=== PATIENT | male | born 1965 | race Hispanic/Latino ===

== ENCOUNTER 2019-10-11 07:01 | Inpatient (IN) | payer BC ==
[2019-10-10 10:33] LABS: BASOPHILS # (AUTO) 0.1 (0.0-0.1); BASOPHILS % 0.9 % (0.0-1.0); EOSINOPHILS # (AUTO) 0.2 (0.0-0.4); EOSINOPHILS % 1.9 % (0.0-6.0); HEMATOCRIT 32.1 % (38.2-49.6); HEMOGLOBIN 9.9 g/dL (14.0-18.0); LYMPHOCYTES # (AUTO) 1.5 (1.0-3.2); LYMPHOCYTES % 16.4 % (18.0-39.1); MEAN CORPUSCULAR HEMOGLOBIN 25.6 pg (28-32); MEAN CORPUSCULAR HGB CONC 30.8 g/dL (31-35); MEAN CORPUSCULAR VOLUME 82.9 fL (81-99); MONOCYTES # (AUTO) 0.9 (0.2-0.8); MONOCYTES % 9.8 % (4.4-11.3); NEUTROPHILS # (AUTO) 6.5 (2.1-6.9); NEUTROPHILS % 70.6 % (38.7-80.0); PLATELET COUNT 278 x10e3/uL (140-360); RED BLOOD COUNT 3.87 x10e6/uL (4.3-5.7); RED CELL DISTRIBUTION WIDTH 18.6 % (11.7-14.4)
[2019-10-10 10:50] LABS: ANION GAP 13.4 mmol/L (8-16); BLOOD UREA NITROGEN 16 mg/dL (7-26); BUN/CREATININE RATIO 19 (6-25); CALCIUM 9.7 mg/dL (8.4-10.2); CARBON DIOXIDE 28 mmol/L (22-29); CHLORIDE 102 mmol/L (98-107); CREATININE, SERUM 0.83 mg/dL (0.72-1.25); EST GLOMERULAR FILTRATION RATE > 60 ML/MIN (60-); GLUCOSE 104 mg/dL (74-118); POTASSIUM 4.4 mmol/L (3.5-5.1); SODIUM 139 mmol/L (136-145)
[~2019-10-11] VITALS: Ht 170.2 cm; Wt 81.2 kg
[~2019-10-11 07:01] MED LIST: AMLODIPINE BESYL5 MG PO; GABAPENTIN600 MG PO; LISINOPRIL HCTZ PO; METFORMIN HCL850 MG PO; ULTRAM 50MG50 MG PO
--- OUTSIDE RECORDS SUMMARY | 2019-10-11 07:07 | XMS REPORT | Summary of Care ---
Author Author [facility] - Health Organization [facility] - Health Address Unknown Phone Unavailable Care Team Providers Care Administrative Assistant Office Manager Name Role Phone Pcp, Patient Does Not Have A PCP Reason for Referral * (EMILIA) Referred By Contact Referred To Contact Status Reason Specialty Diagnoses / Procedures Radha Sloan MD [address] [place] [address] [address] [facility] [address] [facility] [address] [place] [address] Authorized IM-GASTROENTEROL Diagnoses OGY / Diarrhea, Gastroenterology unspecified type P rocedures CONSULT/REFERRAL GASTROENTEROLOGY Reason for Visit * Reason Comments Nausea Abdominal Pain Encounter Details Care Team Description Date Type Department Radha Sloan MD [address] [place] [address] Type 2 diabetes mellitus with diabetic polyneuropathy, without long-term current use of insulin (Primary Dx); Benign hypertension; Hyperlipidemia, unspecified hyperlipidemia type; Diarrhea, unspecified type; Dizziness 02/25/2019 Office Visit [facility] [address] [place] [address] Allergies No Known Allergiesdocumented as of this encounter (statuses as of 02/25/2019) Medications End Date Status Medication Sig Dispensed Refills Start Date Active pravastatin (PRAVACHOL) Take 1 Tab by 30 Tab 11 40 mg tabletIndications: mouth at 1 Diabetes mellitus bedtime. Active amLODIPine (NORVASC) 5 mg Take 1 Tab by 90 Tab 2 tabletIndications: mouth daily. 2 Diabetes mellitus type 2, uncontrolled Active Lancets (UNILET LANCET) 100 Each 2 Misc 2 Active lisinopril TAKE 1 TABLET 30 Tab 0 (PRINIVIL,ZESTRIL) 40 mg BY MOUTH 2 tablet EVERY DAY Active metFORMIN 1,000 mg tablet Take 1,000 mg 0 by mouth 2 (two) times daily with meals. Active gabapentin 400 mg capsule Take 400 mg 0 by mouth 2 (two) times daily. 02/25/2019 Discontinued insulin glargine (LANTUS) inject under 1 Vial 3 100 unit/mL the skin. 1 injectionIndications: Take 30 units Diabetes type 2, nightly uncontrolled 02/25/2019 Discontinued fexofenadine (JULIO) Take 1 Tab by 30 Tab 11 180 mg tablet mouth daily. 1 02/25/2019 Discontinued aspirin (ASPIR-LOW) 81 mg Take 81 mg by 0 EC tablet mouth daily. 02/25/2019 Discontinued insulin glargine (LANTUS) inject under 2 Vial 3 100 unit/mL injection the skin at 2 bedtime. 34 units daily 02/25/2019 Discontinued Insulin Sidney, 100 Each 3 Disposable, (BD INSULIN 2 PEN NEEDLE UF) 31 X 5/16 " Ndle 02/25/2019 Discontinued insulin aspart RAPID Inject 14 1 Vial 3 (NOVOLOG) 100 unit/mL units qac 2 injectionIndications: Diabetes type 2, uncontrolled 02/25/2019 Discontinued gabapentin 100 mg capsule Take 100 mg 0 by mouth 3 (three) times daily. documented as of this encounter (statuses as of 02/25/2019) Active Problems Not on filedocumented as of this encounter (statuses as of 02/25/2019) Immunizations Name Administration Dates Next Due Influenza Virus Vaccine 06/27/2011 documented as of this encounter Social History Date Tobacco Use Types Packs/Day Years Used Former Smoker Smokeless Tobacco: Never Used Drinks/Week oz/Week Comments Alcohol Use beer Not Currently Sex Assigned at Date Recorded Not on file Industry Job Start Date Occupation Not on file Not on file Not on file Travel End Travel History Travel Start No recent travel history available. documented as of this encounter Last Filed Vital Signs Reading Time Taken Comments Vital Sign 106/70 02/25/2019 1:49 PM CDT Blood Pressure 102 02/25/2019 1:55 PM CDT Pulse 36.4 C (97.6 F) 02/25/2019 1:49 PM CDT Temperature 18 02/25/2019 1:49 PM CDT Respiratory Rate - - Oxygen Saturation - - Inhaled Oxygen Concentration 75.7 kg (166 lb 14.4 oz) 02/25/2019 1:49 PM CDT Weight 170.2 cm (5' 7") 02/25/2019 1:49 PM CDT Height 26.14 02/25/2019 1:49 PM CDT Body Mass Index documented in this encounter Patient Instructions * Patient Instructions* Radha Sloan MD - 02/25/2019 2:00 PM CDT If you have not received your lab or test results in one week, please call our o ffice. If you have activated your [employer] account, the results can be released t o you as well. documented in this encounter Progress Notes * Radha Sloan MD - 02/25/2019 2:00 PM CDT chief complaint Lorenzo Nicole Jr. is a 53 year old male here to establish care and has nausea and dizziness. HPI Pt. Has diabetes and hypertension. He has not been feeling well for over a year. The past year, he has had lower ab dominal pain, with diarrhea, sometimes just water, sometimes bile material, some times blood in stool, sometimes solid. It is cramping pain, but constant ache as well. He has lost weight over the year. On 01/19/2019, patient was feeling very dizzy and nauseous. He went to [facility] and he had low blood glucose. Per patient it was in the 30s-no records from the ER at this visit. He was told he w as very anemic. They wanted to admit him but patient left. He still feels dizzy and nauseous with standing and walking. Sometimes nausea so bad, he vomits. He i s checking blood glucose and ranges from 60-130. He has been diabetic for many y ears. He is on metformin 1000 mg bid and another medication, he does not recall and have the list here though. He stopped the second medication after the hypogl ycemia episode. He states that he has been checking blood glucose daily and it i s 60-130. He has not had syncope or seizures. He has diabetic neuropathy for whi ch he is on gabapentin twice a day. He has been behind on yearly eye exams. He has noticed some dyspnea since this d izziness started. He has not been able to eat much with the nausea. Last prostate check:never colonoscopy:never last tetanus:unsure Past Medical History: Diagnosis Date Diabetes mellitus HLD (hyperlipidemia) HTN (hypertension) Current Outpatient Medications Medication Sig gabapentin 400 mg capsule Take 400 mg by mouth 2 (two) times daily. metFORMIN 1,000 mg tablet Take 1,000 mg by mouth 2 (two) times daily with me als. lisinopril (PRINIVIL,ZESTRIL) 40 mg tablet TAKE 1 TABLET BY MOUTH EVERY DAY amLODIPine (NORVASC) 5 mg tablet Take 1 Tab by mouth daily. Lancets (UNILET LANCET) Misc pravastatin (PRAVACHOL) 40 mg tablet Take 1 Tab by mouth at bedtime. one diabetes medication is not on here. History reviewed. No pertinent surgical history. Family History Problem Relation Age of Onset Diabetes Mother Coronary Heart Disease Father Social History Tobacco Use Smoking status: Former Smoker Smokeless tobacco: Never Used Substance Use Topics Alcohol use: Not Currently Comment: beer Drug use: No Review of Systems: General: denies fever, chills, HEENT: denies headache,blurry vision, ear pain, sinus/nasal congestion, sore throat CV: denies chest pain, hx of angina Respiratory:denies cough, hemoptysis, PND, orthopnea GI: denies constipation, melena : denies dysuria, urinary frequency, urinary urgency, Musculoskeletal: denies arthralgias, myalgias, back pain Psych: denies depression, anxiety, suicidial ideation Neuro: denies weakness, dizziness, and seizures Skin: denies rash, hair changes, acne, Pe: BP 106/70 (BP Location: Left arm, Patient Position: Sitting, BP CUFF SIZE: Adult Medium) | Pulse 102 | Temp 36.4 C (97.6 F) (Oral) | Resp 18 | Ht 5' 7" (1.702 m) | Wt 166 lb 14.4 oz (75.7 kg) | BMI 26.14 kg/m General: NAD, A&0 X3 HEENT: PERRLA, EOMI OP: no erythema, no tonsillar exudate, no lesions NECK: no jvd,wilman, bruit CV: RR, s1/s2, w/o m/r/g LUNGS: CTA bilaterally, no wheezes/rales/crackles ABD: soft, NT/ND, +bs in all 4 quadrants, no HSM EXT: no c/c/e Assessment and Plan: Type 2 diabetes mellitus with diabetic polyneuropathy, without long-term current use of insulin (primary encounter diagnosis) Comment: does not appear to be controlled. But had recent hypoglycemia. I need h is complete medication list to determine if he needs to be on the second diabete s medication or not. The hypoglycemia could be causing his symptoms but so could other factors: anemia Plan: COMP. METABOLIC PANEL (14959), GLYCOSYLATED HEMOGLOBIN (A1C), MICROALBUMIN URINE Benign hypertension Comment: controlled Plan: c/w meds Hyperlipidemia, unspecified hyperlipidemia type Comment: not taking pravastatin regularly. Plan: THYROID STIMULATING HORMONE, LIPID PANEL (45573)(TOTAL CHOLESTEROL, TRIGLYCERIDES, HDL) Diarrhea, unspecified type Comment: do not suspect metformin related. I am concerned about the reported ane [place] from the er and they wanted to admit him. I explained if the cbc today shows significant anemia. He needs to go to the er Plan: CONSULT/REFERRAL GASTROENTEROLOGY Dizziness Comment: likely hypoglycemia but more likely newly diagnosed anemia. Plan as abo ve Plan: CBC WITH DIFF, CBC WITH DIFFERENTIAL Plan of care, desired health behaviors, goals and medications discussed with valente taylor and educational resources and self-management tools provided. Patient/famil y/guardian voices understanding. Barriers to care: none Ability to manage care: good 25 of 45 minutes spent with pt. discussing plan of care with pt. and pt. voices understanding of plan of care as above Explained side effects of medicine and to inform if any side effects have occurr ed. Explained to pt. if sx worsen to return to clinic. If warning signs or sx develop, pt. told to go to er. F/u in 3 months or earlier if needed Radha Sloan MD 02/25/2019 4:48 PM documented in this encounter Plan of Treatment Care Team Description Date Type Specialty Kaiser Shirley MD [address] [place] [address]. [place] [phone] 03/03/2019 Office Visit Gastroenterology Gissell Anaya MD [address] [place] [phone] 05/05/2019 Office Visit Internal Medicine Radha Sloan MD [address] [place] [address] 05/27/2019 Office Visit Internal Medicine Date/Time Name Type Priority Associated Diagnoses 02/25/2019 2:45 PM CDT COMP. METABOLIC PANEL LAB Routine Type 2 diabetes mellitus (86826) with diabetic polyneuropathy, without long-term current use of insulin 02/25/2019 2:45 PM CDT CBC WITH DIFF LAB Routine Dizziness 02/25/2019 2:45 PM CDT THYROID STIMULATING LAB Routine Hyperlipidemia, HORMONE unspecified hyperlipidemia type 02/25/2019 2:45 PM CDT LIPID PANEL (66611)(TOTAL LAB Routine Hyperlipidemia, CHOLESTEROL, unspecified TRIGLYCERIDES, HDL) hyperlipidemia type 02/25/2019 2:45 PM CDT GLYCOSYLATED HEMOGLOBIN LAB Routine Type 2 diabetes mellitus (A1C) with diabetic polyneuropathy, without long-term current use of insulin 02/25/2019 2:49 PM CDT MICROALBUMIN URINE LAB Routine Type 2 diabetes mellitus with diabetic polyneuropathy, without long-term current use of insulin 02/25/2019 2:45 PM CDT CBC WITH DIFFERENTIAL LAB Routine Dizziness Health Maintenance Due Date Last Done Comments HEPATITIS C (HCV) SCREEN 1965 DTaP,Tdap,and Td Vaccines 11/06/1982 (1 - Tdap) COLONOSCOPY 11/06/2013 Zoster Recombinant 11/06/2013 Vaccine (SHINGRIX) (1 of 2) LUNG CANCER SCREEN: 11/06/2018 Recommended for age 55-80 with 30 + pack year history INFLUENZA VACCINE 03/20/2019 06/27/2011 PNEUMOCOCCAL 0-64 YEARS Aged Out No longer eligible based COMBINED SERIES on patient's age to complete this topic documented as of this encounter Results Not on filedocumented in this encounter Visit Diagnoses Diagnosis Type 2 diabetes mellitus with diabetic polyneuropathy, without long-term current use of insulin - Primary Benign hypertension Essential hypertension, benign Hyperlipidemia, unspecified hyperlipidemia type Diarrhea, unspecified type Dizziness Dizziness and giddiness documented in this encounter Insurance Type Payer Benefit Subscriber ID Effective Phone Address Plan / Dates Group PPO/POS BCBS OF [facility] BCBS OF [id number] 2019-P EMPLOYEE [facility] [employer] [place] ([place] [address] documented as of this encounter
--- OUTSIDE RECORDS SUMMARY | 2019-10-11 07:07 | XMS REPORT | Summary of Care ---
Author Author [facility] - Health Organization [facility] - Health Address Unknown Phone Unavailable Care Team Providers Care Surgical Assistant Certified Name Role Phone Pcp, Patient Does Not Have A PCP Reason for Visit * Reason Comments Notification Encounter Details Care Team Description Date Type Department Radha Sloan MD [address] [place] [address] Notification 02/25/2019 Telephone [facility] [phone] Allergies No Known Allergiesdocumented as of this encounter (statuses as of 02/28/2019) Medications End Date Status Medication Sig Dispensed [...] 0 by mouth 2 (two) times daily. Active glimepiride 4 mg tablet Take 1 tablet 0 by mouth 9 daily with breakfast. documented as of this encounter (statuses as of 02/28/2019) Active Problems Not on filedocumented as of this encounter (statuses as of 02/28/2019) Immunizations Name Administration Dates Next Due Influenza [...] of this encounter Last Filed Vital Signs Not on filedocumented in this encounter Plan of Treatment Care Team Description Date Type Specialty Kaiser Shirley MD [address] [place] [address]. [place] [address] 03/03/2019 Office Visit Gastroenterology Gissell Anaya MD [address] [place] [phone] 05/05/2019 Office Visit Internal Medicine Radha Sloan MD [address] [place] [address] 05/27/2019 Office Visit Internal Medicine Health Maintenance Due Date Last Done Comments HEPATITIS C (HCV) SCREEN 1965 PNEUMOCOCCAL 0-64 YEARS 11/06/1969 COMBINED SERIES (1 of 1 - PPSV23) EYE EXAM 11/06/1973 FOOT EXAM 11/06/1981 DTaP,Tdap,and Td Vaccines 11/06/1982 (1 - Tdap) COLONOSCOPY 11/06/2013 Zoster Recombinant 11/06/2013 Vaccine (SHINGRIX) (1 of 2) LUNG CANCER SCREEN: 11/06/2018 Recommended for age 55-80 with 30 + pack year history INFLUENZA VACCINE 03/20/2019 06/27/2011 HgA1C 08/28/2019 02/25/2019, 10/15/2011 CREATININE (SERUM) 02/26/2020 02/25/2019, 07/25/2011 LDL-C 02/26/2020 02/25/2019 URINE MICROALBUMIN 02/26/2020 02/25/2019 documented as of this encounter Results Not on filedocumented in this encounter Insurance Type Payer Benefit Subscriber ID Effective Phone Address Plan / Dates Group PPO/POS [facility] BCBS OF [id number] 2019-P EMPLOYEE [facility] [employer] [facility] [employer]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
--- OUTSIDE RECORDS SUMMARY | 2019-10-11 07:07 | XMS REPORT | Summary of Care ---
Author Author [facility] - Health Organization [facility] - Health Address Unknown Phone Unavailable Care Team Providers Care It Operations Manager Name Role Phone Pcp, Patient Does Not Have A PCP Reason for Visit * Reason Comments Notification Encounter Details Care Team Description Date Type Department Radha Sloan MD [address] [place] [address] Notification 02/25/2019 Telephone [facility] [phone] Allergies No Known Allergiesdocumented as [...] Description Date Type Specialty Kaiser Shirley MD [address] [place] [address]. [place] [phone] 03/03/2019 Office Visit Gastroenterology Gissell Anaya MD [address] [place] [phone] 05/05/2019 Office Visit Internal Medicine Radha Sloan MD [address] [place] [address] 05/27/2019 Office Visit Internal Medicine Health Maintenance Due Date Last Done Comments HEPATITIS C (HCV) SCREEN 1965 PNEUMOCOCCAL 0-64 YEARS 11/06/1969 COMBINED SERIES (1 of 1 - PPSV23) EYE EXAM 11/06/1973 LDL-C 11/06/1973 URINE MICROALBUMIN 11/06/1973 FOOT EXAM 11/06/1981 DTaP,Tdap,and Td Vaccines 11/06/1982 (1 - Tdap) HgA1C 04/16/2012 10/15/2011 CREATININE (SERUM) 07/25/2012 07/25/2011 COLONOSCOPY 11/06/2013 Zoster Recombinant 11/06/2013 Vaccine (SHINGRIX) (1 of 2) LUNG CANCER SCREEN: 11/06/2018 Recommended for age 55-80 with 30 + pack year history INFLUENZA VACCINE 03/20/2019 06/27/2011 documented as of this encounter Results Not on filedocumented in this encounter Insurance Type Payer Benefit Subscriber ID Effective Phone Address Plan / Dates Group PPO/POS [facility] OF [id number] 2019-P 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
--- OUTSIDE RECORDS SUMMARY | 2019-10-11 07:07 | XMS REPORT | Summary of Care ---
Author Author [facility] - Health Organization [facility] - Health Address Unknown Phone Unavailable Care Team Providers Care Supervisor Assembly And Packing Name Role Phone Pcp, Patient Does Not Have A PCP Reason for Visit * Reason Comments Notification Encounter Details Care Team Description Date Type Department Radha Sloan MD [address] [place] [address] Notification 02/25/2019 Telephone [facility] Care[address] [phone] Allergies No Known Allergiesdocumented as [...] Description Date Type Specialty Kaiser Shirley MD [address] [place] [address]. [place] [phone] 03/03/2019 Office Visit Gastroenterology Gissell Anaya MD [address] [place] [phone] 05/05/2019 Office Visit Internal Medicine Radha Sloan MD [address] [place] [address] 05/27/2019 Office Visit Internal Medicine Health [...] Phone Address Plan / Dates Group PPO/POS [facility] OF [id number] 2019-P EMPLOY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
--- OUTSIDE RECORDS SUMMARY | 2019-10-11 07:07 | XMS REPORT | Summary of Care ---
Author Author [facility] - Health Organization [facility] - Health Address Unknown Phone Unavailable Care Team Providers Care Telesales Professional Name Role Phone Pcp, Patient Does Not Have A PCP Reason for Referral * (EMILIA) Referred By Contact Referred To Contact Status Reason Specialty Diagnoses / Procedures Radha Sloan MD [address] [place] [address] [facility] [address] [facility] [address] [place] [address] Authorized IM-GASTROENTEROL Diagnoses OGY / Diarrhea, Gastroenterology unspecified type P rocedures CONSULT/REFERRAL GASTROENTEROLOGY Reason for Visit * Reason Comments Nausea Abdominal Pain Encounter Details Care Team Description Date Type Department Radha Sloan MD [address] [place] [address] Type 2 diabetes mellitus with diabetic polyneuropathy, without long-term current use of insulin (Primary Dx); Benign hypertension; Hyperlipidemia, unspecified hyperlipidemia type; Diarrhea, unspecified type; Dizziness 02/25/2019 Office Visit [facility] [address] [place] [address] Allergies No Known Allergiesdocumented as [...] bedtime. 34 units daily 02/25/2019 Discontinued Insulin Buckley, 100 Each 3 Disposable, (BD INSULIN 2 [...] o ffice. If you have activated your [employer] account, the results can be released t [...] very dizzy and nauseous. He went to [facility] and he had low blood glucose. [...] other factors: anemia Plan: COMP. METABOLIC PANEL (74098), GLYCOSYLATED HEMOGLOBIN (A1C), MICROALBUMIN URINE Benign hypertension Comment: controlled Plan: c/w meds Hyperlipidemia, unspecified hyperlipidemia type Comment: not taking pravastatin regularly. Plan: THYROID STIMULATING HORMONE, LIPID PANEL (87817)(TOTAL CHOLESTEROL, TRIGLYCERIDES, HDL) Diarrhea, unspecified type Comment: [...] Description Date Type Specialty Kaiser Shirley MD [address] [place] [address]. [place] [phone] 03/03/2019 Office Visit Gastroenterology Gissell Anaya MD [address] [place] [phone] 05/05/2019 Office Visit Internal Medicine Radha Sloan MD [address] [place] [address] 05/27/2019 Office Visit Internal Medicine Date/Time Name Type Priority Associated Diagnoses 02/25/2019 2:45 PM CDT COMP. METABOLIC PANEL LAB Routine Type 2 diabetes mellitus (00504) with diabetic polyneuropathy, without long-term current use of insulin 02/25/2019 2:45 PM CDT CBC WITH DIFF LAB Routine Dizziness 02/25/2019 2:45 PM CDT THYROID STIMULATING LAB Routine Hyperlipidemia, HORMONE unspecified hyperlipidemia type 02/25/2019 2:45 PM CDT LIPID PANEL (84103)(TOTAL LAB Routine Hyperlipidemia, CHOLESTEROL, unspecified TRIGLYCERIDES, HDL) [...] Plan / Dates Group PPO/POS BCBS OF [facility] BCBS OF [id number] 2019-P EMPLOYEE [facility] EM[place]EE [place] ([place] [address] documented as of this encounter
--- OUTSIDE RECORDS SUMMARY | 2019-10-11 07:07 | XMS REPORT | Summary of Care ---
Author Author [facility] - Health Organization [facility] - Health Address Unknown Phone Unavailable Care Team Providers Care Inventory Specialist Manager Name Role Phone Pcp, Patient Does Not Have A PCP Reason for Visit * Reason Comments Notification Encounter Details Care Team Description Date Type Department Radha Sloan MD [address] [place] [address] Notification 02/25/2019 Telephone [facility] Care[address] [phone] Allergies No Known Allergiesdocumented as [...] Description Date Type Specialty Kaiser Shirley MD [address] [place] [address]. [place] [phone] 03/03/2019 Office Visit Gastroenterology Gissell Anaya MD [address] [place] [phone] 05/05/2019 Office Visit Internal Medicine Radha Sloan MD [address] [place] [address] 05/27/2019 Office Visit Internal Medicine Health [...] Plan / Dates Group PPO/POS BCBS OF [facility] BCBS OF [id number] 2019-P EMPLOYEE [employer]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
--- OUTSIDE RECORDS SUMMARY | 2019-10-11 07:07 | XMS REPORT | Summary of Care ---
Author Author [facility] - Health Organization [facility] - Health Address Unknown Phone Unavailable Care Team Providers Care Machinist Automotive Name Role Phone Pcp, Patient Does Not Have A PCP Reason for Visit * Reason Comments Assessment Encounter Details Care Team Description Date Type Department Radha Sloan MD [address] [place] [address] Assessment 02/25/2019 Telephone [facility] Care[address] [phone] Allergies No Known Allergiesdocumented as [...] Description Date Type Specialty Kaiser Shirley MD [address] [place] [address]. [place] [address] 03/03/2019 Office Visit Gastroenterology Gissell Anaya MD [address] [place] [phone] 05/05/2019 Office Visit Internal Medicine Radha Sloan MD [address] [place] [address] 05/27/2019 Office Visit Internal Medicine Health [...] Plan / Dates Group PPO/POS BCBS OF [facility] BCBS OF [id number] 2019-P EMPLOYEE [employer]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
--- OUTSIDE RECORDS SUMMARY | 2019-10-11 07:08 | XMS REPORT | Summary of Care ---
Author Author [facility] - Health Organization [facility] - Health Address Unknown Phone Unavailable Care Team Providers Care Wrapper Sheeter Name Role Phone Pcp, Patient Does Not Have A PCP Reason for Visit * Reason Comments Diarrhea * (EMILIA) Referred By Contact Referred To Contact Status Reason Specialty Diagnoses / Procedures Radha Sloan MD [address] [place] [address] [facility] Gastroenter [address] [place] [address] Closed IM-GASTROENTEROL Diagnoses OGY / Diarrhea, Gastroenterology unspecified type P rocedures CONSULT/REFERRAL GASTROENTEROLOGY Encounter Details Care Team Description Date Type Department Maverick Lewis DO [address] [place] [address] [id number] [place], [place] [id number] Kaiser Shirley MD [address] [place] [phone] Iron deficiency anemia, unspecified iron deficiency anemia type (Primary Dx) 03/03/2019 Office Visit [facility] HEALTH GASTROENTEROLOGY -[facility] [address] [place] [address] [address] [place] [phone] Allergies No Known Allergiesdocumented as of this encounter (statuses as of 03/03/2019) Medications End Date Status Medication Sig Dispensed Refills Start Date Active amLODIPine (NORVASC) 5 mg Take 1 [...] 2 (two) times daily with meals. Active pravastatin 40 mg Take 1 tablet 90 tablet 1 tabletIndications: by mouth at 9 Diabetes mellitus bedtime. Active gabapentin 400 mg Take 1 60 capsule 3 capsuleIndications: Type capsule by 9 2 diabetes mellitus with mouth 2 (two) diabetic polyneuropathy, times daily. without long-term current use of insulin documented as of this encounter (statuses as of 03/03/2019) Active Problems Not on filedocumented as of this encounter (statuses as of 03/03/2019) Immunizations Name Administration Dates Next Due Influenza [...] Signs Reading Time Taken Comments Vital Sign 120/84 03/03/2019 3:39 PM CDT Blood Pressure 101 03/03/2019 3:39 PM CDT Pulse 36.6 C (97.9 F) 03/03/2019 3:39 PM CDT Temperature 16 03/03/2019 3:39 PM CDT Respiratory Rate 100% 03/03/2019 3:39 PM CDT Oxygen Saturation - - Inhaled Oxygen Concentration 78 kg (172 lb) 03/03/2019 3:39 PM CDT Weight 170.2 cm (5' 7") 03/03/2019 3:39 PM CDT Height 26.94 03/03/2019 3:39 PM CDT Body Mass Index documented in this encounter Progress Notes * Kaiser Shirley MD - 03/03/2019 4:00 PM CDT Department of Gastroenterology & Hepatology Clinic Note Reason for Consultation: Diarrhea CHIEF COMPLAINT: Diarrhea, light-headedness History of Present Illness Lorenzo Nicole Jr. is a 53 year old male with a PMH of HTN, HLD, DM II (A 1c 6.5 in 02/2019) who presents as referral from PCP for diarrhea. Patient c/o di arrhea x1 year, associated with bloody stools, has ~6-8 bowel movements daily, a lternate between large and small volume. 20 lb weight loss over the past 1 year. Also c/o nausea and vomiting, (+) orthostasis, blood pressure falls to 60's sys tolic per patient when going from laying to standing, has not experienced any fa lls; however, had several episodes where he almost fell. CBC last week with WBC of 22. No previous EGD or Colonoscopy. Also c/o LLQ abdominal pain present for t he past several months. PAST MEDICAL HISTORY Past Medical History: Diagnosis Date Diabetes mellitus HLD (hyperlipidemia) HTN (hypertension) PAST SURGICAL HISTORY No previous surgeries FAMILY HISTORY Family History Problem Relation Age of Onset Diabetes Mother Coronary Heart Disease Father ALLERGIES No Known Allergies MEDICATIONS Current Outpatient Medications Medication Sig Dispense Refill gabapentin 400 mg capsule Take 1 capsule by mouth 2 (two) times daily. 60 ca psule 3 pravastatin 40 mg tablet Take 1 tablet by mouth at bedtime. 90 tablet 1 metFORMIN 1,000 mg tablet Take 1,000 mg by mouth 2 (two) times daily with me als. lisinopril (PRINIVIL,ZESTRIL) 40 mg tablet TAKE 1 TABLET BY MOUTH EVERY DAY 30 Tab 0 amLODIPine (NORVASC) 5 mg tablet Take 1 Tab by mouth daily. 90 Tab 2 Lancets (UNILET LANCET) Misc 100 Each 2 No current facility-administered medications for this visit. 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 Social Needs Financial resource strain: Not on file Food insecurity: Worry: Not on file Inability: Not on file Transportation needs: Medical: Not on file Non-medical: Not on file Tobacco Use Smoking status: Former Smoker Smokeless tobacco: Never Used Substance and Sexual Activity Alcohol use: Not Currently Comment: beer Drug use: No Sexual activity: Yes Partners: Female Lifestyle Physical activity: Days per week: Not on file Minutes per session: Not on file Stress: Not on file Relationships Social connections: Talks on phone: Not on file Gets together: Not on file Attends voodoo service: Not on file Active member of club or organization: Not on file Attends meetings of clubs or organizations: Not on file Relationship status: Not on file Intimate partner violence: Fear of current or ex partner: Not on file Emotionally abused: Not on file Physically abused: Not on file Forced sexual activity: Not on file Other Topics Concern Not on file Social History Narrative Not on file ROS: General: (-) fever, (-) chills, (+) weight loss HEENT: (-) headache, (-) nasal discharge, (-) sore throat Heme: (-) bleeding disorder Resp: (-) cough, (-) shortness of breath Cardio: (-) chest pain, (-) palpitations GI: (+) abdominal pain, (-) hematemesis, (-) melena, (-) hematochezia, (+) nause a, (+) vomiting, (+) diarrhea : (-) dysuria, (-) hematuria Endo: (-) polyuria (-) polydipsia Neuro: (-) numbness, (-) tingling SARAH: (-) muscle pain, (-) joint pain PE: BP 120/84 | Pulse 101 | Temp 36.6 C (97.9 F) (Oral) | Resp 16 | Ht 5' 7" (1.702 m) | Wt 172 lb (78 kg) | SpO2 100% | BMI 26.94 kg/m General appearance: No acute distress, conversant Eyes: anicteric sclerae, moist conjunctivae Lungs: CTAB, with normal respiratory effort and no intercostal retractions CV: Tachycardic rate, regular rhythm, no murmurs, rubs, gallops; no edema GI: Soft, non-tender; no masses, non-distended MSK: No clubbing or cyanosis Skin: anicteric, no rashes Psych: Appropriate affect, alert and oriented to person, place and time LABORATORY HGB (g/dL) Date Value 02/25/2019 8.5 (L) PLT (10*3/L) Date Value 02/25/2019 751 (H) Hepatic Function Panel ALBUMIN Date Value 02/25/2019 3.3 g/dL (L) 07/25/2011 4.6 G/DL T PROTEIN Date Value 02/25/2019 6.7 g/dL 07/25/2011 8.9 G/DL (H) TOTAL BILI Date Value 02/25/2019 0.3 mg/dL 07/25/2011 0.9 MG/DL No results found for: BILIUNCON No results found for: BILICONJ ALT(SGPT) (U/L) Date Value 02/25/2019 16 07/25/2011 266 (H) AST(SGOT) (U/L) Date Value 02/25/2019 20 07/25/2011 219 (H) ALK PHOS (U/L) Date Value 02/25/2019 103 07/25/2011 160 (H) BMP NA Date Value 02/25/2019 133 mmol/L (L) 07/25/2011 136 MMOL/L K Date Value 02/25/2019 4.5 mmol/L 07/25/2011 4.4 MMOL/L CALCIUM Date Value 02/25/2019 9.3 mg/dL 07/25/2011 9.8 MG/DL CL Date Value 02/25/2019 99 mmol/L 07/25/2011 98 MMOL/L BUN Date Value 02/25/2019 21 mg/dL 07/25/2011 9 MG/DL CREATININE Date Value 02/25/2019 1.26 mg/dL (H) 07/25/2011 0.57 MG/DL (L) GLUCOSE Date Value 02/25/2019 107 mg/dL 07/25/2011 299 MG/DL (H) CO2 TOTAL Date Value 02/25/2019 20 mmol/L (L) 07/25/2011 24 MMOL/L ASSESSMENT and PLAN 53 year old male with a PMH of HTN, HLD, DM II (A1c 6.5 in 02/2019) who presents as referral from PCP for diarrhea. Found to have a microcytic anemia, o rthostatic symptoms. 1. Microcytic Anemia - Likely due to iron deficiency, concern is for malignancy currently - Given symptoms of orthostasis with systolic blood pressures in the 60's with s tanding at home, will admit patient for IV fluid resuscitation +/- blood transfu yen - Check Iron panel (ferritin, TIBC, iron, transferrin) - Check CBC, transfuse to maintain Hgb > 7 - Administer split dose Golytely bowel prep tonight (2L tonight and 2L tomorrow AM) - EGD and Colonoscopy tomorrow 2. Diarrhea - Need to rule out malignancy as to etiology of change in bowel habits - Please collect stool studies (C. Diff, O&P, culture, WBC) Discussed case with Dr. Jeong, who agreed to accept the patient Kaiser Shirley, PGY-6 Gastroenterology & Hepatology Pager: [phone] documented in this encounter Plan of Treatment Care Team Description Date Type [facility]ty [facility] [address] [place] [phone] 05/27/2019 Office Visit Internal Medicine Health [...] 30 + pack year history INFLUENZA VACCINE (#1) 2019 06/27/2011 HgA1C 08/28/2019 02/25/2019, 10/15/2011 CREATININE (SERUM) 02/26/2020 02/25/2019, 07/25/2011 LDL-C 02/26/2020 02/25/2019 URINE MICROALBUMIN 02/26/2020 02/25/2019 documented as of this encounter Results Not on filedocumented in this encounter Visit Diagnoses Diagnosis Iron deficiency anemia, unspecified iron deficiency anemia type - Primary documented in this encounter Insurance Type Payer Benefit Subscriber ID Effective Phone Address Plan / Dates Group PPO/POS BCBS OF [facility] BCBS OF [id number] 2019-P EMPLOYEE [place] resent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
--- OUTSIDE RECORDS SUMMARY | 2019-10-11 07:08 | XMS REPORT | Summary of Care ---
Author Author [facility] - Health Organization [facility] - Health Address Unknown Phone Unavailable Care Team Providers Care Top Knitter Name Role Phone Pcp, Patient Does Not Have A PCP Reason for Visit * Reason Comments Assessment Encounter Details Care Team Description Date Type Department Radha Sloan MD [address] [place] [address] Assessment 02/25/2019 Telephone [facility] [phone] Allergies No Known Allergiesdocumented as [...] Treatment Care Team Description Date Type Specialty aKiser Shirley MD [address] [place] [address]. [place] [phone] 03/03/2019 Office Visit Gastroenterology Gissell Anaya MD [address] [place] [phone] 05/05/2019 Office Visit Internal Medicine Radha Sloan MD [address] [place] [address] 05/27/2019 Office Visit Internal Medicine Health [...] Plan / Dates Group PPO/POS BCBS OF [facility] BCBS OF [id number] 2019-P EMPLOYEE [facility] [employer]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
--- OUTSIDE RECORDS SUMMARY | 2019-10-11 07:08 | XMS REPORT | Summary of Care ---
Author Author [facility] [[email or web address] - Health Organization [facility] [[email or web address] - Health Address Unknown Phone Unavailable Care Team Providers Care Chemical Instrumentation Officer Name Role Phone Pcp, Patient Does Not Have A PCP Reason for Visit * Reason Comments Diarrhea * (EMILIA) Referred By Contact Referred To Contact Status Reason Specialty Diagnoses / Procedures Radha Sloan MD [address] [place] [address] [facility] Gastroenter [address] [place] [address] Closed IM-GASTROENTEROL Diagnoses OGY / Diarrhea, Gastroenterology unspecified type P rocedures CONSULT/REFERRAL GASTROENTEROLOGY Encounter Details Care Team Description Date Type Department Maverick Lewis DO [address] [place] [address] [id number] [place], [place] [phone] Kaiser Shirley MD [address] [place] [phone] Iron deficiency anemia, unspecified iron deficiency anemia type (Primary Dx) 03/03/2019 Office Visit [facility] [[email or web address]] HEALTH GASTROENTEROLOGY -[facility] [address] [place] [address] [address] [place] [phone] Allergies No Known Allergiesdocumented as of this [...] level: Not on file 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 History 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 Social Needs Financial resource strain: Not on [...] file Gets together: Not on file Attends [employer] service: Not on file Active member of [...] Kaiser Shirley, PGY-6 Gastroenterology & Hepatology Pager: [phone] documented in this encounter Plan of Treatment Care Team Description Date [facility] [address] [place] [phone] 05/27/2019 Office Visit Internal Medicine Health [...] Plan / Dates Group PPO/POS BCBS OF [facility] BCBS OF [id number] 2019-P EMPLOYEE [place] resent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
--- OUTSIDE RECORDS SUMMARY | 2019-10-11 07:08 | XMS REPORT | Summary of Care ---
Author Author [facility] - Health Organization [facility] - Health Address Unknown Phone Unavailable Care Team Providers Care Information Security Systems Instructor Name Role Phone Pcp, Patient Does Not Have A PCP Reason for Referral * (EMILIA) Referred By Contact Referred To Contact Status Reason Specialty Diagnoses / Procedures Radha Sloan MD [address] [place] [address] [facility] [address] [facility] [address] [place] [address] Authorized IM-GASTROENTEROL Diagnoses OGY / Diarrhea, Gastroenterology unspecified type P rocedures CONSULT/REFERRAL GASTROENTEROLOGY Reason for Visit * Reason Comments Nausea Abdominal Pain Encounter Details Care Team Description Date Type Department Radha Sloan MD [address] [place] [phone] Type 2 diabetes mellitus with diabetic polyneuropathy, without long-term current use of insulin (Primary Dx); Benign hypertension; Hyperlipidemia, unspecified hyperlipidemia type; Diarrhea, unspecified type; Dizziness 02/25/2019 Office Visit [facility] [address] [place] [address] Allergies No Known Allergiesdocumented as of this encounter (statuses as of 03/01/2019) Medications End Date Status Medication Sig Dispensed [...] 30 units Diabetes type 2, nightly uncontrolled 03/01/2019 Discontinued pravastatin (PRAVACHOL) Take 1 Tab by 30 Tab 11 40 mg tabletIndications: mouth at 1 Diabetes mellitus bedtime. 02/25/2019 Discontinued fexofenadine (JULIO) Take 1 Tab by 30 Tab 11 180 mg tablet mouth daily. 1 02/25/2019 Discontinued aspirin (ASPIR-LOW) 81 mg Take 81 mg by 0 EC tablet mouth daily. 02/25/2019 Discontinued insulin glargine (LANTUS) inject under 2 Vial 3 100 unit/mL injection the skin at 2 bedtime. 34 units daily 02/25/2019 Discontinued Insulin Bernard, 100 Each 3 Disposable, (BD INSULIN 2 PEN NEEDLE UF) 31 X 5/16 " Ndle 02/25/2019 Discontinued insulin aspart RAPID Inject 14 1 Vial 3 (NOVOLOG) 100 unit/mL units qac 2 injectionIndications: Diabetes type 2, uncontrolled 02/25/2019 Discontinued gabapentin 100 mg capsule Take 100 mg 0 by mouth 3 (three) times daily. documented as of this encounter (statuses as of 03/01/2019) Active Problems Not on filedocumented as of this encounter (statuses as of 03/01/2019) Immunizations Name Administration Dates Next Due Influenza [...] o ffice. If you have activated your [employer] account, the results can be released t [...] very dizzy and nauseous. He went to [place] [facility] and he had low blood glucose. [...] other factors: anemia Plan: COMP. METABOLIC PANEL (36623), GLYCOSYLATED HEMOGLOBIN (A1C), MICROALBUMIN URINE Benign hypertension Comment: controlled Plan: c/w meds Hyperlipidemia, unspecified hyperlipidemia type Comment: not taking pravastatin regularly. Plan: THYROID STIMULATING HORMONE, LIPID PANEL (78650)(TOTAL CHOLESTEROL, TRIGLYCERIDES, HDL) Diarrhea, unspecified type Comment: [...] Treatment Care Team Description Date Type Specialty Radha Sloan MD [address], [place] [address] 03/03/2019 Office Visit Internal Medicine Kaiser Shirley MD [address] [place] [phone] 03/03/2019 Office Visit Gastroenterology Radha Sloan MD [address], [place] [phone] 05/27/2019 Office Visit Internal Medicine Health Maintenance [...] 02/26/2020 02/25/2019 documented as of this encounter Procedures Comments Procedure Name Priority Date/Time Associated Diagnosis MICROALBUMIN URINE Routine 02/25/2019 Type 2 diabetes mellitus 2:49 PM CDT with diabetic polyneuropathy, without long-term current use of insulin CBC WITH DIFFERENTIAL Routine 02/25/2019 Dizziness 2:45 PM CDT GLYCOSYLATED HEMOGLOBIN Routine 02/25/2019 Type 2 diabetes mellitus (A1C) 2:45 PM CDT with diabetic polyneuropathy, without long-term current use of insulin CBC WITH DIFF Routine 02/25/2019 Dizziness 2:45 PM CDT LIPID PANEL (74891)(TOTAL Routine 02/25/2019 Hyperlipidemia, CHOLESTEROL, 2:45 PM CDT unspecified TRIGLYCERIDES, HDL) hyperlipidemia type COMP. METABOLIC PANEL Routine 02/25/2019 Type 2 diabetes mellitus (83019) 2:45 PM CDT with diabetic polyneuropathy, without long-term current use of insulin THYROID STIMULATING Routine 02/25/2019 Hyperlipidemia, HORMONE 2:45 PM CDT unspecified hyperlipidemia type documented in this encounter Results * MICROALBUMIN URINE (02/25/2019 2:49 PM CDT) CREAT U 121.3 mg/dL [facility] MICROALB U 14 0 - 45 ug/mL [facility] MICROAL/CR 1,304 0-3,500 ug/mmol [facility] creatinine SERVICES Specimen Urine - URINE, CLEAN CATCH Performing Organization Address City/State/Zipcode Phone Number [facility] CLIA: [id number], [address] [place] [address] [facility] * CBC WITH DIFFERENTIAL (02/25/2019 2:45 PM CDT) WBC 21.73 (H) 4.20 - 10.70 [facility] 10*3/L SERVICES RBC 4.81 4.26 - 5.52 10*6/L [facility] HGB 8.5 (L) 12.2 - 16.4 g/dL [facility] HCT 32.2 (L) 38.4 - 49.3 % [facility] MCV 66.9 (L) 81.7 - 95.6 fL [facility] MCH 17.7 (L) 26.1 - 32.7 pg [facility] MCHC 26.4 (L) 31.2 - 35.0 g/dL [facility] RDW-SD 47.8 38.5 - 51.6 fL [facility] RDW-CV 20.6 (H) 12.1 - 15.4 % [facility] PLT 751 (H) 150 - 328 10*3/L [facility] MPV 10.0 9.8 - 13.0 fL [facility] NRBC/100 WBC 0.0 0.0 - 10.0 /100 WBCs [facility] NRBC x10^3 <0.01 10*3/L [facility] GRAN MAT (NEUT) 80.7 % [facility] % SERVICES IMM GRAN % 1.10 % [facility] LYMPH % 11.9 % [facility] MONO % 5.8 % [facility] EOS % 0.0 % [facility] BASO % 0.5 % [facility] GRAN MAT 17.53 (H) 1.99 - 6.95 10*3/uL [facility] x10^3(ANC) SERVICES IMM GRAN x10^3 0.24 (H) 0.00 - 0.06 10*3/uL [facility] LYMPH x10^3 2.58 1.09 - 3.23 10*3/uL [facility] MONO x10^3 1.27 (H) 0.36 - 1.02 10*3/uL [facility] EOS x10^3 <0.03 (L) 0.06 - 0.53 10*3/uL [facility] BASO x10^3 0.11 (H) 0.01 - 0.09 10*3/uL [facility] BELTRAN CELLS 2+ (A) (none) [facility] SCHISTOCYTES 1+ (A) [facility] Specimen Blood - ARM, RIGHT Performing Organization Address City/[facility]/Zipcode Phone Number [facility] CLIA: [id number], [address] [place], [place] [address] [facility] * GLYCOSYLATED HEMOGLOBIN (A1C) (02/25/2019 2:45 PM CDT) HGB A1C 6.5 (H) 4.0 - 6.0 % [facility] Specimen Blood - ARM, RIGHT Performing Organization Address City/State/Zipcode Phone Number [facility] CLIA: [id number], [address] [place] [address] [facility] * LIPID PANEL (66306)(TOTAL CHOLESTEROL, TRIGLYCERIDES, HDL) (02/25/2019 2:45 PM CDT) CHOL 212 (H) 120 - 200 mg/dL [facility] HDL 40 (L) >40 mg/dL [facility] HDLC RATIO 5.3 (H) <=5.0 [facility] TRIG 195 (H) 30 - 170 mg/dL [facility] LDL CHOL 133 <=160 mg/dL [facility] VLDL 39 5 - 60 mg/dL [facility] Specimen Blood - ARM, RIGHT Performing Organization Address City/[facility] Phone Number [facility] CLIA: [id number], [address] [place] [address] [facility] * THYROID STIMULATING HORMONE (02/25/2019 2:45 PM CDT) TSH 2.99 0.45 - 4.70 mIU/L [facility] Specimen Blood - ARM, RIGHT Performing Organization Address [facility] Phone Number [facility] CLIA: [id number], [address] [place] [address] [facility] * COMP. METABOLIC PANEL (65108) (02/25/2019 2:45 PM CDT) NA 133 (L) 135 - 145 mmol/L [facility] K 4.5 3.5 - 5.0 mmol/L [facility] CL 99 98 - 108 mmol/L [facility] CO2 TOTAL 20 (L) 23 - 31 mmol/L [facility] AGAP 14 2 - 16 [facility] BUN 21 7 - 23 mg/dL [facility] GLUCOSE 107 70 - 110 mg/dL [facility] CREATININE 1.26 (H) 0.60 - 1.25 mg/dL [facility] TOTAL BILI 0.3 0.1 - 1.1 mg/dL [facility] CALCIUM 9.3 8.6 - 10.6 mg/dL [facility] T PROTEIN 6.7 6.3 - 8.2 g/dL [facility] ALBUMIN 3.3 (L) 3.5 - 5.0 g/dL [facility] ALK PHOS 103 34 - 122 U/L [facility] ALT(SGPT) 16 9 - 51 U/L [facility] AST(SGOT) 20 13 - 40 U/L [facility] eGFR 59.4 mL/min/1.73m2 [facility] Calculation SERVICES (Non-) eGFR 72.0 mL/min/1.73m2 [facility] Calculation SERVICES () Specimen Blood - ARM, RIGHT Narrative Performed At Association of Glomerular Filtration Rate (GFR) and Staging of Kidney Disease* [facility] + + + + SERVICES | GFR (mL/min/1.73 m2)| With Kidney Damage|Without Kidney Damage + + + + |>90|Stage one| Normal + + + + |60-89|Stage two| Decreased GFR + + + + |30-59|Stage three| Stage three + + + + |15-29|Stage four | Stage four + + + + |<15 (or dialysis)|Stage five | Stage five + + + + *Each stage assumes the associated GFR level has been in effect for at least three months.Stages 1 to 5, with or without kidney disease, indicate chronic kidney disease. Notes: Determination of stages one and two (with eGFR >59mL/min/1.73 m2) requires estimation of kidney damage for at least three months as defined by structural or functional abnormalities of the kidney, manifested by either: Pathological abnormalities or Markers of kidney damage (including abnormalities in the composition of the blood or urine or abnormalities in imaging tests). Performing Organization Address City/State/Zipcode Phone Number [facility] CLIA: [id number], [address] [place], [place] [address] [facility] documented in this encounter Visit Diagnoses Diagnosis Type 2 diabetes mellitus with diabetic polyneuropathy, without long-term current use of insulin - Primary Benign hypertension Essential hypertension, benign Hyperlipidemia, unspecified hyperlipidemia type Diarrhea, unspecified type Dizziness Dizziness and giddiness documented in this encounter Insurance Type Payer Benefit Subscriber ID Effective Phone Address Plan / Dates Group PPO/[place] OF [place] [facility] BCBS OF [id number] 2019-P EMPLOYEE [employer]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
--- OUTSIDE RECORDS SUMMARY | 2019-10-11 07:08 | XMS REPORT | Summary of Care ---
Author Author [facility] - Health Organization [facility] - Health Address Unknown Phone Unavailable Care Team Providers Care Electromechanical Engineer Name Role Phone Pcp, Patient Does Not Have A PCP Reason for Visit * Reason Comments Assessment Encounter Details Care Team Description Date Type Department Radha Sloan MD [address] [place] [address] Assessment 02/25/2019 Telephone [facility] Pediatric & Adult Primary Care[address] [phone] Allergies No Known Allergiesdocumented as [...] Description Date Type Specialty Kaiser Shirley MD [address] [place] [address]. [place] [address] 03/03/2019 Office Visit Gastroenterology Gissell Anaya MD [address] [place] [phone] 05/05/2019 Office Visit Internal Medicine Radha Sloan MD [address] [place] [address] 05/27/2019 Office Visit Internal Medicine Health [...] Plan / Dates Group PPO/POS BCBS OF [facility] BCBS OF [id number] 2019-P EMPLOYEE [facility]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
--- OUTSIDE RECORDS SUMMARY | 2019-10-11 07:08 | XMS REPORT | Summary of Care ---
Author Author [facility] - Health Organization [facility] - Health Address Unknown Phone Unavailable Care Team Providers Care Material Checker Name Role Phone Pcp, Patient Does Not Have A PCP Encounter Details Care Team Description Date Type Department Doctor Unassigned, Level [place] [address] [place] [address] 02/19/2019 Orders Only [address] [address] Allergies No Known Allergiesdocumented as of this [...] mg BY MOUTH 2 tablet EVERY DAY documented as of this encounter (statuses as of 03/03/2019) Active Problems Not on filedocumented as of this encounter (statuses as of 03/03/2019) Immunizations Name Administration Dates Next Due Influenza Virus Vaccine 06/27/2011 documented as of this encounter Social History Date Tobacco Use Types Packs/Day Years Used Former Smoker Drinks/Week oz/Week Comments Alcohol Use beer Yes Sex Assigned at Date Recorded Not on file Industry Job Start Date Occupation Not on file Not on file Not on file Travel End Travel History Travel Start No recent travel history available. documented as of this encounter Last Filed Vital Signs Not on filedocumented in this encounter Plan of Treatment Care Team Description Date Type Specialty Kaiser Shirley MD [address] [place] [address]. [place] [address] [phone] 03/03/2019 [facility] [address] [place] [address] [phone] 05/27/2019 Office Visit Internal Medicine Health Maintenance [...] pack year history INFLUENZA VACCINE 03/20/2019 06/27/2011 (Retired version) HgA1C 08/28/2019 02/25/2019, 10/15/2011 CREATININE (SERUM) 02/26/2020 02/25/2019, 07/25/2011 LDL-C 02/26/2020 02/25/2019 URINE MICROALBUMIN 02/26/2020 02/25/2019 documented as of this encounter Procedures Comments Procedure Name Priority Date/Time Associated Diagnosis AUTHORIZATION FOR RELEASE Routine 02/19/2019 OF PHI 12:01 AM CDT documented in this encounter Results Not on filedocumented in this encounter Insurance Type Payer Benefit Subscriber ID Effective Phone Address Plan / Dates Group PPO/POS BCBS OF [facility] BCBS OF [id number] 2019-[place] [employer]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
--- OUTSIDE RECORDS SUMMARY | 2019-10-11 07:08 | XMS REPORT | Summary of Care ---
Author Author [facility] - Health Organization [facility] - Health Address Unknown Phone Unavailable Care Team Providers Care Cap Inspector Name Role Phone Pcp, Patient Does Not Have A PCP Reason for Visit * Reason Comments Results Encounter Details Care Team Description Date Type Department Radha Sloan MD [address] [place] [address] Results 02/28/2019 Telephone [facility] Pediatric & Adult Primary Care[address] [phone] Allergies No Known Allergiesdocumented as [...] by mouth 2 (two) times daily. Active pravastatin 40 mg Take 1 tablet 90 tablet 1 tabletIndications: by mouth at 9 Diabetes mellitus bedtime. 03/01/2019 Discontinued pravastatin (PRAVACHOL) Take 1 Tab by 30 Tab 11 40 mg tabletIndications: mouth at 1 Diabetes mellitus bedtime. documented as of this encounter (statuses as [...] Description Date Type Specialty Radha Sloan MD [address] [place] [phone] 03/03/2019 Office Visit Internal Medicine Kaiser Shirley MD [address] [place] [phone] 03/03/2019 Office Visit Gastroenterology Radha Sloan MD [address] [place] [phone] 05/27/2019 Office Visit Internal Medicine Health Maintenance [...] filedocumented in this encounter Visit Diagnoses Diagnosis Diabetes mellitus Type II or unspecified type diabetes mellitus without mention of complication, not stated as uncontrolled documented in this encounter Insurance Type Payer Benefit Subscriber ID Effective Phone Address Plan / Dates Group PPO/POS BCBS OF [facility] BCBS OF [id number] 2019-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
--- OUTSIDE RECORDS SUMMARY | 2019-10-11 07:08 | XMS REPORT | Summary of Care ---
Author Author [facility] - Health Organization [facility] - Health Address Unknown Phone Unavailable Care Team Providers Care Crab Steamer Name Role Phone Pcp, Patient Does Not Have A PCP Reason for Visit * Reason Comments Assessment lab results/stomach pain Encounter Details Care Team Description Date Type Department Radha Sloan MD [address] [place] [address] Assessment (lab results/stomach pain) 02/25/2019 [facility] [address] [place] [address] Allergies No Known Allergiesdocumented as [...] 0 by mouth 2 (two) times daily. 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
--- OUTSIDE RECORDS SUMMARY | 2019-10-11 07:08 | XMS REPORT | Summary of Care ---
Author Author [facility] - Health Organization [facility] - Health Address Unknown Phone Unavailable Care Team Providers Care Products Mechanical Design Engineer Name Role Phone Pcp, Patient Does Not Have A PCP Reason for Visit * Reason Comments Refill Request Encounter Details Care Team Description Date Type Department Radha Sloan MD [address] [place] [phone] Refill Request 03/01/2019 Refill [facility] Pediatric & Adult Primary Care[address] [phone] Allergies No Known Allergiesdocumented as of this [...] daily. without long-term current use of insulin 03/01/2019 Discontinued gabapentin 400 mg capsule Take 400 mg 0 by mouth 2 (two) times daily. documented as of this encounter [...] Description Date Type Specialty Radha Sloan MD [address] [place] [phone] 03/03/2019 Office Visit Internal Medicine Kaiser Shirley MD [address] [place] [phone] 03/03/2019 Office Visit Gastroenterology Radha Sloan MD [address] [place] [phone] 05/27/2019 Office Visit Internal Medicine Health Maintenance [...] long-term current use of insulin - Primary documented in this encounter Insurance Type Payer Benefit Subscriber ID Effective Phone Address Plan / Dates Group PPO/POS BCBS OF [facility] BCBS OF [id number] 2019-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
--- OUTSIDE RECORDS SUMMARY | 2019-10-11 07:09 | XMS REPORT ---
Author Author [facility] Address Unknown Phone Unavailable Care Team Providers Care Skimmer Name Role Phone Unavailable Unavailable Payers Payer Name Policy Type Policy Number Effective Date Expiration Date Problems This patient has no known problems. Allergies, Adverse Reactions, Alerts Allergy Name Allergy Type Status Severity Reaction(s) Onset Date Inactive Date Treating Clinician Comments No Known Allergies DA Active U 2019-01-19 00:00:00 Medications This patient has no known medications. Results Test Description Test Time Test Comments Text Results Atomic Results Result Comments - XR CHEST 1 V 2019-01-19 23:55:00 FAX: Mike Cee DO [phone] [place]: St: ADM Name: NIALL NOYOLA [facility] : 1965 Age/S: 53/M [address] [place] [address] Blvd Unit #: [id number] Loc: [place] [address] Phys: Mike Javed DO Acct: [id number] Dis Date: Status: ADM IN PHONE #: [phone] Exam Date: 01/19/2019 2346 FAX #: [phone] Reason: stroke EXAMS: CPT CODE: [id number] XR CHEST 1 V 56240 Study: - XR CHEST 1 V 01/19/2019 10:09 PM Patient Name: NIALL NOYOLA MR: [id number] : 1965; Age: 53 years y/o Male Ordering Physic cholo: Mike Javed DO Clinical Indication: stroke Comparison: None FINDINGS LUNGS: The lungs are clear of consolidation, pleural effusion, and pneumothorax. HEART AND MEDIASTINUM: Mildly enlarged heart. LINES: None. OSSEOUS STRUCTURES: No fracture, dislocation, or suspicious focal osseous lesion. OTHER: None. IMPRESSION: No acute abnormality as above discussed. SL: WR3-H at 1915 Reported and signed by: Abelino English M.D. CC: Mike Javed DO Technologist: RT Guero(R) Trnscrd Date/Time/By: 01/19/2019 (1233) : By: [email or web address] Orig Print D/T: S: 01/19/2019 (0173) PAGE 1 Signed Report - CT ANGIO NECK 2019-01-19 23:03:00 Name: NIALL NOYOLA [facility] : 1965 Age/S: 53 / M [address] [place] [address] Blvd Unit #: [id number] Loc: [place] [address] Phys: Mike Javed DO Acct: [id number] Dis Date: Status: REG ER PHONE #: [phone] Exam Date: 01/19/20192227 FAX #: [phone] Reason: RIGHT SIDED WEAKNESS EXAMS: CPT CODE: [id number] CT ANGIO NECK [address] CT BRAIN PERFUSION, CTA HEAD, CTA NECK INDICATION:Right-sided weakness. Code neuro.. TECHNIQUE: 100 mL Isovue-370 Iodinated intravenous contrast was administered. CT angiogram was performed of the head with axial, coronal and sagittal reconstructions. Maximum intensity projections and three-dimensional reconstructions were reviewed. CT angiogram of the neck was performed with axial, coronal and sagittal reconstructions. Maximum intensity projections were reviewed. CT imaging performed at this location utilizes radiation dose optimization technique which includes one or more of the followin) Automated exposure control; 2) Adjustment of the mA and/or kV according to patient's size; 3) Use of iterative reconstruction techniques. DLP (mGy-cm): 3121 COMPARISONS: CT head from the same visit FINDINGS: CT BRAIN PERFUSION: RAPID imaging demonstrates generally elevated bilateral diffuse elevated Tmax over 6 seconds, consistent with artifact. The perfusion maps Tmax, mean transit time, cerebral blood flow and cerebral blood volume maps reveal no distinct area of ischemia. CTA HEAD: The paranasal sinuses are clear as visualized. The mastoid air cells and middle ears appear clear as visualized. There is no acute depressed skull fracture. The dural veins reveal no evidence of thrombosis. The vertebral arteries reveal no aneurysm, dissection or high-grade luminal stenosis. The basilar artery reveals no aneurysm, dissection, high-grade stenosis or occlusion. PAGE 1 Signed Report (CONTINUED) Name: NIALL NOYOLA [facility] [place] : 1965 Age/S: 53 / M [address] [place] [address] Blvd Unit #: [id number] Loc: [place] [address] Phys: Mike Javed DO Acct: [id number] Dis Date: Status: REG ER PHONE #: [phone] Exam Date: 01/19/20192227 FAX #: [phone] Reason: RIGHT SIDED WEAKNESS EXAMS: CPT CODE: [id number] CT ANGIO NECK 28199 <Continued> The posterior cerebral arteries reveal no aneurysm, dissection or high-grade luminal stenosis. The internal carotid arteries reveal no aneurysm, dissection or high-grade luminal stenosis. The middle cerebral arteries reveal no aneurysm, dissection or high-grade luminal stenosis. The anterior cerebral arteries reveal no aneurysm, dissection or high-grade luminal stenosis. The brain reveals no mass effect, midline shift or hydrocephalus. CTA NECK: There is no acute osseous fracture or dislocation. There is mild spinal canal stenosis at C5-C6 due to a disc osteophyte bulge complex. There is multifocal dental disease. There are calcifications of the palatine tonsils consistent with a remote inflammatory process. There is no cervical lymphadenopathy, mass or organized fluid collection. The chica ng apices reveal no acute process. There is minimal nonstenotic atherosclerotic calcification of the thoracic aorta. There is no aortic aneurysm or dissection. There is a typical three-vessel configuration of the great vessel origins from the aortic arch. The brachiocephalic artery is widely patent. There is mild atherosclerotic calcification of the subclavian arteries with less than 25% luminal stenosis. The vertebral arteries reveal no aneurysm, dissection or high-grade luminal stenosis. The right common carotid and internal carotid arteries are widely patent with no dissection or aneurysm. PAGE 2 Signed Report (CONTINUED) Name: NIALL NOYOLA : 1965 Age/S: 53 / M [address] [place] [address] Unit #: [id number] Loc: [place] [address] Phys: Mike Javed DO Acct: [id number] Dis Date: Status: REG ER PHONE #: [phone] Exam Date: 01/19/20192227 FAX #: [phone] Reason: RIGHT SIDED WEAKNESS EXAMS: CPT CODE: [id number] ANGIO NECK 04003 <Continued> The left common carotid artery reveals 25% stenosis in the distal segment. The left internal carotid artery reveals 10% stenosis in the proximal segment due to atherosclerotic plaque. There is no dissection or aneurysm. There is no high-grade stenosis. IMPRESSION: CT BRAIN PERFUSION: 1. No evidence of acute ischemia. The RAPID sequence is limited due to generalized artifact. CTA HEAD: 1. There is no intracranial arterial occlusion, stenosis, dissection, aneurysm or vascular malformation. CTA NECK: 1. There is no cervical arterial occlusion, high-grade stenosis, dissection or aneurysm. 2. There is 10% stenosis of the left internal carotid artery and 25% stenosis of the left common carotid artery. 3. There is mild spinal canal stenosis at C5-C6 due to a disc osteophyte bulge complex. 4. There is multifocal dental disease. This report contains findings that may be critical to patient care. The findings were discussed with Dr. Cha at 01/19/2019 11:02 PM DENTAL AMALGAM PROCESSOR. CAROTID STENOSIS REFERENCE USING NASCET CRITERIA: % ICA stenosis=(1-narrowest ICA diameter/diameter of distal cervical ICA) x 100 -Mild: <50% stenosis -Moderate: 50-69% stenosis - Severe: 70-94% stenosis -Near occlusion: 95-99% stenosis - Occluded: 100% stenosis at 2303 Reported and signed by: Tarun Lomeli D.O. PAGE 3 Signed Report (CONTINUED) Name: NIALL NOYOLA : 1965 Age/S: 53 / M [address] [place] [address] Unit #: [id number] Loc: [place] [address] Phys: Mike Javed DO Acct: [id number] Dis Date: Status: REG ER PHONE #: [phone] Exam Date: 01/19/20192227 FAX #: [phone] Reason: RIGHT SIDED WEAKNESS EXAMS: CPT CODE: [id number] CT ANGIO NECK 26065 <Continued> CC: Mike Javed DO Technologist:Jaqui Ibrahim, RT(R)(CT) CTDI: DLP: Trnscb Date/Time: 01/19/2019 (2302) [email or web address] Orig Print D/T: S: 01/19/2019 (2306) PAGE 4 Signed Report - CT CEREBRAL PERF ANAL 2019-01-19 23:03:00 Name: NIALL ONYOLA [facility] [place] : 1965 Age/S: 53 / M [address] [place] [address] Unit #: [id number] Loc: [place] [address] Phys: Mike Javed DO Acct: [id number] Dis Date: Status: REG ER PHONE #: [phone] Exam Date: 01/19/20192227 FAX #: [phone] Reason: RIGHT SIDED WEAKNESS EXAMS: CPT CODE: [id number] CT CEREBRAL PERF ANAL 29274 CT BRAIN PERFUSION, CTA HEAD, CTA NECK INDICATION:Right-sided weakness. Code neuro.. TECHNIQUE: 100 mL Isovue-370 Iodinated intravenous contrast was administered. CT angiogram was performed of the head with axial, coronal and sagittal reconstructions. Maximum intensity projections and three-dimensional reconstructions were reviewed. CT angiogram of the neck was performed with axial, coronal and sagittal reconstructions. Maximum intensity projections were reviewed. CT imaging performed at this location utilizes radiation dose optimization technique which includes one or more of the followin) Automated exposure control; 2) Adjustment of the mA and/or kV according to patient's size; 3) Use of iterative reconstruction techniques. DLP (mGy-cm): 3121 COMPARISONS: CT head from the same visit FINDINGS: CT BRAIN PERFUSION: RAPID imaging demonstrates generally elevated bilateral diffuse elevated Tmax over 6 seconds, consistent with artifact. The perfusion maps Tmax, mean transit time, cerebral blood flow and cerebral blood volume maps reveal no distinct area of ischemia. CTA HEAD: The paranasal sinuses are clear as visualized. The mastoid air cells and middle ears appear clear as visualized. There is no acute depressed skull fracture. The dural veins reveal no evidence of thrombosis. The vertebral arteries reveal no aneurysm, dissection or high-grade luminal stenosis. The basilar artery reveals no aneurysm, dissection, high-grade stenosis or occlusion. PAGE 1 Signed Report (CONTINUED) Name: NIALL NOYOLA : 1965 Age/S: 53 / M [address] [place], [place] [address]vd Unit #: [id number] Loc: [place] [address] Phys: Mike Javed DO Acct: [id number] Dis Date: Status: REG ER PHONE #: [phone] Exam Date: 01/19/20192227 FAX #: [phone] Reason: RIGHT SIDED WEAKNESS EXAMS: CPT CODE: [id number] CT CEREBRAL PERF ANAL 62710 <Continued> The posterior cerebral arteries reveal no aneurysm, dissection or high-grade luminal stenosis. The internal carotid arteries reveal no aneurysm, dissection or high-grade luminal stenosis. The middle cerebral arteries reveal no aneurysm, dissection or high-grade luminal stenosis. The anterior cerebral arteries reveal no aneurysm, dissection or high-grade luminal stenosis. The brain reveals no mass effect, midline shift or hydrocephalus. CTA NECK: There is no acute osseous fracture or dislocation. There is mild spinal canal stenosis at C5-C6 due to a disc osteophyte bulge complex. There is multifocal dental disease. There are calcifications of the palatine tonsils consistent with a remote inflammatory process. There is no cervical lymphadenopathy, mass or organized fluid collection. The chica ng apices reveal no acute process. There is minimal nonstenotic atherosclerotic calcification of the thoracic aorta. There is no aortic aneurysm or dissection. There is a typical three-vessel configuration of the great vessel origins from the aortic arch. The brachiocephalic artery is widely patent. There is mild atherosclerotic calcification of the subclavian arteries with less than 25% luminal stenosis. The vertebral arteries reveal no aneurysm, dissection or high-grade luminal stenosis. The right common carotid and internal carotid arteries are widely patent with no dissection or aneurysm. PAGE 2 Signed Report (CONTINUED) Name: NIALL NOYOLA : 1965 Age/S: 53 / M [address] [place] [address] Unit #: [id number] Loc: [place] [address] Phys: Miek Javed DO Acct: [id number] Dis Date: Status: REG ER PHONE #: [phone] Exam Date: 01/19/20192227 FAX #: [phone] Reason: RIGHT SIDED WEAKNESS EXAMS: CPT CODE: [id number] CEREBRAL PERF ANAL 65776 <Continued> The left common carotid artery reveals 25% stenosis in the distal segment. The left internal carotid artery reveals 10% stenosis in the proximal segment due to atherosclerotic plaque. There is no dissection or aneurysm. There is no high-grade stenosis. IMPRESSION: CT BRAIN PERFUSION: 1. No evidence of acute ischemia. The RAPID sequence is limited due to generalized artifact. CTA HEAD: 1. There is no intracranial arterial occlusion, stenosis, dissection, aneurysm or vascular malformation. CTA NECK: 1. There is no cervical arterial occlusion, high-grade stenosis, dissection or aneurysm. 2. There is 10% stenosis of the left internal carotid artery and 25% stenosis of the left common carotid artery. 3. There is mild spinal canal stenosis at C5-C6 due to a disc osteophyte bulge complex. 4. There is multifocal dental disease. This report contains findings that may be critical to patient care. The findings were discussed with Dr. Cha at 01/19/2019 11:02 PM DENTAL AMALGAM PROCESSOR. CAROTID STENOSIS REFERENCE USING NASCET CRITERIA: % ICA stenosis=(1-narrowest ICA diameter/diameter of distal cervical ICA) x 100 -Mild: <50% stenosis -Moderate: 50-69% stenosis - Severe: 70-94% stenosis -Near occlusion: 95-99% stenosis - Occluded: 100% stenosis at 2303 Reported and signed by: Tarun Lomeli D.O. PAGE 3 Signed Report (CONTINUED) Name: [facility] 1965 Age/S: 53 / M [address] [place] [address] Unit #: [id number] Loc: [place] [address] Phys: TelloMike Acct: [id number] Dis Date: Status: REG ER PHONE #: [phone] Exam Date: 01/19/20192227 FAX #: [phone] Reason: RIGHT SIDED WEAKNESS EXAMS: CPT CODE: [id number] CT CEREBRAL PERF ANAL 91658 <Continued> CC: Mike Javed DO Technologist:Jaqui Ibrahim, RT(R)(CT) CTDI: DLP: Trnscb Date/Time: 01/19/2019 (2302) [email or web address] Orig Print D/T: S: 01/19/2019 (8388) PAGE 4 Signed Report TROPONIN-I RAPID 2019-01-19 22:54:00 TROPONIN-I RAPID (test code=TROPIRAP) 0.00 ng/mL 0.00-0.08 Performed by certified carpet sewing machine operator at [facility] Negative: <=0.08 Positive: >=0.09An elevated troponin value alone is not sufficient todiagnose a myocardial infarction. Rather, the patient sclinical presentation (history, physical exam) and ECGshould be used in conjunction with troponin in thediagnostic evaluation of suspected myocardial infarction. Aserial sampling protocol is recommended to facilitate the identification of temporal changes in troponin levels characteristic of [place]. CHEMISTRY 8 [id number] 22:48:00* Test Item Value Reference Range Comments ISTAT-SODIUM (test code=NAP) MMOL/L 134-147 ISTAT-POTASSIUM (test code=KP) MMOL/L 3.4-5.0 ISTAT-CHLORIDE (test code=CLP) MMOL/L 100-108 ISTAT CARBON DIOXIDE (test code=ISTAT-CO2) mmol/L 21-33 ISTAT CALCIUM IONIZED (test code=ISTAT-ABDOULAYE) MG/DL 1.12-1.32 ISTAT-GLUCOSE (test code=GLUP) MG/DL 70-110 ISTAT-BUN (test code=BUNP) MG/DL 7-18 BEDSIDE CREATININE (test code=CREATBED) MG/DL 0.6-1.3 GLOMERULAR FILTRATION RATE POC (test code=GFRBED) 93 ML/MIN CHEMISTRY 8 [id number] 22:48:00* Test Item Value Reference Range Comments ISTAT-SODIUM (test code=NAP) 134 MMOL/L 134-147 ISTAT-POTASSIUM (test code=KP) 3.6 MMOL/L 3.4-5.0 ISTAT-CHLORIDE (test code=CLP) 99 MMOL/L 100-108 Performed by certified carpet sewing machine operator at [facility] ISTAT CARBON DIOXIDE (test code=ISTAT-CO2) 22.0 mmol/L 21-33 ISTAT CALCIUM IONIZED (test code=ISTAT-ABDOULAYE) 1.15 MG/DL 1.12-1.32 ISTAT-GLUCOSE (test code=GLUP) 143 MG/DL 70-110 ISTAT-BUN (test code=BUNP) 18 MG/DL 7-18 BEDSIDE CREATININE (test code=CREATBED) 0.9 MG/DL 0.6-1.3 GLOMERULAR FILTRATION RATE POC (test code=GFRBED) 93 ML/MIN - CT HEAD/BRAIN W/O [id number] 22:32:00 Name: NIALL NOYOLA [facility] : 1965 Age/S: 53 / M [address] [place] [address] Unit #: [id number] Loc: [place] [address] Phys: Mike Javed DO Acct: [id number] Dis Date: Status: REG ER PHONE #: [phone] Exam Date: 01/19/20192227 FAX #: [phone] Reason: RIGHT SIDED WEAKNESS EXAMS: CPT CODE: [id number] CT HEAD/BRAIN W/O CONT [address] HEAD INDICATION: RIGHT SIDED WEAKNESS. Code neuro TECHNIQUE: Unenhanced CT was performed from the skull vertex to the foramen magnum with axial, coronal and sagittal reconstructions. CT imaging performed at this location utilizes radiation dose optimization technique which includes one or more of the followin) Automated exposure control; 2) Adjustment of the mA and/or kV according to patient's size; 3) Use of iterative reconstruction techniques. DLP (mGy-cm): 472 COMPARISONS: None. FINDINGS: The paranasal sinuses are clear as visualized. The mastoid air cells and middle ears appear clear as visualized. There is no acute depressed skull fracture. The cerebral ventricles are normal caliber. There is no cerebral mass effect, midline shift, intracranial hemorrhage or acute large vessel territory cerebral cortical edema. IMPRESSION: 1. There is no acute intracranial process. There is no intracranial hemorrhage or cerebral edema. The [place] Stroke Program Early CT Score (ASPECTS) is 10/10. This report contains findings that may be critical to patient care. The findings were discussed with Mike Javed DO at 01/19/2019 10:32 PM DENTAL AMALGAM PROCESSOR. Fabienne ctronically Signed by Marilou Lomeli on 01/20/20 19 at 2232 Reported and signed by: Tarun rich D.O. PAGE 1 Signed Report (CONTINUED) Name: NIALL NOYOLA : 1965 Age/S: 53 / M [address] [place], [place] [address] Unit #: [id number] Loc: [place] [address] Phys : Mike Javed DO Acct: [id number] Dis Date: Status: REG ER PHONE #: [phone] Exam Date: 01/19/20192227 FAX #: [phone] Reason: RIGHT SIDED WEAKNESS EXAMS: CPT CODE: [id number] CT HEAD/BRAIN W/O CONT 37597 <Continued> CC: Mike Javed DO Technologist:RT [place](R)(CT) CTDI: DLP: Trnscb Date/Time: 01/19/2019 (2231) [email or web address] Orig Print D/T: S: 01/19/2019 (2234) PAGE 2 Signed Report PROTHROMBIN [id number] 22:22:00* Test Item Value Reference Range Comments PROTHROMBIN TIME PATIENT (test code=PTP) 12.3 SECONDS 9.3-12.9 INTERNATIONAL NORMAL RATIO (test code=INR) 1.1 0.8-1.2 TARGET INR BY INDICATION Indication INR1. Prophylaxis of venous thrombosis 2.0 - 3.0 (orthopedic surgery), Prophylaxis of venous thrombosis (other than high-risk surgery), Treatment of Deep Vein Thrombosis/Pulmonary Embolism, Prevention of systemic embolism - Tissue heart valves, Acute Myocardial Infarction (to prevent systemic embolism), Valvular heart disease, Atrial Fibrillation, Bileaflet mechanical valve in aortic position.2. Mechanical prosthetic valves (high risk), 2.5 - 3.5 Presence of Lupus Anticoagulant or Antiphospholipid Antibodies, Prevention of systemic embolism - Acute Myocardial Infarction (to prevent recurrent infarct). THROMBOPLASTIN TIME [id number] 22:22:00* Test Item Value Reference Range Comments THROMBOPLASTIN TIME PARTIAL (test code=PTT) 34.2 Seconds 25.0-39.5 Therapeutic Range: 50.4 - 88.3 Seconds Effective 11/02/2018 CBC W/O [id number] 22:14:00* Test Item Value Reference Range Comments WHITE BLOOD CELL (test code=WBC) 15.05 x10 3/uL 4.5-11.0 RED BLOOD CELL (test code=RBC) 3.96 x10 6/uL 4.00-5.60 HEMOGLOBIN (test code=HGB) 7.2 g/dL 12.5-16.9 HEMATOCRIT (test code=HCT) 25.5 % 37.5-50.7 MEAN CELL VOLUME (test code=MCV) 64.4 fL 81.0-99.0 MEAN CELL HGB (test code=MCH) 18.2 pg 27.0-33.0 MEAN CELL HGB CONCETRATION (test code=MCHC) 28.2 g/dL 33.0-37.0 RED CELL DISTRIBUTION WIDTH CV (test code=RDW) 19.8 % 11.5-14.5 RED CELL DISTRIBUTION WIDTH SD (test code=RDW-SD) 45.0 fL 37.0-54.0 PLATELET COUNT (test code=PLT) 618 x10 3/uL 150-400 MEAN PLATELET VOLUME (test code=MPV) 9.5 fL 7.0-9.0
--- OUTSIDE RECORDS SUMMARY | 2019-10-11 07:09 | XMS REPORT | Summary of Care ---
Author Author [facility] - Health Organization [facility] - Health Address Unknown Phone Unavailable Care Team Providers Care Agricultural Agent Name Role Phone Pcp, Patient Does Not Have A PCP Encounter Details Care Team Description Date Type Department Doctor Unassigned, [place] [address] [place] [address] 03/30/[address] [facility] Adult Primary Care-[address] [phone] Allergies No Known Allergiesdocumented as of this encounter (statuses as of 03/30/2019) Medications End Date Status Medication Sig Dispensed [...] at 9 Diabetes mellitus bedtime. Active gabapentin 300 mg capsule Take 1 0 capsule by 9 mouth 2 (two) times daily. 04/05/2019 Active Polyethylene Glycol 3350 Take 1 Packet 30 Packet 0 17 gram by mouth 9 powderIndications: Lower daily for 30 GI bleed days. 04/05/2019 Active sennosides-docusate Take 1 tablet 60 tablet 0 sodium 8.6-50 mg per by mouth 2 9 tabletIndications: Lower (two) times GI bleed daily for 30 days. 04/05/2019 Active ferrous sulfate (IRON) Take 1 30 capsule 0 325 mg (65 mg iron) SR capsule by 9 capsuleIndications: Lower mouth daily GI bleed with breakfast for 30 days. 04/05/2019 Active acetaminophen-codeine Take 1 tablet 30 tablet 0 300-30 mg by mouth 9 tabletIndications: Lower every 4 GI bleed (four) hours as needed for Pain (scale 7-10) for up to 30 days. Active insulin NPH 100 unit/mL Give insulin 1 Vial 0 injectionIndications: 3 x daily 9 Abdominal pain, with meals on unspecified abdominal 03/07/19- 19 If BS > 200 < 300 give 3 units If BS > 300 then give 6 units, recheck Blood sugar in 6 hours and repeat if necessary Active fluconazole 200 mg Take 1 tablet 15 tablet 0 tabletIndications: by mouth 9 Esophageal candidiasis daily. Take 2 tablets once then take one tablet daily for 13 days documented as of this encounter (statuses as of 03/30/2019) Active Problems Problem Noted Date Colonic mass 03/06/2019 Acute blood loss anemia 03/06/2019 Type 2 diabetes mellitus with complication, without long-term current use 03/06/2019 of insulin Secondary hypertension 03/06/2019 GI bleed 03/05/2019 Lower GI bleed 03/03/2019 documented as of this encounter (statuses as of 03/30/2019) Immunizations Name Administration Dates Next Due Influenza Virus Vaccine 06/27/2011 Pneumococcal 03/06/2019 Polysaccharide, PPSV23 (PNEUMOVAX) documented as of this encounter Social History Date Tobacco Use Types Packs/Day Years Used Former Smoker Smokeless Tobacco: Former User Drinks/Week oz/Week Comments Alcohol Use beer Not Currently Education Answer Date Recorded What is the highest level of school you have Associate degree: academic 03/03/2019 completed or the highest degree you have received? program Financial Resource Strain Answer Date Recorded How hard is it for you to pay for the very basics Not very hard 03/03/2019 like food, housing, medical care, and heating? Food Insecurity Answer Date Recorded Within the past 12 months, you worried that your Never true 03/03/2019 food would run out before you got money to buy more. Within the past 12 months, the food you bought Never true 03/03/2019 just didn't last and you didn't have money to get more. Transportation Needs Answer Date Recorded In the past 12 months, has lack of transportation No 03/03/2019 kept you from medical appointments or from getting medications? In the past 12 months, has lack of transportation No 03/03/2019 kept you from meetings, work, or getting things needed for daily living? Sex Assigned at Date Recorded Not on file Industry Job Start Date Occupation Not on file Not on file Not on file Travel End Travel History Travel Start No recent travel history available. documented as of this encounter Last Filed Vital Signs Not on filedocumented in this encounter Plan of Treatment Care Team Description Date Type Specialty Дмитрий Ambriz MD [address] [place] [address] [place] [id number] 03/31/2019 Office Visit Colorectal Surgery Radha Sloan MD [address] [place] [phone] 05/27/2019 Office Visit Internal Medicine Health Maintenance Due Date Last Done Comments HEPATITIS C (HCV) SCREEN 1965 EYE EXAM 11/06/1973 FOOT EXAM 11/06/1981 DTaP,Tdap,and Td Vaccines 11/06/1982 (1 - Tdap) Zoster Recombinant 11/06/2013 Vaccine (SHINGRIX) (1 of 2) INFLUENZA VACCINE (#1) 2019 06/27/2011 HgA1C 08/28/2019 02/25/2019, 10/15/2011 LDL-C 02/26/2020 02/25/2019 URINE MICROALBUMIN 02/26/2020 02/25/2019 LUNG CANCER SCREEN: 03/05/2020 03/05/2019 Recommended for age 55-80 with 30 + pack year history CREATININE (SERUM) 03/07/2020 03/07/2019, 03/06/2019, 03/06/2019, Additional history exists COLONOSCOPY 03/04/2029 03/04/2019 PNEUMOCOCCAL 0-64 YEARS Completed 03/06/2019 COMBINED SERIES documented as of this encounter Results Not on filedocumented in this encounter Insurance Type Payer Benefit Subscriber ID Effective Phone Address Plan / Dates Group PPO/POS [facility] BCBS OF [id number] 2019-P EMPLOYEE [place] [employer]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
--- OUTSIDE RECORDS SUMMARY | 2019-10-11 07:09 | XMS REPORT | Summary of Care ---
Author Author [facility] - Health Organization [facility] - Health Address Unknown Phone Unavailable Care Team Providers Care Ski Lift Mechanic Name Role Phone Pcp, Patient Does Not Have A PCP Reason for Visit * Reason Comments Assessment Encounter Details Care Team Description Date Type Department Radha Sloan MD [address] [place] [address] Assessment 03/30/2019 Telephone [facility] Pediatric & Adult Primary Care-[address] [phone] Allergies No Known Allergiesdocumented as [...] Description Date Type Specialty Дмитрий Ambriz MD [address] [place] [address] [place] [address] [phone] 03/31/2019 [facility] [address] [place] [phone] 05/27/2019 Office Visit Internal Medicine Health Maintenance [...] Dates Group PPO/POS BCBS OF [facility] BCBS OF [id number] 2019-P EMPLOYEE [facility]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
--- OUTSIDE RECORDS SUMMARY | 2019-10-11 07:09 | XMS REPORT | Summary of Care ---
Author Author [facility] - Health Organization [facility] - Health Address Unknown Phone Unavailable Care Team Providers Care Anesthesiologist Assistant Name Role Phone Pcp, Patient Does Not Have A PCP Reason for Visit * Reason Comments Results Encounter Details Care Team Description Date Type Department Daniel Ward MD [address] [place] [phone] Results 03/07/2019 Telephone [facility] and [address] [phone] Allergies No Known Allergiesdocumented as of this encounter (statuses as of 03/07/2019) Medications End Date Status Medication Sig Dispensed [...] by 9 mouth 2 (two) times daily. 03/16/2019 Active magnesium oxide 420 mg Take 400 mg 10 tablet 0 TabIndications: Lower GI by mouth 9 bleed daily for 10 days. 04/05/2019 Active Polyethylene Glycol 3350 Take 1 [...] as of this encounter (statuses as of 03/07/2019) Active Problems Problem Noted Date Colonic mass 03/06/2019 Acute blood loss anemia 03/06/2019 Type 2 diabetes mellitus with complication, without long-term current use 03/06/2019 of insulin Secondary hypertension 03/06/2019 GI bleed 03/05/2019 Lower GI bleed 03/03/2019 documented as of this encounter (statuses as of 03/07/2019) Immunizations Name Administration Dates Next Due Influenza [...] Date Type Specialty Radha Sloan MD [address] [place] [address] [phone] 03/11/2019 Office Visit Internal Medicine DenyHoney angela, [facility] [address] [facility] [address] [place] [address] [phone] 03/29/2019 Office Visit Gastroenterology Radha Sloan MD [address] [place] [address] [phone] 05/27/2019 Office Visit Internal Medicine Health Maintenance [...] 30 + pack year history CREATININE (SERUM) 03/06/2020 03/06/2019, 03/06/2019, 03/05/2019, Additional history exists COLONOSCOPY 03/04/2029 03/04/2019 PNEUMOCOCCAL 0-64 YEARS Completed 03/06/2019 COMBINED SERIES documented as of this encounter Results Not on filedocumented in this encounter Visit Diagnoses Diagnosis Esophageal candidiasis - Primary Candidiasis of the esophagus documented in this encounter Insurance Type Payer Benefit Subscriber ID Effective Phone Address Plan / Dates Group PPO/POS BCBS OF [facility] BCBS OF [id number] 2019-P EMPLOYEE [place] [employer]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
--- OUTSIDE RECORDS SUMMARY | 2019-10-11 07:09 | XMS REPORT | Summary of Care ---
Author Author [facility] - Health Organization [facility] - Health Address Unknown Phone Unavailable Care Team Providers Care Hat Blocker Name Role Phone Pcp, Patient Does Not Have A PCP Reason for Visit * Reason Comments Appointment Encounter Details Care Team Description Date Type Department Ning Gold MD [address] [facility] [address] [place] [address] [phone] Appointment 03/21/2019 Telephone [facility] [address] [facility], [address] [place] [phone] Allergies No Known Allergiesdocumented as of this encounter (statuses as of 03/31/2019) Medications End Date Status Medication Sig Dispensed [...] as of this encounter (statuses as of 03/31/2019) Active Problems Problem Noted Date Colonic mass 03/06/2019 Acute blood loss anemia 03/06/2019 Type 2 diabetes mellitus with complication, without long-term current use 03/06/2019 of insulin Secondary hypertension 03/06/2019 GI bleed 03/05/2019 Lower GI bleed 03/03/2019 documented as of this encounter (statuses as of 03/31/2019) Immunizations Name Administration Dates Next Due Influenza [...] Description Date Type Specialty Дмитрий Ambriz MD [address] [place] [address] [place] [address] [phone] 03/31/2019 Office Visit Colorectal Surgery NathaliaRadha sampson MD [address] [place] [phone] 05/27/2019 Office Visit Internal Medicine Health Maintenance [...] Dates Group PPO/POS BCBS OF [facility] BCBS OF [id number] 2019-P [facility] [place] 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
--- OUTSIDE RECORDS SUMMARY | 2019-10-11 07:09 | XMS REPORT | Summary of Care ---
Author Author [facility] - Health Organization [facility] - Health Address Unknown Phone Unavailable Care Team Providers Care Information Security Analyst Name Role Phone Pcp, Patient Does Not Have A PCP Reason for Visit * Reason Comments Assessment Encounter Details Care Team Description Date Type Department Radha Sloan MD [address] [place] [address] Assessment 03/30/[address] [facility] Pediatric & Adult Primary Care-[address] [phone] Allergies No Known Allergiesdocumented as [...] Description Date Type Specialty Дмитрий Ambriz MD [address] [place] [address] [place] [address] [phone] 03/31/2019 [facility] [address] [place] [address] [phone] 05/27/2019 Office Visit Internal Medicine Health Maintenance [...] Plan / Dates Group PPO/POS BCBS OF [facility] BCBS OF [id number] 2019-P EMPLOYEE [facility] [employer]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
--- OUTSIDE RECORDS SUMMARY | 2019-10-11 07:09 | XMS REPORT | Summary of Care ---
Author Author [facility] - Health Organization [facility] - Health Address Unknown Phone Unavailable Care Team Providers Care Silver Buffer Name Role Phone Pcp, Patient Does Not Have A PCP Reason for Referral * MRI/CAT Scan (STAT) Referred By Contact Referred To Contact Status Reason Specialty Diagnoses / Procedures Laureen Joseph MD [address] [place] [phone] New Request Diagnostic Diagnoses Radiology Flank pain P rocedures CT ABDOMEN PELVIS W WO CONTRAST CT ABDOMEN PELVIS WO CONTRAST * MRI/CAT Scan (STAT) Referred By Contact Referred To Contact Status Reason Specialty Diagnoses / Procedures Laureen Joseph MD [address] [place] [phone] New Request Diagnostic Diagnoses Radiology Acute bilateral low back pain with bilateral sciatica P rocedures CT LUMBAR SPINE WO CONTRAST CT LUMBAR SPINE W WO CONTRAST * Radiology Services (Routine) Referred By Contact Referred To Contact Status Reason Specialty Diagnoses / Procedures Brad Jeong DO [address] [place] [address]. RT [address] [place] [phone] New Request Diagnostic Diagnoses Radiology Lower GI bleed P rocedures XR CHEST 1 VW * Radiology Services (Routine) Referred By Contact Referred To Contact Status Reason Specialty Diagnoses / Procedures Brad Jeong DO [address] [place] [address]. RT [address] [place] [phone] New Request Diagnostic Diagnoses Radiology Lower GI bleed P rocedures XR CHEST 1 VW * Radiology Services (STAT) Referred By Contact Referred To Contact Status Reason Specialty Diagnoses / Procedures Brad Jeong DO [address] [place] [address]. RT [address] [place] [address] New Request Diagnostic Diagnoses Radiology Lower GI bleed P rocedures XR KUB * Radiology Services (STAT) Referred By Contact Referred To Contact Status Reason Specialty Diagnoses / Procedures Brad Jeong DO [address] [place] [address]. [place] [address] [place] [address] New Request Diagnostic Diagnoses Radiology Lower GI bleed P rocedures XR KUB * (Routine) Referred By Contact Referred To Contact Status Reason Specialty Diagnoses / Procedures Brad Jeong DO [address] [place] [address]. [address] [place] [address] Jeanie Bernal MD [address] [place] [phone] New Request Patient Requested IM-MEDICAL Diagnoses Specific Provider ONCOLOGY / Lower GI bleed Oncology P rocedures Discharge Follow-Up: Specialty Service IM-MEDICAL ONCOLOGY; 1 Week * (Routine) Referred By Contact Referred To Contact Status Reason Specialty Diagnoses / Procedures Brad Jeong DO [address] [place] [address]. [address] [place] [address] New Request IM-GASTROENTEROL Diagnoses OGY Lower GI bleed P rocedures Discharge Follow-Up: Specialty Service IM-GASTROENTEROLOG Y; 2 Weeks * (Routine) Referred By Contact Referred To Contact Status Reason Specialty Diagnoses / Procedures Brad Jeong DO [address] [place] [address]. [address] [place] [address] Pcp, Patient Does Not Have A [address] [place] [address] New Request Diagnoses Lower GI bleed P rocedures Discharge Follow-up: PCP PATIENT DOES NOT HAVE A PCP; 1 Week * MRI/CAT Scan (Routine) Referred By Contact Referred To Contact Status Reason Specialty Diagnoses / Procedures Brad Jeong DO [address] [place] [address]. [address] [place] [address] New Request Diagnostic Diagnoses Radiology Lower GI bleed P rocedures CT THORAX W CONTRAST CT THORAX W WO CONTRAST * MRI/CAT Scan (Routine) Referred By Contact Referred To Contact Status Reason Specialty Diagnoses / Procedures Laura Go MD [address] [facility] [id number] [place] [address] New Request Diagnostic Diagnoses Radiology Left lower quadrant pain P rocedures CT ABDOMEN PELVIS W CONTRAST * MRI/CAT Scan (Routine) Referred By Contact Referred To Contact Status Reason Specialty Diagnoses / Procedures Laura Go MD [address] [facility] [id number] [place] [address] New Request Diagnostic Diagnoses Radiology Left lower quadrant pain P rocedures CT ABDOMEN PELVIS W CONTRAST * Radiology Services (Routine) Referred By Contact Referred To Contact Status Reason Specialty Diagnoses / Procedures Brad Jeong DO [address] [place] [address]. RT [address] [place] [address] New Request Diagnostic Diagnoses Radiology Lower GI bleed P rocedures XR KUB * Radiology Services (Routine) Referred By Contact Referred To Contact Status Reason Specialty Diagnoses / Procedures Brad Jeong DO [address] [facility]. RT [address] [place] [address] New Request Diagnostic Diagnoses Radiology Lower GI bleed P rocedures XR KUB * Radiology Services (Routine) Referred By Contact Referred To Contact Status Reason Specialty Diagnoses / Procedures Brad Jeong DO [address] [facility]. RT [address] [place] [address] New Request Diagnostic Diagnoses Radiology Lower GI bleed P rocedures XR CHEST 1 VW * Radiology Services (Routine) Referred By Contact Referred To Contact Status Reason Specialty Diagnoses / Procedures Brad Jeong DO [address] [facility]. RT [address] [place] [address] New Request Diagnostic Diagnoses Radiology Lower GI bleed P rocedures XR CHEST 1 VW Reason for Visit * Auth/Cert Referred By Contact Referred To Contact Status Reason Specialty Diagnoses / Procedures c Icu/Acuity Adpt F2 [address] [place] [phone] Surgery Diagnoses MICROCYTIC ANEMIA HYPOTENSION Encounter Details Care Team Description Date Type Department Brad Jeong DO [address] [place] [address]. RT [address] [place] [address] [phone] Hermes Fox MD [address] [place] [address] [phone] Lower GI bleed 03/03/2019 Hospital [facility] - Encounter [facility] 03/07/2019 [address] [place] [address] Allergies No Known Allergiesdocumented as of this [...] in 6 hours and repeat if necessary 03/03/2019 Discontinued gabapentin 400 mg Take 1 60 capsule [...] Signs Reading Time Taken Comments Vital Sign 117/72 03/07/2019 12:00 PM CDT Blood Pressure 76 03/07/2019 12:00 PM CDT Pulse 36.4 C (97.6 F) 03/07/2019 12:00 PM CDT Temperature 18 03/07/2019 12:00 PM CDT Respiratory Rate 97% 03/07/2019 12:00 PM CDT Oxygen Saturation - - Inhaled Oxygen Concentration 85.5 kg (188 lb 6.4 oz) 03/07/2019 6:00 AM CDT Weight 170.2 cm (5' 7") 03/03/2019 8:52 PM CDT Height 29.51 03/03/2019 8:52 PM CDT Body Mass Index documented in this encounter Discharge Summaries * Brad Jeong DO - 03/06/2019 9:23 AM CDT Medical Discharge Summary Patient Data: Patient Name: Lorenzo Nicole Jr. Age: [age] year old : 1965 Admit date: 03/03/2019 Discharge date: 03/06/19 Discharge Attending Physician: Brad Jeong DO Principal Diagnosis: Lower GI bleed Other Diagnosis: Acute blood loss anemia Colonic mass HTN DM2 Discharged Condition: Good Disposition: Home Hospital Course: Note Electronic dictation used for the following Patient was admitted for lower GI bleed. Noted on workup to have acute blood los s anemia. During his stay he was given iron along with transfusion for multiple units of packed red blood cells. On admission patient was feeling vertigo and co mplaining of orthostatic like symptoms which resolved with blood transfusions. D uring his stay gastric urology was consulted along with oncology. Gastrology rec ommended the patient receive an EGD and colonoscopy. Colonoscopy return most sig nificantly a colonic mass with biopsies taken. During his stay oncology did eval uate patient and recommended follow-up this coming Thursday once biopsy results ar e completed. Further workup included CT scan of the abdomen and pelvis which was most significant for showing a large enhancing tumor in the sigmoid colon sugge sting primary sigmoid adenocarcinoma. He was also has evidence of retroperitonea l para-aortic lymphadenopathy concerning for metastatic disease and tumor extens ion is seen into the surrounding fat with lymphovascular invasion suspected. Dur ing his stay he also received CT scan of the chest showing no definitive event t he dense of intrathoracic metastatic disease he was noted to have right upper an d lower lobe 2-3 mm nodules that were nonspecific. Overall patient improved with blood. He was started on aggressive bowel regime to help prevent constipation. Patient wished to go home. He'll be discharged home with instructions to follow- up with his PCP within a week. We will order set up an appointment with [facility] And leoncio this Thursday and follow-up with Dr. Bernal regarding biopsies taken during h is stay and is most likely adenocarcinoma. She also follow-up GI clinic. Patient is aware and agrees to this plan discharge without further incident. Pertinent lab findings and test results: BMP:BMP NA Date Value 03/06/2019 142 mmol/L 03/05/2019 140 mmol/L 03/04/2019 136 mmol/L 03/03/2019 136 mmol/L 02/25/2019 133 mmol/L (L) 07/25/2011 136 MMOL/L K Date Value 03/06/2019 3.6 mmol/L 03/05/2019 3.6 mmol/L 03/04/2019 4.0 mmol/L 03/03/2019 4.3 mmol/L 02/25/2019 4.5 mmol/L 07/25/2011 4.4 MMOL/L CALCIUM Date Value 03/06/2019 7.7 mg/dL (L) 03/05/2019 8.1 mg/dL (L) 03/04/2019 8.5 mg/dL (L) 03/03/2019 8.4 mg/dL (L) 02/25/2019 9.3 mg/dL 07/25/2011 9.8 MG/DL CL Date Value 03/06/2019 109 mmol/L (H) 03/05/2019 107 mmol/L 03/04/2019 103 mmol/L 03/03/2019 103 mmol/L 02/25/2019 99 mmol/L 07/25/2011 98 MMOL/L BUN Date Value 03/06/2019 8 mg/dL 03/05/2019 8 mg/dL 03/04/2019 11 mg/dL 03/03/2019 14 mg/dL 02/25/2019 21 mg/dL 07/25/2011 9 MG/DL CREATININE Date Value 03/06/2019 0.80 mg/dL 03/05/2019 0.93 mg/dL 03/04/2019 0.81 mg/dL 03/03/2019 0.65 mg/dL 02/25/2019 1.26 mg/dL (H) 07/25/2011 0.57 MG/DL (L) GLUCOSE Date Value 03/06/2019 209 mg/dL (H) 03/05/2019 111 mg/dL (H) 03/04/2019 139 mg/dL (H) 03/03/2019 160 mg/dL (H) 02/25/2019 107 mg/dL 07/25/2011 299 MG/DL (H) CO2 TOTAL Date Value 03/06/2019 27 mmol/L 03/05/2019 26 mmol/L 03/04/2019 24 mmol/L 03/03/2019 25 mmol/L 02/25/2019 20 mmol/L (L) 07/25/2011 24 MMOL/L LFT: Hepatic Function Panel ALBUMIN Date Value 03/03/2019 2.6 g/dL (L) 07/25/2011 4.6 G/DL T PROTEIN Date Value 03/03/2019 5.6 g/dL (L) 07/25/2011 8.9 G/DL (H) TOTAL BILI Date Value 03/03/2019 0.2 mg/dL 07/25/2011 0.9 MG/DL BILI UNCON (mg/dL) Date Value 03/03/2019 0.1 BILI CONJ (mg/dL) Date Value 03/03/2019 0.0 ALT(SGPT) (U/L) Date Value 03/03/2019 17 07/25/2011 266 (H) AST(SGOT) (U/L) Date Value 03/03/2019 18 07/25/2011 219 (H) ALK PHOS (U/L) Date Value 03/03/2019 102 07/25/2011 160 (H) CBC:CBC WBC (10*3/L) Date Value 03/06/2019 14.14 (H) RBC (10*6/L) Date Value 03/06/2019 3.72 (L) PLT (10*3/L) Date Value 03/06/2019 561 (H) HGB (g/dL) Date Value 03/06/2019 7.6 (L) HCT (%) Date Value 03/06/2019 25.2 (L) Troponin: There are no current results on file for these tests and/or test for 1 year. Imaging: Xr Chest 1 Vw Result Date: 03/03/2019 XR CHEST 1 VW HISTORY: SOB Portable COMPARISON: None FINDINGS: The lungs are wel l expanded and clear. The costophrenic angles are clear. The heart is normal in size. No pneumothorax is found. No acute cardiopulmonary process. I, Navin Hdez MD., have reviewed this estelle dy and agree with the above report. Ct Abdomen Pelvis W Contrast Result Date: 03/04/2019 * * * * * * * * ORIGINAL REPORT * * * * * * * * EXAM: CT ABDOMEN AND PELVIS WITH OUT AND WITH CONTRAST HISTORY: Abd pain, diverticulitis suspected COMPARISON: No ne DOSE: 388.23 mGy TECHNIQUE AND FINDINGS: Contiguous axial imaging from the le daysi of the lung bases through the pubic symphysis was performed after the uncomp licated administration of 120 cc of intravenous Omnipaque contrast. Coronal and sagittal reconstructions were obtained. Auto mA and/or iterative reconstruction were used to reduce radiation dose. FINDINGS: LOWER THORAX: The lungs bases are clear. No cardiomegaly. LIVER: No focal hepatic lesions. Normal contour. GALLB LADDER AND BILIARY TREE: No biliary ductal dilation. No gallbladder wall thicke cassandra. SPLEEN: No splenomegaly. PANCREAS: No ductal dilation or masses. ADRENAL G LANDS: No adrenal nodules. KIDNEYS: No hydronephrosis, stones, or masses. PERITO NEUM AND RETROPERITONEUM: No free air or fluid. LYMPH NODES: Multiple retroperit soto and right iliac lymph nodes with the largest measuring 1 cm, likely metast atic. GI TRACT: The sigmoid colon is distended. An endophytic enhancing mass is suspected arising from the right lateral wall and measuring approximately 7.1 x 5.1 cm (3:87). This finding is concerning for a primary adenocarcinoma. There ar e surrounding lymph nodes para-aortic retroperitoneal lymph nodes concerning for metastatic disease. The more distal sigmoid and rectum shows circumferential mu ral thickening likely inflammatory. PELVIS/BLADDER: The urinary bladder is under distended. VESSELS: Scattered atherosclerotic calcifications without evidence of occlusive disease. BONES AND SOFT TISSUES: No suspicious lytic or sclerotic bony lesions. 1. A large enhancing tumor is seen growing into the sigmoid colon. This is abou t 15 cm from the anal verge and measures about 13 cm in length. This finding sug gests a primary sigmoid adenocarcinoma. Colonoscopy and biopsy are recommended. 2. There is evidence of retroperitoneal para-aortic lymphadenopathy concerning for metastatic disease. No evidence of hepatic metastases. 3. Tumor extension i s seen into the surrounding fat (3:78 and 602:56). Lymphovascular invasion is house spected. I, Laila Mendez MD., have reviewed this study and agree with the above report. Ct Thorax W Contrast Result Date: 03/06/2019 PROCEDURE: CT CHEST WITH CONTRAST - CHEST PROTOCOL CLINICAL INDICATION: Neoplasm : colorectal, staging COMPARISON: None. TECHNIQUE: Helical CT was performed o f the chest (lung apices to bases) using 80 mL Omnipaque nonionic intravenous co ntrast, without complication. Images were reconstructed at 1.25 mm slice thickne ss. MIP and coronal & sagittal MPR images were generated and reviewed. (DFOV=40 cm) FINDINGS: Lower neck/thyroid: Unremarkable. Lungs: A right upper lobe 3 mm nodule is present (2:61). A right lower lobe 2 mm nodule is seen (2:200). Central airway: The central airways are patent. Pleura: No pleural effusion, thickening or pneumothorax. Thoracic aorta and great vessels: Normal in diameter. Pulmonary arteries: Unremarkable. Heart and pericardium: Moderate left coronary arterial calcification. Unremarkable cardiac morphology and pericardium. Lymph nodes: No enlarged thoracic lymph nodes. Mediastinum: Unremarkable. Thoracic spine and chest wall: Chronic right eighth through 11th rib fractures are noted. No aggressive osseous lesion is seen. Other Lines/Tubes/Devices/Hardware: None Visualized upper abdomen: Please refer to the report of the concurrent CT abdomen/pelvis performed on the same day for findings in the upper abdomen. 1. No definite evidence of intrathoracic metastatic disease. 2. Right upper an d lower lobe 2 to 3 mm nodules, nonspecific. Attention on follow-up imaging. ___ Xr Kub Result Date: 03/04/2019 * * * * * * * * ORIGINAL REPORT * * * * * * * * EXAM: XR KUB HISTORY: abd tender ness COMPARISON: None. FINDINGS: Slightly dilated and organized small bowel in t he upper abdomen centrally and on the left raise the question of incomplete smal l bowel obstruction since gas is present distally in normal colon. No opaque sto kinjal or masses are found. Discharge Physical Exam: BP 124/71 | Pulse 72 | Temp 36.7 C (98.1 F) (Oral) | Resp 18 | Ht 1.702 m (5' 7") | Wt 82.5 kg (181 lb 12.8 oz) | SpO2 100% | BMI 28.47 kg/m Gen: NAD. Patient resting comfortably in bed HEENT: Head: normocephalic, atraumatic. Eyes: EOMI, PERRL, Nares: patent b/l. Th roat: MMM. No tracheal deviation. CV: RRR. No m/g/r appreciated. No LE edema b/l. Resp: CTA. No wheezes, rales or rhonchi GI: Soft. NT/ND. No guarding or rebound tenderness. MS: No gross abnormalities. Patient moves all four extremities spontaneously Neuro: A&Ox 4. No gross abnormalities noted. Issues to be addressed post discharge: Discharge Medications: Lorenzo Nicole Jr. Home Medication Instructions HIRAM:[id number] Printed on:03/06/19 8969 Medication Information amLODIPine (NORVASC) 5 mg tablet Take 1 Tab by mouth daily. ferrous sulfate (IRON) 325 mg (65 mg iron) SR capsule Take 1 capsule by mouth daily with breakfast for 30 days. gabapentin 300 mg capsule Take 1 capsule by mouth 2 (two) times daily. Lancets (UNILET LANCET) Misc lisinopril (PRINIVIL,ZESTRIL) 40 mg tablet TAKE 1 TABLET BY MOUTH EVERY DAY magnesium oxide 420 mg Tab Take 400 mg by mouth daily for 10 days. metFORMIN 1,000 mg tablet Take 1,000 mg by mouth 2 (two) times daily with meals. Polyethylene Glycol 3350 17 gram powder Take 1 Packet by mouth daily for 30 days. pravastatin 40 mg tablet Take 1 tablet by mouth at bedtime. sennosides-docusate sodium 8.6-50 mg per tablet Take 1 tablet by mouth 2 (two) times daily for 30 days. Follow-up Information: FOLLOW-UP PCP in 1 week FOLLOW-UP Oncology / MD Leroy on 03/11/19 FOLLOW-UP in 2 weeks Electronically Signed: Brad Jeong DO 03/06/2019 Addendum : This DC took > 30 minutes to complete including face-face and arranging care NONE documented in this encounter Discharge Instructions * Instructions* Verna Jovel RN - 03/06/2019 Hematology/Oncology: Follow up in one week with Dr. Eboni Bernal - please call for a n appointment [phone]; [facility] [phone]: Please call for any appointment questions. * Attachments The following attachments cannot be sent through Care Everywhere.* Gastrointestinal (GI) Bleeding, When You Have (Armenian) * Iron tablets, capsules, extended-release tablets (Armenian) * Gabapentin capsules or tablets (Armenian) * Hypomagnesemia, Discharge Instructions (Armenian) * Magnesium Salicylate tablets (Armenian) * Polyethylene Glycol powder (Armenian) * Docusate Sodium; Senna tablets or capsules (Armenian) * Acetaminophen; Codeine tablets (Armenian) * Red Blood Cell Antibody (Armenian) * Blood Transfusion (Adult), When You Need a (Armenian) * Blood and Blood Product Transfusions for Cancer (Armenian) * Isophane Insulin (NPH) injection (Armenian) documented in this encounter Progress Notes * Laureen Joseph MD - 03/06/2019 7:44 PM CDT Overnight event: per patient during 1 unit of prbc started with lower back pain 01/26 was given tyelonol # 3 with some relief, then patient went to use the urina l subsequently during 2nd unit of prbc was more progressive in which he then com pleted, 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 Currently was admitted for gi bleed, noted large colon mass wit h lymphadenopathy. Was seen by GI and oncology. No fever, chills. No chest or re spiratory Symptoms. Vitals stable, b/p stable. No dark urine. No anterior abdom inal pain or dysuria. No chest pain/sob. No lower ext weakness/tingling. No loss of bowel/bladder control. Acute back pain - unclear etiology, given temporal relation will need to r/o blood related react ion. I discussed case with both blood bank Dr. Barillas and hematology/oncology (dr. Bernal). Other ethologies to consider lumbar spine bony mets w/nerve impingment vs herniated disc/nerve impingement vs renal stone vs severe muscle spasm vs con stipation (but is less likely to cause as severe pain) -Per blood bank will to order stat hemolytic work up (cbc, t bili-cog/uncong, martinez pto, ldh, renal function, U/A -bili), and return of blood product back to blood bank for review also epic order placed for " transfusion reaction investigation" . Per blood blank less likely any incompatibility reaction as patient blood type "0" and patient had received "0" blood for major antigens. - pending work up, given Iv dilaudid, decadron x 1 (in light of any nerve imping ement) - Discussion with Dr. Bernal, although reaction is less likely -no fever, u/a miah ar would need to continue to monitor with hemolytic work up (as although blood t ype matched in light of any minor antigen reaction) therefore will also need rep eat full hemolytic work up in AM (orders has been placed) Supportive care with IV fluids, monitor vitals/hemodynamics cxr - neg, KUB noted moderate stool Will get stat CT lumbar spine and Ct abdomen/pelvis to r/o other discussed ethol ogies I have updated the family/sponse on the above and discussed in details and answe red questions, and i have discussed with nursing staff on the current testings. Will transfer patient to IMU for closer monitoring Addendum: CT abdomen/plevis neg for stones, CT lumbar spine neg for metastatic lesion/impigment. F/u cbc stable/hemolytic work (t bili, u/a, ldh) -negative, in cluding blood bank testing for transfusion reaction/hemolysis is also negative. currently Patient pain and improved /resolved. Repeat AM labs pending. 60 mins CC time The above diagnosis and plan was discussed with the patient and spouse and was a greed upon Laureen Joseph M.D. Internal Medicine Employee ID #: [id number] * Brad Jeong DO - 03/06/2019 11:47 AM CDT Billing Query: Acute on Chronic blood loss anemia from Recto Sigmoid fungating mass likely Canc er * Brad Jeong DO - 03/06/2019 7:46 AM CDT Medicine Progress Note Lorenzo Nicole Jr. is a 53 year old male :1965 Adm:03/03/2019 5:25 PM day 2 Allergy:Patient has no known allergies. Subjective: Interim History: Overnight no major events, HGB still trending down slowly, still having some blo od and abd pain with bowel movements. Feels improved since admission, alert wish ing to go home Review of Hx/Meds: PMH: Past Medical History: Diagnosis Date Diabetes mellitus Diabetic neuropathy HLD (hyperlipidemia) HTN (hypertension) PSH: has no past surgical history on file. Current Scheduled Medications Current IV Current Facility-Administered Medications: acetaminophen-codeine (TYLENOL #3) 300-30 mg tablet 1 tablet, 1 tablet, Asafa l, Q4HPRN, Brad Jeong DO, 1 tablet at 03/06/19 1419 HYDROmorphone (DILAUDID) injection 0.5 mg, 0.5 mg, Slow IV Push, ONCE, Brad Huff DO, Stopped at 03/06/19 2100 HYDROmorphone (DILAUDID) injection 1 mg, 1 mg, Slow IV Push, Q4HPRN, Brad Jeong DO, 1 mg at 03/06/191999 NaCl 0.9% (NS) IV infusion 1,000 mL, 1,000 mL, IV Infusion, CONTINUOUS, Laureen Choudhury MD, Last Rate: 100 mL/hr at 03/07/19 0531, 1,000 mL at 03/07/19 053 1 Polyethylene Glycol 3350 (MIRALAX) powder 17 g, 17 g, Oral, DAILY, Brad Jeong DO, 17 g at 03/06/19 1030 sennosides-docusate sodium (SENOKOT S) 8.6-50 mg per tablet 1 tablet, 1 tab let, Oral, BID, Brad Jeong DO, 1 tablet at 03/06/192056 gabapentin (NEURONTIN) capsule 300 mg, 300 mg, Oral, BID, Laureen Joseph M D, 300 mg at 03/06/192057 magnesium oxide (MAG-OX 400) tablet 400 mg, 400 mg, Oral, BID, Nikolai Jeong DO, 400 mg at 03/06/191999 morpHINE injection 2 mg, 2 mg, Slow IV Push, Q4HPRN, Hugo Piedra MD, 2 mg at 03/06/19 191 simethicone (GAS RELIEF) 40 mg/0.6 mL drops, , , PRN, Gou, Hermes Verdin MD , 80 mg at 03/04/19 130 acetaminophen (TYLENOL) tablet 650 mg, 650 mg, Oral, Q6HPRN, Brad Jeong DO dextrose 50 % in water (D50W) injection 25 mL, 25 mL, Slow IV Push, PRN, Mo Brad henderson DO glucagon (GLUCAGEN DIAGNOSTIC KIT) injection 1 mg, 1 mg, Intramuscular, PRN , Brad Jeong DO ondansetron (ZOFRAN (PF)) injection 4 mg, 4 mg, Slow IV Push, Q6HPRN, Brad Paulino DO, 4 mg at 03/04/19 044 pravastatin (PRAVACHOL) tablet 40 mg, 40 mg, Oral, QHS, Brad Jeong DO, 40 mg at 03/06/192056 Sliding Scale Insulin-Regular + Fsbg Testing, , Subcutaneous, Q6H, Jean-Paul, Brad, DO, 9 Units at 03/07/19 0715 Objective: Vitals: Vitals: 03/07/19 0000 03/07/19 0200 03/07/19 0400 03/07/19 0600 BP: 112/72 121/81 BP Location: Patient Position: Pulse: 70 Resp: 14 Temp: 36.8 C (98.3 F) 36.7 C (98 F) TempSrc: Oral Oral SpO2: 94% 93% Weight: 85.5 kg (188 lb 6.4 oz) Height: Physical Exam: General: NAD, Alert, lying in bed comfortable, cogent speech. HEENT: anicteric, oral mucosa dry Neck: supple, no JVD, no bruits. Chest: CTA B/L, no W/R/C. Heart: RRR, S1/S2, no M/G/R Abdominal: BS normoactive, soft, mild LLQ tenderness Skin/Extremities: no rash, no cyanosis, warm and dry, no LE edema. Neurological: CN II-XII grossly intact, no focal deficits. Labs: BMP:BMP NA Date Value 03/07/2019 139 mmol/L 03/06/2019 142 mmol/L 03/06/2019 142 mmol/L 03/05/2019 140 mmol/L 03/04/2019 137 mmol/L 07/25/2011 136 MMOL/L K Date Value 03/07/2019 4.4 mmol/L 03/06/2019 4.1 mmol/L 03/06/2019 3.6 mmol/L 03/05/2019 3.6 mmol/L 03/04/2019 3.6 mmol/L 07/25/2011 4.4 MMOL/L CALCIUM Date Value 03/07/2019 7.8 mg/dL (L) 03/06/2019 8.3 mg/dL (L) 03/06/2019 7.7 mg/dL (L) 03/05/2019 8.1 mg/dL (L) 03/04/2019 7.2 mg/dL (L) 07/25/2011 9.8 MG/DL CL Date Value 03/07/2019 111 mmol/L (H) 03/06/2019 111 mmol/L (H) 03/06/2019 109 mmol/L (H) 03/05/2019 107 mmol/L 03/04/2019 109 mmol/L (H) 07/25/2011 98 MMOL/L BUN Date Value 03/07/2019 11 mg/dL 03/06/2019 9 mg/dL 03/06/2019 8 mg/dL 03/05/2019 8 mg/dL 03/04/2019 9 mg/dL 07/25/2011 9 MG/DL CREATININE Date Value 03/07/2019 0.71 mg/dL 03/06/2019 0.92 mg/dL 03/06/2019 0.80 mg/dL 03/05/2019 0.93 mg/dL 03/04/2019 0.62 mg/dL 07/25/2011 0.57 MG/DL (L) GLUCOSE Date Value 03/07/2019 220 mg/dL (H) 03/06/2019 126 mg/dL (H) 03/06/2019 209 mg/dL (H) 03/05/2019 111 mg/dL (H) 03/04/2019 89 mg/dL 07/25/2011 299 MG/DL (H) CO2 TOTAL Date Value 03/07/2019 23 mmol/L 03/06/2019 25 mmol/L 03/06/2019 27 mmol/L 03/05/2019 26 mmol/L 03/04/2019 23 mmol/L 07/25/2011 24 MMOL/L LFT: Hepatic Function Panel ALBUMIN Date Value 03/07/2019 2.7 g/dL (L) 07/25/2011 4.6 G/DL T PROTEIN Date Value 03/07/2019 5.9 g/dL (L) 07/25/2011 8.9 G/DL (H) TOTAL BILI Date Value 03/07/2019 0.3 mg/dL 07/25/2011 0.9 MG/DL BILI UNCON (mg/dL) Date Value 03/06/2019 0.5 BILI CONJ (mg/dL) Date Value 03/06/2019 0.0 ALT(SGPT) (U/L) Date Value 03/07/2019 23 07/25/2011 266 (H) AST(SGOT) (U/L) Date Value 03/07/2019 16 07/25/2011 219 (H) ALK PHOS (U/L) Date Value 03/07/2019 99 07/25/2011 160 (H) CBC:CBC WBC (10*3/L) Date Value 03/07/2019 17.15 (H) RBC (10*6/L) Date Value 03/07/2019 4.37 PLT (10*3/L) Date Value 03/07/2019 478 (H) HGB (g/dL) Date Value 03/07/2019 9.5 (L) HCT (%) Date Value 03/07/2019 31.0 (L) Troponin: There are no current results on file for these tests and/or test for 1 year. I have reviewed all relevant labs Imaging: Xr Chest 1 Vw Result Date: 03/06/2019 * * * * * * * * ORIGINAL REPORT * * * * * * * * PROCEDURE: CHEST SINGLE VIEW POR TABLE 03/06/2019 at 7:22 PM CLINICAL INDICATION: SOB Portable COMPARISON: 03/03/20 19 1. Normal heart size. 2. Lungs are clear. No pleural effusion, pneumothorax, or pulmonary edema. Xr Chest 1 Vw Result Date: 03/03/2019 XR CHEST 1 VW HISTORY: SOB Portable COMPARISON: None FINDINGS: The lungs are wel l expanded and clear. The costophrenic angles are clear. The heart is normal in size. No pneumothorax is found. No acute cardiopulmonary process. I, Navin Hdez MD., have reviewed this estelle dy and agree with the above report. Ct Abdomen Pelvis W Contrast Result Date: 03/04/2019 * * * * * * * * ORIGINAL REPORT * * * * * * * * EXAM: CT ABDOMEN AND PELVIS WITH OUT AND WITH CONTRAST HISTORY: Abd pain, diverticulitis suspected COMPARISON: No ne DOSE: 388.23 mGy TECHNIQUE AND FINDINGS: Contiguous axial imaging from the le daysi of the lung bases through the pubic symphysis was performed after the uncomp licated administration of 120 cc of intravenous Omnipaque contrast. Coronal and sagittal reconstructions were obtained. Auto mA and/or iterative reconstruction were used to reduce radiation dose. FINDINGS: LOWER THORAX: The lungs bases are clear. No cardiomegaly. LIVER: No focal hepatic lesions. Normal contour. GALLB LADDER AND BILIARY TREE: No biliary ductal dilation. No gallbladder wall thicke cassandra. SPLEEN: No splenomegaly. PANCREAS: No ductal dilation or masses. ADRENAL G LANDS: No adrenal nodules. KIDNEYS: No hydronephrosis, stones, or masses. PERITO NEUM AND RETROPERITONEUM: No free air or fluid. LYMPH NODES: Multiple retroperit soto and right iliac lymph nodes with the largest measuring 1 cm, likely metast atic. GI TRACT: The sigmoid colon is distended. An endophytic enhancing mass is suspected arising from the right lateral wall and measuring approximately 7.1 x 5.1 cm (3:87). This finding is concerning for a primary adenocarcinoma. There ar e surrounding lymph nodes para-aortic retroperitoneal lymph nodes concerning for metastatic disease. The more distal sigmoid and rectum shows circumferential mu ral thickening likely inflammatory. PELVIS/BLADDER: The urinary bladder is under distended. VESSELS: Scattered atherosclerotic calcifications without evidence of occlusive disease. BONES AND SOFT TISSUES: No suspicious lytic or sclerotic bony lesions. 1. A large enhancing tumor is seen growing into the sigmoid colon. This is abou t 15 cm from the anal verge and measures about 13 cm in length. This finding sug gests a primary sigmoid adenocarcinoma. Colonoscopy and biopsy are recommended. 2. There is evidence of retroperitoneal para-aortic lymphadenopathy concerning for metastatic disease. No evidence of hepatic metastases. 3. Tumor extension i s seen into the surrounding fat (3:78 and 602:56). Lymphovascular invasion is house spected. I, Laila Mendez MD., have reviewed this study and agree with the above report. Ct Abdomen Pelvis W Wo Contrast Result Date: 03/06/2019 EXAM: CT ABDOMEN AND PELVIS WITH/WITHOUT CONTRAST HISTORY: Urinary tract stone, known, symptomatic, complications or risk factors eval renal stone COMPARISON: N one. DOSE: 757.67 mGy-cm TECHNIQUE AND FINDINGS: Contiguous axial imaging from t he level of the lung bases through the pubic symphysis was performed after the u ncomplicated administration of 120 cc of intravenous Omnipaque contrast. Coronal and sagittal reconstructions were obtained. Auto mA and/or iterative reconstru ction were used to reduce radiation dose. FINDINGS: LOWER THORAX: The lungs base s are clear. The heart is mildly enlarged. LIVER: No focal hepatic lesions. Nor mal contour. GALLBLADDER AND BILIARY TREE: No biliary ductal dilation. No gallb ladder wall thickening. PANCREAS: No ductal dilation or masses. SPLEEN: No splen omegaly. ADRENAL GLANDS: No adrenal nodules. KIDNEYS: No hydronephrosis, stones, or masses. Bilateral cortical areas of high attenuation are present, right grea ter than left, can be seen in cortical nephrocalcinosis or medullary sponge kidn ey. PERITONEUM AND RETROPERITONEUM: No free air or fluid. LYMPH NODES: Multiple enlarged para-aortic lymph nodes are reidentified, with the largest one measurin g 11 mm in short axis (6:55). VESSELS: Multifocal calcified atherosclerotic dise ase of the abdominal aorta and its branches are noted. GI TRACT: Again noted is a large enhancing mass within the sigmoid colon, appears unchanged. No dilation or wall thickening. PELVIS/BLADDER: Unremarkable. BONES AND SOFT TISSUES: Remote fracture deformity of posterior right 9th-11th ribs noted. A 17 x 8 mm lytic ar ea is noted within the left posterior 8th rib (2:1). Redemonstration of enhancing sigmoid mass measuring 7.1 x 5.1 cm in association with para-aortic lymphadenopathy. Partially visualized left posterior eighth rib osteolytic lesion measuring 17 x 8 mm, concerning osseous involvement. Bilateral cortical areas of high attenuation are present, right greater than left, can be seen in cortical nephrocalcinosis or medullary sponge kidney. IShawna MD., have reviewed this study and agree with the above report. Ct Lumbar Spine Wo Contrast Result Date: 03/06/2019 CT LUMBAR SPINE WO CONTRAST HISTORY: Back pain, rapidly progressive neuro defic it severe back pain with colon mass, eval for any metastatsis/herniated disk or nerve impingment COMPARISON: None TECHNIQUE: CT imaging of the lumbar spine is o btained without IV contrast. Sagittal and coronal reformats are generated and re viewed. The lumbar curvature is normal. The vertebral bodies are normal in heigh t and in normal alignment. No facet fracture or subluxation is present. No signi ficant degenerative changes are noted. The visualized sacrum and pelvic bones ar e unremarkable. The paravertebral soft tissues are unremarkable with no CT evide nce of metastatic disease. Unremarkable CT lumbar spine with no evidence of metastatic disease. Ct Thorax W Contrast Result Date: 03/06/2019 PROCEDURE: CT CHEST WITH CONTRAST - CHEST PROTOCOL CLINICAL INDICATION: Neoplasm : colorectal, staging COMPARISON: None. TECHNIQUE: Helical CT was performed o f the chest (lung apices to bases) using 80 mL Omnipaque nonionic intravenous co ntrast, without complication. Images were reconstructed at 1.25 mm slice thickne ss. MIP and coronal & sagittal MPR images were generated and reviewed. (DFOV=40 cm) FINDINGS: Lower neck/thyroid: Unremarkable. Lungs: A right upper lobe 3 mm nodule is present (2:61). A right lower lobe 2 mm nodule is seen (2:200). Central airway: The central airways are patent. Pleura: No pleural effusion, thickening or pneumothorax. Thoracic aorta and great vessels: Normal in diameter. Pulmonary arteries: Unremarkable. Heart and pericardium: Moderate left coronary arterial calcification. Unremarkable cardiac morphology and pericardium. Lymph nodes: No enlarged thoracic lymph nodes. Mediastinum: Unremarkable. Thoracic spine and chest wall: Chronic right eighth through 11th rib fractures are noted. No aggressive osseous lesion is seen. Other Lines/Tubes/Devices/Hardware: None Visualized upper abdomen: Please refer to the report of the concurrent CT abdomen/pelvis performed on the same day for findings in the upper abdomen. 1. No definite evidence of intrathoracic metastatic disease. 2. Right upper an d lower lobe 2 to 3 mm nodules, nonspecific. Attention on follow-up imaging. ___ Xr Kub Result Date: 03/06/2019 * * * * * * * * ORIGINAL REPORT * * * * * * * * EXAM: XR KUB HISTORY: Severe yessy k pain COMPARISON: 03/03/2019 FINDINGS/IMPRESSION: The bowel gas pattern is unremarkable. Moderate stool burde n is present. No abnormal calcifications or radiopaque stones are identified. No acute bony abnormalities are noted. I, Shawna Pierre MD., have reviewed this estelle dy and agree with the above report. Xr Kub Result Date: 03/04/2019 * * * * * * * * ORIGINAL REPORT * * * * * * * * EXAM: XR KUB HISTORY: abd tender ness COMPARISON: None. FINDINGS: Slightly dilated and organized small bowel in t he upper abdomen centrally and on the left raise the question of incomplete smal l bowel obstruction since gas is present distally in normal colon. No opaque sto kinjal or masses are found. Assessment and plan: Principal Problem: Lower GI bleed Active Problems: GI bleed Colonic mass Acute blood loss anemia Type 2 diabetes mellitus with complication, without long-term current use of i nsulin Secondary hypertension Lower GI Bleed / Colonic mass: Noted retroperitoneal para-aortic lymphadenopathy , S/p EGD and colonoscopy - large colonic mass s/p biopsy -GI / Oncology consult -Continue pain mgmt -continue aggressive bowel regime Suspected Blood loss anemia / IRN def anemia: S/P transfussion -Type and cross -On Venofer -Trend H&H -Due to continuing small blood loss with bowel movements will plan to give 2 uni ts PRBC before DC Vertigo w/ N/V/D: Resolved, suspected secondary to blood loss / hypotension, non symptomatic now -PT eval -continue gentle IV fluids -Nutrition consult -Ensure AC HTN: -Hold HTN agents HLD: -Continue statin DM2: -On ISS Diabetic Neuropathy: -Continue gabapentin Hypomagnesia: -Replete PRN DVT prophylaxis: SCD Disposition: Will transfuse 2 units today with plan to Discharge afterwards, FOL LOW-UP Oncology regarding biopsy outpt Signed: Brad Jeong DO Addendum: Pt developed some back pain after 1st unit or PRBC given Tylenol with improvemen t in pain. Noted no fever, SOB or other signs of reaction to transfusion per sta ff. Given a 2 unit of PRBC when he developed severe back pain shooting into his bilateral thighs. needing morphine and dilaudid for control. Pt was revaluated by both myself and Dr joseph at bedside. Noted HD stable on exam, Lungs CTAB, He art sounds RRR, - M/G/R, Abd diminished BS, NT, ND, Neuro motor grossly intact m oving all 4 extremities w/o deficit and sensation intact with bilateral normal r eflexes. Please see Dr joseph note for details of this event. * Brad Jeong DO - 03/05/2019 11:24 AM CDT Medicine Progress Note Lorenzo Nicole Jr. is a 53 year old male :1965 Adm:03/03/2019 5:25 PM day 0 Allergy:Patient has no known allergies. Subjective: Interim History: Overnight no major events, HGB still trending down slowly, still having some blo od with bowel movements and abd pain with bowel movement. Review of Hx/Meds: PMH: Past Medical History: Diagnosis Date Diabetes mellitus Diabetic neuropathy HLD (hyperlipidemia) HTN (hypertension) PSH: has no past surgical history on file. Current Scheduled Medications Current IV Current Facility-Administered Medications: gabapentin (NEURONTIN) capsule 300 mg, 300 mg, Oral, DAILY, Hugo Piedra MD, 300 mg at 03/05/19 0838 magnesium oxide (MAG-OX 400) tablet 400 mg, 400 mg, Oral, BID, Nikolai Jeong DO morpHINE injection 2 mg, 2 mg, Slow IV Push, Q4HPRN, Hugo Piedra MD, 2 mg at 03/04/19 2142 simethicone (GAS RELIEF) 40 mg/0.6 mL drops, , , PRN, Gou, Hermes Verdin MD , 80 mg at 03/04/19 1308 acetaminophen (TYLENOL) tablet 650 mg, 650 mg, Oral, Q6HPRN, Brad Jeong DO acetaminophen-codeine (TYLENOL #3) 300-30 mg tablet 1 tablet, 1 tablet, Ora l, Q6HPRN, Brad Jeong DO dextrose 50 % in water (D50W) injection 25 mL, 25 mL, Slow IV Push, PRN, Brad Bunch DO glucagon (GLUCAGEN DIAGNOSTIC KIT) injection 1 mg, 1 mg, Intramuscular, PRN , Brad Jeong DO ondansetron (ZOFRAN (PF)) injection 4 mg, 4 mg, Slow IV Push, Q6HPRN, Brad Paulino DO, 4 mg at 03/04/19 0443 pantoprazole (PROTONIX) 40 mg in NaCl 0.9% (NS) 100 mL MINI-BAG, 40 mg, IV Piggyback, Q12H, Brad Jeong DO, 40 mg at 03/05/19 0839 pravastatin (PRAVACHOL) tablet 40 mg, 40 mg, Oral, QHS, Brad Jeong DO, 40 mg at 03/04/192010 Sliding Scale Insulin-Regular + Fsbg Testing, , Subcutaneous, Q6H, Brad Jeong DO, Stopped at 03/05/19 0600 Objective: Vitals: Vitals: 03/05/19 0200 03/05/19 0300 03/05/19 0400 03/05/19 0800 BP: 107/58 107/71 105/71 106/70 BP Location: Right arm Right arm Right arm Pulse: 73 72 70 Resp: 18 18 20 (!) 69 Temp: 37.5 C (99.5 F) 37.1 C (98.8 F) TempSrc: Oral Oral SpO2: 99% 99% 100% 99% Weight: 83.5 kg (184 lb) Height: Physical Exam: General: NAD, Alert, lying in bed comfortable, cogent speech. HEENT: anicteric, oral mucosa dry Neck: supple, no JVD, no bruits. Chest: CTA B/L, no W/R/C. Heart: RRR, S1/S2, no M/G/R Abdominal: BS normoactive, soft, mild LLQ tenderness Skin/Extremities: no rash, no cyanosis, warm and dry, no LE edema. Neurological: CN II-XII grossly intact, no focal deficits. Labs: BMP:BMP NA Date Value 03/05/2019 140 mmol/L 03/04/2019 136 mmol/L 03/03/2019 136 mmol/L 02/25/2019 133 mmol/L (L) 07/25/2011 136 MMOL/L K Date Value 03/05/2019 3.6 mmol/L 03/04/2019 4.0 mmol/L 03/03/2019 4.3 mmol/L 02/25/2019 4.5 mmol/L 07/25/2011 4.4 MMOL/L CALCIUM Date Value 03/05/2019 8.1 mg/dL (L) 03/04/2019 8.5 mg/dL (L) 03/03/2019 8.4 mg/dL (L) 02/25/2019 9.3 mg/dL 07/25/2011 9.8 MG/DL CL Date Value 03/05/2019 107 mmol/L 03/04/2019 103 mmol/L 03/03/2019 103 mmol/L 02/25/2019 99 mmol/L 07/25/2011 98 MMOL/L BUN Date Value 03/05/2019 8 mg/dL 03/04/2019 11 mg/dL 03/03/2019 14 mg/dL 02/25/2019 21 mg/dL 07/25/2011 9 MG/DL CREATININE Date Value 03/05/2019 0.93 mg/dL 03/04/2019 0.81 mg/dL 03/03/2019 0.65 mg/dL 02/25/2019 1.26 mg/dL (H) 07/25/2011 0.57 MG/DL (L) GLUCOSE Date Value 03/05/2019 111 mg/dL (H) 03/04/2019 139 mg/dL (H) 03/03/2019 160 mg/dL (H) 02/25/2019 107 mg/dL 07/25/2011 299 MG/DL (H) CO2 TOTAL Date Value 03/05/2019 26 mmol/L 03/04/2019 24 mmol/L 03/03/2019 25 mmol/L 02/25/2019 20 mmol/L (L) 07/25/2011 24 MMOL/L LFT: Hepatic Function Panel ALBUMIN Date Value 03/03/2019 2.6 g/dL (L) 07/25/2011 4.6 G/DL T PROTEIN Date Value 03/03/2019 5.6 g/dL (L) 07/25/2011 8.9 G/DL (H) TOTAL BILI Date Value 03/03/2019 0.2 mg/dL 07/25/2011 0.9 MG/DL BILI UNCON (mg/dL) Date Value 03/03/2019 0.1 BILI CONJ (mg/dL) Date Value 03/03/2019 0.0 ALT(SGPT) (U/L) Date Value 03/03/2019 17 07/25/2011 266 (H) AST(SGOT) (U/L) Date Value 03/03/2019 18 07/25/2011 219 (H) ALK PHOS (U/L) Date Value 03/03/2019 102 07/25/2011 160 (H) CBC:CBC WBC (10*3/L) Date Value 03/05/2019 13.71 (H) RBC (10*6/L) Date Value 03/05/2019 3.99 (L) PLT (10*3/L) Date Value 03/05/2019 576 (H) HGB (g/dL) Date Value 03/05/2019 7.9 (L) HCT (%) Date Value 03/05/2019 26.5 (L) Troponin: There are no current results on file for these tests and/or test for 1 year. I have reviewed all relevant labs Imaging: Xr Chest 1 Vw Result Date: 03/03/2019 XR CHEST 1 VW HISTORY: SOB Portable COMPARISON: None FINDINGS: The lungs are wel l expanded and clear. The costophrenic angles are clear. The heart is normal in size. No pneumothorax is found. No acute cardiopulmonary process. I, Navin Hdez MD., have reviewed this estelle dy and agree with the above report. Ct Abdomen Pelvis W Contrast Result Date: 03/04/2019 * * * * * * * * ORIGINAL REPORT * * * * * * * * EXAM: CT ABDOMEN AND PELVIS WITH OUT AND WITH CONTRAST HISTORY: Abd pain, diverticulitis suspected COMPARISON: No ne DOSE: 388.23 mGy TECHNIQUE AND FINDINGS: Contiguous axial imaging from the le daysi of the lung bases through the pubic symphysis was performed after the uncomp licated administration of 120 cc of intravenous Omnipaque contrast. Coronal and sagittal reconstructions were obtained. Auto mA and/or iterative reconstruction were used to reduce radiation dose. FINDINGS: LOWER THORAX: The lungs bases are clear. No cardiomegaly. LIVER: No focal hepatic lesions. Normal contour. GALLB LADDER AND BILIARY TREE: No biliary ductal dilation. No gallbladder wall thicke cassandra. SPLEEN: No splenomegaly. PANCREAS: No ductal dilation or masses. ADRENAL G LANDS: No adrenal nodules. KIDNEYS: No hydronephrosis, stones, or masses. PERITO NEUM AND RETROPERITONEUM: No free air or fluid. LYMPH NODES: Multiple retroperit soto and right iliac lymph nodes with the largest measuring 1 cm, likely metast atic. GI TRACT: The sigmoid colon is distended. An endophytic enhancing mass is suspected arising from the right lateral wall and measuring approximately 7.1 x 5.1 cm (3:87). This finding is concerning for a primary adenocarcinoma. There ar e surrounding lymph nodes para-aortic retroperitoneal lymph nodes concerning for metastatic disease. The more distal sigmoid and rectum shows circumferential mu ral thickening likely inflammatory. PELVIS/BLADDER: The urinary bladder is under distended. VESSELS: Scattered atherosclerotic calcifications without evidence of occlusive disease. BONES AND SOFT TISSUES: No suspicious lytic or sclerotic bony lesions. 1. A large enhancing tumor is seen growing into the sigmoid colon. This is abou t 15 cm from the anal verge and measures about 13 cm in length. This finding sug gests a primary sigmoid adenocarcinoma. Colonoscopy and biopsy are recommended. 2. There is evidence of retroperitoneal para-aortic lymphadenopathy concerning for metastatic disease. No evidence of hepatic metastases. 3. Tumor extension i s seen into the surrounding fat (3:78 and 602:56). Lymphovascular invasion is house spected. I, Laila Mendez MD., have reviewed this study and agree with the above report. Xr Kub Result Date: 03/04/2019 * * * * * * * * ORIGINAL REPORT * * * * * * * * EXAM: XR KUB HISTORY: abd tender ness COMPARISON: None. FINDINGS: Slightly dilated and organized small bowel in t he upper abdomen centrally and on the left raise the question of incomplete smal l bowel obstruction since gas is present distally in normal colon. No opaque sto kinjal or masses are found. Assessment and plan: Active Problems: Lower GI bleed Lower GI Bleed / Colonic mass: Noted retroperitoneal para-aortic lymphadenopathy , S/p EGD and colonoscopy - large colonic mass s/p biopsy -GI / Oncology consult -FOLLOW-UP CT chest -FOLLOW-UP Oncology if further biopsies required before DC -Continue pain mgmt Suspected Blood loss anemia / IRN def anemia: S/P transfussion -Type and cross -On Venofer -Trend H&H Vertigo w/ N/V/D: Suspected secondary to blood loss / hypotension, nonsymptomati c now -PT eval -continue gentle IV fluids -Nutrition consult -Ensure AC HTN: -Hold HTN agents HLD: -Continue statin DM2: -Start ISS Diabetic Neuropathy: -Continue gabapentin Hypomagnesia: -Replete PRN DVT prophylaxis: SCD Disposition: Trend HGB, FOLLOW-UP Oncology regarding biopsy Signed: Brad Jeong DO * Laura Go MD - 03/04/2019 6:08 PM CDT Internal Medicine Progress note: 03/04/2019 6:08 PM Lorenzo Nicole . 53 year old male admitted for No chief complaint on file. Subjective: Patient seen and examined at the bed side , alert and oriented x 3 , not in acut e distress , hemodynamically stable. S/p EGD and Colonoscopy 03/04/2019 Objective: Vitals: 03/04/19 0800 03/04/19 1400 03/04/19 1600 03/04/19 1800 BP: 102/59 113/64 107/72 Pulse: 85 81 94 Resp: 16 16 Temp: 36.8 C (98.2 F) 36.4 C (97.5 F) 36.7 C (98.1 F) TempSrc: Oral Oral Oral SpO2: 97% 93% 97% Weight: Height: Physical Exam General: NAD, Alert, lying in bed comfortable, cogent speech. HEENT: anicteric, oral mucosa dry Neck: supple, no JVD, no bruits. Chest: CTA B/L, no W/R/C. Heart: RRR, S1/S2, no M/G/R Abdominal: BS normoactive, soft, mild left and mild right lower quadrant tendern ess without guarding or rigidity Skin/Extremities: no rash, no cyanosis, warm and dry, no LE edema. Neurological: CN II-XII grossly intact, no focal deficits. Current Hospital Meds reviewed Nursing note and vitals reviewed. Tele reviewed Labs reviewed Assessment and Plan: Lower GI bleed secondary to colonic mass ? Suspect malignancy - sigmoid adeno carcinoma Microcytic anemia , iron deficiency anemia - s/p 1 PRBC transfusion 9 Vertigo Type II DM with hyperglycemia Essential HTN HLD CTAP with contrast done - large colonic mass with retroperitoneal para-aortic ly mphadenopathy ? Malignancy S/p EGD and colonoscopy - large colonic mass s/p biopsy - oncology consulted Plan for CT chest with contrast malignancy protocol in AM ( Patient had contrast CT done today ) S/p 1 PRBC transfusion - H/H improved IV Iron - Venofer Oncology consult - informed GI team on board Repeat AM labs Will continue to monitor closely Laura Go MD 03/04/2019 6:08 PM * Mila Trujillo, [facility] [place] - 03/04/2019 9:42 AM CDT Care Management Social Functional Assessment Patient Name: Lorenzo Nicole Jr. Age: [age] year old Sex: male 4P Previous admit date: N/A Current diagnosis and co-morbidities: MICROCYTIC ANEMIA HYPOTENSION Readmission Questions: Was patient discharged from any acute care hospital within the last 30 days: No Social Functional Assessment: Primary language spoken/preferred: Armenian Mental Status: Lethargic/Stuporous (difficult to arouse) Information given by: Spouse Name and phone number of person giving information: KEISHA NICOLE Spouse p. [phone] Patient's support system: Spouse Name and number of support system: KEISHA NICOLE Spouse p. [phone] Primary Internet Merchant: Self MPOA: No Living Arrangement: Other Address of living arrangement : [address] [place], [place] [id number] Persons living in home: Same as support system;Self Barriers to returning home: None Baseline functional status- ambulation: Independent Functional status-baseline personal care: Independent Baseline functional status- driving: Independent Baseline functional status- grocery shopping: Independent Functional status-baseline housekeeping: Independent Functional status-baseline meal prep: Independent Current functional status same as prior: Yes Do you have a PCP?: No Home Health Care Agency: No Provider Services: No DME Company: No Equipment: None Hemodialysis: No Community resources utilized: None Funding Resources: Commercial Prescription coverage plan: [facility] where meds are filled: Other Other pharmacy: [id number] [place], [place] - [address] [facility] 3 Anticipated services prior to disharge: Reassess prior to discharge;Continue Med ical Eval Expected mode of discharge transportation: Family Additional Recommendations for DC: no needs at this time. Additional info required for discharge planning: Pending medical evaluation Recommended discharge plan: Home SFA Complete: Social Functional Assessment complete: Yes Alcohol Use Screening (AUDIT-C) How often do you have a drink containing alcohol?: Never SCORE: 0 Role of Care Management explained. Mila Trujillo LMSW Social Work/Care Management Office.[phone]. Cell. [phone] Email. [email or web address] documented in this encounter Plan of Treatment Care Team Description Date Type Specialty Radha Sloan MD [address] [place] [address] [phone] 03/11/2019 Office Visit Internal Medicine Honey Barclay, [facility] [address] [facility] [address] [place] [address] [phone] 03/29/2019 Office Visit Gastroenterology Radha Sloan MD [address] [place] [address] [phone] 05/27/2019 Office Visit Internal Medicine Date/Time Name Type Priority Associated Diagnoses 03/07/2019 12:29 PM CDT OVA AND PARASITE EXAM LAB Routine FECAL 03/04/2019 1:18 PM CDT CYTO ESOPHAGEAL BRUSHING LAB STAT 03/04/2019 1:09 PM CDT SURGICAL PATHOLOGY EXAM LAB STAT 03/06/2019 7:49 PM CDT URINE CULTURE LAB Routine 03/06/2019 8:45 PM CDT HAPTOGLOBIN, SERUM LAB Routine 03/06/2019 10:26 PM CDT TRXN WORKUP-ABBREVIATED LAB STAT 03/07/2019 4:21 AM CDT HAPTOGLOBIN, SERUM LAB Routine Order Schedule Name Type Priority Associated Diagnoses ONCE for 1 Occurrences starting 03/03/2019 until 03/03/2019 EKG-12 LEAD ROUTINE HEART STATION Routine ONCE for 1 Occurrences starting 03/04/2019 until 03/04/2019 OVA AND PARASITE EXAM LAB Routine FECAL ONCE for 1 Occurrences starting 03/04/2019, 1 completed CYTO ESOPHAGEAL BRUSHING LAB Routine ONCE for 1 Occurrences starting 03/04/2019, 1 completed SURGICAL PATHOLOGY EXAM LAB Routine ONCE for 1 Occurrences starting 03/06/2019 until 03/06/2019 URINE CULTURE LAB Routine ONCE for 1 Occurrences starting 03/06/2019 until 03/06/2019 Transfusion Reaction LAB EMILIA Investigation ONCE for 1 Occurrences starting 03/06/2019 until 03/06/2019 HAPTOGLOBIN, SERUM LAB Routine ONCE for 1 Occurrences starting 03/07/2019 until 03/07/2019 HAPTOGLOBIN, SERUM LAB Routine Health Maintenance Due Date Last Done Comments [...] COMBINED SERIES documented as of this encounter Procedures Comments Procedure Name Priority Date/Time Associated Diagnosis POCT GLUCOSE (AUTOMATED) Routine 03/07/2019 11:51 AM CDT URINALYSIS Routine 03/07/2019 8:37 AM CDT POCT GLUCOSE (AUTOMATED) Routine 03/07/2019 7:04 AM CDT POCT GLUCOSE (AUTOMATED) Routine 03/07/2019 7:02 AM CDT CBC WITH DIFFERENTIAL Routine 03/07/2019 4:21 AM CDT CBC WITH DIFF Routine 03/07/2019 4:21 AM CDT COMP. METABOLIC PANEL Routine 03/07/2019 ([id number]) 4:21 AM CDT MAGNESIUM Routine 03/07/2019 4:21 AM CDT LACTATE DEHYDROGENASE Routine 03/07/2019 4:21 AM CDT PHOSPHORUS Routine 03/07/2019 4:21 AM CDT POCT GLUCOSE (AUTOMATED) Routine 03/07/2019 12:[address] LUMBAR SPINE WO STAT 03/06/2019 Acute bilateral low back CONTRAST 10:09 PM CDT pain with bilateral sciatica CT ABDOMEN PELVIS W WO STAT 03/06/2019 Flank pain CONTRAST 10:09 PM CDT CBC WITH DIFFERENTIAL Routine 03/06/2019 9:13 PM CDT CBC WITH DIFF Routine 03/06/2019 9:13 PM CDT COMP. METABOLIC PANEL Routine 03/06/2019 ([id number]) 8:44 PM CDT BILI UNCONJUGATED/BILI STAT 03/06/2019 CONJUG 8:44 PM CDT MAGNESIUM Routine 03/06/2019 8:44 PM CDT LACTATE DEHYDROGENASE STAT 03/06/2019 8:44 PM CDT URINALYSIS Routine 03/06/2019 7:49 PM CDT XR KUB STAT 03/06/2019 Lower GI bleed 7:43 PM CDT XR CHEST 1 VW Routine 03/06/2019 Lower GI bleed 7:43 PM CDT CBC WITH DIFFERENTIAL STAT 03/06/2019 6:17 PM CDT CBC WITH DIFF STAT 03/06/2019 6:17 PM CDT POCT GLUCOSE (AUTOMATED) Routine 03/06/2019 4:57 PM CDT PREPARE PACKED RBC Routine 03/06/2019 3:37 PM CDT TRANSFUSE PACKED RBC Routine 03/06/2019 2:12 PM CDT POCT GLUCOSE (AUTOMATED) Routine 03/06/2019 1:08 PM CDT PREPARE PACKED RBC Routine 03/06/2019 11:34 AM CDT POCT GLUCOSE (AUTOMATED) Routine 03/06/2019 6:14 AM CDT CBC WITH DIFFERENTIAL Routine 03/06/2019 3:35 AM CDT CBC WITH DIFF Routine 03/06/2019 3:35 AM CDT BASIC METABOLIC PANEL Routine 03/06/2019 (NA, K, CL, CO2, GLUCOSE, 3:35 AM CDT BUN, CREATININE, CA) MAGNESIUM Routine 03/06/2019 3:35 AM CDT PHOSPHORUS Routine 03/06/2019 3:35 AM CDT POCT GLUCOSE (AUTOMATED) Routine 03/06/2019 12:14 AM CDT POCT GLUCOSE (AUTOMATED) Routine 03/05/2019 5:16 PM CDT POCT GLUCOSE (AUTOMATED) Routine 03/05/2019 5:14 PM CDT POCT GLUCOSE (AUTOMATED) Routine 03/05/2019 11:[address] THORAX W CONTRAST Routine 03/05/2019 Lower GI bleed 11:16 AM CDT POCT GLUCOSE (AUTOMATED) Routine 03/05/2019 5:59 AM CDT CBC WITH DIFFERENTIAL Routine 03/05/2019 4:58 AM CDT CBC WITH DIFF Routine 03/05/2019 4:58 AM CDT BASIC METABOLIC PANEL Routine 03/05/2019 (NA, K, CL, CO2, GLUCOSE, 4:58 AM CDT BUN, CREATININE, CA) MAGNESIUM Routine 03/05/2019 4:58 AM CDT PHOSPHORUS Routine 03/05/2019 4:58 AM CDT POCT GLUCOSE (AUTOMATED) Routine 03/04/2019 9:33 PM CDT POCT GLUCOSE (AUTOMATED) Routine 03/04/2019 6:04 PM CDT BASIC METABOLIC PANEL Add-on 03/04/2019 (NA, K, CL, CO2, GLUCOSE, 2:57 PM CDT BUN, CREATININE, CA) C-REACTIVE PROTEIN Routine 03/04/2019 2:57 PM CDT CBC WITH DIFFERENTIAL Routine 03/04/2019 2:56 PM CDT CBC WITH DIFF Routine 03/04/2019 2:56 PM CDT SEDIMENTATION RATE Routine 03/04/2019 2:56 PM CDT COLONOSCOPY (ENDO) Routine 03/04/2019 12:48 PM CDT EGD (ENDO) Routine 03/04/2019 12:45 PM CDT COLONOSCOPY Level 2 03/04/2019 microcytic anemia, (within 6 12:33 PM CDT orthostatic symptoms hours) ESOPHAGOGASTRODUODENOSCOP Level 2 03/04/2019 microcytic anemia, Y (within 6 12:33 PM CDT orthostatic symptoms hours) POCT GLUCOSE (AUTOMATED) Routine 03/04/2019 12:[address] ABDOMEN PELVIS W Routine 03/04/2019 Left lower quadrant pain CONTRAST 10:59 AM CDT CBC WITH DIFFERENTIAL Routine 03/04/2019 5:38 AM CDT CBC WITH DIFF Routine 03/04/2019 5:38 AM CDT BASIC METABOLIC PANEL Routine 03/04/2019 (NA, K, CL, CO2, GLUCOSE, 5:38 AM CDT BUN, CREATININE, CA) MAGNESIUM Routine 03/04/2019 5:38 AM CDT POCT GLUCOSE (AUTOMATED) Routine 03/04/2019 5:37 AM CDT POCT GLUCOSE (AUTOMATED) Routine 03/04/2019 12:12 AM CDT FECAL PATHOGENS BY PCR Routine 03/03/2019 11:41 PM CDT CLOSTRIDIUM DIFFICILE Routine 03/03/2019 TOXIN 11:41 PM CDT URINE CULTURE Routine 03/03/2019 11:41 PM CDT FECAL LEUKOCYTES Routine 03/03/2019 11:41 PM CDT OCCULT (GUAIAC) BLOOD Routine 03/03/2019 11:41 PM CDT URINALYSIS Routine 03/03/2019 11:40 PM CDT PREPARE PACKED RBC Routine 03/03/2019 10:13 PM CDT XR KUB Routine 03/03/2019 Lower GI bleed 9:52 PM CDT ABORH CONFIRMATION Routine 03/03/2019 9:32 PM CDT POCT GLUCOSE (AUTOMATED) Routine 03/03/2019 8:37 PM CDT EKG-12 LEAD Routine 03/03/2019 8:32 PM CDT TYPE AND SCREEN STAT 03/03/2019 7:38 PM CDT CBC WITH DIFFERENTIAL EMILIA 03/03/2019 7:37 PM CDT RETICULOCYTES AUTOMATED Routine 03/03/2019 7:37 PM CDT PROTHROMBIN TIME / INR EMILIA 03/03/2019 7:37 PM CDT CBC WITH DIFF EMILIA 03/03/2019 7:37 PM CDT BASIC METABOLIC PANEL EMILIA 03/03/2019 (NA, K, CL, CO2, GLUCOSE, 7:37 PM CDT BUN, CREATININE, CA) HEPATIC FUNCTION PANEL EMILIA 03/03/2019 ([id number]) (ALB,T.PRO,BILI 7:37 PM CDT T,BU/BC,ALT,AST,ALK PHOS) TOTAL IRON BINDING Routine 03/03/2019 CAPACITY 7:37 PM CDT IRON Routine 03/03/2019 7:37 PM CDT XR CHEST 1 VW Routine 03/03/2019 Lower GI bleed 6:42 PM CDT documented in this encounter Results * POCT GLUCOSE (AUTOMATED) (03/07/2019 11:51 AM CDT) POCT GLU 389 (H) 70 - 110 mg/dL [facility] Specimen Blood Performing Organization Address City/State/Zipcode Phone Number [facility] CLIA: [id number], [address] [place] [id number] [facility] * URINALYSIS (03/07/2019 8:37 AM CDT) APPEARANCE Clear Clear [facility] COLOR Yellow Yellow [facility] PH 6.5 4.8 - 8.0 [facility] SP GRAVITY <1.030 1.003 - 1.030 [facility] GLU U QUAL 100 mg/dL (A) Negative [facility] BLOOD Negative Negative [facility] KETONES Negative Negative [facility] PROTEIN Trace (A) Negative [facility] UROBILIN 0.2 mg/dL 0-1.0 mg/dL [facility] BILIRUBIN Negative Negative [facility] NITRITE Negative Negative [facility] LEUK MATILDE Negative Negative [facility] RBC/HPF 0 0 - 3 HPF [facility] WBC/HPF 0 0 - 5 HPF [facility] BACTERIA Negative Negative [facility] Specimen Urine - URINE, CLEAN CATCH Performing Organization Address City/[facility]/Zipcode Phone Number [facility] CLIA: [id number], [address] [place] [address] [facility] * POCT GLUCOSE (AUTOMATED) (03/07/2019 7:04 AM CDT) POCT GLU 406 (H) 70 - 110 mg/dL [facility] Specimen Blood Performing Organization Address City/[facility] Phone Number [facility] CLIA: [id number], [address] [place] [address] [facility] * POCT GLUCOSE (AUTOMATED) (03/07/2019 7:02 AM CDT) POCT GLU 430 (H) 70 - 110 mg/dL [facility] Specimen Blood Performing Organization Address City/[facility]/Zipcode Phone Number [facility] CLIA: [id number], [address] [place] [address] [facility] * CBC WITH DIFFERENTIAL (03/07/2019 4:21 AM CDT) WBC 17.15 (H) 4.20 - 10.70 [facility] 10*3/L [facility] RBC 4.37 4.26 - 5.52 10*6/L [facility] HGB 9.5 (L) 12.2 - 16.4 g/dL [facility] HCT 31.0 (L) 38.4 - 49.3 % [facility] MCV 70.9 (L) 81.7 - 95.6 fL [facility] MCH 21.7 (L) 26.1 - 32.7 pg [facility] MCHC 30.6 (L) 31.2 - 35.0 g/dL [facility] RDW-SD 58.8 (H) 38.5 - 51.6 fL [facility] RDW-CV 23.8 (H) 12.1 - 15.4 % [facility] PLT 478 (H) 150 - 328 10*3/L [facility] MPV 9.2 (L) 9.8 - 13.0 fL [facility] NRBC/100 WBC 0.0 0.0 - 10.0 /100 WBCs [facility] NRBC x10^3 <0.01 10*3/L [facility] GRAN MAT (NEUT) 90.4 % [facility] % [facility] IMM GRAN % 2.80 % [facility] LYMPH % 4.9 % [facility] MONO % 1.3 % [facility] EOS % 0.0 % [facility] BASO % 0.6 % [facility] GRAN MAT 15.50 (H) 1.99 - 6.95 10*3/uL [facility] x10^3(ANC) [facility] IMM GRAN x10^3 0.48 (H) 0.00 - 0.06 10*3/uL [facility] LYMPH x10^3 0.84 (L) 1.09 - 3.23 10*3/uL [facility] MONO x10^3 0.23 (L) 0.36 - 1.02 10*3/uL [facility] EOS x10^3 <0.03 (L) 0.06 - 0.53 10*3/uL [facility] BASO x10^3 0.10 (H) 0.01 - 0.09 10*3/uL [facility] ELLIPTO/OVAL 2+ (A) (none) [facility] SCHISTOCYTES 1+ (A) [facility] Specimen Blood - ARM, RIGHT Performing Organization Address City/[facility]/Zipcode Phone Number [facility] CLIA: [id number], [address] [place] [address] [facility] * LACTATE DEHYDROGENASE (03/07/2019 4:21 AM CDT) LDH 435 300 - 600 U/L [facility] Specimen Blood - ARM, RIGHT Performing Organization Address City/[facility]/Zipcode Phone Number [facility] CLIA: [id number], [address] [place] [address] [facility] * COMP. METABOLIC PANEL ([id number]) (03/07/2019 4:21 AM CDT) NA 139 135 - 145 mmol/L [facility] K 4.4 3.5 - 5.0 mmol/L [facility] CL 111 (H) 98 - 108 mmol/L [facility] CO2 TOTAL 23 23 - 31 mmol/L [facility] AGAP 5 2 - 16 [facility] BUN 11 7 - 23 mg/dL [facility] GLUCOSE 220 (H) 70 - 110 mg/dL [facility] CREATININE 0.71 0.60 - 1.25 mg/dL [facility] TOTAL BILI 0.3 0.1 - 1.1 mg/dL [facility] CALCIUM 7.8 (L) 8.6 - 10.6 mg/dL [facility] T PROTEIN 5.9 (L) 6.3 - 8.2 g/dL [facility] ALBUMIN 2.7 (L) 3.5 - 5.0 g/dL [facility] ALK PHOS 99 34 - 122 U/L [facility] ALT(SGPT) 23 9 - 51 U/L [facility] AST(SGOT) 16 13 - 40 U/L [facility] eGFR 115.2 mL/min/1.73m2 [facility] eGFR 139.6 mL/min/1.73m2 [facility] Specimen Blood - ARM, RIGHT Narrative Performed At Association of Glomerular Filtration Rate (GFR) and Staging of Kidney Disease* [facility] + + + + [facility] | GFR (mL/min/1.73 m2)| With Kidney Damage|Without Kidney Damage CAMPUS + + + + |>90|Stage one| Normal [...] abnormalities in imaging tests). Performing Organization Address [facility]code Phone Number [facility] CLIA: [id number], [address] [place] [address] [facility] * PHOSPHORUS (03/07/2019 4:21 AM CDT) PHOSPHORUS 3.7 2.5 - 5.0 mg/dL [facility] Specimen Blood - ARM, RIGHT Performing Organization Address [facility] Hospitalcotx Phone Number [facility] CLIA: [id number], [address] [place] [address] [facility] * MAGNESIUM (03/07/2019 4:21 AM CDT) MAGNESIUM 2.0 1.7 - 2.4 mg/dL [facility] Specimen Blood - ARM, RIGHT Performing Organization Address [facility]/Vericalcode Phone Number [facility] CLIA: [id number], [address] [place] [address] [facility] * POCT GLUCOSE (AUTOMATED) (03/07/2019 12:09 AM CDT) POCT GLU 162 (H) 70 - 110 mg/dL [facility] Specimen Blood Performing Organization Address City/State/Zipcode Phone Number [facility] CLIA: [id number], [address] [place] [address] [facility] * CT ABDOMEN PELVIS W WO CONTRAST (03/06/2019 10:09 PM CDT) Specimen Impressions Performed At Redemonstration of enhancing sigmoid mass measuring 7.1 x 5.1 cm in PACS/VR/DOSE association with para-aortic lymphadenopathy. Partially visualized left posterior eighth rib osteolytic lesion measuring 17 x 8 mm, concerning osseous involvement. Bilateral cortical areas of high attenuation are present, right greater than left, can be seen in cortical nephrocalcinosis or medullary sponge kidney. Esthela Turner MD., have reviewed this study and agree with the above report. Narrative Performed At EXAM: CT ABDOMEN AND PELVIS WITH/WITHOUT CONTRAST PACS/VR/DOSE HISTORY: Urinary tract stone, known, symptomatic, complications or risk factors eval renal stone COMPARISON: None. DOSE: 757.67 mGy-cm TECHNIQUE AND FINDINGS: Contiguous axial imaging from the level of the lung bases through the pubic symphysis was performed after the uncomplicated administration of 120 cc of intravenous Omnipaque contrast. Coronal and sagittal reconstructions were obtained.Auto mA and/or iterative reconstruction were used to reduce radiation dose. FINDINGS: LOWER THORAX: The lungs bases are clear. The heart is mildly enlarged. LIVER: No focal hepatic lesions.Normal contour. GALLBLADDER AND BILIARY TREE: No biliary ductal dilation.No gallbladder wall thickening. PANCREAS: No ductal dilation or masses. SPLEEN: No splenomegaly. ADRENAL GLANDS: No adrenal nodules. KIDNEYS: No hydronephrosis, stones, or masses. Bilateral cortical areas of high attenuation are present, right greater than left, can be seen in cortical nephrocalcinosis or medullary sponge kidney. PERITONEUM AND RETROPERITONEUM: No free air or fluid. LYMPH NODES: Multiple enlarged para-aortic lymph nodes are reidentified, with the largest one measuring 11 mm in short axis (6:55). VESSELS: Multifocal calcified atherosclerotic disease of the abdominal aorta and its branches are noted. GI TRACT: Again noted is a large enhancing mass within the sigmoid colon, appears unchanged. No dilation or wall thickening. PELVIS/BLADDER: Unremarkable. BONES AND SOFT TISSUES: Remote fracture deformity of posterior right 9th-11th ribs noted. A 17 x 8 mm lytic area is noted within the left posterior 8th rib (2:1). Procedure Note [facility], Radiant Results Inft User - 03/06/2019 11:21 PM CDT EXAM: CT ABDOMEN AND PELVIS WITH/WITHOUT CONTRAST HISTORY: Urinary tract stone, known, symptomatic, complications or risk factors eval renal stone COMPARISON: None. DOSE: 757.67 mGy-cm TECHNIQUE AND FINDINGS: Contiguous axial imaging from the level of the lung bases through the pubic symphysis was performed after the uncomplicated administration of 120 cc of intravenous Omnipaque contrast. Coronal and sagittal reconstructions were obtained. Auto mA and/or iterative reconstruction were used to reduce radiation dose. FINDINGS: LOWER THORAX: The lungs bases are clear. The heart is mildly enlarged. LIVER: No focal hepatic lesions. Normal contour. GALLBLADDER AND BILIARY TREE: No biliary ductal dilation. No gallbladder wall thickening. PANCREAS: No ductal dilation or masses. SPLEEN: No splenomegaly. ADRENAL GLANDS: No adrenal nodules. KIDNEYS: No hydronephrosis, stones, or masses. Bilateral cortical areas of high attenuation are present, right greater than left, can be seen in cortical nephrocalcinosis or medullary sponge kidney. PERITONEUM AND RETROPERITONEUM: No free air or fluid. LYMPH NODES: Multiple enlarged para-aortic lymph nodes are reidentified, with the largest one measuring 11 mm in short axis (6:55). VESSELS: Multifocal calcified atherosclerotic disease of the abdominal aorta and its branches are noted. GI TRACT: Again noted is a large enhancing mass within the sigmoid colon, appears unchanged. No dilation or wall thickening. PELVIS/BLADDER: Unremarkable. BONES AND SOFT TISSUES: Remote fracture deformity of posterior right 9th-11th ribs noted. A 17 x 8 mm lytic area is noted within the left posterior 8th rib (2:1). IMPRESSION Redemonstration of enhancing sigmoid mass measuring 7.1 x 5.1 cm in association with para-aortic lymphadenopathy. Partially visualized left posterior eighth rib osteolytic lesion measuring 17 x 8 mm, concerning osseous involvement. Bilateral cortical areas of high attenuation are present, right greater than left, can be seen in cortical nephrocalcinosis or medullary sponge kidney. IShawna MD., have reviewed this study and agree with the above report. Performing Organization Address City/State/Zipcode Phone Number PACS/VR/DOSE * CT LUMBAR SPINE WO CONTRAST (03/06/2019 10:09 PM CDT) Specimen Impressions Performed At 1.No acute osseous findings. Obxr-nk-qskhvgil degenerative changes, most PACS/VR/DOSE conspicuous at L4-L5, as discussed above. 2.Mild cortical nephrocalcinosis bilaterally. Correlation with underlying risk factors is recommended. No hydronephrosis or renal calculi are identified in the rjsbt-rj-ximo. IJanet MD., have reviewed this study and agree with the above report. Narrative Performed At CT LUMBAR SPINE WO CONTRAST PACS/VR/DOSE HISTORY:Back pain, rapidly progressive neuro deficit severe back pain with colon mass, eval for any metas tats is/herniated disk or nerve impingement COMPARISON: None TECHNIQUE: CT imaging of the lumbar spine is obtained without IV contrast. Sagittal and coronal reformats are generated and reviewed. FINDINGS: There are 5 lumbar type vertebra. There is minimal retrolisthesis of L4 on L5. The vertebral body heights are preserved and no acute fractures are seen. Multilevel degenerative changes are noted in the form of marginal osteophytes, disc space narrowing and facet arthropathy. These findings are most conspicuous at L4-L5 where there is kycm-qq-kktjufbk spinal canal stenosis with moderate left and mild right neural foraminal narrowing. Subtle cortical calcinosis is identified in the kidneys bilaterally (301:56). There is no ureteric calculi or hydronephrosis seen. Mild atherosclerotic calcifications are seen within the abdominal aorta. Procedure Note [facility], Radiant Results Inft User - 03/07/2019 9:[address] LUMBAR SPINE WO CONTRAST HISTORY: Back pain, rapidly progressive neuro deficit severe back pain with colon mass, eval for any metas tats is/herniated disk or nerve impingement COMPARISON: None TECHNIQUE: CT imaging of the lumbar spine is obtained without IV contrast. Sagittal and coronal reformats are generated and reviewed. FINDINGS: There are 5 lumbar type vertebra. There is minimal retrolisthesis of L4 on L5. The vertebral body heights are preserved and no acute fractures are seen. Multilevel degenerative changes are noted in the form of marginal osteophytes, disc space narrowing and facet arthropathy. These findings are most conspicuous at L4-L5 where there is uusv-yk-qzjjdewu spinal canal stenosis with moderate left and mild right neural foraminal narrowing. Subtle cortical calcinosis is identified in the kidneys bilaterally (301:56). There is no ureteric calculi or hydronephrosis seen. Mild atherosclerotic calcifications are seen within the abdominal aorta. IMPRESSION 1. No acute osseous findings. Yyxg-iu-canfovuj degenerative changes, most conspicuous at L4-L5, as discussed above. 2. Mild cortical nephrocalcinosis bilaterally. Correlation with underlying risk factors is recommended. No hydronephrosis or renal calculi are identified in the acmwc-un-rvah. IJanet MD., have reviewed this study and agree with the above report. Performing Organization Address City/State/Zipcode Phone Number PACS/VR/DOSE * CBC WITH DIFFERENTIAL (03/06/2019 9:13 PM CDT) WBC 15.43 (H) 4.20 - 10.70 [facility] 10*3/L [facility] RBC 4.37 4.26 - 5.52 10*6/L [facility] HGB 9.4 (L) 12.2 - 16.4 g/dL [facility] HCT 31.7 (L) 38.4 - 49.3 % [facility] MCV 72.5 (L) 81.7 - 95.6 fL [facility] MCH 21.5 (L) 26.1 - 32.7 pg [facility] MCHC 29.7 (L) 31.2 - 35.0 g/dL [facility] RDW-SD 60.3 (H) 38.5 - 51.6 fL [facility] RDW-CV 24.1 (H) 12.1 - 15.4 % [facility] PLT 516 (H) 150 - 328 10*3/L [facility] MPV 10.1 9.8 - 13.0 fL [facility] NRBC/100 WBC 0.0 0.0 - 10.0 /100 WBCs [facility] NRBC x10^3 <0.01 10*3/L [facility] GRAN MAT (NEUT) 74.9 % [facility] % [facility] IMM GRAN % 3.80 % [facility] LYMPH % 13.1 % [facility] MONO % 7.6 % [facility] EOS % 0.0 % [facility] BASO % 0.6 % [facility] GRAN MAT 11.55 (H) 1.99 - 6.95 10*3/uL [facility] x10^3(ANC) [facility] IMM GRAN x10^3 0.58 (H) 0.00 - 0.06 10*3/uL [facility] LYMPH x10^3 2.02 1.09 - 3.23 10*3/uL [facility] MONO x10^3 1.18 (H) 0.36 - 1.02 10*3/uL [facility] EOS x10^3 <0.03 (L) 0.06 - 0.53 10*3/uL [facility] BASO x10^3 0.10 (H) 0.01 - 0.09 10*3/uL [facility] ELLIPTO/OVAL 3+ (A) (none) [facility] SCHISTOCYTES 2+ (A) [facility] GIANT PLATELETS Present (A) (none) [facility] Specimen Blood - LINE, VENOUS Performing Organization Address City/State/Zipcode Phone Number [facility] CLIA: [id number], [address] [place] [address] [facility] * LACTATE DEHYDROGENASE (03/06/2019 8:44 PM CDT) LDH 511 300 - 600 U/L [facility] Specimen Blood - LINE, VENOUS Performing Organization Address City/State/Zipcode Phone Number [facility] CLIA: [id number], [address] [place] [address] [facility] * COMP. METABOLIC PANEL ([id number]) (03/06/2019 8:44 PM CDT) NA 142 135 - 145 mmol/L [facility] K 4.1 3.5 - 5.0 mmol/L [facility] CL 111 (H) 98 - 108 mmol/L [facility] CO2 TOTAL 25 23 - 31 mmol/L [facility] AGAP 6 2 - 16 [facility] BUN 9 7 - 23 mg/dL [facility] GLUCOSE 126 (H) 70 - 110 mg/dL [facility] CREATININE 0.92 0.60 - 1.25 mg/dL [facility] TOTAL BILI 0.6 0.1 - 1.1 mg/dL [facility] CALCIUM 8.3 (L) 8.6 - 10.6 mg/dL [facility] T PROTEIN 6.0 (L) 6.3 - 8.2 g/dL [facility] ALBUMIN 2.8 (L) 3.5 - 5.0 g/dL [facility] ALK PHOS 112 34 - 122 U/L [facility] ALT(SGPT) 21 9 - 51 U/L [facility] AST(SGOT) 18 13 - 40 U/L [facility] eGFR 85.4 mL/min/1.73m2 [facility] Calculation [facility] (Non-[facility] [place]) eGFR 103.5 mL/min/1.73m2 [facility] Calculation [facility] ( [facility] [place]) Specimen Blood - LINE, VENOUS Narrative Performed At Association of Glomerular Filtration Rate (GFR) and Staging of Kidney Disease* [facility] + + + + [facility] | GFR (mL/min/1.73 m2)| With Kidney Damage|Without Kidney Damage CAMPUS + + + + |>90|Stage one| Normal [...] abnormalities in imaging tests). Performing Organization Address [facility] Phone Number [facility] CLIA: [id number], [address] [place] [address] [facility] * BILI UNCONJUGATED/BILI CONJUG (03/06/2019 8:44 PM CDT) BILI CONJ 0.0 0.0 - 0.3 mg/dL [facility] BILI UNCON 0.5 0.1 - 1.1 mg/dL [facility] Specimen Blood - LINE, VENOUS Performing Organization Address [facility] Phone Number [facility] CLIA: [id number], [address] [place] [address] [facility] * MAGNESIUM (03/06/2019 8:44 PM CDT) MAGNESIUM 2.2 1.7 - 2.4 mg/dL [facility] Specimen Blood - LINE, VENOUS Performing Organization Address [facility] Phone Number [facility] CLIA: [id number], [address] [place] [address] [facility] * URINALYSIS (03/06/2019 7:49 PM CDT) APPEARANCE Hazy (A) Clear [facility] COLOR Yellow Yellow [facility] PH 6.0 4.8 - 8.0 [facility] SP GRAVITY 1.024 1.003 - 1.030 [facility] GLU U QUAL Normal Normal [facility] BLOOD Negative Negative [facility] KETONES Negative [facility] PROTEIN Negative Negative [facility] UROBILIN Normal Normal [facility] BILIRUBIN Negative Negative [facility] NITRITE Negative Negative [facility] LEUK MATILDE Negative Negative [facility] RBC/HPF 4 (H) 0 - 3 HPF [facility] WBC/HPF 1 0 - 5 HPF [facility] BACTERIA Negative Negative [facility] MUCOUS Slight (A) Negative LPF [facility] SQ EPITH <1 <=2 HPF [facility] Specimen Urine - URINE, CLEAN CATCH Performing Organization Address City/State/Zipcode Phone Number [facility] CLIA: [id number], [address] [place] [address] [facility] * XR CHEST 1 VW (03/06/2019 7:43 PM CDT) Specimen Impressions Performed At 1. Normal heart size. PACS/VR/DOSE 2. Lungs are clear. No pleural effusion, pneumothorax, or pulmonary edema. Narrative Performed At * * * * * * * * ORIGINAL REPORT * * * * * * * * PACS/VR/DOSE PROCEDURE: CHEST SINGLE VIEW PORTABLE 03/06/2019 at 7:22 PM CLINICAL INDICATION: SOB Portable COMPARISON: 03/03/2019 Procedure Note [facility], Radiant Results Inft User - 03/06/2019 7:59 PM CDT * * * * * * * * ORIGINAL REPORT * * * * * * * * PROCEDURE: CHEST SINGLE VIEW PORTABLE 03/06/2019 at 7:22 PM CLINICAL INDICATION: SOB Portable COMPARISON: 03/03/2019 IMPRESSION 1. Normal heart size. 2. Lungs are clear. No pleural effusion, pneumothorax, or pulmonary edema. Performing Organization Address [facility]/Zipcode Phone Number PACS/VR/DOSE * XR KUB (03/06/2019 7:43 PM CDT) Specimen Impressions Performed At FINDINGS/IMPRESSION: PACS/VR/DOSE The bowel gas pattern is unremarkable. Moderate stool burden is present. No abnormal calcifications or radiopaque stones are identified. No acute bony abnormalities are noted. Esthela Turner MD., have reviewed this study and agree with the above report. Narrative Performed At * * * * * * * * ORIGINAL REPORT * * * * * * * * PACS/VR/DOSE EXAM: XR KUB HISTORY: Severe back pain COMPARISON: 03/03/2019 Procedure Note [facility], Radiant Results Inft User - 03/06/2019 8:22 PM CDT * * * * * * * * ORIGINAL REPORT * * * * * * * * EXAM: XR KUB HISTORY: Severe back pain COMPARISON: 03/03/2019 IMPRESSION FINDINGS/IMPRESSION: The bowel gas pattern is unremarkable. Moderate stool burden is present. No abnormal calcifications or radiopaque stones are identified. No acute bony abnormalities are noted. Shawna Turner MD., have reviewed this study and agree with the above report. Performing Organization Address [facility] Phone Number PACS/VR/DOSE * CBC WITH DIFFERENTIAL (03/06/2019 6:17 PM CDT) WBC 16.84 (H) 4.20 - 10.70 [facility] 10*3/L [facility] RBC 4.45 4.26 - 5.52 10*6/L [facility] HGB 9.7 (L) 12.2 - 16.4 g/dL [facility] HCT 32.0 (L) 38.4 - 49.3 % [facility] MCV 71.9 (L) 81.7 - 95.6 fL [facility] MCH 21.8 (L) 26.1 - 32.7 pg [facility] MCHC 30.3 (L) 31.2 - 35.0 g/dL [facility] RDW-SD 61.1 (H) 38.5 - 51.6 fL [facility] RDW-CV 24.6 (H) 12.1 - 15.4 % [facility] PLT 523 (H) 150 - 328 10*3/L [facility] MPV 9.5 (L) 9.8 - 13.0 fL [facility] NRBC/100 WBC 0.0 0.0 - 10.0 /100 WBCs [facility] NRBC x10^3 <0.01 10*3/L [facility] GRAN MAT (NEUT) 75.7 % [facility] % [facility] IMM GRAN % 2.90 % [facility] LYMPH % 13.0 % [facility] MONO % 7.7 % [facility] EOS % 0.0 % [facility] BASO % 0.7 % [facility] GRAN MAT 12.75 (H) 1.99 - 6.95 10*3/uL [facility] x10^3(ANC) [facility] IMM GRAN x10^3 0.48 (H) 0.00 - 0.06 10*3/uL [facility] LYMPH x10^3 2.19 1.09 - 3.23 10*3/uL [facility] MONO x10^3 1.30 (H) 0.36 - 1.02 10*3/uL [facility] EOS x10^3 <0.03 (L) 0.06 - 0.53 10*3/uL [facility] BASO x10^3 0.12 (H) 0.01 - 0.09 10*3/uL [facility] ELLIPTO/OVAL 2+ (A) (none) [facility] SCHISTOCYTES 2+ (A) [facility] GIANT PLATELETS Present (A) (none) [facility] Specimen Blood - VENOUS Performing Organization Address City/[facility]/Zipcode Phone Number [facility] CLIA: [id number], [address] [place] [address] [facility] POCT GLUCOSE (AUTOMATED) (03/06/2019 4:57 PM CDT) Pathologist [facility] POCT GLU 271 (H) 70 - 110 mg/dL [facility] Specimen Blood Performing Organization Address City/[facility]/Zipcode Phone Number [facility] CLIA: [id number], [address] [place] [address] [facility] * Prepare Packed RBC (in units), 1 Units (03/06/2019 3:37 PM CDT) Pathologist [facility] Cross Match Compatible LAB Result ISBT Blood Type 5100 LAB Code Unit Blood Type O Pos LAB Unit Number [id number] LAB Blood [id number] LAB Expiration Date & Time Status Issued LAB Information Product Red Blood Cells LAB Identification Product Code [id number] LAB Comment: Performed at [facility] Laboratory Services - [facility] Blood Bank [address] [place] [address] Toll Free: [phone] CLIA No. [id number] Specimen Performing Organization Address City/[facility]/Zipcode Phone Number [facility] * POCT GLUCOSE (AUTOMATED) (03/06/2019 1:08 PM CDT) Pathologist [facility] POCT GLU 166 (H) 70 - 110 mg/dL [facility] Specimen Blood Performing Organization Address City/[facility]/Zipcode Phone Number [facility] CLIA: [id number], [address] [place], [place] [address] [facility] * Prepare Packed RBC (in units), 1 Units (03/06/2019 11:34 AM CDT) Pathologist [facility] Cross Match Compatible LAB Result ISBT Blood Type 5100 LAB Code Unit Blood Type O Pos LAB Unit Number [id number] LAB Blood [id number] LAB Expiration Date & Time Status Issued LAB Information Product Red Blood Cells LAB Identification Product Code [id number] LAB Comment: Performed at [facility] Laboratory Services - [facility] Blood Bank [address] [place], [place] [address] Toll Free: [phone] CLIA No. [id number] Specimen Performing Organization Address City/State/Zipcode Phone Number [facility] * POCT GLUCOSE (AUTOMATED) (03/06/2019 6:14 AM CDT) POCT GLU 262 (H) 70 - 110 mg/dL [facility] Specimen Blood Performing Organization Address City/State/Zipcode Phone Number [facility] CLIA: [id number], [address] [place] [address] [facility] * CBC WITH DIFFERENTIAL (03/06/2019 3:35 AM CDT) WBC 14.14 (H) 4.20 - 10.70 [facility] 10*3/L [facility] RBC 3.72 (L) 4.26 - 5.52 10*6/L [facility] HGB 7.6 (L) 12.2 - 16.4 g/dL [facility] HCT 25.2 (L) 38.4 - 49.3 % [facility] MCV 67.7 (L) 81.7 - 95.6 fL [facility] MCH 20.4 (L) 26.1 - 32.7 pg [facility] MCHC 30.2 (L) 31.2 - 35.0 g/dL [facility] RDW-SD 55.5 (H) 38.5 - 51.6 fL [facility] RDW-CV 23.5 (H) 12.1 - 15.4 % [facility] PLT 561 (H) 150 - 328 10*3/L [facility] MPV 9.5 (L) 9.8 - 13.0 fL [facility] NRBC/100 WBC 0.0 0.0 - 10.0 /100 WBCs [facility] NRBC x10^3 <0.01 10*3/L [facility] GRAN MAT (NEUT) 74.9 % [facility] % [facility] IMM GRAN % 1.30 % [facility] LYMPH % 15.6 % [facility] MONO % 7.6 % [facility] EOS % 0.0 % [facility] BASO % 0.6 % [facility] GRAN MAT 10.61 (H) 1.99 - 6.95 10*3/uL [facility] x10^3(ANC) [facility] IMM GRAN x10^3 0.18 (H) 0.00 - 0.06 10*3/uL [facility] LYMPH x10^3 2.20 1.09 - 3.23 10*3/uL [facility] MONO x10^3 1.07 (H) 0.36 - 1.02 10*3/uL [facility] EOS x10^3 <0.03 (L) 0.06 - 0.53 10*3/uL [facility] BASO x10^3 0.08 0.01 - 0.09 10*3/uL [facility] Specimen Blood - VENOUS Performing Organization Address City/State/Zipcode Phone Number [facility] CLIA: [id number], [address] [place] [address] [facility] * PHOSPHORUS (03/06/2019 3:35 AM CDT) PHOSPHORUS 3.3 2.5 - 5.0 mg/dL [facility] Specimen Blood - VENOUS Performing Organization Address City/State/Zipcode Phone Number [facility] CLIA: [id number], [address] [place] [address] [facility] * MAGNESIUM (03/06/2019 3:35 AM CDT) MAGNESIUM 1.5 (L) 1.7 - 2.4 mg/dL [facility] Specimen Blood - VENOUS Performing Organization Address City/State/Zipcode Phone Number [facility] CLIA: [id number], [address] [place] [address] [facility] * BASIC METABOLIC PANEL (NA, K, CL, CO2, GLUCOSE, BUN, CREATININE, CA) (03/06/2019 3:35 AM CDT) NA 142 135 - 145 mmol/L [facility] K 3.6 3.5 - 5.0 mmol/L [facility] CL 109 (H) 98 - 108 mmol/L [facility] CO2 TOTAL 27 23 - 31 mmol/L [facility] AGAP 6 2 - 16 [facility] BUN 8 7 - 23 mg/dL [facility] GLUCOSE 209 (H) 70 - 110 mg/dL [facility] CREATININE 0.80 0.60 - 1.25 mg/dL [facility] CALCIUM 7.7 (L) 8.6 - 10.6 mg/dL [facility] eGFR 100.4 mL/min/1.73m2 [facility] Calculation [facility] (Non-[facility] [place]) eGFR 121.6 mL/min/1.73m2 [facility] Calculation [facility] ( [facility] [place]) Specimen Blood - VENOUS Narrative Performed At Association of Glomerular Filtration Rate (GFR) and Staging of Kidney Disease* [facility] + + + + [facility] | GFR (mL/min/1.73 m2)| With Kidney Damage|Without Kidney Damage CAMPUS + + + + |>90|Stage one| Normal [...] tests). Performing Organization Address City/State/Zipcode Phone Number [facility] CLIA: [id number], [address] [place] [address] [facility] * POCT GLUCOSE (AUTOMATED) (03/06/2019 12:14 AM CDT) POCT GLU 215 (H) 70 - 110 mg/dL [facility] Specimen Blood Performing Organization Address [facility] Phone Number [facility] CLIA: [id number], [address] [place] [id number] [facility] * POCT GLUCOSE (AUTOMATED) (03/05/2019 5:16 PM CDT) POCT GLU 155 (H) 70 - 110 mg/dL [facility] Specimen Blood Performing Organization Address [facility] Phone Number [facility] CLIA: [id number], [address] [place] [phone] [facility] * POCT GLUCOSE (AUTOMATED) (03/05/2019 5:14 PM CDT) POCT GLU 395 (H) 70 - 110 mg/dL [facility] Specimen Blood Performing Organization Address [facility] Phone Number [facility] CLIA: [id number], [address] [place] [phone] [facility] * POCT GLUCOSE (AUTOMATED) (03/05/2019 11:54 AM CDT) POCT GLU 276 (H) 70 - 110 mg/dL [facility] Specimen Blood Performing Organization Address [facility] Phone Number [facility] CLIA: [id number], [address] [place] [phone] [facility] * CT THORAX W CONTRAST (03/05/2019 11:16 AM CDT) Specimen Impressions Performed At 1.No definite evidence of intrathoracic metastatic disease. PACS/VR/DOSE 2.Right upper and lower lobe 2 to 3 mm nodules, nonspecific. Attention on follow-up imaging. Narrative Performed At PROCEDURE: CT CHEST WITH CONTRAST - CHEST PROTOCOL PACS/VR/DOSE CLINICAL INDICATION: Neoplasm: colorectal, staging COMPARISON:None. TECHNIQUE:Helical CT was performed of the chest (lung apices to bases) using 80 mL Omnipaque nonionic intravenous contrast, without complication. Images were reconstructed at 1.25 mm slice thickness. MIP and coronal & sagittal MPR images were generated and reviewed. (DFOV=40 cm) FINDINGS: Lower neck/thyroid: Unremarkable. Lungs: A right upper lobe 3 mm nodule is present (2:61). A right lower lobe 2 mm nodule is seen (2:200). Central airway: The central airways are patent. Pleura: No pleural effusion, thickening or pneumothorax. Thoracic aorta and great vessels:Normal in diameter. Pulmonary arteries: Unremarkable. Heart and pericardium: Moderate left coronary arterial calcification. Unremarkable cardiac morphology and pericardium. Lymph nodes: No enlarged thoracic lymph nodes. Mediastinum: Unremarkable. Thoracic spine and chest wall: Chronic right eighth through 11th rib fractures are noted. No aggressive osseous lesion is seen. Other Lines/Tubes/Devices/Hardware: None Visualized upper abdomen: Please refer to the report of the concurrent CT abdomen/pelvis performed on the same day for findings in the upper abdomen. Procedure Note [facility], Radiant Results Inft User - 03/06/2019 12:46 PM CDT PROCEDURE: CT CHEST WITH CONTRAST - CHEST PROTOCOL CLINICAL INDICATION: Neoplasm: colorectal, staging COMPARISON: None. TECHNIQUE: Helical CT was performed of the chest (lung apices to bases) using 80 mL Omnipaque nonionic intravenous contrast, without complication. Images were reconstructed at 1.25 mm slice thickness. MIP and coronal & sagittal MPR images were generated and reviewed. (DFOV=40 cm) FINDINGS: Lower neck/thyroid: Unremarkable. Lungs: A right upper lobe 3 mm nodule is present (2:61). A right lower lobe 2 mm nodule is seen (2:200). Central airway: The central airways are patent. Pleura: No pleural effusion, thickening or pneumothorax. Thoracic aorta and great vessels: Normal in diameter. Pulmonary arteries: Unremarkable. Heart and pericardium: Moderate left coronary arterial calcification. Unremarkable cardiac morphology and pericardium. Lymph nodes: No enlarged thoracic lymph nodes. Mediastinum: Unremarkable. Thoracic spine and chest wall: Chronic right eighth through 11th rib fractures are noted. No aggressive osseous lesion is seen. Other Lines/Tubes/Devices/Hardware: None Visualized upper abdomen: Please refer to the report of the concurrent CT abdomen/pelvis performed on the same day for findings in the upper abdomen. IMPRESSION 1. No definite evidence of intrathoracic metastatic disease. 2. Right upper and lower lobe 2 to 3 mm nodules, nonspecific. Attention on follow-up imaging. Performing Organization Address City/State/Zipcode Phone Number PACS/VR/DOSE * POCT GLUCOSE (AUTOMATED) (03/05/2019 5:59 AM CDT) POCT GLU 113 (H) 70 - 110 mg/dL [facility] Specimen Blood Performing Organization Address City/[facility]/Zipcode Phone Number [facility] CLIA: [id number], [address] [place] [address] [phone] [facility] * CBC WITH DIFFERENTIAL (03/05/2019 4:58 AM CDT) WBC 13.71 (H) 4.20 - 10.70 [facility] 10*3/L [facility] RBC 3.99 (L) 4.26 - 5.52 10*6/L [facility] HGB 7.9 (L) 12.2 - 16.4 g/dL [facility] HCT 26.5 (L) 38.4 - 49.3 % [facility] MCV 66.4 (L) 81.7 - 95.6 fL [facility] MCH 19.8 (L) 26.1 - 32.7 pg [facility] MCHC 29.8 (L) 31.2 - 35.0 g/dL [facility] RDW-SD 54.4 (H) 38.5 - 51.6 fL [facility] RDW-CV 23.4 (H) 12.1 - 15.4 % [facility] PLT 576 (H) 150 - 328 10*3/L [facility] MPV 9.2 (L) 9.8 - 13.0 fL [facility] NRBC/100 WBC 0.0 0.0 - 10.0 /100 WBCs [facility] NRBC x10^3 <0.01 10*3/L [facility] GRAN MAT (NEUT) 84.3 % [facility] IMM GRAN % 0.70 % [facility] LYMPH % 9.3 % [facility] MONO % 5.3 % [facility] EOS % 0.0 % [facility] BASO % 0.4 % [facility] GRAN MAT 11.56 (H) 1.99 - 6.95 10*3/uL [facility] x10^3(ANC) [facility] IMM GRAN x10^3 0.10 (H) 0.00 - 0.06 10*3/uL [facility] LYMPH x10^3 1.27 1.09 - 3.23 10*3/uL [facility] SERVICES-[facility] MONO x10^3 0.72 0.36 - 1.02 10*3/uL [facility] EOS x10^3 <0.03 (L) 0.06 - 0.53 10*3/uL [facility] BASO x10^3 0.06 0.01 - 0.09 10*3/uL [facility] Specimen Blood - VENOUS Performing Organization Address City/State/Zipcode Phone Number [facility] CLIA: [id number], [address] [place] [address] [facility] * PHOSPHORUS (03/05/2019 4:58 AM CDT) PHOSPHORUS 4.5 2.5 - 5.0 mg/dL [facility] Specimen Blood - VENOUS Performing Organization Address City/State/Zipcode Phone Number [facility] CLIA: [id number], [address] [place] [address] [facility] * MAGNESIUM (03/05/2019 4:58 AM CDT) MAGNESIUM 1.6 (L) 1.7 - 2.4 mg/dL [facility] Specimen Blood - VENOUS Performing Organization Address City/[facility]/Zipcode Phone Number [facility] CLIA: [id number], [address] [place] [address] [facility] * BASIC METABOLIC PANEL (NA, K, CL, CO2, GLUCOSE, BUN, CREATININE, CA) (03/05/2019 4:58 AM CDT) NA 140 135 - 145 mmol/L [facility] K 3.6 3.5 - 5.0 mmol/L [facility] CL 107 98 - 108 mmol/L [facility] CO2 TOTAL 26 23 - 31 mmol/L [facility] AGAP 7 2 - 16 [facility] BUN 8 7 - 23 mg/dL [facility] GLUCOSE 111 (H) 70 - 110 mg/dL [facility] CREATININE 0.93 0.60 - 1.25 mg/dL [facility] CALCIUM 8.1 (L) 8.6 - 10.6 mg/dL [facility] eGFR 84.4 mL/min/1.73m2 [facility] Calculation [facility] ([facility] eGFR 102.2 mL/min/1.73m2 [facility] Calculation [facility] ([facility]) Specimen Blood - VENOUS Narrative Performed At [facility] [place] of Glomerular Filtration Rate (GFR) and Staging of Kidney Disease* [facility] + + + + [facility] | GFR (mL/min/1.73 m2)| With Kidney Damage|Without Kidney Damage CAMPUS + + + + |>90|Stage one| Normal [...] abnormalities in imaging tests). Performing Organization Address City/[facility]/Zipcode Phone Number [facility] CLIA: [id number], [address] [place] [phone] [facility] * POCT GLUCOSE (AUTOMATED) (03/04/2019 9:33 PM CDT) POCT GLU 200 (H) 70 - 110 mg/dL [facility] Specimen Blood Performing Organization Address City/[facility]/Zipcode Phone Number [facility] CLIA: [id number], [address] [place] [phone] [facility] * POCT GLUCOSE (AUTOMATED) (03/04/2019 6:04 PM CDT) POCT GLU 189 (H) 70 - 110 mg/dL [facility] Specimen Blood Performing Organization Address City/[facility]/Zipcode Phone Number [facility] CLIA: [id number], [address] [place] [address] [facility] * BASIC METABOLIC PANEL (NA, K, CL, CO2, GLUCOSE, BUN, CREATININE, CA) (03/04/2019 2:57 PM CDT) NA 137 135 - 145 mmol/L [facility] SERVICES K 3.6 3.5 - 5.0 mmol/L [facility] SERVICES CL 109 (H) 98 - 108 mmol/L [facility] SERVICES CO2 TOTAL 23 23 - 31 mmol/L [facility] SERVICES AGAP 5 2 - 16 [facility] SERVICES BUN 9 7 - 23 mg/dL [facility] SERVICES GLUCOSE 89 70 - 110 mg/dL [facility] SERVICES CREATININE 0.62 0.60 - 1.25 mg/dL [facility] SERVICES CALCIUM 7.2 (L) 8.6 - 10.6 mg/dL [facility] SERVICES eGFR 134.7 mL/min/1.73m2 [facility] Calculation SERVICES (Non-) eGFR 163.2 mL/min/1.73m2 [facility] Calculation SERVICES () Specimen Blood - VENOUS Narrative Performed At Association of Glomerular Filtration Rate (GFR) and Staging of Kidney Disease* [facility] + + + + SERVICES | [...] tests). Performing Organization Address City/State/Zipcode Phone Number [facility] SERVICES CLIA: [id number], [address] [place], [place] [phone] [facility] * C-REACTIVE PROTEIN (03/04/2019 2:57 PM CDT) CRP 2.9 (H) <0.8 mg/dL [facility] SERVICES Specimen Blood - VENOUS Performing Organization Address City/State/Zipcode Phone Number [facility] SERVICES CLIA: [id number], [address] [place] [address] [facility] * SEDIMENTATION RATE (03/04/2019 2:56 PM CDT) ESR 54 (H) 0 - 10 mm/HR [facility] Specimen Blood - VENOUS Performing Organization Address City/State/Zipcode Phone Number [facility] CLIA: [id number], [address] [place] [address] [facility] * CBC WITH DIFFERENTIAL (03/04/2019 2:56 PM CDT) WBC 13.82 (H) 4.20 - 10.70 [facility] 10*3/L [facility] RBC 3.97 (L) 4.26 - 5.52 10*6/L [facility] HGB 8.1 (L) 12.2 - 16.4 g/dL [facility] HCT 26.6 (L) 38.4 - 49.3 % [facility] MCV 67.0 (L) 81.7 - 95.6 fL [facility] MCH 20.4 (L) 26.1 - 32.7 pg [facility] MCHC 30.5 (L) 31.2 - 35.0 g/dL [facility] RDW-SD 54.1 (H) 38.5 - 51.6 fL [facility] RDW-CV 23.3 (H) 12.1 - 15.4 % [facility] PLT 556 (H) 150 - 328 10*3/L [facility] MPV 9.7 (L) 9.8 - 13.0 fL [facility] NRBC/100 WBC 0.0 0.0 - 10.0 /100 WBCs [facility] NRBC x10^3 <0.01 10*3/L [facility] GRAN MAT (NEUT) 81.0 % [facility] % [facility] % 1.10 % [facility] LYMPH % 11.9 % [facility] MONO % 5.4 % [facility] EOS % 0.0 % [facility] BASO % 0.6 % [facility] GRAN MAT 11.19 (H) 1.99 - 6.95 10*3/uL [facility] x10^3(ANC) [facility] IMM GRAN x10^3 0.15 (H) 0.00 - 0.06 10*3/uL [facility] LYMPH x10^3 1.65 1.09 - 3.23 10*3/uL [facility] MONO x10^3 0.75 0.36 - 1.02 10*3/uL [facility] EOS x10^3 <0.03 (L) 0.06 - 0.53 10*3/uL [facility] BASO x10^3 0.08 0.01 - 0.09 10*3/uL [facility] ELLIPTO/OVAL 2+ (A) (none) [facility] SCHISTOCYTES 1+ (A) [facility] TOXIC CHANGES Present (A) [facility] Specimen Blood - VENOUS Performing Organization Address City/State/Zipcode Phone Number [facility] CLIA: [id number], [address] [place], [place] [phone] [facility] * POCT GLUCOSE (AUTOMATED) (03/04/2019 12:31 PM CDT) POCT GLU 112 (H) 70 - 110 mg/dL [facility] Specimen Blood Performing Organization Address City/State/Zipcode Phone Number [facility] CLIA: [id number], [address] [place] [address] [facility] * CT ABDOMEN PELVIS W CONTRAST (03/04/2019 10:59 AM CDT) Specimen Impressions Performed At 1.A large enhancing tumor is seen growing into the sigmoid colon. This is PACS/VR/DOSE about 15 cm from the anal verge and measures about 13 cm in length. This finding suggests a primary sigmoid adenocarcinoma. Colonoscopy and biopsy are recommended. 2.There is evidence of retroperitoneal para-aortic lymphadenopathy concerning for metastatic disease. No evidence of hepatic metastases. 3.Tumor extension is seen into the surrounding fat (3:78 and 602:56). Lymphovascular invasion is suspected. IJoaquín MD., have reviewed this study and agree with the above report. Narrative Performed At * * * * * * * * ORIGINAL REPORT * * * * * * * * PACS/VR/DOSE EXAM: CT ABDOMEN AND PELVIS WITHOUT AND WITH CONTRAST HISTORY: Abd pain, diverticulitis suspected COMPARISON: None DOSE: 388.23 mGy TECHNIQUE AND FINDINGS: Contiguous axial imaging from the level of the lung bases through the pubic symphysis was performed after the uncomplicated administration of 120 cc of intravenous Omnipaque contrast. Coronal and sagittal reconstructions were obtained.Auto mA and/or iterative reconstruction were used to reduce radiation dose. FINDINGS: LOWER THORAX: The lungs bases are clear. No cardiomegaly. LIVER: No focal hepatic lesions.Normal contour. GALLBLADDER AND BILIARY TREE: No biliary ductal dilation.No gallbladder wall thickening. SPLEEN: No splenomegaly. PANCREAS: No ductal dilation or masses. ADRENAL GLANDS: No adrenal nodules. KIDNEYS: No hydronephrosis, stones, or masses. PERITONEUM AND RETROPERITONEUM: No free air or fluid. LYMPH NODES: Multiple retroperitoneal and right iliac lymph nodes with the largest measuring 1 cm, likely metastatic. GI TRACT: The sigmoid colon is distended. An endophytic enhancing mass is suspected arising from the right lateral wall and measuring approximately 7.1 x 5.1 cm (3:87). This finding is concerning for a primary adenocarcinoma. There are surrounding lymph nodes para-aortic retroperitoneal lymph nodes concerning for metastatic disease. The more distal sigmoid and rectum shows circumferential mural thickening likely inflammatory. PELVIS/BLADDER: The urinary bladder is underdistended. VESSELS: Scattered atherosclerotic calcifications without evidence of occlusive disease. BONES AND SOFT TISSUES: No suspicious lytic or sclerotic bony lesions. Procedure Note [facility], Radiant Results Inft User - 03/04/2019 1:38 PM CDT * * * * * * * * ORIGINAL REPORT * * * * * * * * EXAM: CT ABDOMEN AND PELVIS WITHOUT AND WITH CONTRAST HISTORY: Abd pain, diverticulitis suspected COMPARISON: None DOSE: 388.23 mGy TECHNIQUE AND FINDINGS: Contiguous axial imaging from the level of the lung bases through the pubic symphysis was performed after the uncomplicated administration of 120 cc of intravenous Omnipaque contrast. Coronal and sagittal reconstructions were obtained. Auto mA and/or iterative reconstruction were used to reduce radiation dose. FINDINGS: LOWER THORAX: The lungs bases are clear. No cardiomegaly. LIVER: No focal hepatic lesions. Normal contour. GALLBLADDER AND BILIARY TREE: No biliary ductal dilation. No gallbladder wall thickening. SPLEEN: No splenomegaly. PANCREAS: No ductal dilation or masses. ADRENAL GLANDS: No adrenal nodules. KIDNEYS: No hydronephrosis, stones, or masses. PERITONEUM AND RETROPERITONEUM: No free air or fluid. LYMPH NODES: Multiple retroperitoneal and right iliac lymph nodes with the largest measuring 1 cm, likely metastatic. GI TRACT: The sigmoid colon is distended. An endophytic enhancing mass is suspected arising from the right lateral wall and measuring approximately 7.1 x 5.1 cm (3:87). This finding is concerning for a primary adenocarcinoma. There are surrounding lymph nodes para-aortic retroperitoneal lymph nodes concerning for metastatic disease. The more distal sigmoid and rectum shows circumferential mural thickening likely inflammatory. PELVIS/BLADDER: The urinary bladder is underdistended. VESSELS: Scattered atherosclerotic calcifications without evidence of occlusive disease. BONES AND SOFT TISSUES: No suspicious lytic or sclerotic bony lesions. IMPRESSION 1. A large enhancing tumor is seen growing into the sigmoid colon. This is about 15 cm from the anal verge and measures about 13 cm in length. This finding suggests a primary sigmoid adenocarcinoma. Colonoscopy and biopsy are recommended. 2. There is evidence of retroperitoneal para-aortic lymphadenopathy concerning for metastatic disease. No evidence of hepatic metastases. 3. Tumor extension is seen into the surrounding fat (3:78 and 602:56). Lymphovascular invasion is suspected. ILaila MD., have reviewed this study and agree with the above report. Performing Organization Address City/State/Zipcode Phone Number PACS/VR/DOSE * CBC WITH DIFFERENTIAL (03/04/2019 5:38 AM CDT) WBC 18.80 (H) 4.20 - 10.70 [facility] 10*3/L [facility] RBC 4.47 4.26 - 5.52 10*6/L [facility] HGB 9.1 (L) 12.2 - 16.4 g/dL [facility] HCT 30.0 (L) 38.4 - 49.3 % [facility] MCV 67.1 (L) 81.7 - 95.6 fL [facility] MCH 20.4 (L) 26.1 - 32.7 pg [facility] MCHC 30.3 (L) 31.2 - 35.0 g/dL [facility] RDW-SD 55.4 (H) 38.5 - 51.6 fL [facility] RDW-CV 24.0 (H) 12.1 - 15.4 % [facility] PLT 668 (H) 150 - 328 10*3/L [facility] MPV 10.0 9.8 - 13.0 fL [facility] NRBC/100 WBC 0.0 0.0 - 10.0 /100 WBCs [facility] NRBC x10^3 <0.01 10*3/L [facility] GRAN MAT (NEUT) 81.0 % [facility] % [facility] IMM GRAN % 1.30 % [facility] LYMPH % 10.5 % [facility] MONO % 6.5 % [facility] EOS % 0.1 % [facility] BASO % 0.6 % [facility] GRAN MAT 15.23 (H) 1.99 - 6.95 10*3/uL [facility] x10^3(ANC) [facility] IMM GRAN x10^3 0.24 (H) 0.00 - 0.06 10*3/uL [facility] LYMPH x10^3 1.98 1.09 - 3.23 10*3/uL [facility] MONO x10^3 1.23 (H) 0.36 - 1.02 10*3/uL [facility] EOS x10^3 <0.03 (L) 0.06 - 0.53 10*3/uL [facility] BASO x10^3 0.11 (H) 0.01 - 0.09 10*3/uL [facility] BELTRAN CELLS 2+ (A) (none) [facility] ELLIPTO/OVAL 2+ (A) (none) [facility] SCHISTOCYTES 1+ (A) [facility] Specimen Blood - ARM, RIGHT Performing Organization Address [facility] Hospitalcode Phone Number [facility] CLIA: [id number], [address] [place] [address] [facility] * Magnesium Serum (03/04/2019 5:38 AM CDT) MAGNESIUM 1.2 (L) 1.7 - 2.4 mg/dL [facility] Specimen Blood - ARM, RIGHT Performing Organization Address [facility] Hospitalcode Phone Number [facility] CLIA: [id number], [address] [place] [address] [facility] * Basic Metabolic Panel (NA, K, CL, CO2, GLUCOSE, BUN, CREATININE, CA) (03/04/2019 5:38 AM CDT) NA 136 135 - 145 mmol/L [facility] K 4.0 3.5 - 5.0 mmol/L [facility] CL 103 98 - 108 mmol/L [facility] CO2 TOTAL 24 23 - 31 mmol/L [facility] AGAP 9 2 - 16 [facility] BUN 11 7 - 23 mg/dL [facility] GLUCOSE 139 (H) 70 - 110 mg/dL [facility] CREATININE 0.81 0.60 - 1.25 mg/dL [facility] CALCIUM 8.5 (L) 8.6 - 10.6 mg/dL [facility] eGFR 98.9 mL/min/1.73m2 [facility] Calculation [facility] (Non-[facility] [place]) eGFR 119.9 mL/min/1.73m2 [facility] Calculation [facility] ([facility] [place]) Specimen Blood - ARM, RIGHT Narrative Performed At Association of Glomerular Filtration Rate (GFR) and Staging of Kidney Disease* [facility] + + + + [facility] | GFR (mL/min/1.73 m2)| With Kidney Damage|Without Kidney Damage CAMPUS + + + + |>90|Stage one| Normal [...] abnormalities in imaging tests). Performing Organization Address City/[facility]/Zipcode Phone Number [facility] CLIA: [id number], [address] [place] [address] [facility] * POCT GLUCOSE (AUTOMATED) (03/04/2019 5:37 AM CDT) [facility] Signature POCT GLU 141 (H) 70 - 110 mg/dL [facility] Specimen Blood Performing Organization Address City/[facility]/Zipcode Phone Number [facility] CLIA: [id number], [facility] [place], [place] [address] [facility] * POCT GLUCOSE (AUTOMATED) (03/04/2019 12:12 AM CDT) POCT GLU 113 (H) 70 - 110 mg/dL [facility] Specimen Blood Performing Organization Address City/State/Zipcode Phone Number [facility] CLIA: [id number], [address] [place] [address] [facility] * CLOSTRIDIUM DIFFICILE TOXIN (03/03/2019 11:41 PM CDT) Toxigenic Negative Negative [facility] Clostridium SERVICES difficile Specimen Stool - ANAL Performing Organization Address City/State/Zipcode Phone Number [facility] SERVICES CLIA: [id number], [address] [place] [address] [facility] * FECAL PATHOGENS BY PCR (03/03/2019 11:41 PM CDT) Campylobacter Negative Negative, [facility] (jejuni, coli Indeterminate, See SERVICES and comment upsaliensis) Plesiomonas Negative Negative, [facility] shigelloides Indeterminate, See SERVICES comment Salmonella Negative Negative, [facility] Indeterminate, See SERVICES comment Yersinia Negative Negative, [facility] enterocolitica Indeterminate, See SERVICES comment Vibrio Negative Negative, [facility] Indeterminate, See SERVICES comment Vibrio cholerae Negative Negative, [facility] Indeterminate, See SERVICES comment Enteroaggregati Negative Negative, [facility] ve E. coli Indeterminate, See SERVICES (EAEC) comment Enteropathogeni Negative Negative, N/A, [facility] c E. coli Indeterminate, See SERVICES (EPEC) comment Enterotoxigenic Negative Negative, [facility] E. coli (ETEC) Indeterminate, See SERVICES comment Shiga Negative Negative, [facility] toxin-Producing Indeterminate, See SERVICES E. coli (STEC) comment Shigella/Entero Negative Negative, [facility] invasive E. Indeterminate, See SERVICES coli (EIEC) comment Cryptosporidium Negative Negative, [facility] Indeterminate, See SERVICES comment Cyclospora Negative Negative, [facility] cayetanensis Indeterminate, See SERVICES comment Entamoeba Negative Negative, [facility] histolytica Indeterminate, See SERVICES comment Giardia lamblia Negative Negative, [facility] Indeterminate, See SERVICES comment Adenovirus F Negative Negative, [facility] 40/41 Indeterminate, See SERVICES comment Astrovirus Negative Negative, [facility] Indeterminate, See SERVICES comment Norovirus Negative Negative, [facility] GI/GII Indeterminate, See SERVICES comment Rotavirus A Negative Negative, [facility] Indeterminate, See SERVICES comment Sapovirus Negative Negative, [facility] Indeterminate, See SERVICES comment Specimen Stool - ANAL Narrative Performed At Negative: [facility] A negative result does not rule-out infection.This assay does not test for SERVICES all potential infectious agents of diarrheal disease. Positive: A positive test result does not necessarily indicate the presence of viable organism. Performing Organization Address [facility] Hospitalcotx Phone Number [facility] SERVICES CLIA: [id number], [address] [place] [address] [facility] * FECAL LEUKOCYTES (03/03/2019 11:41 PM CDT) Pathologist [facility] Fecal Positive (A) Negative [facility] Leukocytes SERVICES Specimen Stool - ANAL Performing Organization Address [facility] [place] Phone Number [facility] CLIA: [id number], [address] [place] [address] [facility] * OCCULT (GUAIAC) BLOOD (03/03/2019 11:41 PM CDT) Pathologist [facility] Occult (guaiac) Positive (A) Negative [facility] Blood SERVICES Specimen Stool - ANAL Performing Organization Address [facility] [place] Phone Number [facility] SERVICES CLIA: [id number], [address] [place] [address] [facility] * URINE CULTURE (03/03/2019 11:41 PM CDT) Pathologist [facility] URINE CULTURE No aerobic growth (< 1000 [facility] CFU/mL) SERVICES Specimen Urine - URINE, CLEAN CATCH Performing Organization Address [facility] [place] Phone Number [facility] CLIA: [id number], [address] [place] [address] [facility] * URINALYSIS (03/03/2019 11:40 PM CDT) Pathologist [facility] APPEARANCE Clear Clear [facility] COLOR Colorless (A) Yellow [facility] PH 5.0 4.8 - 8.0 [facility] SP GRAVITY 1.004 1.003 - 1.030 [facility] GLU U QUAL Normal Normal [facility] BLOOD Negative Negative [facility] KETONES Negative Negative [facility] PROTEIN Negative Negative [facility] UROBILIN Normal Normal [facility] BILIRUBIN Negative [facility] NITRITE Negative Negative [facility] LEUK MATILDE Negative Negative [facility] RBC/HPF 1 0 - 3 HPF [facility] WBC/HPF 0 0 - 5 HPF [facility] SERVICES-[facility] BACTERIA Negative Negative [facility] [facility] Specimen Urine - URINE, CLEAN CATCH Performing Organization Address [facility] Phone Number [facility] CLIA: [id number], [address] [place] [address] SERVICES-[facility] * Prepare Packed RBC (in units), 1 Units (03/03/2019 10:13 PM CDT) [facility] Cross Match Compatible LAB Result ISBT Blood Type 5100 LAB Code Unit Blood Type O Pos LAB Unit Number [id number] LAB Blood [id number] LAB Expiration Date & Time Status Issued LAB Information Product Red Blood Cells LAB Identification Product Code [id number] LAB Comment: Performed at [facility] Laboratory Services - [facility] Blood Bank [address] [place] [address] Toll Free: [phone] CLIA No. [id number] Specimen Performing Organization Address City/[facility] Phone Number BLD LAB * XR KUB (03/03/2019 9:52 PM CDT) Specimen Narrative Performed At * * * * * * * * ORIGINAL REPORT * * * * * * * * PACS/VR/DOSE EXAM: XR KUB HISTORY: abd tenderness COMPARISON: None. FINDINGS: Slightly dilated and organized small bowel in the upper abdomen centrally and on the left raise the question of incomplete small bowel obstruction since gas is present distally in normal colon. No opaque stones or masses are found. Procedure Note [facility], Radiant Results Inft User - 03/04/2019 8:14 AM CDT * * * * * * * * ORIGINAL REPORT * * * * * * * * EXAM: XR KUB HISTORY: abd tenderness COMPARISON: None. FINDINGS: Slightly dilated and organized small bowel in the upper abdomen centrally and on the left raise the question of incomplete small bowel obstruction since gas is present distally in normal colon. No opaque stones or masses are found. Performing Organization Address City/State/Zipcode Phone Number PACS/VR/DOSE * ABORH CONFIRMATION (03/03/2019 9:32 PM CDT) Pathologist [facility] ABO & RH O Positive LAB Comment: Performed at [facility] Laboratory Services - [facility] Blood Bank [address] [place] [address] Toll Free: [phone] CLIA No. [id number] Specimen Performing Organization Address [facility] Phone Number BLD LAB * POCT GLUCOSE (AUTOMATED) (03/03/2019 8:37 PM CDT) [facility] POCT GLU 149 (H) 70 - 110 mg/dL [facility] Specimen Blood Performing Organization Address City/[facility] Phone Number [facility] CLIA: [id number], [address] [place] [address] [facility] * Type and Screen - ONCE STAT (03/03/2019 7:38 PM CDT) [facility] ABO & RH O Positive LAB Comment: Performed at [facility] Laboratory Services - [facility] Blood Bank [address] [place] [address] Toll Free: [phone] CLIA No. [id number] IAT Negative LAB Comment: Performed at [facility] Laboratory Services - [facility] Blood Bank [address] [place] [address] Toll Free: [phone] CLIA No. [id number] Specimen VENOUS Performing Organization Address City/[facility] Phone Number BLD LAB * Prothrombin Time / INR (03/03/2019 7:37 PM CDT) Pathologist [facility] PROTIME PATIENT 13.2 12.0 - 14.7 Seconds [facility] SERVICES-[facility] INR 1.0Comment: Normal INR <1.1; [facility] Warfarin Therapeutic range 2.0 [facility] to 3.0 or 2.5 to 3.5, [facility] depending upon the indications. Specimen Blood - ARM, LEFT Performing Organization Address City/State/Zipcode Phone Number [facility] CLIA: [id number], [address] [place] [address] [facility] * CBC WITH DIFFERENTIAL (03/03/2019 7:37 PM CDT) WBC 17.83 (H) 4.20 - 10.70 [facility] 10*3/L [facility] RBC 3.56 (L) 4.26 - 5.52 10*6/L [facility] HGB 6.7 (L) 12.2 - 16.4 g/dL [facility] HCT 23.0 (L) 38.4 - 49.3 % [facility] MCV 64.6 (L) 81.7 - 95.6 fL [facility] MCH 18.8 (L) 26.1 - 32.7 pg [facility] MCHC 29.1 (L) 31.2 - 35.0 g/dL [facility] RDW-SD 47.1 38.5 - 51.6 fL [facility] RDW-CV 21.1 (H) 12.1 - 15.4 % [facility] PLT 637 (H) 150 - 328 10*3/L [facility] MPV 9.4 (L) 9.8 - 13.0 fL [facility] NRBC/100 WBC 0.0 0.0 - 10.0 /100 WBCs [facility] NRBC x10^3 <0.01 10*3/L [facility] GRAN MAT (NEUT) 81.8 % [facility] % [facility] IMM GRAN % 1.00 % [facility] LYMPH % 11.5 % [facility] MONO % 5.3 % [facility] EOS % 0.0 % [facility] BASO % 0.4 % [facility] GRAN MAT 14.58 (H) 1.99 - 6.95 10*3/uL [facility] x10^3(ANC) [facility] IMM GRAN x10^3 0.18 (H) 0.00 - 0.06 10*3/uL [facility] LYMPH x10^3 2.05 1.09 - 3.23 10*3/uL [facility] MONO x10^3 0.94 0.36 - 1.02 10*3/uL [facility] EOS x10^3 <0.03 (L) 0.06 - 0.53 10*3/uL [facility] BASO x10^3 0.08 0.01 - 0.09 10*3/uL [facility] ELLIPTO/OVAL 2+ (A) (none) [facility] SCHISTOCYTES 1+ (A) [facility] PLT ESTIMATE Increased (A) Normal [facility] Specimen Blood - ARM, LEFT Performing Organization Address City/[facility]/Zipcode Phone Number [facility] CLIA: [id number], [address] [place] [phone] [facility] * TOTAL IRON BINDING CAPACITY (03/03/2019 7:37 PM CDT) TIBC 253 250 - 410 ug/dL [facility] Specimen Blood - ARM, LEFT Performing Organization Address City/State/Zipcode Phone Number [facility] CLIA: [id number], [address] [place] [phone] [facility] * RETICULOCYTES AUTOMATED (03/03/2019 7:37 PM CDT) RETIC Count 0.63 0.59 - 2.24 % [facility] Automated [facility] RETIC Absolute 0.0224 (L) 0.0260 - 0.1170 [facility] Count 10*6/L [facility] IRF % 22.00 (H) 2.00 - 19.10 % [facility] RETIC-HE 23.5 (L) 27.3 - 36.4 pg [facility] Specimen Blood - ARM, LEFT Performing Organization Address City/[facility] Phone Number [facility] CLIA: [id number], [address] [place] [phone] [facility] * IRON (03/03/2019 7:37 PM CDT) IRON <10 (L) 50 - 160 ug/dL [facility] Specimen Blood - ARM, LEFT Performing Organization Address [facility] Phone Number [facility] CLIA: [id number], [address] [place] [address] [phone] [facility] * HEPATIC FUNCTION PANEL (74217) (ALB,T.PRO,BILI T,BU/BC,ALT,AST,ALK PHOS) (03/03/2019 7:37 PM CDT) TOTAL BILI 0.2 0.1 - 1.1 mg/dL [facility] BILI UNCON 0.1 0.1 - 1.1 mg/dL [facility] BILI CONJ 0.0 0.0 - 0.3 mg/dL [facility] T PROTEIN 5.6 (L) 6.3 - 8.2 g/dL [facility] ALBUMIN 2.6 (L) 3.5 - 5.0 g/dL [facility] ALK PHOS 102 34 - 122 U/L [facility] ALT(SGPT) 17 9 - 51 U/L [facility] AST(SGOT) 18 13 - 40 U/L [facility] Specimen Blood - ARM, LEFT Performing Organization Address City/[facility] Phone Number [facility] CLIA: [id number], [address] [place] [address] [facility] * BASIC METABOLIC PANEL (NA, K, CL, CO2, GLUCOSE, BUN, CREATININE, CA) (03/03/2019 7:37 PM CDT) NA 136 135 - 145 mmol/L [facility] K 4.3 3.5 - 5.0 mmol/L [facility] CL 103 98 - 108 mmol/L [facility] CO2 TOTAL 25 23 - 31 mmol/L [facility] AGAP 8 2 - 16 [facility] BUN 14 7 - 23 mg/dL [facility] GLUCOSE 160 (H) 70 - 110 mg/dL [facility] CREATININE 0.65 0.60 - 1.25 mg/dL [facility] CALCIUM 8.4 (L) 8.6 - 10.6 mg/dL [facility] eGFR 127.5 mL/min/1.73m2 [facility] Calculation [facility] (Non-[facility] [place]) eGFR 154.6 mL/min/1.73m2 [facility] Calculation [facility] ([facility] [place]) Specimen Blood - ARM, LEFT Narrative Performed At Association of Glomerular Filtration Rate (GFR) and Staging of Kidney Disease* [facility] + + + + [facility] | GFR (mL/min/1.73 m2)| With Kidney Damage|Without Kidney Damage CAMPUS + + + + |>90|Stage one| Normal [...] tests). Performing Organization Address City/State/Zipcode Phone Number [facility] CLIA: [id number], [address] [place] [address] [facility] * XR CHEST 1 VW (03/03/2019 6:42 PM CDT) Specimen Impressions Performed At No acute cardiopulmonary process. PACS/VR/DOSE Alphonse Turner MD., have reviewed this study and agree with the above report. Narrative Performed At XR CHEST 1 VW PACS/VR/DOSE HISTORY: SOB Portable COMPARISON: None FINDINGS: The lungs are well expanded and clear. The costophrenic angles are clear. The heart is normal in size. No pneumothorax is found. Procedure Note [facility], Radiant Results Inft User - 03/03/2019 11:17 PM CDT XR CHEST 1 VW HISTORY: SOB Portable COMPARISON: None FINDINGS: The lungs are well expanded and clear. The costophrenic angles are clear. The heart is normal in size. No pneumothorax is found. IMPRESSION No acute cardiopulmonary process. Navin Turner MD., have reviewed this study and agree with the above report. Performing Organization Address City/State/Zipcode Phone Number PACS/VR/DOSE documented in this encounter Visit Diagnoses Diagnosis Lower GI bleed - Primary Hemorrhage of gastrointestinal tract, unspecified Left lower quadrant pain Abdominal pain, left lower quadrant Acute bilateral low back pain with bilateral sciatica Abdominal pain, unspecified abdominal location Flank pain Abdominal pain, unspecified site GI bleed Hemorrhage of gastrointestinal tract, unspecified Colonic mass Other specified disorder of intestines Acute blood loss anemia Acute posthemorrhagic anemia Type 2 diabetes mellitus with complication, without long-term current use of insulin Secondary hypertension Other secondary hypertension, unspecified documented in this encounter Administered Medications Action Date Dose Rate Site Medication Order MAR Action acetaminophen (TYLENOL) tablet 650 mg 650 mg, Oral, Q6HPRN, Starting [facility] 03/03/19 at 1728, Until Discontinued, Routine, Pain (scale 1-3) 03/06/2019 2:19 PM CDT 1 tablet acetaminophen-codeine (TYLENOL #3) Given 300-30 mg tablet 1 tablet 1 tablet, Oral, Q4HPRN, Starting 03/06/19 at 1109, Until Discontinued, Routine, Pain (scale 7-10) dextrose 50 % in water (D50W) injection 25 mL 25 mL, Slow IV Push, PRN, Starting [facility] 03/03/19 at 1933, Until Discontinued, EMILIA, Blood Glucose < or=70 mg/dL and patient is unable to swallow or has mental status changes. 03/07/2019 8:32 AM CDT 300 mg gabapentin (NEURONTIN) capsule 300 mg Given 300 mg, Oral, BID, First dose on 03/05/19 at 2145, Until Discontinued, Routine 300 mg Given 03/06/2019 8:58 PM CDT 300 mg Given 03/06/2019 7:36 AM CDT glucagon (GLUCAGEN DIAGNOSTIC KIT) injection 1 mg 1 mg, Intramuscular, PRN, Starting [facility] 03/03/19 at 1933, Until Discontinued, EMILIA, Blood Glucose < or=70 mg/dL and patient is unable to swallow or has mental changes. 03/06/2019 8:00 PM CDT 1 mg HYDROmorphone (DILAUDID) injection 1 mg Given 1 mg, Slow IV Push, Q4HPRN, Starting 03/06/19 at 1909, Until Thu03/08/19 at 1908, Routine, Breakthrough Pain (scale 4-10), Use approved by (Faculty): C PROVIDER 1 mg Given 03/06/2019 7:30 PM CDT 03/07/2019 8:32 AM CDT 400 mg magnesium oxide (MAG-OX 400) tablet 400 Given mg 400 mg, Oral, BID, 6 doses, First dose on Thu03/05/19 at 0900, Last dose on Thu03/07/19 at 2000, Routine 400 mg Given 03/06/2019 8:00 PM CDT 400 mg Given 03/06/2019 7:36 AM CDT 03/06/2019 7:19 PM CDT 2 mg morpHINE injection 2 mg Given 2 mg, Slow IV Push, Q4HPRN, Starting Thu03/04/19 at 0604, Until Discontinued, Routine, Pain (scale 7-10) 2 mg Given 03/06/2019 7:18 PM CDT 2 mg Given 03/05/2019 11:38 PM CDT 03/07/2019 5:31 AM CDT 1,000 mL 100 mL/hr NaCl 0.9% (NS) IV infusion 1,000 mL New Bag at 100 mL/hr, IV Infusion, CONTINUOUS, Starting Thu03/06/19 at 2130, Until Discontinued, Routine 1,000 mL 100 mL/hr New Bag 03/06/2019 8:43 PM CDT 03/04/2019 4:43 AM CDT 4 mg ondansetron (ZOFRAN (PF)) injection 4 mg Given 4 mg, Slow IV Push, Q6HPRN, Starting Thu03/03/19 at 1732, Until Discontinued, Routine, Nausea and Vomiting (N/V) 03/07/2019 8:32 AM CDT 17 g Polyethylene Glycol 3350 (MIRALAX) Given powder 17 g 17 g, Oral, DAILY, First dose on Thu03/06/19 at 0915, Until Discontinued, Routine 17 g Given 03/06/2019 10:30 AM CDT 03/06/2019 8:57 PM CDT 40 mg pravastatin (PRAVACHOL) tablet 40 mg Given 40 mg, Oral, QHS, First dose on Thu03/03/19 at 2100, Until Discontinued, Routine 40 mg Given 03/05/2019 9:31 PM CDT 40 mg Given 03/04/2019 8:11 PM CDT 03/07/2019 8:32 AM CDT 1 tablet sennosides-docusate sodium (SENOKOT S) Given 8.6-50 mg per tablet 1 tablet 1 tablet, Oral, BID, First dose on Thu03/06/19 at 2000, Until Discontinued, Routine 1 tablet Given 03/06/2019 8:57 PM CDT 03/04/2019 1:08 PM CDT 80 mg simethicone (GAS RELIEF) 40 mg/0.6 mL Given drops PRN, Starting Thu03/04/19 at 1308, Until Discontinued, Routine, Intra-op 03/07/2019 12:27 PM CDT 9 Units Abdomen-SC Sliding Scale Insulin-Regular + Fsbg Given Testing Subcutaneous, Q6H, First dose on Thu03/03/19 at 1945, Until Discontinued, Routine 9 Units Right Arm Given 03/07/2019 7:15 AM CDT 2 Units Right Arm Given 03/07/2019 1:19 AM CDT Action Date Dose Rate Site Medication Order MAR Action 03/03/2019 10:49 PM CDT 10 mg bisacodyl (DULCOLAX) tablet 10 mg Given 10 mg, Oral, PRE-PROCEDURE ONCE, 1 dose, Starting [facility] 03/03/19 at 1732, Until [facility] 03/03/19 at 2249, Routine, Bowel Prep, Colonoscopy 03/03/2019 7:52 PM CDT 10 mg bisacodyl (DULCOLAX) tablet 10 mg Given 10 mg, Oral, PRE-PROCEDURE ONCE, 1 dose, Starting [facility] 03/03/19 at 1732, Until [facility] 03/03/19 at 1952, Routine, Bowel Prep, Colonoscopy 03/06/2019 10:25 PM CDT 10 mg dexamethasone (DECADRON) 10 mg in NaCl New Bag 0.9% (NS) piggyback 10 mg, IV Piggyback, ONCE, 1 dose, [facility] 03/06/19 at 2000, 50 mL 03/05/2019 8:38 AM CDT 300 mg gabapentin (NEURONTIN) capsule 300 mg Given 300 mg, Oral, DAILY, First dose on [facility] 03/05/19 at 0130, Until Discontinued, Routine 300 mg Given 03/05/2019 1:40 AM CDT 03/04/2019 11:00 AM CDT 100 mL Left Arm iohexol (OMNIPAQUE 350 BULK-100 mL) Given injection 100 mL 100 mL, Intravenous, ONCE, 1 dose, Thu03/04/19 at 1100, Routine 03/06/2019 10:04 PM CDT 100 mL iohexol (OMNIPAQUE 350 BULK-100 mL) Given injection 100 mL 100 mL, Intravenous, ONCE, 1 dose, [facility] 03/06/19 at 2215, Routine 03/05/2019 11:16 AM CDT 80 mL iohexol (OMNIPAQUE 350 BULK-150 mL) Given injection 80 mL 80 mL, Intravenous, ONCE, 1 dose, [facility] 03/05/19 at 0915, Routine 03/04/2019 8:12 PM CDT 300 mg 75 mL/hr Right Arm iron sucrose (VENOFER) 300 mg in NaCl New Bag 0.9% (NS) 250 mL infusion 300 mg, IV Infusion, DAILY, First dose on Thu03/04/19 at 1830, For 2 doses 300 mg Right Arm New Bag 03/04/2019 8:10 PM CDT 03/06/2019 8:58 PM CDT 30 mg ketorolac (TORADOL) injection 30 mg Given 30 mg, Slow IV Push, ONCE, 1 dose, [facility] 03/06/19 at 2015, EMILIA, environmental studies faculty member approving Restricted medication: LAUREEN JOSEPH 03/06/2019 6:42 AM CDT 2 g magnesium sulfate in water 2 gram/50 mL New Bag (4 %) infusion 2 g 2 g, IV Piggyback, ONCE, 1 dose, [facility] 03/06/19 at 0630, Routine 03/06/2019 10:30 AM CDT 2 g magnesium sulfate in water 2 gram/50 mL New Bag (4 %) infusion 2 g 2 g, IV Piggyback, ONCE, 1 dose, [facility] 03/06/19 at 1015, Routine 03/06/2019 8:30 PM CDT 2 mg morpHINE injection 2 mg Given 2 mg, Slow IV Push, ONCE, 1 dose, [facility] 03/06/19 at 2030, Routine 03/06/2019 7:51 PM CDT 250 mL 999 mL/hr NaCl 0.9% (NS) bolus infusion 250 mL New Bag at 999 mL/hr, 250 mL, IV Infusion, ONCE, 1 dose, [facility] 03/06/19 at 2000, STAT 03/06/2019 7:36 AM CDT 40 mg pantoprazole (PROTONIX) 40 mg in NaCl Given 0.9% (NS) 100 mL MINI-BAG 40 mg, IV Piggyback, Q12H, First dose on [facility] 03/03/19 at 2000, Until Discontinued, 100 mL 40 mg Given 03/05/2019 9:33 PM CDT 40 mg Given 03/05/2019 8:39 AM CDT 03/03/2019 8:32 PM CDT 2,000 mL peg-electrolyte soln (GOLYTELY) Given 236-22.74-6.74 -5.86 gram solution 2,000 mL 2,000 mL, Oral, PRE-PROCEDURE ONCE, 1 dose, Starting [facility] 03/03/19 at 1732, Until [facility] 03/03/19 at 2032, Routine, Bowel Prep, Colonoscopy 03/04/2019 3:42 AM CDT 2,000 mL peg-electrolyte soln (GOLYTELY) Given 236-22.74-6.74 -5.86 gram solution 2,000 mL 2,000 mL, Oral, PRE-PROCEDURE ONCE, 1 dose, Starting Thu03/04/19 at 0400, Until Thu03/04/19 at 0342, Routine, Bowel Prep, Bowel Prep for Colonoscopy 03/04/2019 9:48 AM CDT 4,000 mL peg-electrolyte soln (GOLYTELY) Given 236-22.74-6.74 -5.86 gram solution 4,000 mL 4,000 mL, Oral, ONCE, 1 dose, 03/04/19 at 0930, Routine 03/06/2019 6:10 PM CDT 0.5 mL Right Deltoid-IM pneumococcal vac polyvalent Given (PNEUMOVAX-23) injection 0.5 mL 0.5 mL, Intramuscular, ONCE, 1 dose, [facility] 03/06/19 at 1145, Routine documented in this encounter Insurance Type Payer Benefit Subscriber ID Effective Phone Address Plan / Dates Group PPO/POS BCBS OF [facility] BCBS OF [id number] 2019-P EMPLOYEE [employer] [facility] EMPLOYEE PLAN ([place]) [place] [address] documented as of this encounter
--- OUTSIDE RECORDS SUMMARY | 2019-10-11 07:09 | XMS REPORT | Summary of Care ---
Author Author [facility] - Health Organization [facility] - Health Address Unknown Phone Unavailable Care Team Providers Care Vice President Sales And Marketing Name Role Phone Pcp, Patient Does Not Have A PCP Reason for Visit * Reason Comments Assessment Encounter Details Care Team Description Date Type Department Kaiser Shirley MD [address] [place] [phone] Assessment 03/08/2019 Telephone [facility] GASTROENTEROLOGY [facility] [address] [place] [phone] Allergies No Known Allergiesdocumented as of this encounter (statuses as of 03/08/2019) Medications End Date Status Medication Sig Dispensed [...] take one tablet daily for 13 days 03/08/2019 Discontinued fluconazole 200 mg Take 1 tablet 15 tablet 0 tabletIndications: by mouth 9 Esophageal candidiasis daily. Take 2 tablets once then take one tablet daily for 13 days documented as of this encounter (statuses as of 03/08/2019) Active Problems Problem Noted Date Colonic mass 03/06/2019 Acute blood loss anemia 03/06/2019 Type 2 diabetes mellitus with complication, without long-term current use 03/06/2019 of insulin Secondary hypertension 03/06/2019 GI bleed 03/05/2019 Lower GI bleed 03/03/2019 documented as of this encounter (statuses as of 03/08/2019) Immunizations Name Administration Dates Next Due Influenza [...] Date Type Specialty Radha Sloan MD [address], [place] [address] 03/11/2019 Office Visit Internal Medicine Honey Barclay, [facility] [address] [place] [address] [phone] 03/29/2019 Office Visit Gastroenterology Radha Sloan MD [address] [place] [address] [phone] 05/27/2019 Office Visit Internal Medicine Health Maintenance [...] this encounter Visit Diagnoses Diagnosis Esophageal candidiasis Candidiasis of the esophagus documented in this encounter Insurance Type Payer Benefit Subscriber ID Effective Phone Address Plan / Dates Group PPO/POS BCBS OF [facility] BCBS OF [id number] 2019-P EMPLOYEE [employer] [facility]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
--- OUTSIDE RECORDS SUMMARY | 2019-10-11 07:09 | XMS REPORT | Summary of Care ---
Author Author [facility] - Health Organization [facility] - [facility] Address Unknown Phone Unavailable Care Team Providers Care Associate Sales Representative Name Role Phone Pcp, Patient Does Not Have A PCP Reason for Referral * Radiology Services (Routine) Referred By Contact Referred To Contact Status Reason Specialty Diagnoses / Procedures Дмитрий Ambriz MD [address] [place] [phone] New Request Diagnostic Diagnoses Radiology Malignant neoplasm of colon, unspecified part of colon P rocedures IR VENOUS ACCESS * (Routine) Referred By Contact Referred To Contact Status Reason Specialty Diagnoses / Procedures Дмитрий Ambriz MD [address] [place] [address] [address] New Request Diagnostic Diagnoses Radiology Malignant neoplasm of colon, unspecified part of colon P rocedures CLINIC VISIT INTERVENTIONAL RADIOLOGY * (Routine) Referred By Contact Referred To Contact Status Reason Specialty Diagnoses / Procedures Дмитрий Ambriz MD [address] [place] [phone] New Request Oncology Diagnoses Malignant neoplasm of colon, unspecified part of colon P rocedures CONSULT/REFERRAL MEDICAL ONCOLOGY * (Routine) Referred By Contact Referred To Contact Status Reason Specialty Diagnoses / Procedures Дмитрий Ambriz MD [address] [place] [address] [place] [address] New Request Radiation Diagnoses Therapy Malignant neoplasm of colon, unspecified part of colon P rocedures CONSULT RADIATION ONCOLOGY Reason for Visit * Reason Comments Referral/consult Mass in Colon Encounter Details Care Team Description Date Type Department Дмитрий Ambriz MD [address] [place] [address] [place] [address] Malignant neoplasm of colon, unspecified part of colon (Primary Dx) 04/07/2019 Office Visit [facility] [address] [facility], [address] [place] [phone] Allergies No Known Allergiesdocumented as of this encounter (statuses as of 04/07/2019) Medications End Date Status Medication Sig Dispensed [...] by 9 mouth 2 (two) times daily. Active insulin NPH 100 unit/mL Give insulin [...] as of this encounter (statuses as of 04/07/2019) Active Problems Problem Noted Date Colonic mass 03/06/2019 Acute blood loss anemia 03/06/2019 Type 2 diabetes mellitus with complication, without long-term current use 03/06/2019 of insulin Secondary hypertension 03/06/2019 GI bleed 03/05/2019 Lower GI bleed 03/03/2019 documented as of this encounter (statuses as of 04/07/2019) Immunizations Name Administration Dates Next Due Influenza [...] Signs Reading Time Taken Comments Vital Sign 113/72 04/07/2019 1:05 PM CDT Blood Pressure 95 04/07/2019 1:05 PM CDT Pulse 36.5 C (97.7 F) 04/07/2019 1:05 PM CDT Temperature - - Respiratory Rate 100% 04/07/2019 1:05 PM CDT Oxygen Saturation - - Inhaled Oxygen Concentration 72.4 kg (159 lb 11.2 oz) 04/07/2019 1:05 PM CDT Weight 170.2 cm (5' 7") 04/07/2019 1:05 PM CDT Height 25.01 04/07/2019 1:05 PM CDT Body Mass Index documented in this encounter Progress Notes * Efrain West MBBS - 04/07/2019 1:30 PM CDT Surgery Clinic / History & Physical Note 04/07/2019 Reason for visit / Chief complaint: Rectosigmoid mass History of presenting illness: Lorenzo Nicole Jr. is a 53 year old male with PMHx as below who presents for evaluation of a rectosigmoid mass. Patient was recentl y seen in the ED for lower GI bleed which he reports for few weeks. Also reports some fatigue and 10-15 ib weight loss. In the ED, he had a CT scan which showed a 7 cm sigmoid mass, suspicious L 8th posterior rib lesion and para aortic lymph nodes. He had a colonoscopy which showed almost 22 polyps all over the colon and a 15 cm rectosigmoid mass 15-30 cm from the anal verge. The mass was biopsied and showed tubular adenoma with high grade dysplasia. He was discharged home and followed up with a colorectal surgeon, Electrical Experimental Mechanic and oncologist at [facility]. He had colonoscopy again and 24 polyps were removed and the mass was biopsied. Path report is attached. He has already seen a surgeon and oncologist at [facility] who recommend MRI, PET scan, neoadjuvant chemotherapy and total colectomy. Patient is here for 2nd opinion. Past medical history: Past Medical History: Diagnosis Date Diabetes mellitus Diabetic neuropathy HLD (hyperlipidemia) HTN (hypertension) Past surgical history: Past Surgical History: Procedure Laterality Date COLONOSCOPY N/A 03/04/2019 Surgeon: Hermes Fox MD; Location: [place] [facility] ESOPHAGOGASTRODUODENOSCOPY N/A 03/04/2019 Surgeon: Hermes Fox MD; Location: [place] [facility] Family history: Family History Problem Relation Age of Onset Diabetes Mother Coronary Heart Disease Father Non-contributory to this encounter of Social history: Social History Socioeconomic History Marital status: Spouse name: Honey Number of children: 4 Years of education: 14 Highest education level: Associate degree: academic program 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 History 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 Social Needs Financial resource strain: Not very hard Food insecurity: Worry: Never true Inability: Never true Transportation needs: Medical: No Non-medical: No Tobacco Use Smoking status: Former Smoker Smokeless tobacco: Former User Substance and Sexual Activity Alcohol use: Not Currently Comment: beer Drug use: No Sexual activity: Yes Partners: Female Lifestyle Physical activity: Days per week: Not on file Minutes per session: Not on file Stress: Not on file Relationships Social connections: Talks on phone: Not on file Gets together: Not on file Attends congregation service: Not on file Active member of [...] Concern Not on file Social History Narrative Live at home with , 2 story home with bedroom upstairs Allergies: No Known Allergies Medications: Current Outpatient Medications Medication Sig Dispense Refill gabapentin 300 mg capsule Take 1 capsule by mouth 2 (two) times daily. fluconazole 200 mg tablet Take 1 tablet by mouth daily. Take 2 tablets once then take one tablet daily for 13 days 15 tablet 0 insulin NPH 100 unit/mL injection Give insulin 3 x daily with meals on -03/08/19 If BS > 200 < 300 give 3 units If BS > 300 then give 6 units, recheck Blood sugar in 6 hours and repeat if necessary 1 Vial 0 pravastatin 40 mg tablet Take 1 tablet [...] No current facility-administered medications for this visit. Review of Systems: (BOLD if +ve) General / Constitutional: None Skin / Breast: Rash, itching, pigmented lesions; no breast lumps, tenderness, sw elling, nipple discharge HEENT: Headaches, changes in vision or hearing, nose bleeding or drainage, neck stiffness or swelling, dysphagia, neck pain, sore throat CV: Chest pain, palpitations, syncope, claudication Respiratory: Cough, wheezing, shortness of breath GI: Changes in appetite, abdominal pain, distention, nausea, vomiting, diarrhea, constipation, hematemesis, hematochezia, melena, jaundice, indigestion/reflux, rectal bleeding, weight loss, rectal pain : Urinary urgency, frequency, dysuria, pneumaturia, hematuria Musculoskeletal: Muscle pain, swelling, weakness, limitation of motion Neurologic: Weakness, sensory changes, syncope, seizures, headache, numbness, ti ngling Hematologic: Bleeding tendency, easy bruising, history of blood clots Endocrine: Polyuria, polydipsia, heat or cold intolerance, DM, HTN Physical Exam: BP 113/72 (BP Location: Left arm, Patient Position: Sitting, BP CUFF SIZE: Adult Medium) | Pulse 95 | Temp 36.5 C (97.7 F) (Oral) | Ht 5' 7" (1.702 m) | Wt 159 lb 11.2 oz (72.4 kg) | SpO2 100% | BMI 25.01 kg/m Constitutional: Lying in bed, no acute distress Eyes: Symmetric, no gross deformities, extraocular movements grossly intact Cardiovascular: Normal S1/S2, no additional sounds Respiratory: Breath sounds equal bilaterally, no wheezing, rales, or rhonchi GI: Non-distended, non-tender, normoactive bowel sounds Skin: No jaundice, rashes, lesions Musculoskeletal: No deformities, lesions Vascular: Radial and dorsalis pedis pulses palpable bilaterally Neurologic: Grossly intact Psychiatric: Appropriate mood and affect, no obvious deficits of insight or judg ment Hematologic/lymphatic: No axillary, inguinal, or cervical lymphadenopathy Labs: CBC WBC (10*3/L) Date Value 03/07/2019 17.15 (H) RBC (10*6/L) Date Value 03/07/2019 4.37 PLT (10*3/L) Date Value 03/07/2019 478 (H) HGB (g/dL) Date Value 03/07/2019 9.5 (L) HCT (%) Date Value 03/07/2019 31.0 (L) BMP NA Date Value 03/07/2019 139 mmol/L 07/25/2011 136 MMOL/L K Date Value 03/07/2019 4.4 mmol/L 07/25/2011 4.4 MMOL/L CALCIUM Date Value 03/07/2019 7.8 mg/dL (L) 07/25/2011 9.8 MG/DL CL Date Value 03/07/2019 111 mmol/L (H) 07/25/2011 98 MMOL/L BUN Date Value 03/07/2019 11 mg/dL 07/25/2011 9 MG/DL CREATININE Date Value 03/07/2019 0.71 mg/dL 07/25/2011 0.57 MG/DL (L) GLUCOSE Date Value 03/07/2019 220 mg/dL (H) 07/25/2011 299 MG/DL (H) CO2 TOTAL Date Value 03/07/2019 23 mmol/L 07/25/2011 24 MMOL/L COAGULATION PROTIME PATIENT (Seconds) Date Value 03/03/2019 13.2 INR (no units) Date Value 03/03/2019 1.0 Hepatic Function Panel ALBUMIN Date Value 03/07/2019 [...] Date Value 03/07/2019 99 07/25/2011 160 (H) No results found for: ACPH, ACPCO2, ACPO2, ACO2HB, ACNA, ACK, ACCAIONZ @IOBRIEF@ No results found for: ACPH, ACPCO2, ACPO2, ACO2HB, ACNA, ACK, ACCAIONZ Microbiology: None There are no current results on file for these tests and/or test for 1 year.KATIE TATIVE CULTURE There are no current results on file for these tests and/or test for 1 year.woun d culture Pathology: Radiology: IMPRESSION Redemonstration of enhancing sigmoid mass measuring 7.1 x 5.1 cm in association with para-aortic lymphadenopathy. Partially visualized left posterior eighth rib osteolytic lesion measuring 17 x 8 mm, concerning osseous involvement. Bilateral cortical areas of high attenuation are present, right greater than left, can be seen in cortical nephrocalcinosis or medullary sponge kidney. Patient Active Problem List Diagnosis Lower GI bleed GI bleed Colonic mass Acute blood loss anemia Type 2 diabetes mellitus with complication, without long-term current use of insulin Secondary hypertension Assessment and Plan: Lorenzo Corey Carrasco. is a 53 year old male with PMHx as below w ho presents for evaluation of a rectosigmoid mass. Patient was recently seen in the ED for lower GI bleed which he reports for few weeks. Also reports some fati latoya and 10-15 ib weight loss. In the ED, he had a CT scan which showed a 7 cm si gmoid mass, suspicious L 8th posterior rib lesion and para aortic lymph nodes. H e had a colonoscopy which showed almost 22 polyps all over the colon and a 15 cm rectosigmoid mass 15-30 cm from the anal verge. The mass was biopsied and showed tubular adenoma with high grade dysplasia. He was discharged home and followed up with a colorectal surgeon, Electrical Experimental Mechanic and oncologist at [facility]. He had colonoscopy again and 24 polyps were removed and the mass was biopsied. Path report shows tubular adenomas with high grade dysplasia in most polyps, mod erately differentiated adenoCA in transverse colon polyps, descending colon and proximal rectum. He has already seen a surgeon and oncologist at [facility] who recommend MRI, PET scan, neoadjuvant chemotherapy and total colectomy. Patient is here for 2nd opinion. Discussed the need for neoadjuvant chemo rad, possibility of subtotal colectomy with primary anastomosis, possible ileostomy. Consult radiation and medical oncology Consult IR for port placement for chemotherapy Patient was discussed with faculty, Dr Ambriz on 04/07/2019 Efrain West PGY 3 General Surgery documented in this encounter Plan of Treatment Care Team Description Date Type Specialty Radha Sloan MD [address] [place] [address] [phone] 05/27/2019 Office Visit Internal Medicine Order Schedule Name Type Priority Associated Diagnoses Expected: 04/14/2019, Expires: 05/07/2019 IR VENOUS ACCESS IMAGING Routine Malignant neoplasm of colon, unspecified part of colon Health Maintenance Due Date Last Done Comments [...] filedocumented in this encounter Visit Diagnoses Diagnosis Malignant neoplasm of colon, unspecified part of colon - Primary documented in this encounter Insurance Type Payer Benefit Subscriber ID Effective Phone Address Plan / Dates Group PPO/POS [facility] BCBS OF [id number] 2019-P EMPLOYEE [facility] [employer] [facility] [employer] [facility]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
--- OUTSIDE RECORDS SUMMARY | 2019-10-11 07:10 | XMS REPORT | Summary of Care ---
Author Author [facility] - [facility] Organization [facility] Address Unknown Phone Unavailable Care Team Providers Care Deputy Manager Name Role Phone Radha Sloan MD PCP Reason for Visit * Reason Comments BLURRED VISION Diabetic Eye Exam * (Routine) Referred By Contact Referred To Contact Status Reason Specialty Diagnoses / Procedures Radha Sloan MD [address] [place] [phone] Nick Cisse MD [address] [place] [phone] Closed OPH-OPHTHALMOLOG Diagnoses Y / Type 2 diabetes Ophthalmology mellitus with complication, without long-term current use of insulin P rocedures CONSULT/REFERRAL OPHTHALMOLOGY Preferred location: [place] Encounter Details Care Team Description Date Type Department Nick Cisse MD [address] [place] [phone] Type 2 diabetes mellitus with both eyes affected by moderate nonproliferative retinopathy without macular edema, with long-term current use of insulin (Primary Dx); Combined forms of age-related cataract of both eyes; Refractive error 09/01/2019 Office Visit [facility] [address] [place] [address] Allergies No Known Allergiesdocumented as of this encounter (statuses as of 09/01/2019) Medications End Date Status Medication Sig Dispensed Refills Start Date Active Lancets (UNILET LANCET) 100 Each 2 Misc 2 Active ondansetron 4 mg Take 1 tablet 45 tablet 0 10/02/201 disintegrating by mouth 9 tabletIndications: every 8 Adenocarcinoma of rectum (eight) hours as needed for Nausea and Vomiting (N/V). Active ondansetron 8 mg tablet 0 9 Active proCHLORperazine 10 mg 0 tablet 9 Active bisacodyl 5 mg EC tablet Take 5 mg by 0 mouth. Active traMADol 50 mg tablet Take 50 mg by 0 mouth. 9 Active insulin NPH 100 unit/mL Give insulin 0 injection 3 x daily 9 with meals on 03/07/19- If BS > 200 < 300 give 3 units If BS > 300 then give 6 units, recheck Blood sugar in 6 hours and repeat if necessary Active lisinopril 40 mg tablet TAKE 1 TABLET 0 BY MOUTH 2 EVERY DAY- hold Active metFORMIN 1,000 mg Take 1 tablet 180 tablet 1 tabletIndications: Type 2 by mouth 2 9 diabetes mellitus with (two) times complication, without daily with long-term current use of meals. insulin Active GABAPENTIN 400 mg TAKE 1 60 capsule 3 capsuleIndications: Type CAPSULE BY 0 2 diabetes mellitus with MOUTH TWICE A diabetic polyneuropathy, DAY without long-term current use of insulin documented as of this encounter (statuses as of 09/01/2019) Active Problems Problem Noted Date Diabetic peripheral neuropathy associated with type 2 diabetes mellitus 05/03/2019 Hyperglycemia due to type 2 diabetes mellitus 05/03/2019 Intermittent claudication of both lower extremities due to atherosclerosis 05/03/2019 Mixed hyperlipidemia 05/03/2019 Adenocarcinoma of sigmoid colon 03/10/2019 Cancer Staging: Clinical stage from 04/04/2019: cT3, cN2, cM1 - Signed by Stalin Shields MD on 04/19/2019 Mass of colon 03/06/2019 Acute posthemorrhagic anemia 03/06/2019 Type 2 diabetes mellitus without complication 03/06/2019 Essential hypertension 03/06/2019 Lower GI bleed 03/03/2019 Lower gastrointestinal hemorrhage 03/03/2019 Vertigo 01/20/2019 Anemia 01/19/2019 GI problem 01/01/2018 documented as of this encounter (statuses as of 09/01/2019) Immunizations Name Administration Dates Next Due Influenza High Dose 06/09/2018 Influenza Virus Vaccine 04/21/2019, 06/27/2011 Influenza Virus Vaccine 06/09/2018 (3+ yrs) Influenza Virus Vaccine 04/21/2019 Quad IM Multi-dose 6+ MO Pneumococcal 03/06/2019 Polysaccharide, PPSV23 (PNEUMOVAX) documented as [...] Signs Reading Time Taken Comments Vital Sign - - Blood Pressure - - Pulse - - Temperature - - Respiratory Rate - - Oxygen Saturation - - Inhaled Oxygen Concentration 70.3 kg (155 lb) 09/01/2019 2:[address] MAINTENANCE SUPERVISOR Weight - - Height 24.28 07/18/2019 1:[address] MAINTENANCE SUPERVISOR Body Mass Index documented in this encounter Progress Notes * Nick Cisse MD - 09/01/2019 2:[address] MAINTENANCE SUPERVISOR Cc: BLURRED VISION and Diabetic Eye Exam HPI Lorenzo Nicole Jr. is a 53 year old male sent by Dr Sloan for consultation. Mason wilson has diabetes. This is chronic. He reports chronic, moderate blurred vision at distance. The blurred vision improves with glasses. Patient denies any eye pain, new flashes, or floaters. Past Medical History: Diagnosis Date Adenocarcinoma colon-stage iv Diabetes mellitus Diabetic neuropathy HLD (hyperlipidemia) HTN (hypertension) Review of Systems Reviewed ROS done by the ag equipment field service technician during this encounter and there are addition s noted above. Review of Systems General: denies fever; chills Skin: denies rash HEENT: denies headache, ear pain Neck: denies swelling, neck pain Resp: denies shortness of breath, cough Cardio: denies chest pain, palpitations GI: denies abdominal pain, diarrhea, vomiting : denies dysuria, hematuria Heme: denies bleeding Endo: denies weight changes Neuro: denies paresthesia, weakness Back: denies back pain MSK: denies diffuse joint pain Psych: denies confusion Family History Problem Relation Age of Onset Diabetes Mother Coronary Heart Disease Father Glaucoma Maternal Grandmother Social History Socioeconomic History Marital status: Spouse name: Honey Number of children: 4 Years of education: 14 Highest education level: Associate degree: academic program 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 Type 2 diabetes mellitus with both eyes affected by moderate nonproliferative retinopathy without macular edema, with long-term current use of insulin E11.33 93 250.50 Z79.4 362.05 V58.67 2. Combined forms of age-related cataract of both eyes H25.813 366.19 3. Refractive error H52.7 367.9 Eliu Ventura was seen today for blurred vision and diabetic eye exam. Diagnoses and all orders for this visit: Type 2 diabetes mellitus with both eyes affected by moderate nonproliferative re tinopathy without macular edema, with long-term current use of insulin HGB A1C (%) Date Value 07/18/2019 6.9 (H) There are no current results on file for these tests and/or test for 1 year. - Moderate retinopathy - No CSME - Recommend tight glycemic, BP, and cholesterol control - HgbAIC goal <7.0 g/dl Combined forms of age-related cataract of both eyes - Not visually significant - Monitor - UV protection Refractive error - New MRx given - Wear glasses F/u 6 months DFE, OCT macula T OF WAY MAINTENANCE SUPERVISOR documented in this encounter Plan of Treatment Care Team Description Date [facility] [address] [place] [address] 01/16/2020 Office Visit Internal Medicine Nick Cisse MD [address] [place] [address] 03/01/2020 Office Visit Ophthalmology Health Maintenance Due Date Last Done Comments EYE EXAM 11/06/1973 DTaP,Tdap,and Td Vaccines 11/06/1974 (1 - Tdap) HgA1C 01/17/2020 07/18/2019, 02/25/2019, 10/15/2011 URINE MICROALBUMIN 02/26/2020 02/25/2019 LUNG CANCER SCREEN: 03/05/2020 03/05/2019 Recommended for age 55-80 with 30 + pack year history PNEUMOCOCCAL 0-64 YEARS 03/06/2020 03/06/2019 COMBINED SERIES (2 of 3 - PCV13) CREATININE (SERUM) 03/07/2020 03/07/2019, 03/06/2019, 03/06/2019, Additional history exists FOOT EXAM 07/18/2020 07/18/2019, 07/18/2019 LDL-C 07/18/2020 07/18/2019, 02/25/2019 Zoster Recombinant 07/18/2020 Postponed from 11/06/2013 Vaccine (SHINGRIX) (1 of (Insurance / Financial) 2) COLONOSCOPY 03/04/2029 03/04/2019 INFLUENZA VACCINE Completed 04/21/2019, 04/21/2019, 06/09/2018, Additional history exists HEPATITIS C (HCV) SCREEN Completed 07/18/2019 documented as of this encounter Implants Device Identifier Shelf Expiration Date Model / Serial / Lot Implanted Type Area Manufactur er 06/08/2023 [id number] / [id number] / [id number] Port-A-Cath Implanted By Right: Chest ARROW Tomasa INTERNATIO Implanted: Qty: 1 on 04/20/2019 by Kalyan Rodriguez MD at [facility] documented as of this encounter Results Not on filedocumented in this encounter Visit Diagnoses Diagnosis Type 2 diabetes mellitus with both eyes affected by moderate nonproliferative retinopathy without macular edema, with long-term current use of insulin - Primary Combined forms of age-related cataract of both eyes Other and combined forms of senile cataract Refractive error Unspecified disorder of refraction and accommodation documented in this encounter Insurance Type Payer Benefit Subscriber ID Effective Phone Address Plan / Dates Group PPO/POS BCBS OF [facility] BCBS OF [id number] 2019-P [facility] ([place]) [place] [address] documented as of this encounter
--- OUTSIDE RECORDS SUMMARY | 2019-10-11 07:10 | XMS REPORT | Summary of Care ---
Author Author [facility] - Health Organization [facility] - Health Address Unknown Phone Unavailable Care Team Providers Care Crayon Painter Name Role Phone Pcp, Patient Does Not Have A PCP Reason for Referral * Radiology Services (Routine) Referred By Contact Referred To Contact Status Reason Specialty Diagnoses / Procedures Дмитрий Ambriz MD [address] [place] [address] New Request Diagnostic Diagnoses Radiology Malignant neoplasm of colon, unspecified part of colon P rocedures IR VENOUS ACCESS * (Routine) Referred By Contact Referred To Contact Status Reason Specialty Diagnoses / Procedures Дмитрий Ambriz MD [address] [place] [address] [address] New Request Diagnostic Diagnoses Radiology Malignant neoplasm of colon, unspecified part of colon P rocedures CLINIC VISIT INTERVENTIONAL RADIOLOGY * (Routine) Referred By Contact Referred To Contact Status Reason Specialty Diagnoses / Procedures Дмитрий Ambriz MD [address] [place] [address] New Request Oncology Diagnoses Malignant neoplasm of colon, unspecified part of colon P rocedures CONSULT/REFERRAL MEDICAL ONCOLOGY * (Routine) Referred By Contact Referred To Contact Status Reason Specialty Diagnoses / Procedures Дмитрий Ambriz MD [address] [place] [address] [place] [address] New Request Radiation Diagnoses Therapy Malignant neoplasm of colon, unspecified part of colon P rocedures CONSULT RADIATION ONCOLOGY Reason for Visit * Reason Comments Referral/consult Mass in Colon Encounter Details Care Team Description Date Type Department Дмитрий Ambriz MD [address] [place] [address] [place] [address] Malignant neoplasm of colon, unspecified part of colon (Primary Dx) 04/07/2019 Office Visit [facility] [address], [address] [place] [phone] Allergies No Known Allergiesdocumented as of this [...] and followed up with a colorectal surgeon, Associate Editor and oncologist at [facility]. He had colonoscopy again and 24 polyps were removed and the mass was biopsied. Path report is attached. He has already seen a surgeon and oncologist at [facility] who recommend MRI, PET scan, neoadjuvant chemotherapy and total colectomy. Patient is here for 2nd opinion. Past medical history: Past Medical History: Diagnosis Date Diabetes mellitus Diabetic neuropathy HLD (hyperlipidemia) HTN (hypertension) Past surgical history: Past Surgical History: Procedure Laterality Date COLONOSCOPY N/A 03/04/2019 Surgeon: Hermes Fox MD; Location: [place] [facility] ESOPHAGOGASTRODUODENOSCOPY N/A 03/04/2019 Surgeon: Hermes Fox MD; Location: [place] [facility] Family history: Family History Problem Relation Age of Onset Diabetes Mother Coronary Heart Disease Father Non-contributory to this encounter of Social history: Social History Socioeconomic History Marital status: Spouse name: Honey Number of children: 4 Years of education: 14 Highest education level: Associate degree: academic program 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 History 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 He had colonoscopy again and 24 polyps were removed and the mass was biopsied. Path report shows tubular adenomas with high grade dysplasia in most polyps, mod erately differentiated adenoCA in transverse colon polyps, descending colon and proximal rectum. He has already seen a surgeon and oncologist at [facility] who recommend MRI, PET scan, neoadjuvant [...] Description Date Type Specialty Radha Sloan MD [address] [place] [address] 05/27/2019 Office Visit Internal Medicine Order Schedule [...] Plan / Dates Group PPO/POS BCBS OF [facility] BCBS OF [id number] 2019-P EMPLOYEE [facility]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
--- OUTSIDE RECORDS SUMMARY | 2019-10-11 07:10 | XMS REPORT | Summary of Care ---
Author Author [facility] - Health Organization [facility] - Health Address Unknown Phone Unavailable Care Team Providers Care Corporate Counselor Name Role Phone Radha Sloan MD PCP Reason for Visit * Reason Comments Rx Concern/Question Encounter Details Care Team Description Date Type Department Radha Sloan MD [address] [place] [address] Rx Concern/Question 09/12/2019 Telephone [facility] [phone] Allergies No Known Allergiesdocumented as of this encounter (statuses as of 09/19/2019) Medications End Date Status Medication Sig Dispensed Refills Start Date Active Lancets (UNILET LANCET) 100 Each 2 Misc 2 Active ondansetron 4 mg Take 1 tablet 45 tablet 0 disintegrating by mouth 9 tabletIndications: every 8 [...] 40 mg tablet TAKE 1 TABLET 0 06/04/201 BY MOUTH 2 EVERY DAY- hold Active [...] as of this encounter (statuses as of 09/19/2019) Active Problems Problem Noted Date Diabetic peripheral [...] as of this encounter (statuses as of 09/19/2019) Immunizations Name Administration Dates Next Due Influenza [...] Description Date Type Specialty Radha Sloan MD [address] [place] [address] 01/16/2020 Office Visit Internal Medicine Nick Cisse MD [address] [place] [address] 03/01/2020 Office Visit Ophthalmology Health Maintenance Due Date Last Done Comments DTaP,Tdap,and Td Vaccines 11/06/1974 (1 - Tdap) [...] (SHINGRIX) (1 of (Insurance / Financial) 2) EYE EXAM 09/01/2020 09/01/2019 COLONOSCOPY 03/04/2029 03/04/2019 INFLUENZA VACCINE Completed 04/21/2019, 04/21/2019, 06/09/2018, Additional history exists HEPATITIS C (HCV) SCREEN Completed 07/18/2019 documented as of this encounter Implants Device Identifier Shelf Expiration Date Model / Serial / Lot Implanted Type Area Manufactur er 06/08/2023 [id number] / [id number] / [id number] Port-A-Cath Implanted By Right: Chest ARROW Tomasa INTERNATIO Implanted: Qty: 1 on 04/20/2019 by SHILA Randolph, Kalyan Dickey MD at [facility] documented as of this encounter Results Not on filedocumented in this encounter Insurance Type Payer Benefit Subscriber ID Effective Phone Address Plan / Dates Group PPO/POS BCBS OF [facility] BCBS OF [id number] 2019-P EMPLOYEE [place] resent EMPLOYEE PLAN Vision SUPERIOR [facility] SUPERIOR [id number] 2019-P [address] resent [address] [place] [address] documented as of this encounter
--- OUTSIDE RECORDS SUMMARY | 2019-10-11 07:10 | XMS REPORT | Summary of Care ---
Author Author [facility] - Health Organization [facility] - Health Address Unknown Phone Unavailable Care Team Providers Care Bundle Breaker Name Role Phone Radha Sloan MD PCP Reason for Visit * Reason Comments Rx Concern/Question Encounter Details Care Team Description Date Type Department Radha Sloan MD [address] [place] [address] Rx Concern/Question 09/12/2019 Telephone [facility] Care[address] [phone] Allergies No Known Allergiesdocumented as [...] cT3, cN2, cM1 - Signed by Stalin hSields MD on 04/19/2019 Mass of colon 03/06/2019 [...] Description Date Type Specialty Radha Sloan MD [address] [place] [address] 01/16/2020 Office Visit Internal Medicine Nick Cisse MD [address] [place] [address] 03/01/2020 Office Visit Ophthalmology Health Maintenance [...] Type Area Manufactur er 06/08/2023 [id number] / [id number] / [id number] Port-A-Cath Implanted By Right: Chest ARROW Tomasa INTERNATIO Implanted: Qty: 1 on 04/20/2019 by SHILA Randolph, Kalyan Dickey MD at [facility] documented as of this encounter Results Not on filedocumented in this encounter Insurance Type Payer Benefit Subscriber ID Effective Phone Address Plan / Dates Group PPO/POS BCBS OF [facility] BCBS OF [id number] 2019-P [place]PLOYEE [place] resent EMPLOYEE PLAN Vision SUPERIOR [facility] SUPERIOR [id number] 2019-P [address] resent [address] [place] [address] documented as of this encounter
--- OUTSIDE RECORDS SUMMARY | 2019-10-11 07:10 | XMS REPORT | Summary of Care ---
Author Author [facility] - Health Organization [facility] - Health Address Unknown Phone Unavailable Care Team Providers Care Snake Charmer Name Role Phone Radha Sloan MD PCP Reason for Visit * Reason Comments Refill Request Encounter Details Care Team Description Date Type Department Radha Sloan MD [address] [place], [place] [phone] Refill Request 08/17/2019 Refill [facility] [address] [place] [phone] Allergies No Known Allergiesdocumented as of this encounter (statuses as of 08/18/2019) Medications End Date Status Medication Sig Dispensed [...] as of this encounter (statuses as of 08/18/2019) Active Problems Problem Noted Date Diabetic peripheral [...] as of this encounter (statuses as of 08/18/2019) Immunizations Name Administration Dates Next Due Influenza [...] Treatment Care Team Description Date Type Specialty Nick Cisse MD [address] [place] [address] 09/01/2019 Office Visit Ophthalmology Radha Sloan MD [address] [place] [address] 01/16/2020 Office Visit Internal Medicine Health Maintenance Due [...] Type Area Manufactur er 06/08/2023 [id number] / [id number] / [id number] Port-A-Cath Implanted By Right: Chest ARROW Tomasa INTERNATIO Implanted: Qty: 1 on 04/20/2019 by SHILA Randolph, Kalyan Dickey MD at [facility] documented as of this encounter Results Not on filedocumented in this encounter Visit Diagnoses Diagnosis Type 2 diabetes mellitus with diabetic polyneuropathy, without long-term current use of insulin documented in this encounter Insurance Type Payer Benefit Subscriber ID Effective Phone Address Plan / Dates Group PPO/POS BCBS OF [facility] BCBS OF [id number] 2019-P EMPLOYEE [place] resent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
--- OUTSIDE RECORDS SUMMARY | 2019-10-11 07:10 | XMS REPORT | Summary of Care ---
Author Author [facility] - Health Organization [facility] - Health Address Unknown Phone Unavailable Care Team Providers Care Exhibit Artist Name Role Phone Radha Sloan MD PCP Reason for Visit * Reason Comments Refill Request Encounter Details Care Team Description Date Type Department Radha Sloan MD [address] [place], [place] [phone] Refill Request 07/30/2019 Refill [facility] [address] [place] [phone] Allergies No Known Allergiesdocumented as of this encounter (statuses as of 08/02/2019) Medications End Date Status Medication Sig Dispensed [...] DAY without long-term current use of insulin 08/02/2019 Discontinued gabapentin 400 mg capsule TAKE 1 0 CAPSULE BY 9 MOUTH TWICE A DAY documented as of this encounter (statuses as of 08/02/2019) Active Problems Problem Noted Date Diabetic peripheral [...] as of this encounter (statuses as of 08/02/2019) Immunizations Name Administration Dates Next Due Influenza [...] Description Date Type Specialty Nick Cisse MD [address] [place] [address] 09/01/2019 Office Visit Ophthalmology Radha Sloan MD [address] [place] [address] 01/16/2020 Office Visit Internal Medicine Health [...] Type Area Manufactur er 06/08/2023 [id number] / [id number] / [id number] Port-A-Cath Implanted By Right: Chest ARROW Tomasa INTERNATIO Implanted: Qty: 1 on 04/20/2019 by SHILA Randolph, Kalyan Dickey MD at [facility] documented as of this encounter Results Not on filedocumented in this encounter Visit Diagnoses Diagnosis Type 2 diabetes mellitus with diabetic polyneuropathy, without long-term current use of insulin - Primary documented in this encounter Insurance Type Payer Benefit Subscriber ID Effective Phone Address Plan / Dates Group PPO/POS BCBS OF [facility] BCBS OF [id number] 2019-P EMPLOYEE [employer]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
--- OUTSIDE RECORDS SUMMARY | 2019-10-11 07:10 | XMS REPORT | Summary of Care ---
Author Author [facility] - Health Organization [facility] - Health Address Unknown Phone Unavailable Care Team Providers Care Mint Wafer Depositor Name Role Phone Radha Sloan MD PCP Reason for Visit * Reason Comments BLURRED VISION Diabetic Eye Exam * (Routine) Referred By Contact Referred To Contact Status Reason Specialty Diagnoses / Procedures Radha Sloan MD [address] [place] [address] Nick Cisse MD [address] [place] [address] Closed OPH-OPHTHALMOLOG Diagnoses Y / Type 2 diabetes Ophthalmology mellitus with complication, without long-term current use of insulin P rocedures CONSULT/REFERRAL OPHTHALMOLOGY Preferred location: [place] Encounter Details Care Team Description Date Type Department Nick Cisse MD [address] [place] [address] [phone] Type 2 diabetes mellitus with both eyes affected by moderate nonproliferative retinopathy without macular edema, with long-term current use of insulin (Primary Dx); Combined forms of age-related cataract of both eyes; Refractive error 09/01/2019 Office Visit [facility] [address] [place] [address] Allergies No Known Allergiesdocumented as [...] 70.3 kg (155 lb) 09/01/2019 2:47 PM HEALTH AND SAFETY DIRECTOR Weight - - Height 24.28 07/18/2019 1:44 PM HEALTH AND SAFETY DIRECTOR Body Mass Index documented in this encounter Progress Notes * Nick Cisse MD - 09/01/2019 2:15 PM HEALTH AND SAFETY DIRECTOR Cc: BLURRED VISION and Diabetic Eye Exam [...] of Systems Reviewed ROS done by the glass installer technician during this encounter and there are [...] Associate degree: academic program 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 Social Needs Financial resource strain: Not very [...] file Gets together: Not on file Attends lutheran service: Not on file Active member of [...] glasses F/u 6 months DFE, OCT macula TH AND SAFETY DIRECTOR documented in this encounter Plan of Treatment Care Team Description Date [facility] [address] [place] [address] 01/16/2020 Office Visit Internal Medicine Nick Cisse MD [address] [place] [address] 03/01/2020 Office Visit Ophthalmology Health Maintenance [...] Type Area Manufactur er 06/08/2023 [id number] / [id number] / [id number] Port-A-Cath Implanted By Right: Chest ARROW Tomasa INTERNATIO Implanted: Qty: 1 on 04/20/2019 by Kalyan Rodriguez MD at [facility] documented as of this encounter [...] Plan / Dates Group PPO/POS BCBS OF [facility] BCBS OF [id number] 2019-P EM[place] [facility]AN ([place]) [place] [address] documented as of this encounter
--- OUTSIDE RECORDS SUMMARY | 2019-10-11 07:10 | XMS REPORT | Summary of Care ---
Author Author [facility] - Health Organization [facility] - Health Address Unknown Phone Unavailable Care Team Providers Care Product Technician Name Role Phone Radha Sloan MD PCP Reason for Visit * Reason Comments Rx Concern/Question Encounter Details Care Team Description Date Type Department Radha Sloan MD [address] [place] [address] Rx Concern/Question 09/12/2019 Telephone [facility] Care[address] [phone] Allergies No Known Allergiesdocumented as [...] Description Date Type Specialty Radha Sloan MD [address] [place] [address] 01/16/2020 Office Visit Internal Medicine Nick Cisse MD [address] [place] [address] 03/01/2020 Office Visit Ophthalmology Health Maintenance [...] Type Area Manufactur er 06/08/2023 [id number] / [id number] / [id number] Port-A-Cath Implanted By Right: Chest ARROW Tomasa INTERNATIO Implanted: Qty: 1 on 04/20/2019 by SHILA Randolph, Kalyan Dickey MD at [facility] documented as of this encounter Results Not on filedocumented in this encounter Insurance Type Payer Benefit Subscriber ID Effective Phone Address Plan / Dates Group PPO/POS BCBS OF [facility] BCBS OF [id number] 2019-P EMPLOYEE [place] resent EMPLOYEE PLAN Vision SUPERIOR [facility] SUPERIOR [id number] 2019-P [address] resent [address] [place] [address] documented as of this encounter
--- OUTSIDE RECORDS SUMMARY | 2019-10-11 07:10 | XMS REPORT | Summary of Care ---
Author Author [facility] - Health Organization [facility] - Health Address Unknown Phone Unavailable Care Team Providers Care Oil Burner Technician Name Role Phone Radha Sloan MD PCP Reason for Visit * Reason Comments Rx Concern/Question Encounter Details Care Team Description Date Type Department Radha Sloan MD [address] [place] [address] Rx Concern/Question 09/12/2019 Telephone [facility] Pediatric [facility] Adult Primary Care[address] [phone] Allergies No Known Allergiesdocumented as [...] DAY without long-term current use of insulin Active LISINOPRIL-HYDROCHLOROTHI Take 1 tablet 90 tablet 1 AZIDE 20-25 mg per tablet by mouth 0 daily. Active blood sugar diagnostic Check blood 1 Box 1 (ASCENSIA MICROFILL) sugar daily. 0 strip DX E11.8 documented as of this encounter (statuses as [...] Treatment Care Team Description Date [facility] [address] [place] [address] 01/16/2020 Office Visit Internal Medicine Nick Cisse MD [address] [place] [address] 03/01/2020 Office Visit Ophthalmology Health Maintenance [...] Type Area Manufactur er 06/08/2023 [id number] / [id number] / [id number] Port-A-Cath Implanted By Right: Chest ARROW Tomasa INTERNATIO Implanted: Qty: 1 on 04/20/2019 by SHILA Randolph, Kalyan Dickey MD at [facility] documented as of this encounter Results Not on filedocumented in this encounter Insurance Type Payer Benefit Subscriber ID Effective Phone Address Plan / Dates Group PPO/POS BCBS OF [facility] BCBS OF [id number] 2019-P EMPLOYEE [place] resent EMPLOYEE PLAN Vision SUPERIOR VISION [facility] SUPERIOR [id number] 2019-P [address] VISION resent [address] [place] [address] documented as of this encounter
[2019-10-11] MEDS ORDERED: CEFOXITIN 1GM/ D5W 50ML 100 ML IV ONE (07:43)
[2019-10-11] MEDS ORDERED: BUPIVACAINE HCL 0.5% INJ 30 ML VIAL INJ ONE (09:44)
[2019-10-11] MEDS ORDERED: KETOROLAC TROMETHAMINE 30 MG/ML VIAL IV PRN (13:30)
[2019-10-11] MEDS ORDERED: DIPHENHYDRAMINE HCL INJ 50 MG/ML VIAL IM PRN (13:30)
[2019-10-11] MEDS ORDERED: DEXTROSE 50% SYRINGE 50 ML IV PRN (13:30)
[2019-10-11] MEDS ORDERED: NALOXONE HCL INJ 0.4 MG/ML AMP IV PRN (13:30)
[2019-10-11 14:26] LABS: HEMOGLOBIN 9.1 g/dL (14.0-18.0)
[2019-10-11] MEDS ORDERED: EPHEDRINE SULFATE INJ 50 MG/ML VIAL ONE (14:32)
[2019-10-11] MEDS ORDERED: NEOSTIGMINE 1 MG/ML 10ML VIAL ONE (14:32)
[2019-10-11] MEDS ORDERED: VASOPRESSIN INJ 20 UNIT/ML VIAL ONE (14:32)
[2019-10-11] MEDS ORDERED: ONDANSETRON HCL INJ 2MG/ML 2ML 2 MG/ML VIAL ONE (14:32)
[2019-10-11] MEDS ORDERED: GLYCOPYRROLATE INJ 0.2 MG/ML VIAL ONE (14:32)
[2019-10-11] MEDS ORDERED: DEXAMETHASONE SOD PHOS INJ 4 MG/ML VIAL ONE (14:32)
[2019-10-11] MEDS ORDERED: ROCURONIUM BROMIDE 10 MG/ML 5ML VIAL IV ONE (14:32)
[2019-10-11] MEDS ORDERED: PROPOFOL IV EMULSION 10 MG/ML 20 ML VIAL ONE (14:32)
[2019-10-11] MEDS ORDERED: LIDOCAINE HCL 2% LOCAL INJ 5 ML SDV VIAL INJ ONE (14:32)
[2019-10-11] MEDS ORDERED: MIDAZOLAM HCL 2 MG/2 ML VIAL ONE (14:59)
[2019-10-11] MEDS ORDERED: KETAMINE HCL INJ 50 MG/ML 10 ML VIAL ONE (14:59)
[2019-10-11] MEDS ORDERED: FENTANYL CITRATE/PF 100MCG/2 ML INJ ONE (14:59)
--- NOTE | 2019-10-11 15:05 | Operative Report ---
DATE OF PROCEDURE: 10/11/2019 SURGEON: Brad Packer MD PREOPERATIVE DIAGNOSES: Carcinoma of the sigmoid colon, carcinoma of the rectum. POSTOPERATIVE DIAGNOSES: Carcinoma of the sigmoid colon, carcinoma of the rectum PROCEDURES: Laparoscopic-assisted low anterior resection of rectosigmoid colon with coloproctostomy. CREDIT CLERK: None. ANESTHESIA: General endotracheal. INDICATIONS AND FINDINGS: The patient is a 53-year-old male, who had a carcinoma of the colon also with a 2nd primary in the upper rectum. At Surgery, there was a mass in the mid sigmoid colon, which was removed with the specimen with margin of about 10 cm proximally. There was an ulcerated mass in the upper rectum, which after removal had about 2.5 cm distal margin. There was no enlarged lymph nodes. No mass in the liver. No free fluid. TECHNIQUE: After adequate general endotracheal anesthesia, the patient in supine position and legs in the low stirrups. The abdomen was prepped and draped in a sterile fashion with ChloraPrep solution. Perineum was prepped and draped in a sterile fashion with Betadine solution. Skin in the umbilicus was infiltrated with 0.5% Marcaine. Incision was made in the umbilicus. Abdominal wall was elevated and Veress needle was introduced. Pneumoperitoneum was then created. A 10 mm trocar and cannula were then passed through this wound. Laparoscopic camera was introduced. Initial laparoscopy revealed no free fluid, there was no mass seen, there was no mass in the liver. 5 mm trocar and cannula were placed in epigastrium and a 5 mm trocar and cannula were placed in lower midline. The left colon was mobilized by dividing peritoneal attachments. Mobilization was carried from the splenic flexure distally until the sigmoid colon was mobilized. Left ureter was identified and preserved. The colon was mobilized all the way down to the peritoneal reflection, after his mobilization was completed, surgeries converted to open surgery. A lower midline incision was made. Peritoneal cavity was entered. The left ureter once again was identified and preserved. The colon was mobilized further down to the peritoneal reflection and posterior to the rectum. A new tumor was palpable in the mid sigmoid colon. The tumor in the rectum was not identified initially. The colon was mobilized, attachments to the upper rectum were divided with LigaSure device. The colon proximal to the tumor was divided with a HIRAL stapler, mesentery divided with LigaSure device. The dissection was carried distally, freeing the rectum completely to the area of the previous markers identified, this was the tattoo was in the mid rectum. Tumor was not palpable. Using a LigaSure device and electrocautery, the colon was completely mobilized down to the mid rectum below the area of the tattoo. The stay sutures of 2-0 silk were then placed in the colon. The colon was divided and the specimen was removed. The ulcerated area in the upper rectum was identified with a margin of about 2.5 cm distally or 3 cm distally. The proximal margin was about 10 cm from the tumor in the sigmoid colon. The rectum was then closed with interrupted sutures of 2-0 silk. Using the EEA stapler anastomosis was made between the end of the proximal colon and the rectum. Once this was done, both tissue donuts were noted to be intact. The pelvis was filled with saline. Air was insufflated transanally and there was no evidence of any leak. The peritoneal cavity was irrigated with saline. All fluid was aspirated and inspected for hemostasis, which was seen to be adequate. The midline fascia was closed with running suture of #1 PDS. Subcutaneous tissue was irrigated with saline. Skin was closed with adolfo at each wound. The patient tolerated the procedure well. Estimated blood loss was 200 mL. There were no complications. All counts were correct. The patient was taken to the recovery room in satisfactory condition. MD SRINIVASAN George/MODL /[id number]
[2019-10-11] MEDS: INSULIN LISPRO 100 UNIT/1 ML 3ML VIAL SQ SCH ×2 (16:30→20:37)
[2019-10-11] MEDS: METFORMIN HCL 500 MG TAB PO SCH (17:00)
[2019-10-11] MEDS ORDERED: METFORMIN HCL 850 MG TAB PO SCH (17:00)
[2019-10-11 17:05] VITALS: BP 104/70
[2019-10-11 17:22] VITALS: BP 104/70
[2019-10-11] MEDS ORDERED: ACETAMINOPHEN 1000 MG/100 ML IV PRN (18:00)
[2019-10-11] MEDS ORDERED: CEFOXITIN 2GM/ D5W 50ML 50 ML IV SCH (18:00)
[2019-10-11] MEDS: CEFOXITIN SODIUM 2 G in SODIUM CHLORIDE 0.9% 50ML 50 ML IV SCH ×2 (18:40→23:29)
[2019-10-11] MEDS: DEXTROSE 5%/LACTATED RINGERS 1,000 ML IV SCH ×2 (18:40→21:25)
--- NOTE | 2019-10-11 19:10 | NUR ---
WALKING ROUNDS PERFORMED, RECEIVED PT LAYING SEMI FOWLERS IN BED, AAOX3, RR EVEN AND NON-LABORED, ON ROOM AIR. NO S/SX OF DISTRESS NOTED. PT HAS ADHESIVE BONDING MACHINE OPERATOR PUMP FOR PAIN MANAGEMENT. ADHESIVE BONDING MACHINE OPERATOR BUTTON WITHIN REACH. ANDERSEN TO BEDSIDE BAG. DRESSING TO ANTERIOR ABD NOTED TO BE CDI. LEFT PT LAYING SEMI FOWLERS IN BED, BED IN LOW LOCKED POSITION, SIDE RAILS UPX2, CALL LIGHT AND PHONE WITHIN REACH.
[2019-10-11 20:00] VITALS: BP 130/84
[2019-10-11] MEDS: HYDROMORPHONE 0.2MG/ML-SOD CHL 30ML PCA SYRINGE IV PRN (20:31)
[2019-10-11 21:19] VITALS: BP 130/84
[2019-10-12] VITALS (9 sets, daily range): BP systolic 89–139; BP diastolic 64–87
[2019-10-12] MEDS: DEXTROSE 5%/LACTATED RINGERS 1,000 ML IV SCH (03:26)
[2019-10-12] MEDS: CEFOXITIN SODIUM 2 G in SODIUM CHLORIDE 0.9% 50ML 50 ML IV SCH (05:12)
[2019-10-12 05:47] LABS: BASOPHILS % 0.1 % (0.0-1.0); HEMOGLOBIN 8.2 g/dL (14.0-18.0); LYMPHOCYTES # (AUTO) 1.1 (1.0-3.2); LYMPHOCYTES % 6.4 % (18.0-39.1); MEAN CORPUSCULAR HEMOGLOBIN 25.9 pg (28-32); MEAN CORPUSCULAR HGB CONC 31.5 g/dL (31-35); MONOCYTES # (AUTO) 1.6 (0.2-0.8); MONOCYTES % 9.4 % (4.4-11.3); NEUTROPHILS # (AUTO) 13.9 (2.1-6.9); NEUTROPHILS % 83.4 % (38.7-80.0); PLATELET COUNT 221 x10e3/uL (140-360); RED BLOOD COUNT 3.17 x10e6/uL (4.3-5.7); RED CELL DISTRIBUTION WIDTH 18.6 % (11.7-14.4)
[2019-10-12 06:12] LABS: BLOOD UREA NITROGEN 14 mg/dL (7-26); BUN/CREATININE RATIO 15 (6-25); CALCIUM 8.6 mg/dL (8.4-10.2); CARBON DIOXIDE 26 mmol/L (22-29); CHLORIDE 103 mmol/L (98-107); CREATININE, SERUM 0.93 mg/dL (0.72-1.25); EST GLOMERULAR FILTRATION RATE > 60 ML/MIN (60-); GLUCOSE 191 mg/dL (74-118); SODIUM 136 mmol/L (136-145)
[2019-10-12] MEDS: HYDROMORPHONE 0.2MG/ML-SOD CHL 30ML PCA SYRINGE IV PRN ×3 (06:56→23:30)
[2019-10-12] MEDS: INSULIN LISPRO 100 UNIT/1 ML 3ML VIAL SQ SCH ×3 (07:30→16:33)
[2019-10-12] MEDS: METFORMIN HCL 500 MG TAB PO SCH (08:00)
[2019-10-12] MEDS ORDERED: DIPHENHYDRAMINE HCL INJ 50 MG/ML VIAL IV PRN (09:00)
[2019-10-12] MEDS ORDERED: DEXTROSE 50% SYRINGE 50 ML IV PRN (09:00)
[2019-10-12] MEDS ORDERED: ACETAMINOPHEN 1000 MG/100 ML IV PRN (09:00)
[2019-10-12] MEDS ORDERED: NON-FORMULARY MEDICATION (Gabapentin 400 MG) PO SCH (09:00)
[2019-10-12] MEDS ORDERED: GABAPENTIN 400 MG CAP PO SCH (09:00)
[2019-10-12] MEDS ORDERED: AMLODIPINE BESYLATE 5 MG TAB PO SCH (09:00)
[2019-10-12] MEDS ORDERED: ENALAPRILAT DIHYDRATE 1.25 MG/ML 2ML VIAL IV PRN (09:00)
--- NOTE | 2019-10-12 09:24 | Consultation ---
DATE OF CONSULTATION: The patient is status post laparoscopic-assisted low anterior resection of rectosigmoid colon. HISTORY OF PRESENT ILLNESS: The patient is a 53-year-old male with known cancer of the sigmoid colon and 2nd lesion in the proximal rectal. This is finished with his chemotherapy. The patient had a followup colonoscopy done. Review multiple right colon and transverse colon polypectomy site with healed tumor in the rectal, tumor in the sigmoid colon and rectal area much smaller. The tattooed distal to the tumor in the rectal area is noticed. The patient is stable. He is now status post surgical intervention. The patient is comfortable at this time. PAST MEDICAL HISTORY: 1. Colorectal cancer. 2. Diabetes type 2. 3. Chemotherapy. SOCIAL HISTORY: The patient is a social drinker. No tobacco smoking. FAMILY HISTORY: Significant for peripheral vascular disease, hypertension, diabetes, and dyslipidemia. ALLERGIES: NO KNOWN ALLERGIES. HOME MEDICATIONS: Norvasc, gabapentin, metformin, tramadol, HCTZ and lisinopril. REVIEW OF SYSTEMS: As mentioned above. Itching. Postoperative pain. PHYSICAL EXAMINATION: VITAL SIGNS: Temperature is 98, blood pressure 93/64, pulse rate is 91, respirations 18. GENERAL: The patient is no acute distress. He is awake. HEENT: Normocephalic and atraumatic. Anicteric. NECK: Supple grossly. PULMONARY: Diminished breath sounds without any wheezing or rales. CARDIOVASCULAR: Regular rhythm. ABDOMEN: Status post surgery. Non distention. Vernon catheter in place. NEUROLOGIC: No focal deficit. LABORATORY DATA: Sodium 136, potassium 4, chloride 103, bicarb 26, BUN 14, creatinine 0.9, glucose 191. WBC 16.6, hemoglobin 8.2, hematocrit 26, platelets is 221. IMPRESSION: 1. Status post laparoscopic-assisted low anterior resection of the rectosigmoid colon. 2. Baseline diabetes, hypertension, dyslipidemia. 3. Complaint of itching. 4. Postoperative anemia. 5. Leukocytosis, reactive most likely. 6. Hyperglycemia. PLAN: Insulin sliding scale coverage. Antibiotics postop. Repeat lab work. Hypertensive medication if needed. Normal saline for now. The patient is n.p.o. until cleared by his surgeon, Dr. Brad Packer. Thank you, Dr. aPcker. We will continue to monitor the patient and follow up with the patient and change his treatment as appropriate. MD CALEB Hudson/VANCE /[id number]
[2019-10-12] MEDS: SODIUM CHLORIDE 0.9% 1000ML 1,000 ML IV SCH ×2 (10:06→21:19)
[2019-10-12] MEDS: PANTOPRAZOLE 40 MG 10ML VIAL IV SCH (10:06)
[2019-10-12] MEDS: PIPER-TAZ 3.375 GM 50 ML IV SCH ×3 (10:06→21:19)
--- NOTE | 2019-10-12 12:10 | NUR ---
ASSESSMENT: Spiritual concern Pt hopeful for full recover after surgery. Intervention: Provided hospitality and empathic listening. Provided information on how to reach security shift manager, if needed. Outcome: No need to follow at this time. AMELIE HUMPHREY Diazo Technician Spiritual Care Department O: [phone]
[2019-10-12] MEDS: KETOROLAC TROMETHAMINE 30 MG/ML VIAL IM SCH (17:12)
--- NOTE | 2019-10-12 19:15 | NUR ---
Patient visited in room during nursing rounds. Patient alert and oriented x3. No distress noted. S/P Laparoscopic Rectosigmoid Colon Resection on 10/11/19 with surgical incision midline covered with bordered gauze and band-aid. 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 Vernon in place post OP. Call bonilla within reach. Will monitor closely.
[2019-10-13] VITALS (8 sets, daily range): BP systolic 107–135; BP diastolic 62–79
[2019-10-13] MEDS: KETOROLAC TROMETHAMINE 30 MG/ML VIAL IM SCH ×2 (00:11→06:20)
[2019-10-13] MEDS: PIPER-TAZ 3.375 GM 50 ML IV SCH ×4 (03:57→21:20)
[2019-10-13 05:28] LABS: BASOPHILS # (AUTO) 0.1 (0.0-0.1); BASOPHILS % 0.6 % (0.0-1.0); EOSINOPHILS # (AUTO) 0.1 (0.0-0.4); EOSINOPHILS % 0.9 % (0.0-6.0); HEMATOCRIT 25.6 % (38.2-49.6); HEMOGLOBIN 7.8 g/dL (14.0-18.0); LYMPHOCYTES # (AUTO) 1.3 (1.0-3.2); LYMPHOCYTES % 10.2 % (18.0-39.1); MEAN CORPUSCULAR HEMOGLOBIN 25.7 pg (28-32); MEAN CORPUSCULAR HGB CONC 30.5 g/dL (31-35); MEAN CORPUSCULAR VOLUME 84.5 fL (81-99); MONOCYTES # (AUTO) 1.2 (0.2-0.8); MONOCYTES % 9.7 % (4.4-11.3); NEUTROPHILS # (AUTO) 9.7 (2.1-6.9); NEUTROPHILS % 78.3 % (38.7-80.0); PLATELET COUNT 196 x10e3/uL (140-360); RED BLOOD COUNT 3.03 x10e6/uL (4.3-5.7); RED CELL DISTRIBUTION WIDTH 18.7 % (11.7-14.4)
[2019-10-13 05:42] LABS: ANION GAP 10.1 mmol/L (8-16); BLOOD UREA NITROGEN 12 mg/dL (7-26); BUN/CREATININE RATIO 14 (6-25); CALCIUM 8.3 mg/dL (8.4-10.2); CARBON DIOXIDE 26 mmol/L (22-29); CHLORIDE 106 mmol/L (98-107); CREATININE, SERUM 0.87 mg/dL (0.72-1.25); EST GLOMERULAR FILTRATION RATE > 60 ML/MIN (60-); GLUCOSE 85 mg/dL (74-118); POTASSIUM 4.1 mmol/L (3.5-5.1); SODIUM 138 mmol/L (136-145)
[2019-10-13] MEDS: INSULIN LISPRO 100 UNIT/1 ML 3ML VIAL SQ SCH ×5 (06:00→21:20)
[2019-10-13] MEDS: SODIUM CHLORIDE 0.9% 1000ML 1,000 ML IV SCH ×2 (06:20→15:15)
--- NOTE | 2019-10-13 07:24 | NUR ---
Rcvd patient in report this am. Patient is asleep in bed at this time. No s/s of distress noted
[2019-10-13] MEDS: PANTOPRAZOLE 40 MG 10ML VIAL IV SCH (08:27)
[2019-10-13] MEDS: HYDROMORPHONE 0.2MG/ML-SOD CHL 30ML PCA SYRINGE IV PRN (08:28)
[2019-10-13] MEDS: HYDROCODONE/APAP 10MG-325MG TAB PO PRN ×3 (11:36→21:24)
--- NOTE | 2019-10-13 12:30 | NUR ---
Patient has not voided at this time. Informed patient that we would have to scan bladder soon. Patient ambulating in hallway. Will continue to monitor.
--- NOTE | 2019-10-13 14:30 | NUR ---
Patient c/o severe pain in abdomen/bladder. Call placed to MD and new order for straight cath.
--- NOTE | 2019-10-13 14:58 | NUR ---
Patient straight cath at this time. Removed 300ml at this time. Will continue to monitor
[2019-10-13] MEDS ORDERED: ACETAMINOPHEN 1000 MG/100 ML IV SCH (16:40)
[2019-10-13] MEDS: CELECOXIB 100 MG CAP PO SCH (16:42)
[2019-10-13] MEDS: SENNOSIDES 8.6 MG TAB PO SCH (16:42)
--- NOTE | 2019-10-13 18:07 | NUR ---
Removed right forearm IV d/t leaking. Patient requesting that his port get accessed vs restarting a peripheral. Call placed to
--- NOTE | 2019-10-13 18:17 | NUR ---
Patient voided on his own at this time. No s/s of distress noted
--- NOTE | 2019-10-13 19:15 | NUR ---
Patient visited in room during nursing rounds. Patient alert and oriented x3. No distress noted. S/P Laparoscopic Rectosigmoid Colon Resection on 10/11/19 with surgical incision midline covered with bordered gauze and band-aid. Pt on IVF (NS at 100ml/hr). Call bonilla within reach. Will monitor closely.
[2019-10-14 00:36] VITALS: BP 134/75
[2019-10-14] MEDS: HYDROCODONE/APAP 10MG-325MG TAB PO PRN (01:15)
[2019-10-14] MEDS: SODIUM CHLORIDE 0.9% 1000ML 1,000 ML IV SCH ×3 (04:40→19:41)
[2019-10-14] MEDS: PIPER-TAZ 3.375 GM 50 ML IV SCH ×4 (04:40→22:15)
[2019-10-14 04:41] VITALS: BP 121/66
[2019-10-14 06:42] LABS: BASOPHILS # (AUTO) 0.1 (0.0-0.1); HEMATOCRIT 24.6 % (38.2-49.6); HEMOGLOBIN 7.7 g/dL (14.0-18.0); LYMPHOCYTES # (AUTO) 0.9 (1.0-3.2); MEAN CORPUSCULAR HEMOGLOBIN 26.1 pg (28-32); MEAN CORPUSCULAR HGB CONC 31.3 g/dL (31-35); MEAN CORPUSCULAR VOLUME 83.4 fL (81-99); MONOCYTES # (AUTO) 1.1 (0.2-0.8); PLATELET COUNT 234 x10e3/uL (140-360); RED BLOOD COUNT 2.95 x10e6/uL (4.3-5.7); RED CELL DISTRIBUTION WIDTH 18.3 % (11.7-14.4)
[2019-10-14 06:58] LABS: BLOOD UREA NITROGEN 7 mg/dL (7-26); BUN/CREATININE RATIO 9 (6-25); CALCIUM 8.4 mg/dL (8.4-10.2); CARBON DIOXIDE 24 mmol/L (22-29); CHLORIDE 107 mmol/L (98-107); CREATININE, SERUM 0.76 mg/dL (0.72-1.25); EST GLOMERULAR FILTRATION RATE > 60 ML/MIN (60-); GLUCOSE 96 mg/dL (74-118); SODIUM 138 mmol/L (136-145)
[2019-10-14] MEDS: INSULIN LISPRO 100 UNIT/1 ML 3ML VIAL SQ SCH ×4 (07:30→21:00)
[2019-10-14 08:15] VITALS: BP 131/97
[2019-10-14] MEDS ORDERED: ACETAMINOPHEN 1000 MG/100 ML IV PRN (09:15)
[2019-10-14 09:27] LABS: LYMPHOCYTES % (MANUAL) 2 % (19-48); MONOCYTES % (MANUAL) 3 % (3.4-9.0); NEUTROPHILS % (MANUAL) 95 % (40-74)
[2019-10-14 09:28] LABS: ANISOCYTOSIS SLIGHT; OVALOCYTES FEW; PLATELET ESTIMATE ADEQUATE; PLATELET MORPHOLOGY COMMENT NORMAL; RBC MORPHOLOGY COMMENT NORMAL
[2019-10-14] MEDS ORDERED: SODIUM CHLORIDE 0.9% 50ML 50 ML ONE (09:38)
[2019-10-14] MEDS ORDERED: IOPAMIDOL 370 MG/ML 200 ML INFUS..BTL INJ ONE (09:38)
[2019-10-14] MEDS ORDERED: DIATRIZOATE MEGL/DIATRIZOA SOD 30 ML BTL PO ONE (09:49)
[2019-10-14] MEDS: CELECOXIB 100 MG CAP PO SCH ×2 (09:50→16:27)
[2019-10-14] MEDS: PANTOPRAZOLE 40 MG 10ML VIAL IV SCH (09:50)
[2019-10-14] MEDS: SENNOSIDES 8.6 MG TAB PO SCH ×2 (09:50→16:27)
[2019-10-14] MEDS: HYDROMORPHONE 1MG/1ML INJ IV PRN ×4 (10:00→22:45)
--- NOTE | 2019-10-14 11:03 | NUR ---
PATIENT CURRENTLY GETTING TRANSFERRED VIA WHEELCHAIR TO RADIOLOGY UNIT FOR ORDERED CT OF ABDOMEN/PELVIS
--- NOTE | 2019-10-14 11:28 | NUR ---
PT RESTING IN BED POST CT OF ABDOMEN AND PELVIS. NO DISTRESS NOTED. CALL LIGHT IN REACH. SIDERAILS UP X2.
--- NOTE | 2019-10-14 11:42 | Diagnostic Imaging Report ---
EXAM: CT Abdomen and Pelvis WITH intravenous contrast INDICATION: Fever, abdominal pain, colorectal cancer COMPARISON: None. TECHNIQUE: Abdomen and pelvis were scanned utilizing a multidetector helical scanner from the lung base to the pubic symphysis after administration of IV contrast. Coronal and sagittal reformations were obtained. Routine protocol was performed. Scan was performed during portal venous phase. IV CONTRAST: 100mL of Isovue 370 ORAL CONTRAST: Gastrografin RADIATION DOSE: Total DLP: 390 mGy*cm Dose modulation, iterative reconstruction, and/or weight based adjustment of the mA/kV was utilized to reduce the radiation dose to as low as reasonably achievable. FINDINGS: LOWER THORAX: Normal. HEPATOBILIARY: No focal liver lesion. No biliary ductal dilation. Unremarkable gallbladder. SPLEEN: Mild splenomegaly to 14 cm. PANCREAS: No focal masses or ductal dilatation. ADRENALS: Mild left adrenal thickening. No focal adrenal nodules. KIDNEYS/URETERS: No hydronephrosis, stones, or solid mass lesions. PELVIC ORGANS/BLADDER: Prominently distended bladder. Anti-dependent air in the bladder. PERITONEUM / RETROPERITONEUM: Free peritoneal air in the upper abdomen. Foci of retroperitoneal free air adjacent to the surgical anastomosis with a 5.3 cm air-fluid collection posterior to the anastomosis. LYMPH NODES: No lymphadenopathy. VESSELS: Scattered atherosclerotic calcifications of the nonaneurysmal abdominal aorta and major branches. GI TRACT: Status post distal colon resection and bowel anastomosis. No abnormal bowel thickening. No bowel obstruction. Mildly prominent air-containing appendix measuring up to 8 mm without wall thickening. BONES AND SOFT TISSUES: Small foci of air in the anterior abdominal subcutaneous soft tissues. No focal soft tissue fluid collection. Surgical skin adolfo in place. IMPRESSION: Status post distal colon resection and bowel anastomosis. 5 cm air-fluid collection posterior to the anastomosis could be postoperative fluid however in the setting of fever and increasing pain, postoperative abscess remains a consideration. Free postoperative retroperitoneal and intraperitoneal air. Very distended bladder with antidependent air within the bladder. If the patient has symptoms that could be attributable to bladder outlet obstruction, catheterization is recommended. Signed by: Patricia Luna MD on 10/14/2019 11:38 AM
[2019-10-14] MEDS: VANCOMYCIN 1GM/NS 250 ML 250 ML IV SCH ×2 (11:52→23:00)
[2019-10-14 12:00] VITALS: BP 154/80
--- NOTE | 2019-10-14 12:52 | NUR ---
16F URINARY ANDERSEN CATHETER INSERTED DUE TO URINE RETENTION PER DR. MASCORRO'S ORDER. BRIGHT YELLOW URINE NOTED TO TUBING. PATIENT TOLERATED PRODEDURE WELL AND REPORTS SOME RELIEF AFTER INSERTION OF CATHETER.
--- NOTE | 2019-10-14 14:21 | NUR ---
NOTIFIED DR. MASCORRO OF PATIENT'S BODY TEMPERATURE, 100.6. ORDER TYLENOL 650 PO Q4H PRN ELEVATED TEMPERATURE
[2019-10-14 16:00] VITALS: BP 124/66
--- NOTE | 2019-10-14 18:02 | NUR ---
DR. MASCORRO CALLED AND WAS INFORMED OF PATIENT'S TEMPERATURE OF 102.5, BP OF 124/66 HR 100. NO NEW ORDERS AT THIS TIME.
--- NOTE | 2019-10-14 19:22 | NUR ---
BSSR RECEIVED FROM LANG NDIAYE, PATIENT AWAKE ALERT, INFORMED PATIENT FEBRILE EARILER IN SHIFT, PRN ANTIPYRETIC GIVEN PATIENT AFEBRILE CURRENTLY, S/P ANDERSEN INSERTION FOR RETENTION, PATENT DRAINING YELLOW URINE, NO SEDIMENTATION NOTED, PATIENT DENIES PAIN OR DISCOMFORT AT THIS TIME, INCENTIVE SPIROMETER AT BEDSIDE; PATIENT ABLE TO DEMONSTRATE PROPER TECHNIQUE FOR EFFECTIVE THERAPY, CALL LIGHT WITHIN REACH
[2019-10-14 20:00] VITALS: BP 114/66
[2019-10-14] MEDS: ONDANSETRON HCL INJ 2MG/ML 2ML 2 MG/ML VIAL IV PRN (22:50)
[2019-10-15] VITALS (8 sets, daily range): BP systolic 108–152; BP diastolic 66–84
--- NOTE | 2019-10-15 00:15 | NUR ---
ct pelvis/abdomen results; Status post distal colon resection and bowel anastomosis. 5 cm air-fluid collection posterior to the anastomosis could be postoperative fluid however in the setting of fever and increasing pain, postoperative abscess remains a consideration. Free postoperative retroperitoneal and intraperitoneal air. Very distended bladder with antidependent air within the bladder. If the patient has symptoms that could be attributable to bladder outlet obstruction, catheterization is recommended
[2019-10-15] MEDS: PIPER-TAZ 3.375 GM 50 ML IV SCH ×4 (03:54→21:40)
[2019-10-15] MEDS: HYDROMORPHONE 1MG/1ML INJ IV PRN ×4 (04:45→21:48)
--- NOTE | 2019-10-15 04:55 | NUR ---
patient seen grunting loudly, prn pain medication given, no relief obtain, patient continues to moan states "I got tangled up in the leg pumps, when I moved my leg thats when the pain started and it wont stop", patient abdomen assess, adolfo intact midline below ambilicus area, no bleeding noted, no redness noted, patient yells in pain when attempting to palpate abdomen, states "It hurts all over", MD MASCORRO PAGED FOR ORDERS
[2019-10-15] MEDS ORDERED: HYDROMORPHONE 1MG/1ML INJ IV STA (05:04)
--- NOTE | 2019-10-15 05:07 | NUR ---
ALEX MASCORRO, MD MAS COVERING FOR HIM RETURN PAGED, INFORMED OF PATIENT SEVERE PAIN LEVEL 10 GIVEN PATIENT CURRENT VITALS, ORDERED TO GIVE HYDROMORPHONE 1MG IV STAT, AND HE WILL SEE PATIENT LATER, ORDER CARRIED OUT
[2019-10-15] MEDS: SODIUM CHLORIDE 0.9% 1000ML 1,000 ML IV SCH ×3 (05:37→21:40)
[2019-10-15 05:40] LABS: BASOPHILS % 0.2 % (0.0-1.0); EOSINOPHILS # (AUTO) 0.1 (0.0-0.4); EOSINOPHILS % 0.3 % (0.0-6.0); HEMATOCRIT 28.5 % (38.2-49.6); LYMPHOCYTES # (AUTO) 1.2 (1.0-3.2); LYMPHOCYTES % 6.4 % (18.0-39.1); MEAN CORPUSCULAR HEMOGLOBIN 26.2 pg (28-32); MEAN CORPUSCULAR HGB CONC 31.6 g/dL (31-35); MEAN CORPUSCULAR VOLUME 83.1 fL (81-99); MONOCYTES # (AUTO) 1.2 (0.2-0.8); MONOCYTES % 6.2 % (4.4-11.3); NEUTROPHILS # (AUTO) 15.9 (2.1-6.9); NEUTROPHILS % 86.2 % (38.7-80.0); PLATELET COUNT 305 x10e3/uL (140-360); RED BLOOD COUNT 3.43 x10e6/uL (4.3-5.7); RED CELL DISTRIBUTION WIDTH 18.7 % (11.7-14.4)
[2019-10-15 06:33] LABS: ANION GAP 12.8 mmol/L (8-16); BLOOD UREA NITROGEN 8 mg/dL (7-26); BUN/CREATININE RATIO 11 (6-25); CALCIUM 8.6 mg/dL (8.4-10.2); CARBON DIOXIDE 21 mmol/L (22-29); CHLORIDE 108 mmol/L (98-107); CREATININE, SERUM 0.75 mg/dL (0.72-1.25); EST GLOMERULAR FILTRATION RATE > 60 ML/MIN (60-); GLUCOSE 96 mg/dL (74-118); POTASSIUM 3.8 mmol/L (3.5-5.1); SODIUM 138 mmol/L (136-145)
[2019-10-15] MEDS: INSULIN LISPRO 100 UNIT/1 ML 3ML VIAL SQ SCH ×4 (07:30→20:48)
--- NOTE | 2019-10-15 07:55 | NUR ---
BSSR GIVEN TO ZELDA SHAH, PATIENT SEEN SLEEPING, RESTING COMFORTABLY AT SHIFT CHANGE, UPDATE WITH PLAN OF CARE, INFORMED THAT SURGEON MD MASCORRO UPDATE WITH "HOW PATIENT DID OVERNIGHT", INFORMED md MASCORRO THAT PATIENT REMAINED AFEBRILE OVERNIGHT, BUT C/O SEVERE ABDOMINAL PAIN & WAS GIVEN ONE TIME DOSE OF DILAUDID 1MG IV ORDERED BY MD MAS, ZELDA SAHH WILL RESUME CARE OF PATIENT ADVISED THAT PATIENT IS Status post distal colon resection, ADBOMEN INCISION CLEAN DRY INTACT, CURRY INTACT
[2019-10-15] MEDS: CELECOXIB 100 MG CAP PO SCH ×2 (08:00→18:21)
[2019-10-15] MEDS: SENNOSIDES 8.6 MG TAB PO SCH ×2 (09:00→17:00)
[2019-10-15] MEDS: PANTOPRAZOLE 40 MG 10ML VIAL IV SCH (09:06)
[2019-10-15 09:16] LABS: INR 1.26; PROTHROMBIN TIME 16.6 seconds (11.9-14.5)
[2019-10-15] MEDS: VANCOMYCIN 1GM/NS 250 ML 250 ML IV SCH ×3 (13:03→22:30)
--- NOTE | 2019-10-15 13:03 | NUR ---
pt being transported by Radiology for procedure; pt awake, alert, left in stable condition.
[2019-10-15] MEDS ORDERED: MIDAZOLAM HCL 2 MG/2 ML VIAL ONE ×2 (13:10→14:02)
[2019-10-15] MEDS ORDERED: FENTANYL CITRATE/PF 100MCG/2 ML INJ ONE ×2 (13:11→14:02)
--- NOTE | 2019-10-15 15:27 | NUR ---
RECEIVED REPORT FROM RADIOLOGY. PT HAD A TOTAL OF 150 FENTANYL AND 1.5 MG VERSED. A 10 SAUDI ARABIAN PIGTAIL DRAIN WAS PLACED, BEDSIDE DRAINAGE PRESENT WITH REDDISH-BROWN DISCHARGE. DR. BEAR SPOKE WITH LUDWIN CONCERNING DRAINAGE, SAMPLE WAS SENT FOR LAB TESTING. 4X4 AND TEGADERM APPLIED TO SITE. HR 78, O2 99% ON RA, RR 16, 112/64 BLOOD PRESSURE. DRAIN HAS 3-WAY; INSTRUCTIONS GIVEN FOR RN TO INSERT 10 CC NS TO PATIENT, THEN DO 10 CC NS TO THE BAG EVERY 8 HOURS.
--- NOTE | 2019-10-15 15:40 | NUR ---
PT ARRIVED BACK TO ROOM 106, IN STABLE CONDITION.
[2019-10-15 16:40] LABS: BODY FLUID APPEARANCE TURBID
[2019-10-15 16:42] LABS: RBC,BODY FLUID 2351 cells/uL; WBC,BODY FLUID 22993 cells/uL
--- NOTE | 2019-10-15 17:53 | Consultation ---
DATE OF CONSULTATION: 10/15/2019 CHIEF COMPLAINT: Intraabdominal abscess. 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 Packer. The patient started to have fever and chills. I was asked to see him. The patient has history of colorectal cancer, diabetes mellitus, on chemotherapy. PAST MEDICAL HISTORY: As above. PAST SURGICAL HISTORY: As above. SOCIAL HISTORY: There is no smoking, drug abuse, or alcohol abuse. FAMILY HISTORY: Hypertension. REVIEW OF SYSTEMS: Fever, chills and abdominal pain. Otherwise, unremarkable. The patient was here since then. LABORATORY DATA: He had a white count today of 18.4 with a hemoglobin 9.0. Sodium of 138, potassium 3.8 with creatinine 0.75. The patient is currently on vancomycin and Zosyn, and CT scan showed intraabdominal abscess. PHYSICAL EXAMINATION: GENERAL: He is currently alert, oriented, does not seem to be in acute distress. VITAL SIGNS: Stable, afebrile, temperature 97.7. HEENT: Not icteric. NECK: Supple. CHEST: Clear. COR: S1 and S2. No S3, S4, or murmur. ABDOMEN: Soft. IMPRESSION: Intraabdominal abscess, status post surgery. Agree with current choice of antibiotic. Agree with CT-guided aspiration, sent for culture and sensitivity. Follow up vancomycin level. We will follow. MD ULISES Epstein/[facility]ANCE /[id number]
--- NOTE | 2019-10-15 19:40 | NUR ---
Received bedside report from day nurse. Patient awake and resting in place, no s/s of distress at this time. Bed locked and in low position, call light placed within reach. All safety measures in place. Will continue to monitor.
--- NOTE | 2019-10-15 21:40 | NUR ---
T-tube flushed and irrigated with 20 ml normal saline as ordered.
[2019-10-15] MEDS: ONDANSETRON HCL INJ 2MG/ML 2ML 2 MG/ML VIAL IV PRN (21:48)
[2019-10-16] VITALS (8 sets, daily range): BP systolic 113–133; BP diastolic 66–76
[2019-10-16] MEDS: ONDANSETRON HCL INJ 2MG/ML 2ML 2 MG/ML VIAL IV PRN ×3 (01:49→21:05)
[2019-10-16] MEDS: HYDROMORPHONE 1MG/1ML INJ IV PRN ×6 (01:49→21:05)
--- NOTE | 2019-10-16 01:49 | NUR ---
T-tube flushed and irrigated with 20 ml NS as ordered.
[2019-10-16] MEDS: ACETAMINOPHEN 325 MG TAB PO PRN (01:58)
[2019-10-16] MEDS: PIPER-TAZ 3.375 GM 50 ML IV SCH ×4 (03:57→21:05)
[2019-10-16 06:06] LABS: BASOPHILS # (AUTO) 0.1 (0.0-0.1); BASOPHILS % 0.2 % (0.0-1.0); EOSINOPHILS % 0.1 % (0.0-6.0); HEMATOCRIT 22.8 % (38.2-49.6); HEMOGLOBIN 7.3 g/dL (14.0-18.0); LYMPHOCYTES # (AUTO) 0.6 (1.0-3.2); LYMPHOCYTES % 2.3 % (18.0-39.1); MEAN CORPUSCULAR HEMOGLOBIN 26.3 pg (28-32); MONOCYTES # (AUTO) 1.7 (0.2-0.8); MONOCYTES % 6.7 % (4.4-11.3); NEUTROPHILS # (AUTO) 22.5 (2.1-6.9); NEUTROPHILS % 89.6 % (38.7-80.0); PLATELET COUNT 308 x10e3/uL (140-360); RED BLOOD COUNT 2.78 x10e6/uL (4.3-5.7); RED CELL DISTRIBUTION WIDTH 18.8 % (11.7-14.4)
[2019-10-16 06:28] LABS: ANION GAP 12.5 mmol/L (8-16); BLOOD UREA NITROGEN 14 mg/dL (7-26); BUN/CREATININE RATIO 18 (6-25); CALCIUM 8.1 mg/dL (8.4-10.2); CARBON DIOXIDE 19 mmol/L (22-29); CHLORIDE 108 mmol/L (98-107); CREATININE, SERUM 0.79 mg/dL (0.72-1.25); EST GLOMERULAR FILTRATION RATE > 60 ML/MIN (60-); GLUCOSE 99 mg/dL (74-118); POTASSIUM 3.5 mmol/L (3.5-5.1); SODIUM 136 mmol/L (136-145)
--- NOTE | 2019-10-16 06:28 | NUR ---
T-tube flushed and irrigated with 20 ml NS as ordered.
--- NOTE | 2019-10-16 07:06 | NUR ---
bedside shift report received from PM nurse. pt in stable condition. will continue to monitor.
--- NOTE | 2019-10-16 07:06 | NUR ---
Bedside report given to day nurse. Patient awake and resting in bed, no s/s of distress at this time. Bed locked and in low position, call light placed within reach. All safety measures in place.
[2019-10-16] MEDS: INSULIN LISPRO 100 UNIT/1 ML 3ML VIAL SQ SCH ×4 (07:30→21:05)
[2019-10-16] MEDS: SENNOSIDES 8.6 MG TAB PO SCH ×2 (09:00→16:10)
[2019-10-16] MEDS: PANTOPRAZOLE 40 MG 10ML VIAL IV SCH (09:50)
[2019-10-16] MEDS: CELECOXIB 100 MG CAP PO SCH ×2 (09:55→16:48)
[2019-10-16] MEDS: SODIUM CHLORIDE 0.9% 1000ML 1,000 ML IV SCH (10:02)
[2019-10-16 10:25] LABS: LYMPHOCYTES % (MANUAL) 2 % (19-48); MONOCYTES % (MANUAL) 7 % (3.4-9.0); NEUTROPHILS % (MANUAL) 91 % (40-74)
[2019-10-16] MEDS: VANCOMYCIN 1GM/NS 250 ML 250 ML IV SCH ×2 (11:56→22:31)
--- NOTE | 2019-10-16 19:28 | NUR ---
pt c/o abdominal distention; bedside bladder scan showed only 37 cc urine. Pt advised on importance of ambulation s/p IR procedure. pt voiced understanding.
--- NOTE | 2019-10-16 19:32 | NUR ---
Received bedside report from day nurse. Patient awake and resting in bed, no s/s of distress at this time. Bed locked and in low position, call light placed within reach. All safety measures in place. Will continue to monitor.
--- NOTE | 2019-10-16 21:05 | NUR ---
T-tube flushed and irrigated with 20 ml NS as ordered.
[2019-10-17] VITALS (10 sets, daily range): BP systolic 128–142; BP diastolic 67–78
[2019-10-17] MEDS: HYDROMORPHONE 1MG/1ML INJ IV PRN ×6 (00:28→20:36)
[2019-10-17] MEDS: ONDANSETRON HCL INJ 2MG/ML 2ML 2 MG/ML VIAL IV PRN ×2 (00:28→03:45)
--- NOTE | 2019-10-17 00:28 | NUR ---
T-tube flushed and irrigated with 20 ml NS as ordered.
[2019-10-17] MEDS: SODIUM CHLORIDE 0.9% 1000ML 1,000 ML IV SCH ×3 (00:32→19:00)
[2019-10-17] MEDS: PIPER-TAZ 3.375 GM 50 ML IV SCH ×3 (03:42→20:35)
--- NOTE | 2019-10-17 03:45 | NUR ---
T-tube flushed and irrigated with 20 ml NS as ordered.
[2019-10-17 05:56] LABS: BASOPHILS # (AUTO) 0.1 (0.0-0.1); BASOPHILS % 0.2 % (0.0-1.0); EOSINOPHILS % 0.2 % (0.0-6.0); HEMATOCRIT 23.7 % (38.2-49.6); HEMOGLOBIN 7.4 g/dL (14.0-18.0); LYMPHOCYTES # (AUTO) 0.6 (1.0-3.2); LYMPHOCYTES % 2.2 % (18.0-39.1); MEAN CORPUSCULAR HEMOGLOBIN 26.1 pg (28-32); MEAN CORPUSCULAR HGB CONC 31.2 g/dL (31-35); MEAN CORPUSCULAR VOLUME 83.5 fL (81-99); MONOCYTES # (AUTO) 1.4 (0.2-0.8); MONOCYTES % 5.3 % (4.4-11.3); NEUTROPHILS # (AUTO) 23.4 (2.1-6.9); NEUTROPHILS % 90.6 % (38.7-80.0); PLATELET COUNT 324 x10e3/uL (140-360); RED BLOOD COUNT 2.84 x10e6/uL (4.3-5.7); RED CELL DISTRIBUTION WIDTH 18.9 % (11.7-14.4)
[2019-10-17 06:15] LABS: ANION GAP 11.6 mmol/L (8-16); BLOOD UREA NITROGEN 14 mg/dL (7-26); BUN/CREATININE RATIO 19 (6-25); CALCIUM 8.5 mg/dL (8.4-10.2); CARBON DIOXIDE 20 mmol/L (22-29); CHLORIDE 108 mmol/L (98-107); CREATININE, SERUM 0.75 mg/dL (0.72-1.25); EST GLOMERULAR FILTRATION RATE > 60 ML/MIN (60-); GLUCOSE 83 mg/dL (74-118); POTASSIUM 3.6 mmol/L (3.5-5.1); SODIUM 136 mmol/L (136-145)
--- NOTE | 2019-10-17 07:18 | NUR ---
Bedside report given to day nurses. Patient awake and resting in bed, no s/s of distress at this time. PRN pain medication administered. Bed locked and in low position, call light placed within reach. All safety measures in place.
[2019-10-17] MEDS: INSULIN LISPRO 100 UNIT/1 ML 3ML VIAL SQ SCH ×4 (07:30→20:38)
[2019-10-17] MEDS: SENNOSIDES 8.6 MG TAB PO SCH ×2 (08:34→16:04)
[2019-10-17] MEDS: CELECOXIB 100 MG CAP PO SCH ×2 (08:34→16:04)
[2019-10-17] MEDS: PANTOPRAZOLE 40 MG 10ML VIAL IV SCH (08:38)
--- NOTE | 2019-10-17 08:48 | NUR ---
Nutrition Intervention Note RD Recommendation(s) for Physician: -ADAT to GI soft, low fat per MD. -Consider alternate source of nutrition within the next 24 hours if pts diet does not advance. Plan of Care: RD following, monitoring for tolerance and adequacy. Ensure Clear BID. Nutrition reason for involvement: (LOS, clear liquid/NPO -6 days) RD Assessment 10/16: 53 YOM admitted for carcinoma recto sigmoid colon with PMH listed below. Pt was seen resting in bed. He reported that his appetite was stable prior to admission as well as his weight, per pt he is usually 150-160 lbs suggesting no weight loss recently. Pt underwent laparoscopic-assisted anterior resection of the rectosigmoid colon on October 10. Per EMR pt has been NPO/clear liquids since 10/10. Pt is on clears currently, recommend Ensure clear to ensure the pt is meeting calorie and protein needs. Pt reports he is tolerating the liquids, but is just expericeing pain which is causing him to have a poor appetite. Pt reported some N/V, and has not had BM yet/ Pt denied chewing or swallowing issues as well as any food allergies. Will continue to monitor. Principal Problems/Diagnoses: carcinoma recto sigmoid colon PMH: colorectal cancer, diabetes mellitus, on chemotherapy. GI: LBM: 10/14, Abd: soft, tender, t tube (50 ml drainage) Skin: no pressure ulcer recorded Labs: 10/16: Cl 108, CO2 20 Meds: zofran, abx, protonix, insulin ,senokot IVF: NS at 100 ml/hr Ht: 67 in Wt: 180 lbs BMI: 28.2 kg/m^2 IBW:148 lbs Malnutrition Evaluation (date of eval) The patient does not meet criteria for a specified degree of malnutrition at this time. Will re-evaluate at follow-up as appropriate. Energy intake: <50% of estimated energy requirements for >5 days Weight loss: None Fat loss: none Muscle loss: none Nutrition Prescription (Diet Order): clear liquids Estimated Nutritional Needs: Calories: 1476-1804kcal/day (18-22 kcal/kg/day) Weight used : Protein : 82-123protein/day (1-1.5 gram/kg/day ) Weight used: Diet Adequacy: Not meeting calorie needs, Not meeting protein needs Diet Education Needs Assessment: Diet education not indicated, patient on temporary/transition diet. Nutrition Care Level: high-possible TPN Nutrition Diagnosis: Inadequate energy intake related to medical condition as evidenced by the pt being NPO/ clear liquids for 6 days. Goal: Patient will meet 75-100% of estimated needs by follow up Progress: N/A Interventions: -fiber modified diet, Commercial beverage, Commercial, IVF, Prescription medications, Collaboration with other providers, Monitoring/Evaluation: -Total energy intake, Total protein intake, IVF, Prescription medication, Modified diet, Liquid supplement, Weight change Signed: Honey Vincent RD, LD
[2019-10-17] MEDS: ACETAMINOPHEN 325 MG TAB PO PRN (08:55)
[2019-10-17 09:23] LABS: LYMPHOCYTES % (MANUAL) 1 % (19-48); MONOCYTES % (MANUAL) 7 % (3.4-9.0); NEUTROPHILS % (MANUAL) 92 % (40-74)
[2019-10-17 09:24] LABS: ANISOCYTOSIS SLIGHT; PLATELET ESTIMATE ADEQUATE; PLATELET MORPHOLOGY COMMENT NORMAL; RBC MORPHOLOGY COMMENT NORMAL
[2019-10-17] MEDS: FLUCONAZOLE 400MG/200ML BAG 200 ML IV SCH (11:07)
[2019-10-17] MEDS ORDERED: IRON SUCROSE 100 MG in SODIUM CHLORIDE 0.9% 100 ML 100 ML IV SCH (12:00)
--- NOTE | 2019-10-17 12:24 | NUR ---
[id number] late entery 10/16/2019
[2019-10-17] MEDS: IRON SUCROSE 100 MG in SODIUM CHLORIDE 0.9% 100 ML 100 ML IV SCH (13:40)
[2019-10-17] MEDS: VANCOMYCIN 1GM/NS 250 ML 250 ML IV SCH (15:30)
--- NOTE | 2019-10-17 19:06 | Progress Note ---
DATE: 10/17/2019 SUBJECTIVE: Ms. Nicole is feeling better. There is no new complaint, underwent aspiration. PHYSICAL EXAMINATION: GENERAL: He is currently alert, comfortable. VITAL SIGNS: Stable. Afebrile. HEENT: Not icteric. NECK: Supple. CHEST: Clear. HEART: S1 and S2. ABDOMEN: Soft. LABORATORY DATA: His white count went up to 25. IMPRESSION: Intra-abdominal abscess, status post aspiration. He is currently on vancomycin and Zosyn. We are still waiting on culture sensitivity. Clinically, he is better. We will modify after the availability of culture and sensitivity. Recheck CBC. Recheck Chem panel. Continue supportive care. We will follow vancomycin trough. Further recommendations to follow. MD ULISES Epstein/VANCE /[id number]
--- NOTE | 2019-10-17 19:10 | NUR ---
Received patient awake, not in distress, call light within easy reach, advised to call for assistance anytime when needed. Will continue to monitor
--- NOTE | 2019-10-17 20:36 | NUR ---
flushed T-tube drain per MD ordered
[2019-10-18] VITALS (13 sets, daily range): BP systolic 131–145; BP diastolic 75–83
[2019-10-18] MEDS: HYDROMORPHONE 1MG/1ML INJ IV PRN ×6 (00:48→21:15)
--- NOTE | 2019-10-18 00:48 | NUR ---
flushed T-tube drain per MD ordered
[2019-10-18] MEDS: PIPER-TAZ 3.375 GM 50 ML IV SCH ×2 (02:52→08:34)
[2019-10-18] MEDS: SODIUM CHLORIDE 0.9% 1000ML 1,000 ML IV SCH (03:30)
[2019-10-18] MEDS: VANCOMYCIN 1GM/NS 250 ML 250 ML IV SCH (03:30)
--- NOTE | 2019-10-18 04:26 | NUR ---
flushed T-tube drain per MD ordered
[2019-10-18 05:23] LABS: BASOPHILS # (AUTO) 0.1 (0.0-0.1); EOSINOPHILS # (AUTO) 0.2 (0.0-0.4); LYMPHOCYTES # (AUTO) 0.5 (1.0-3.2); MEAN CORPUSCULAR HGB CONC 31.8 g/dL (31-35); MEAN CORPUSCULAR VOLUME 81.8 fL (81-99); MONOCYTES # (AUTO) 1.6 (0.2-0.8); NEUTROPHILS # (AUTO) 17.2 (2.1-6.9); PLATELET COUNT 364 x10e3/uL (140-360); RED BLOOD COUNT 2.69 x10e6/uL (4.3-5.7)
[2019-10-18 05:37] LABS: ANION GAP 12.4 mmol/L (8-16); BLOOD UREA NITROGEN 13 mg/dL (7-26); BUN/CREATININE RATIO 21 (6-25); CALCIUM 8.1 mg/dL (8.4-10.2); CARBON DIOXIDE 18 mmol/L (22-29); CHLORIDE 109 mmol/L (98-107); CREATININE, SERUM 0.63 mg/dL (0.72-1.25); EST GLOMERULAR FILTRATION RATE > 60 ML/MIN (60-); GLUCOSE 87 mg/dL (74-118); POTASSIUM 3.4 mmol/L (3.5-5.1); SODIUM 136 mmol/L (136-145)
--- NOTE | 2019-10-18 07:11 | NUR ---
bedside rounding done with dayshift RN, call light within easy reach
[2019-10-18] MEDS: INSULIN LISPRO 100 UNIT/1 ML 3ML VIAL SQ SCH ×4 (07:30→19:57)
[2019-10-18] MEDS: CELECOXIB 100 MG CAP PO SCH ×2 (08:34→17:40)
[2019-10-18] MEDS: SENNOSIDES 8.6 MG TAB PO SCH ×2 (08:34→17:40)
[2019-10-18] MEDS: PANTOPRAZOLE 40 MG 10ML VIAL IV SCH (08:34)
[2019-10-18 08:49] LABS: ANISOCYTOSIS SLIGHT; BAND NEUTROPHILS % (MANUAL) 1 %; ELLIPTOCYTE, RBC SLIGHT; EOSINOPHILS % (MANUAL) 2 % (0-7); LYMPHOCYTES % (MANUAL) 2 % (19-48); MONOCYTES % (MANUAL) 7 % (3.4-9.0); NEUTROPHILS % (MANUAL) 88 % (40-74); OVALOCYTES FEW; PLATELET ESTIMATE SLIGHTLY INCREASED; PLATELET MORPHOLOGY COMMENT NORMAL
[2019-10-18 08:50] LABS: RBC MORPHOLOGY COMMENT NORMAL
--- NOTE | 2019-10-18 09:48 | Diagnostic Imaging Report ---
PROCEDURE: CT guided transgluteal drainage of perirectal fluid collection Procedural Personnel Attending physician: Diann Payne MD Pre-procedure diagnosis: Perirectal collection, suspected leak Post-procedure diagnosis: Rectal anastomotic leak, perirectal collection Indication: Perirectal collection. Additional clinical history: Status post distal colon resection and bowel anastomosis with perirectal collection. Complications: No immediate complications. IMPRESSION: CT guided percutaneous drainage of perirectal collection via right transgluteal approach, 10 Fr catheter placed, 60 cc feculent fluid drained. Plan: Inject 10 cc of normal saline to patient and 10 cc to the bag q 8 hours. Monitor I/O. Further plan per surgical team. PROCEDURE SUMMARY: - CT guided aspiration and drainage of perirectal collection via right transgluteal approach. PROCEDURE DETAILS: Pre-procedure Consent: Informed consent for the procedure including risks, benefits and alternatives was obtained and time-out was performed prior to the procedure. Preparation: The right buttock was prepared and draped using maximal sterile barrier technique including cutaneous antisepsis. Anesthesia/sedation Level of anesthesia/sedation: Moderate sedation (conscious sedation); 150 mg of IV Fentanyl, 3 mg of IV Versed Anesthesia/sedation administered by: IR nurse under attending supervision with continuous monitoring of the patient?s level of consciousness and physiologic status Total intra-service sedation time (minutes): 70 minutes Fluid collection drainage/aspiration The patient was positioned prone. Initial CT performed demonstrating perirectal extraluminal oral contrast (from prior CT scan), consistent with leak. Interval enlargement of fluid and air containing perirectal collection. Local anesthesia was administered. The fluid collection was accessed using an 18 gauge access needle followed by Amplatz wire insertion, serial dilatation, and 10 Fr pigtail drainage catheter placement with CT guidance. Position within the fluid collection was confirmed, and fluid aspiration was performed, with 60 cc of feculent fluid removed. Post procedural CT demonstrates satisfactory position and decompression of collection. All instruments were then removed. Contrast Contrast agent: None Contrast volume (mL): [address] dose length product (mGy-cm): 1458.7 Additional Details Specimens removed: Total of 20 cc of feculent fluid sent for microbiology and cell count. Estimated blood loss (mL): Less than 10 Standardized report: [id number] Attestation Signer name: Dr. Diann Payne MD I attest that I was present for the entire procedure. I reviewed the stored images and agree with the report as written. Signed by: Dr. Diann Payne MD on 10/18/2019 9:45 AM
[2019-10-18] MEDS: FLUCONAZOLE 400MG/200ML BAG 200 ML IV SCH (10:11)
[2019-10-18] MEDS: KCL 20MEQ/.9 SOD CHL 1,000 ML IV SCH ×2 (10:27→19:15)
[2019-10-18] MEDS: CEFEPIME 1GM/NS 0.9% 50 ML 50 ML IV SCH ×2 (12:46→17:41)
[2019-10-18] MEDS ORDERED: CEFEPIME HCL 1 GM VIAL IV SCH (14:00)
[2019-10-18] MEDS: IRON SUCROSE 100 MG in SODIUM CHLORIDE 0.9% 100 ML 100 ML IV SCH (14:24)
[2019-10-18] MEDS: METRONIDAZOLE 500 MG TAB PO SCH ×2 (14:45→22:27)
[2019-10-19] VITALS (8 sets, daily range): BP systolic 122–135; BP diastolic 62–78
[2019-10-19] MEDS: HYDROMORPHONE 1MG/1ML INJ IV PRN ×6 (02:10→21:40)
[2019-10-19] MEDS: CEFEPIME 1GM/NS 0.9% 50 ML 50 ML IV SCH ×3 (02:10→17:03)
[2019-10-19 05:35] LABS: BASOPHILS # (AUTO) 0.1 (0.0-0.1); BASOPHILS % 0.3 % (0.0-1.0); EOSINOPHILS # (AUTO) 0.4 (0.0-0.4); EOSINOPHILS % 2.3 % (0.0-6.0); LYMPHOCYTES # (AUTO) 0.7 (1.0-3.2); LYMPHOCYTES % 3.8 % (18.0-39.1); MEAN CORPUSCULAR HEMOGLOBIN 26.1 pg (28-32); MEAN CORPUSCULAR HGB CONC 31.6 g/dL (31-35); MEAN CORPUSCULAR VOLUME 82.4 fL (81-99); MONOCYTES # (AUTO) 1.6 (0.2-0.8); MONOCYTES % 8.4 % (4.4-11.3); NEUTROPHILS % 80.8 % (38.7-80.0); PLATELET COUNT 326 x10e3/uL (140-360); RED BLOOD COUNT 2.38 x10e6/uL (4.3-5.7); RED CELL DISTRIBUTION WIDTH 19.2 % (11.7-14.4)
[2019-10-19] MEDS: METRONIDAZOLE 500 MG TAB PO SCH ×3 (05:42→21:52)
[2019-10-19 05:56] LABS: HEMATOCRIT 19.6 % (38.2-49.6); HEMOGLOBIN 6.2 g/dL (14.0-18.0)
[2019-10-19 06:06] LABS: ANION GAP 9.8 mmol/L (8-16); BLOOD UREA NITROGEN 8 mg/dL (7-26); BUN/CREATININE RATIO 14 (6-25); CALCIUM 7.4 mg/dL (8.4-10.2); CARBON DIOXIDE 19 mmol/L (22-29); CHLORIDE 114 mmol/L (98-107); CREATININE, SERUM 0.59 mg/dL (0.72-1.25); EST GLOMERULAR FILTRATION RATE > 60 ML/MIN (60-); GLUCOSE 101 mg/dL (74-118); POTASSIUM 4.8 mmol/L (3.5-5.1); SODIUM 138 mmol/L (136-145)
[2019-10-19 06:21] LABS: MAGNESIUM 1.5 MG/DL (1.3-2.1); PHOSPHORUS 1.7 MG/DL (2.3-4.7)
--- NOTE | 2019-10-19 06:38 | NUR ---
Dr. Packer made aware of H&H result. Made new ordered to recheck labs this am.
--- NOTE | 2019-10-19 06:53 | NUR ---
landfill gas technician made aware.
--- NOTE | 2019-10-19 07:00 | NUR ---
bedside shift report received pt in stable condition, denies pain at this time, updated on poc vocied understanding, roe to bsd with yellow urine noted, t-tube to posterior flank with green drainage noted, 12 adolfo to abdomen noted, no other co vocied call light in reach will continue to monitor
[2019-10-19 07:13] LABS: HEMATOCRIT 22.9 % (38.2-49.6); HEMOGLOBIN 7.2 g/dL (14.0-18.0)
[2019-10-19] MEDS: INSULIN LISPRO 100 UNIT/1 ML 3ML VIAL SQ SCH ×4 (07:30→21:20)
[2019-10-19] MEDS: CELECOXIB 100 MG CAP PO SCH ×2 (09:24→17:00)
[2019-10-19] MEDS: PANTOPRAZOLE 40 MG 10ML VIAL IV SCH (09:24)
[2019-10-19] MEDS: SENNOSIDES 8.6 MG TAB PO SCH ×2 (09:24→17:00)
--- NOTE | 2019-10-19 09:35 | NUR ---
t-tube flushed as per ordered
[2019-10-19] MEDS: KCL 20MEQ/.9 SOD CHL 1,000 ML IV SCH ×3 (09:57→23:42)
[2019-10-19] MEDS: FLUCONAZOLE 400MG/200ML BAG 200 ML IV SCH (09:58)
[2019-10-19] MEDS: IRON SUCROSE 100 MG in SODIUM CHLORIDE 0.9% 100 ML 100 ML IV SCH (12:14)
--- NOTE | 2019-10-19 19:05 | NUR ---
RECEIVED THE PATIENT IN REPORT.AAOX3.LYEING IN THE BED.STABLE CONDITION.IV FLUID RUNNING.
[2019-10-19] MEDS: ONDANSETRON HCL INJ 2MG/ML 2ML 2 MG/ML VIAL IV PRN (21:35)
[2019-10-20] VITALS (8 sets, daily range): BP systolic 128–144; BP diastolic 75–81
[2019-10-20] MEDS: HYDROMORPHONE 1MG/1ML INJ IV PRN ×7 (01:00→22:29)
--- NOTE | 2019-10-20 02:02 | NUR ---
HAD BOWEL MOVEMENT.GREEN COLORED LIQUID STOOL.PAIN MEDICATION GIVEN.BED LOCKED AND IN LOWEST POSITION.PHONE AND CALL LIGHT WITHIN REACH.INSTRUCTED TO CALL FOR ASSISTANCE NEEDED.
[2019-10-20] MEDS: CEFEPIME 1GM/NS 0.9% 50 ML 50 ML IV SCH ×3 (02:07→18:34)
[2019-10-20] MEDS: ONDANSETRON HCL INJ 2MG/ML 2ML 2 MG/ML VIAL IV PRN (03:55)
[2019-10-20] MEDS: METRONIDAZOLE 500 MG TAB PO SCH ×3 (05:32→21:38)
[2019-10-20 05:39] LABS: BASOPHILS # (AUTO) 0.1 (0.0-0.1); EOSINOPHILS # (AUTO) 0.9 (0.0-0.4); HEMATOCRIT 22.4 % (38.2-49.6); HEMOGLOBIN 7.2 g/dL (14.0-18.0); LYMPHOCYTES # (AUTO) 0.9 (1.0-3.2); MEAN CORPUSCULAR HEMOGLOBIN 25.9 pg (28-32); MEAN CORPUSCULAR HGB CONC 32.1 g/dL (31-35); MEAN CORPUSCULAR VOLUME 80.6 fL (81-99); MONOCYTES # (AUTO) 2.1 (0.2-0.8); NEUTROPHILS # (AUTO) 20.8 (2.1-6.9); PLATELET COUNT 469 x10e3/uL (140-360); RED BLOOD COUNT 2.78 x10e6/uL (4.3-5.7); RED CELL DISTRIBUTION WIDTH 19.3 % (11.7-14.4)
[2019-10-20 06:03] LABS: ANION GAP 13.3 mmol/L (8-16); CARBON DIOXIDE 18 mmol/L (22-29); CHLORIDE 110 mmol/L (98-107); GLUCOSE 124 mg/dL (74-118); POTASSIUM 3.3 mmol/L (3.5-5.1); SODIUM 138 mmol/L (136-145)
[2019-10-20 06:16] LABS: BLOOD UREA NITROGEN 7 mg/dL (7-26); BUN/CREATININE RATIO 12 (6-25); CREATININE, SERUM 0.57 mg/dL (0.72-1.25); EST GLOMERULAR FILTRATION RATE > 60 ML/MIN (60-)
--- NOTE | 2019-10-20 07:00 | NUR ---
Bed side shift report given to oncoming Rn.stable condition.has c/o swelling and redness to scortum.
--- NOTE | 2019-10-20 07:05 | NUR ---
RECEIVED BEDSIDE SHIFT REPORT, PATIENT RESTING IN BED AT THIS TIME. CALL LIGHT WITHIN REACH.
[2019-10-20 08:18] LABS: BAND NEUTROPHILS % (MANUAL) 1 %; EOSINOPHILS % (MANUAL) 1 % (0-7); LYMPHOCYTES % (MANUAL) 3 % (19-48); METAMYELOCYTES % (MANUAL) 1 % (0-0); MONOCYTES % (MANUAL) 4 % (3.4-9.0); MYELOCYTES % (MANUAL) 2 % (0-0); NEUTROPHILS % (MANUAL) 88 % (40-74); OVALOCYTES FEW
[2019-10-20 08:19] LABS: ANISOCYTOSIS SLIGHT; PLATELET ESTIMATE SLIGHTLY INCREASED; PLATELET MORPHOLOGY COMMENT NORMAL; POLYCHROMASIA FEW; RBC MORPHOLOGY COMMENT NORMAL
[2019-10-20] MEDS ORDERED: POTASSIUM CHLORIDE 20 MEQ TAB CR PO SCH (08:40)
--- NOTE | 2019-10-20 09:00 | NUR ---
DARK GREEN SOFT/LIQUID MEDIUM SIZED STOOL X1, NO FLATULENCE Addendum: 10/20/19 at 0900 by CHANELLE GAINES RN Amended: Links added.
[2019-10-20] MEDS: SENNOSIDES 8.6 MG TAB PO SCH ×2 (09:06→17:00)
[2019-10-20] MEDS: PANTOPRAZOLE 40 MG 10ML VIAL IV SCH (09:06)
[2019-10-20] MEDS: CELECOXIB 100 MG CAP PO SCH ×2 (09:06→18:34)
[2019-10-20] MEDS: INSULIN LISPRO 100 UNIT/1 ML 3ML VIAL SQ SCH ×4 (09:15→21:00)
[2019-10-20] MEDS: FLUCONAZOLE 400MG/200ML BAG 200 ML IV SCH (10:56)
[2019-10-20] MEDS: KCL 20MEQ/.9 SOD CHL 1,000 ML IV SCH ×2 (10:57→22:29)
[2019-10-20] MEDS: HYDROCODONE/APAP 7.5MG-325MG 1 EA TAB PO PRN ×2 (11:59→20:42)
--- NOTE | 2019-10-20 12:00 | NUR ---
Flushed T Tube with 10ml of saline per MD order
[2019-10-20] MEDS: IRON SUCROSE 100 MG in SODIUM CHLORIDE 0.9% 100 ML 100 ML IV SCH (14:22)
[2019-10-20] MEDS ORDERED: SODIUM CHLORIDE 0.9% 100 ML ONE (14:26)
--- NOTE | 2019-10-20 16:13 | NUR ---
Nutrition Intervention Note RD Recommendation(s) for Physician: -Advance to GI soft diet when medically appropriate -Ensure pudding daily and Ensure Enlive BID Plan of Care: RD following, monitoring for tolerance and adequacy. Nutrition reason for involvement: follow up RD Assessment 10/19: Follow up. Pt is now on a full liquid diet and mentioned he is consuming about 50% of his meals. Pt continues to experience pain. Pt was interested in trying Ensure pudding and Ensure Enlive for added nutrition. Pt had a BM today. Pt did not have any questions at time of visit. Will continue to monitor. 10/16: 53 YOM admitted for carcinoma recto sigmoid colon with PMH listed below. Pt was seen resting in bed. He reported that his appetite was stable prior to admission as well as his weight, per pt he is usually 150-160 lbs suggesting no weight loss recently. Pt underwent laparoscopic-assisted anterior resection of the rectosigmoid colon on October 10. Per EMR pt has been NPO/clear liquids since 10/10. Pt is on clears currently, recommend Ensure clear to ensure the pt is meeting calorie and protein needs. Pt reports he is tolerating the liquids, but is just experiencing pain which is causing him to have a poor appetite. Pt reported some N/V, and has not had BM yet/ Pt denied chewing or swallowing issues as well as any food allergies. Will continue to monitor. Principal Problems/Diagnoses: carcinoma recto sigmoid colon PMH: colorectal cancer, diabetes mellitus, on chemotherapy. GI: last recorded BM 10/19 Skin: no pressure ulcer recorded Labs: 10/19: K 3.3 Creat 0.57, Glu 124, Ca 8.0 10/16: Cl 108, CO2 20 Meds: flagyl, insulin, senokot, protonix, zofran Ht: 67 in Wt: 179 lbs (10/17) 180 lbs (10/16) BMI: 28.0 kg/m^2 IBW: 148 lbs Malnutrition Evaluation (10/16) The patient does not meet criteria for a specified degree of malnutrition at this time. Will re-evaluate at follow-up as appropriate. Energy intake: <50% of estimated energy requirements for >5 days Weight loss: None Fat loss: none Muscle loss: none Nutrition Prescription (Diet Order): full liquids Estimated Nutritional Needs: Calories: 7292-6252 kcal/day (18-22 kcal/kg/day) Weight used : 180 lbs (82 kg) Protein : 82-123 protein/day (1-1.5 gram/kg/day ) Weight used: 180 lbs (82 kg) Diet Adequacy: Not meeting calorie needs, Not meeting protein needs Diet Education Needs Assessment: Diet education not indicated, patient on temporary/transition diet. Nutrition Care Level: moderate Nutrition Diagnosis: Inadequate energy intake related to medical condition as evidenced by the pt being NPO/ clear liquids for 6 days. Goal: Patient will meet 75-100% of estimated needs by follow up Progress: progressing Interventions: -fiber modified diet, Commercial beverage, Commercial food Monitoring/Evaluation: -Total energy intake, Total protein intake, Modified diet, Liquid supplement, Weight change Signed: Loreto Shepard RD, LD
--- NOTE | 2019-10-20 18:15 | NUR ---
Flushed T tube with 10ml saline flush per MD order.
--- NOTE | 2019-10-20 19:05 | NUR ---
BEDSIDE SHIFT REPORT GIVEN TO ONCOMING NURSE. PATIENT SITTING UP IN BED, CALL LIGHT WITHIN REACH.
--- NOTE | 2019-10-20 21:45 | NUR ---
Assessment done.no resp.distress .ambulates .had a small amount of bowel movement.irrigated pelvic drain with 10 cc ns.roe care given. scortum supported with towel.bed locked and in lowest position.phone and call light within reach.instructed to call for assistance as needed.
[2019-10-21] MEDS: CEFEPIME 1GM/NS 0.9% 50 ML 50 ML IV SCH ×2 (01:46→08:55)
[2019-10-21] MEDS: ONDANSETRON HCL INJ 2MG/ML 2ML 2 MG/ML VIAL IV PRN ×3 (01:47→22:22)
[2019-10-21] MEDS: ACETAMINOPHEN 325 MG TAB PO PRN (01:47)
[2019-10-21] MEDS: HYDROMORPHONE 1MG/1ML INJ IV PRN ×5 (01:47→21:30)
[2019-10-21 04:00] VITALS: BP 141/87
[2019-10-21] MEDS: HYDROCODONE/APAP 7.5MG-325MG 1 EA TAB PO PRN ×2 (05:09→14:39)
[2019-10-21 05:39] LABS: BASOPHILS # (AUTO) 0.2 (0.0-0.1); EOSINOPHILS # (AUTO) 0.2 (0.0-0.4); HEMATOCRIT 23.5 % (38.2-49.6); HEMOGLOBIN 7.3 g/dL (14.0-18.0); LYMPHOCYTES # (AUTO) 1.4 (1.0-3.2); MEAN CORPUSCULAR HEMOGLOBIN 25.6 pg (28-32); MEAN CORPUSCULAR HGB CONC 31.1 g/dL (31-35); MEAN CORPUSCULAR VOLUME 82.5 fL (81-99); MONOCYTES # (AUTO) 2.2 (0.2-0.8); NEUTROPHILS # (AUTO) 21.1 (2.1-6.9); PLATELET COUNT 542 x10e3/uL (140-360); RED BLOOD COUNT 2.85 x10e6/uL (4.3-5.7); RED CELL DISTRIBUTION WIDTH 19.9 % (11.7-14.4)
[2019-10-21 05:44] LABS: ANION GAP 11.8 mmol/L (8-16); BLOOD UREA NITROGEN 5 mg/dL (7-26); BUN/CREATININE RATIO 8 (6-25); CALCIUM 8.1 mg/dL (8.4-10.2); CARBON DIOXIDE 20 mmol/L (22-29); CHLORIDE 111 mmol/L (98-107); CREATININE, SERUM 0.59 mg/dL (0.72-1.25); EST GLOMERULAR FILTRATION RATE > 60 ML/MIN (60-); GLUCOSE 109 mg/dL (74-118); POTASSIUM 3.8 mmol/L (3.5-5.1); SODIUM 139 mmol/L (136-145)
[2019-10-21] MEDS: METRONIDAZOLE 500 MG TAB PO SCH (05:52)
[2019-10-21 06:36] LABS: ANISOCYTOSIS SLIGHT; BAND NEUTROPHILS % (MANUAL) 1 %; EOSINOPHILS % (MANUAL) 1 % (0-7); LYMPHOCYTES % (MANUAL) 3 % (19-48); METAMYELOCYTES % (MANUAL) 3 % (0-0); MONOCYTES % (MANUAL) 4 % (3.4-9.0); MYELOCYTES % (MANUAL) 1 % (0-0); NEUTROPHILS % (MANUAL) 87 % (40-74); PLATELET ESTIMATE MODERATELY INCREASED
[2019-10-21 06:37] LABS: ELLIPTOCYTE, RBC SLIGHT; OVALOCYTES FEW; POLYCHROMASIA FEW; RBC MORPHOLOGY COMMENT NORMAL
--- NOTE | 2019-10-21 06:44 | NUR ---
PATIENT WENT FOR ABD.XRAY IN A WHEEL CHAIR IN A STABLE CONDITION.
--- NOTE | 2019-10-21 07:00 | NUR ---
PATIENT CAME BACK TO THE UNIT AFTER X RAY.BED SIDE SHIFT REPORT GIVEN TO ONCOMING RN.STABLE CONDITION.
--- NOTE | 2019-10-21 07:09 | Diagnostic Imaging Report ---
Two view abdomen series. INDICATION: Abdominal distention; history of distal colon resection and bowel anastomosis. Recent rectal anastomotic leak with percutaneous drainage. ^Abdominal distention ^[id number] ^[id number] COMPARISON: CT abdomen/pelvis 10/14/2019. FINDINGS: Medical Devices: Hemostatic clips in the stomach are stable. Pigtail catheter within the pelvis. There are multiple chain sutures in the pelvis. Abdominal wall adolfo in the lower midabdomen and the left upper quadrant. Bowel: Dilated loops of small bowel in the upper abdomen measure up to 8 cm with air-fluid levels. There is little air in the mid and distal small bowel. There is an air-fluid level in the stomach as well as air-fluid levels in the transverse colon. The colon is not dilated, however. Free air: Present from recent surgery Abdominal calcifications: None over the renal shadows or along the expected course of the ureters. Organomegaly: None Lung bases: Bibasilar atelectasis. Bones: Healed fracture deformities of several right ribs. Mild degenerative changes of the lower lumbar spine. IMPRESSION: 1. Significantly dilated small bowel loop in the upper mid abdomen suggestive of postoperative ileus. Tube decompression should be considered. 2. Postoperative pneumoperitoneum. 3. Medical devices as described above. Signed by: Dr. Gen Fernandez MD on 10/21/2019 7:05 AM
[2019-10-21 08:00] VITALS: BP 132/77
[2019-10-21] MEDS: SENNOSIDES 8.6 MG TAB PO SCH ×2 (08:55→16:43)
[2019-10-21] MEDS: CELECOXIB 100 MG CAP PO SCH (08:55)
[2019-10-21] MEDS: PANTOPRAZOLE 40 MG 10ML VIAL IV SCH (08:55)
[2019-10-21 08:58] VITALS: BP 132/77
--- NOTE | 2019-10-21 09:44 | NUR ---
Patient was ordered an x-ray per Dr. Packer. X-ray results showed significantly dilated small bowel loop in the upper abdomen suggestive of postoperative ileus Tube Decompression should be considered per the radiologist. Also showed postoperative pneumoperitoneum. Dr. Packer was called and he said he did not want to write any new orders. This was read back and verified. Will continue to monitor patient closely.
[2019-10-21] MEDS: FLUCONAZOLE 400MG/200ML BAG 200 ML IV SCH (10:38)
[2019-10-21] MEDS: INSULIN LISPRO 100 UNIT/1 ML 3ML VIAL SQ SCH ×4 (10:38→19:48)
[2019-10-21 12:00] VITALS: BP 133/72
[2019-10-21] MEDS ORDERED: MEROPENEM 1GRAM 1 GM in SODIUM CHLORIDE 0.9% 100 ML 100 ML IV SCH (12:45)
[2019-10-21] MEDS ORDERED: SODIUM CHLORIDE 0.9% 250ML 250 ML IV ONE (12:45)
[2019-10-21] MEDS ORDERED: FUROSEMIDE INJ 10 MG/ML 2 ML VIAL IV SCH (12:45)
[2019-10-21] MEDS ORDERED: DIPHENHYDRAMINE HCL INJ 50 MG/ML VIAL IV ONE (12:45)
[2019-10-21] MEDS: MEROPENEM 1GM 100 ML IV SCH ×2 (14:24→22:25)
[2019-10-21] MEDS ORDERED: SODIUM CHLORIDE 0.9% 50ML 50 ML ONE (15:52)
[2019-10-21] MEDS ORDERED: IOPAMIDOL 370 MG/ML 200 ML INFUS..BTL INJ ONE (15:52)
[2019-10-21] MEDS: FAMOTIDINE 20 MG TAB PO SCH (16:43)
[2019-10-21 17:15] VITALS: BP 138/83
--- NOTE | 2019-10-21 17:47 | Diagnostic Imaging Report ---
EXAM: CT Abdomen and Pelvis WITH intravenous contrast INDICATION: Persistent fever COMPARISON: CT abdomen and pelvis 10/14/2019 TECHNIQUE: Abdomen and pelvis were scanned utilizing a multidetector helical scanner from the lung base to the pubic symphysis after administration of IV contrast. Coronal and sagittal reformations were obtained. Routine protocol was performed. Scan was performed during portal venous phase. IV CONTRAST: 100mL of Isovue 370 ORAL CONTRAST: Gastrografin RADIATION DOSE: Total DLP: 640.9 mGy*cm Dose modulation, iterative reconstruction, and/or weight based adjustment of the mA/kV was utilized to reduce the radiation dose to as low as reasonably achievable. FINDINGS: LOWER THORAX: There are new bilateral small pleural effusions with associated atelectasis greater on the left. HEPATOBILIARY: No focal liver lesion. No biliary ductal dilation. Unremarkable gallbladder. SPLEEN: Mild splenomegaly to 14 cm. PANCREAS: No focal masses or ductal dilatation. ADRENALS: Mild left adrenal thickening. No focal adrenal nodules. KIDNEYS/URETERS: No hydronephrosis, stones, or solid mass lesions. GI TRACT: Status post distal colon resection and bowel anastomosis. There is new small bowel wall dilatation which could be due to ileus. Mildly prominent air-containing appendix measuring up to 8 mm without wall thickening. PERITONEUM / RETROPERITONEUM: Decreased free peritoneal air in the upper abdomen. Status post placement of drainage catheter adjacent to the fluid collection next to the rectal anastomosis (series 3, image 82) with slightly increased in extent of U shape collection containing air. Free fluid has increased in the abdomen and pelvis and is again seen surrounding the pigtail catheter. PELVIC ORGANS/BLADDER: A Vernon catheter is in place. Foci of air are seen in the bladder increased from prior exam.. LYMPH NODES: No lymphadenopathy. VESSELS: Scattered atherosclerotic calcifications of the nonaneurysmal abdominal aorta and major branches. BONES: Degenerative changes are seen in the spine. BONES AND SOFT TISSUES: Small foci of air in the anterior abdominal subcutaneous soft tissues. No focal soft tissue fluid collection. Surgical skin adolfo in place. IMPRESSION: 1. Status post placement of drainage catheter adjacent to the fluid collection next to the rectal anastomosis with slightly increased in extent of U shape collection containing air. Recommend consultation with interventional radiology. 2. New bilateral small pleural effusions with associated atelectasis greater on the left. 3. Interval increase in free fluid in the abdomen and pelvis. 4. New small bowel wall dilatation which could be due to ileus. 5. Decreased retroperitoneal and intraperitoneal postoperative air. Signed by: Binh Finnegan MD on 10/21/2019 5:44 PM
--- NOTE | 2019-10-21 19:40 | NUR ---
SPOKE TO THE PATHOLOGIST DR. DA SILVA. PATHOLOGIST SAID OK TO TRANSFUSE BLOOD. MD CALLED AND LEFT A MESSAGE TO DR. TANISHA ISAACS.
--- NOTE | 2019-10-21 20:42 | NUR ---
SPOKE TO DR. TANISHA ISAACS REGARDING BLOOD TRANSFUSION. VERIFIED THAT HE RECEIVED THE MESSAGE FROM PATHOLOGIST. SAID OK TO GIVE BLOOD, TO PREMEDICATE PATIENT WITH IV TYLENOL 1GM AND BENADRYL, CHECK HH AFTER 1ST UNIT AND HOLD 2ND UNIT IF HGB IS >9
[2019-10-21] MEDS ORDERED: ACETAMINOPHEN 1000 MG/100 ML IV ONE (21:00)
[2019-10-21 22:08] VITALS: BP 124/84
[2019-10-22] VITALS (7 sets, daily range): BP systolic 134–147; BP diastolic 71–84
[2019-10-22] MEDS ORDERED: SODIUM CHLORIDE 0.9% 250ML 250 ML ONE
--- NOTE | 2019-10-22 03:15 | NUR ---
T-TUBE FLUSHED WITH 10ML OF SALINE PER MD ORDER.
[2019-10-22] MEDS: HYDROMORPHONE 1MG/1ML INJ IV PRN ×5 (04:26→21:25)
[2019-10-22 06:45] LABS: BASOPHILS # (AUTO) 0.2 (0.0-0.1); BASOPHILS % 0.6 % (0.0-1.0); EOSINOPHILS # (AUTO) 0.2 (0.0-0.4); EOSINOPHILS % 0.6 % (0.0-6.0); HEMATOCRIT 26.7 % (38.2-49.6); HEMOGLOBIN 8.5 g/dL (14.0-18.0); LYMPHOCYTES # (AUTO) 1.2 (1.0-3.2); LYMPHOCYTES % 4.8 % (18.0-39.1); MEAN CORPUSCULAR HEMOGLOBIN 26.6 pg (28-32); MEAN CORPUSCULAR HGB CONC 31.8 g/dL (31-35); MEAN CORPUSCULAR VOLUME 83.7 fL (81-99); MONOCYTES # (AUTO) 1.7 (0.2-0.8); MONOCYTES % 6.7 % (4.4-11.3); NEUTROPHILS # (AUTO) 19.5 (2.1-6.9); NEUTROPHILS % 78.5 % (38.7-80.0); PLATELET COUNT 527 x10e3/uL (140-360); RED BLOOD COUNT 3.19 x10e6/uL (4.3-5.7); RED CELL DISTRIBUTION WIDTH 19.9 % (11.7-14.4)
[2019-10-22 07:06] LABS: ALANINE AMINOTRANSFERASE 7 IU/L (0-55); ALBUMIN 1.7 g/dL (3.5-5.0); ALBUMIN/GLOBULIN RATIO 0.4 (0.8-2.0); ALKALINE PHOSPHATASE 140 IU/L (40-150); ANION GAP 13.4 mmol/L (8-16); BLOOD UREA NITROGEN < 5 mg/dL (7-26); CARBON DIOXIDE 20 mmol/L (22-29); CHLORIDE 109 mmol/L (98-107); EST GLOMERULAR FILTRATION RATE > 60 ML/MIN (60-); GLUCOSE 80 mg/dL (74-118); MAGNESIUM 1.5 MG/DL (1.3-2.1); PHOSPHORUS 2.8 MG/DL (2.3-4.7); POTASSIUM 3.4 mmol/L (3.5-5.1); SODIUM 139 mmol/L (136-145)
[2019-10-22 07:08] LABS: BUN/CREATININE RATIO 8 (6-25)
[2019-10-22] MEDS: INSULIN LISPRO 100 UNIT/1 ML 3ML VIAL SQ SCH ×3 (07:30→16:30)
[2019-10-22 07:36] LABS: FERRITIN 701.02 ng/mL (21.81-274.66)
[2019-10-22 07:43] LABS: BAND NEUTROPHILS % (MANUAL) 1 %; LYMPHOCYTES % (MANUAL) 4 % (19-48); METAMYELOCYTES % (MANUAL) 1 % (0-0); MONOCYTES % (MANUAL) 3 % (3.4-9.0); NEUTROPHILS % (MANUAL) 89 % (40-74); NUCLEATED RED BLOOD CELLS 1; PLATELET ESTIMATE ADEQUATE; PLATELET MORPHOLOGY COMMENT NORMAL; RBC MORPHOLOGY COMMENT NORMAL
[2019-10-22] MEDS ORDERED: ACETAMINOPHEN 325 MG TAB PO STA (07:52)
[2019-10-22] MEDS ORDERED: DIPHENHYDRAMINE HCL INJ 50 MG/ML VIAL IV ONE (08:00)
[2019-10-22] MEDS ORDERED: SODIUM CHLORIDE 0.9% 250ML 250 ML IV ONE (08:00)
[2019-10-22] MEDS ORDERED: FUROSEMIDE INJ 10 MG/ML 2 ML VIAL IV PRN (08:00)
--- NOTE | 2019-10-22 08:00 | NUR ---
Patient had PRBC finish at 0400 and blood draw at 0630. Patient's HBG was 8.5. Surgery was called to inform them of the Hgb and Dr. Aguirre's order to given another unit of blood. The anesthesiologist requested that Dr. Aguirre be called to get another 2 units on standby for surgery. Dr. Aguirre ordered 2 more units to be put on hold if needed during surgery. Lab called and confirmed orders and said they would be sending the blood to the lab company to get an exact match. 1 more unit of blood will be given once patient returns from surgery if not given in surgery. Will continue to monitor.
[2019-10-22] MEDS: MEROPENEM 1GM 100 ML IV SCH ×2 (08:19→18:39)
[2019-10-22] MEDS: FAMOTIDINE 20 MG TAB PO SCH (08:19)
[2019-10-22] MEDS ORDERED: SODIUM CHLORIDE 0.9% 50ML 50 ML ONE (08:19)
[2019-10-22] MEDS: SENNOSIDES 8.6 MG TAB PO SCH ×2 (08:19→16:49)
[2019-10-22] MEDS ORDERED: FENTANYL CITRATE/PF 100MCG/2 ML INJ ONE ×3 (08:27→11:18)
[2019-10-22] MEDS ORDERED: POTASSIUM PHOSPHATE 20 MM in SODIUM CHLORIDE 0.9% 250ML 250 ML IV STA (08:27)
[2019-10-22] MEDS ORDERED: MIDAZOLAM HCL 2 MG/2 ML VIAL ONE (08:28)
[2019-10-22] MEDS ORDERED: MAGNESIUM SULFATE 2GM/50ML IV NR (08:30)
[2019-10-22] MEDS: FAMOTIDINE 20 MG/2 ML VIAL IV SCH ×3 (09:00→16:49)
--- NOTE | 2019-10-22 09:00 | NUR ---
Patient left with surgery nurses at 0855. Patient was AOx3 and had abdominal pain. Patient's was at bedside. Surgery was informed of diluadid given at 0830 and the Merrem going in IV. Surgery was informed of the 3 units of PRBC that are on standby. Patient had no other issues or complaints at this time.
[2019-10-22] MEDS ORDERED: SUGAMMADEX SODIUM 200 MG/2 ML VIAL IV ONE (09:48)
[2019-10-22] MEDS ORDERED: HYDROMORPHONE 1MG/1ML INJ ONE (10:59)
[2019-10-22 11:13] LABS: BASOPHILS # (AUTO) 0.2 (0.0-0.1); BASOPHILS % 0.7 % (0.0-1.0); HEMATOCRIT 30.1 % (38.2-49.6); HEMOGLOBIN 9.6 g/dL (14.0-18.0); LYMPHOCYTES # (AUTO) 1.8 (1.0-3.2); LYMPHOCYTES % 5.1 % (18.0-39.1); MEAN CORPUSCULAR HEMOGLOBIN 26.5 pg (28-32); MEAN CORPUSCULAR HGB CONC 31.9 g/dL (31-35); MEAN CORPUSCULAR VOLUME 83.1 fL (81-99); MONOCYTES # (AUTO) 1.6 (0.2-0.8); MONOCYTES % 4.6 % (4.4-11.3); NEUTROPHILS # (AUTO) 27.6 (2.1-6.9); NEUTROPHILS % 79.9 % (38.7-80.0); PLATELET COUNT 672 x10e3/uL (140-360); RED BLOOD COUNT 3.62 x10e6/uL (4.3-5.7); RED CELL DISTRIBUTION WIDTH 19.9 % (11.7-14.4)
--- NOTE | 2019-10-22 12:15 | Operative Report ---
DATE OF PROCEDURE: 10/22/2019 SURGEON: Brad Packer MD PREOPERATIVE DIAGNOSIS: Small bowel obstruction, pelvic abscess, colorectal fistula. 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 PROCEDURES: Exploratory laparotomy, lysis of adhesions with release of small bowel obstruction, drainage of pelvic abscess, creation of transverse colostomy. TRANSPORTATION MAINTENANCE WORKER: None. ANESTHESIA: General endotracheal. INDICATIONS AND FINDINGS: The patient is a 53-year-old male underwent surgery about 10 days ago for carcinoma of the rectum. He developed a pelvic collection, which was drained percutaneously, but then subsequent developed abdominal distention, large amount of fluid in the abdomen with not passing flatus. Finding workup suggested a small bowel obstruction as well as persistent pelvic abscess. At surgery, there was a small bowel obstruction with very dilated proximal bowel collapsed distal bowel caused by adhesions. Adhesion was on the left side of the abdomen. There was about a L of clear ascitic fluid within the peritoneal cavity. There was abscess in the pelvis to the right of the colorectal anastomosis, which contained approximately 30 mL of bilious fluid, which was drained. The area of the source of the fistula could not be identified, but omentum was placed into this space to hopefully seal off the fistula with a new larger drain placed. The bowel all appeared viable and there was no other abnormalities noted. TECHNIQUE: After adequate general endotracheal anesthesia, the patient in supine position, the abdomen was prepped and draped in a sterile fashion with ChloraPrep solution. The previous midline wound was opened and peritoneal cavity entered. There was a large amount of clear ascitic fluid, which was drained, about a L of fluid was drained. The small bowel all appeared viable. _There were adhesions involving the omentum, these were freed up, freeing the omentum completely. The incision was extended superiorly to provide adequate exposure. There was noted to be very dilated bowel proximally and this was dissected free. There was a point of transition in the distal jejunum. There were adhesions tethering the small bowel . These adhesions were lysed, freeing the bowel and relieving the obstruction. After this was done, the pelvis was examined. There were some fibrinous adhesions in this area with adherent small bowel also and omentum. This was freed up also was freed up from the adhesions and pelvic abscess entered, about 30 mL of bilious fluid was drained and the drain was noted in this area. All fluid was drained out. There was considerable edema in the area, the fistula could not be easily identified. Palpation did not reveal a defect. The anastomosis seemed to be intact. This area was irrigated with saline. A flap of omentum was then developed from the transverse colon such that it would easily reach the pelvis. It was brought down the right side of the abdomen and this omental flap placed into the abscess cavity in the pelvis. Held in place with sutures of 2-0 Vicryl. After this was placed, a 19-Urdu Erik drain was placed through a separate stab incision, also into the cavity in the pelvis. The peritoneal cavity irrigated with saline, inspected for hemostasis which was seen to be adequate. The right transverse colon was then mobilized so easily reached the abdominal wall. A native of skin was removed from the right upper quadrant and then carried down through subcutaneous tissue to the fascia was seen. The fascia was opened in cruciate fashion, muscle fiber split and posterior fascia opened down to the peritoneal cavity. Colon was delivered up into the wound easily came up into the side of the colostomy without any tension. Opening was made in the mesocolon and TL60 stapler was placed across the colon distal to the area where the colostomy was to be. The peritoneal cavity was inspected for hemostasis, which was seen to be adequate. It was irrigated with saline, all fluid aspirated. The midline fascia was closed with running suture of #1 PDS. Subcutaneous tissue was irrigated with saline. Skin was closed with adolfo. The colon was then _ matured. Sutures taken from the skin to the colon with interrupted sutures of 3-0 Vicryl and a colostomyappliance applied. Sterile dressing applied to the midline wound. The patient tolerated the procedure well. Estimated blood loss was 50 mL. There were no complications. All counts were correct. The patient was taken to the recovery room in satisfactory condition. MD SRINIVASAN George/VANCE /[id number] ADDIS
--- NOTE | 2019-10-22 12:34 | NUR ---
Patient returned from PACU at 1151. Patient has an NG tube on continuous low suction in his left nasal cavity, a midline incision, a colostomy, and a continuous IV going. Patient is AOx3. Patient denies any pain at this time. Patient was assessed with PACU nurse and this check writer at the bedside. Patient's Hbg levels were drawn after surgery at it was 9.3, Dr. Aguirre was called and this check writer left a message that no PRBC would be administered since the Hgb was above 9. Patient was started on STAT potassium. Will continue to monitor.
[2019-10-22 13:00] LABS: ANISOCYTOSIS SLIGHT; BAND NEUTROPHILS % (MANUAL) 3 %; ELLIPTOCYTE, RBC SLIGHT; EOSINOPHILS % (MANUAL) 2 % (0-7); LYMPHOCYTES % (MANUAL) 2 % (19-48); METAMYELOCYTES % (MANUAL) 7 % (0-0); MONOCYTES % (MANUAL) 3 % (3.4-9.0); NEUTROPHILS % (MANUAL) 83 % (40-74)
[2019-10-22 13:01] LABS: OVALOCYTES FEW; PLATELET ESTIMATE MODERATELY INCREASED; PLATELET MORPHOLOGY COMMENT NORMAL; RBC MORPHOLOGY COMMENT ABNORMAL; TOXIC GRANULATION SLIGHT
[2019-10-22] MEDS ORDERED: SEVOFLURANE INHAL SOLN 250 ML PEN BTL ONE (13:58)
[2019-10-22] MEDS ORDERED: DEXAMETHASONE SOD PHOS INJ 4 MG/ML VIAL ONE (13:58)
[2019-10-22] MEDS ORDERED: LIDOCAINE HCL 2% LOCAL INJ 5 ML SDV VIAL INJ ONE (13:58)
[2019-10-22] MEDS ORDERED: PROPOFOL IV EMULSION 10 MG/ML 20 ML VIAL ONE (13:58)
[2019-10-22] MEDS ORDERED: ACETAMINOPHEN 1000 MG/100 ML IV ONE (13:58)
[2019-10-22] MEDS ORDERED: ROCURONIUM BROMIDE 10 MG/ML 5ML VIAL IV ONE (13:58)
[2019-10-22] MEDS ORDERED: ONDANSETRON HCL INJ 2MG/ML 2ML 2 MG/ML VIAL ONE (13:58)
[2019-10-22] MEDS: SODIUM CHLORIDE 0.9% 250ML IRRIG IR SCH ×4 (14:45→22:22)
[2019-10-22] MEDS: FLUCONAZOLE 400MG/200ML BAG 200 ML IV SCH (16:06)
[2019-10-22] MEDS: SODIUM CHLORIDE 0.9% 1000ML 1,000 ML IV SCH ×2 (16:30→17:25)
--- NOTE | 2019-10-22 18:06 | NUR ---
Patient received a discharge order from Dr. Bernal. Patient was given referrals, continued and changed medications, and discussed his plan of care. Patient's IV was removed at 1735. Patient's IV was covered with a dry dressing. Patient was on his way to the door when Dr. Bernal stopped patient and asked that he wait until Dr. Sarabia comes by to see him. Patient is awaiting Dr. Sarabia in his room. Will continue to monitor. Addendum: 10/22/19 at 1809 by Sandrine Gonsalves RN Entered in error.
[2019-10-23] VITALS (8 sets, daily range): BP systolic 134–156; BP diastolic 70–83
[2019-10-23] MEDS: HYDROMORPHONE 1MG/1ML INJ IV PRN ×8 (00:28→23:10)
[2019-10-23] MEDS: MEROPENEM 1GM 100 ML IV SCH ×3 (01:40→16:25)
[2019-10-23] MEDS: SODIUM CHLORIDE 0.9% 1000ML 1,000 ML IV SCH ×4 (01:54→21:33)
[2019-10-23] MEDS: SODIUM CHLORIDE 0.9% 250ML IRRIG IR SCH ×6 (02:44→22:45)
--- NOTE | 2019-10-23 03:21 | NUR ---
T-TUBE FLUSHED PER MD ORDER.
[2019-10-23] MEDS: ONDANSETRON HCL INJ 2MG/ML 2ML 2 MG/ML VIAL IV PRN ×2 (04:20→18:44)
[2019-10-23] MEDS: INSULIN LISPRO 100 UNIT/1 ML 3ML VIAL SQ SCH ×4 (06:00→18:00)
[2019-10-23 06:21] LABS: BASOPHILS # (AUTO) 0.1 (0.0-0.1); BASOPHILS % 0.4 % (0.0-1.0); HEMATOCRIT 25.8 % (38.2-49.6); HEMOGLOBIN 8.1 g/dL (14.0-18.0); LYMPHOCYTES # (AUTO) 0.9 (1.0-3.2); LYMPHOCYTES % 3.2 % (18.0-39.1); MEAN CORPUSCULAR HEMOGLOBIN 26.6 pg (28-32); MEAN CORPUSCULAR HGB CONC 31.4 g/dL (31-35); MEAN CORPUSCULAR VOLUME 84.6 fL (81-99); MONOCYTES # (AUTO) 1.6 (0.2-0.8); MONOCYTES % 5.8 % (4.4-11.3); NEUTROPHILS # (AUTO) 23.3 (2.1-6.9); NEUTROPHILS % 83.8 % (38.7-80.0); PLATELET COUNT 558 x10e3/uL (140-360); RED BLOOD COUNT 3.05 x10e6/uL (4.3-5.7); RED CELL DISTRIBUTION WIDTH 20.8 % (11.7-14.4)
--- NOTE | 2019-10-23 06:36 | NUR ---
DR. MASCORRO DOING ROUNDS AT THIS TIME AND MADE HIM AWARE OF HGB 8.1, DR. MASCORRO SAID PATIENT DOES NOT NEED IT, DO NOT GIVE BLOOD.
[2019-10-23 06:37] LABS: ANION GAP 15.2 mmol/L (8-16); BLOOD UREA NITROGEN 6 mg/dL (7-26); BUN/CREATININE RATIO 9 (6-25); CALCIUM 7.6 mg/dL (8.4-10.2); CARBON DIOXIDE 17 mmol/L (22-29); CHLORIDE 110 mmol/L (98-107); CREATININE, SERUM 0.67 mg/dL (0.72-1.25); EST GLOMERULAR FILTRATION RATE > 60 ML/MIN (60-); GLUCOSE 139 mg/dL (74-118); POTASSIUM 4.2 mmol/L (3.5-5.1); SODIUM 138 mmol/L (136-145)
[2019-10-23 06:59] LABS: MAGNESIUM 1.6 MG/DL (1.3-2.1); PHOSPHORUS 3.4 MG/DL (2.3-4.7)
--- NOTE | 2019-10-23 07:25 | NUR ---
ASSUMED CARE. PT AWAKE AND ALERT. ACYANOTIC. RESTING IN BED WITH HOB ELEVATED. NO DISTRESS NOTED. CALL LIGHT IN REACH. SIDERAILS UP X2. FAMILY MEMBER AT BEDSIDE.
[2019-10-23] MEDS: SENNOSIDES 8.6 MG TAB PO SCH ×2 (09:00→16:25)
[2019-10-23] MEDS: FAMOTIDINE 20 MG/2 ML VIAL IV SCH ×2 (09:30→16:25)
--- NOTE | 2019-10-23 09:48 | NUR ---
MARTINA DRAIN REMOVED FROM POSTERIOR SIDE BY DR. MASCORRO.
[2019-10-23] MEDS ORDERED: MAGNESIUM SULFATE 2GM/50ML IV NR (10:30)
[2019-10-23] MEDS: FLUCONAZOLE 400MG/200ML BAG 200 ML IV SCH (11:23)
[2019-10-23] MEDS: IRON SUCROSE 200 MG in SODIUM CHLORIDE 0.9% 100 ML 100 ML IV SCH (13:49)
--- NOTE | 2019-10-23 14:58 | NUR ---
LATE ENTRY: MARTINA DRAIN TO POSTERIOR LOWER BACK AND NG TUBE DISCONTINUED BY DR. MASCORRO AT APPROXIMATELY 0930 THIS AM (10/23/19). NO DISTRESS NOTED.
--- NOTE | 2019-10-23 19:18 | NUR ---
REPORT RECEIVED BY ONCOMING NURSE. NO DISTRESS NOTED. PT AAOX3. RESTING IN BED WATCHING TELEVISION.
[2019-10-24] VITALS (8 sets, daily range): BP systolic 128–139; BP diastolic 70–76
[2019-10-24] MEDS: HYDROMORPHONE 1MG/1ML INJ IV PRN ×7 (02:18→23:00)
[2019-10-24 05:56] LABS: BASOPHILS # (AUTO) 0.1 (0.0-0.1); HEMATOCRIT 25.3 % (38.2-49.6); HEMOGLOBIN 8.2 g/dL (14.0-18.0); LYMPHOCYTES # (AUTO) 1.1 (1.0-3.2); MEAN CORPUSCULAR HEMOGLOBIN 26.8 pg (28-32); MEAN CORPUSCULAR HGB CONC 32.4 g/dL (31-35); MEAN CORPUSCULAR VOLUME 82.7 fL (81-99); MONOCYTES # (AUTO) 1.5 (0.2-0.8); NEUTROPHILS # (AUTO) 17.4 (2.1-6.9); PLATELET COUNT 587 x10e3/uL (140-360); RED BLOOD COUNT 3.06 x10e6/uL (4.3-5.7); RED CELL DISTRIBUTION WIDTH 20.7 % (11.7-14.4)
[2019-10-24] MEDS: INSULIN LISPRO 100 UNIT/1 ML 3ML VIAL SQ SCH ×5 (06:00→21:33)
[2019-10-24 06:16] LABS: ANION GAP 14.7 mmol/L (8-16); BLOOD UREA NITROGEN 5 mg/dL (7-26); BUN/CREATININE RATIO 8 (6-25); CALCIUM 7.6 mg/dL (8.4-10.2); CARBON DIOXIDE 22 mmol/L (22-29); CHLORIDE 104 mmol/L (98-107); EST GLOMERULAR FILTRATION RATE > 60 ML/MIN (60-); GLUCOSE 113 mg/dL (74-118); POTASSIUM 3.7 mmol/L (3.5-5.1); SODIUM 137 mmol/L (136-145)
[2019-10-24 06:33] LABS: MAGNESIUM 1.5 MG/DL (1.3-2.1); PHOSPHORUS 1.5 MG/DL (2.3-4.7)
[2019-10-24 07:49] LABS: BAND NEUTROPHILS % (MANUAL) 3 %; EOSINOPHILS % (MANUAL) 1 % (0-7); LYMPHOCYTES % (MANUAL) 11 % (19-48); METAMYELOCYTES % (MANUAL) 4 % (0-0); MONOCYTES % (MANUAL) 3 % (3.4-9.0); NEUTROPHILS % (MANUAL) 78 % (40-74)
[2019-10-24 07:50] LABS: ANISOCYTOSIS SLIGHT; HYPOCHROMASIA MODERATE
[2019-10-24 07:51] LABS: OVALOCYTES FEW; RBC MORPHOLOGY COMMENT ABNORMAL
[2019-10-24 07:52] LABS: PLATELET ESTIMATE MODERATELY INCREASED; PLATELET MORPHOLOGY COMMENT NORMAL
[2019-10-24] MEDS: FAMOTIDINE 20 MG/2 ML VIAL IV SCH ×2 (08:30→16:34)
[2019-10-24] MEDS: MEROPENEM 1GM 100 ML IV SCH ×4 (08:30→23:59)
--- NOTE | 2019-10-24 08:30 | NUR ---
PATIENT ASSESSED IN BED. AWAKE AND ALERT. DRESSING TO MIDLINE ABDOMEN C/D/I. MARTINA DRAIN TO BULB SUCTION WITH DARK RED DRAINAGE PRESENT. COLOSTOMY WITH PINK STOMA AND LIQUID GREEN STOOL PRESENT. ANDERSEN TO BEDSIDE DRAINAGE WITH DARK YELLOW URINE PRESENT. ABDOMEN SOFT TO PALPATION. SCD AND RANDY THOMASE ON. SEE CHART FOR DETAILS.
[2019-10-24] MEDS: SENNOSIDES 8.6 MG TAB PO SCH ×2 (08:31→16:34)
[2019-10-24] MEDS: FLUCONAZOLE 400MG/200ML BAG 200 ML IV SCH (10:58)
[2019-10-24] MEDS: SODIUM CHLORIDE 0.9% 1000ML 1,000 ML IV SCH ×2 (11:33→22:30)
[2019-10-24] MEDS: IRON SUCROSE 200 MG in SODIUM CHLORIDE 0.9% 100 ML 100 ML IV SCH (13:16)
[2019-10-24] MEDS ORDERED: ENOXAPARIN SOD INJ 40 MG/0.4 ML SYR SC ONE (19:30)
--- NOTE | 2019-10-24 19:32 | NUR ---
Patient received lying in bed. AAO x 4. Patient had no complaints of pain. Respirations even and non-labored. Safety measures in place. MARTINA drain, ileostomy bag and abdominal binder in place. Vernon catheter draining pale clear yellow urine. Patient instructed to call for assistance when needed. Call light within reach.
[2019-10-25] VITALS (7 sets, daily range): BP systolic 130–147; BP diastolic 73–79
[2019-10-25] MEDS: HYDROMORPHONE 1MG/1ML INJ IV PRN ×4 (02:15→20:15)
--- NOTE | 2019-10-25 03:47 | NUR ---
IV on left forearm infiltrated. Old IV removed with tip intact. New IV inserted in right hand 20G. Patient tolerated well.
[2019-10-25] MEDS: INSULIN LISPRO 100 UNIT/1 ML 3ML VIAL SQ SCH ×4 (05:43→18:00)
[2019-10-25 05:56] LABS: BASOPHILS # (AUTO) 0.1 (0.0-0.1); HEMATOCRIT 25.6 % (38.2-49.6); HEMOGLOBIN 8.2 g/dL (14.0-18.0); MEAN CORPUSCULAR HEMOGLOBIN 26.5 pg (28-32); MEAN CORPUSCULAR VOLUME 82.8 fL (81-99); MONOCYTES # (AUTO) 1.4 (0.2-0.8); PLATELET COUNT 555 x10e3/uL (140-360); RED BLOOD COUNT 3.09 x10e6/uL (4.3-5.7); RED CELL DISTRIBUTION WIDTH 20.1 % (11.7-14.4)
[2019-10-25 06:19] LABS: ANION GAP 10.6 mmol/L (8-16); BLOOD UREA NITROGEN < 5 mg/dL (7-26); CALCIUM 7.7 mg/dL (8.4-10.2); CARBON DIOXIDE 26 mmol/L (22-29); CHLORIDE 101 mmol/L (98-107); CREATININE, SERUM 0.55 mg/dL (0.72-1.25); EST GLOMERULAR FILTRATION RATE > 60 ML/MIN (60-); GLUCOSE 114 mg/dL (74-118); POTASSIUM 3.6 mmol/L (3.5-5.1); SODIUM 134 mmol/L (136-145)
[2019-10-25 06:21] LABS: BUN/CREATININE RATIO 9 (6-25)
[2019-10-25] MEDS: SODIUM CHLORIDE 0.9% 1000ML 1,000 ML IV SCH ×3 (06:56→23:26)
--- NOTE | 2019-10-25 07:00 | NUR ---
Patient resting comfortably. Bed-side report given to oncoming nurse.
[2019-10-25] MEDS: SENNOSIDES 8.6 MG TAB PO SCH ×2 (08:05→17:00)
[2019-10-25] MEDS: FAMOTIDINE 20 MG/2 ML VIAL IV SCH ×2 (08:14→17:00)
[2019-10-25] MEDS: MEROPENEM 1GM 100 ML IV SCH ×2 (08:14→16:00)
[2019-10-25 08:56] LABS: LYMPHOCYTES % (MANUAL) 5 % (19-48); MONOCYTES % (MANUAL) 3 % (3.4-9.0); MYELOCYTES % (MANUAL) 1 % (0-0); NEUTROPHILS % (MANUAL) 91 % (40-74)
[2019-10-25 08:57] LABS: ANISOCYTOSIS MODERATE
[2019-10-25 08:58] LABS: HYPOCHROMASIA SLIGHT; OVALOCYTES FEW; POLYCHROMASIA FEW
[2019-10-25 08:59] LABS: ELLIPTOCYTE, RBC SLIGHT
[2019-10-25 09:00] LABS: PLATELET ESTIMATE MODERATELY INCREASED; PLATELET MORPHOLOGY COMMENT FEW EDTA CLUMPING
[2019-10-25 09:01] LABS: RBC MORPHOLOGY COMMENT ABNORMAL
[2019-10-25] MEDS: FLUCONAZOLE 400MG/200ML BAG 200 ML IV SCH (09:55)
[2019-10-25] MEDS: IRON SUCROSE 200 MG in SODIUM CHLORIDE 0.9% 100 ML 100 ML IV SCH (11:00)
[2019-10-25] MEDS: KETOROLAC TROMETHAMINE 30 MG/ML VIAL IV SCH ×2 (11:38→18:00)
--- NOTE | 2019-10-25 14:45 | NUR ---
WOUND CARE CONSULT FOR NEW OSTOMY TEACHING WILL FOLLOW UP TOMORROW WITH HANDOUTS PATIENT WAS MEDICATED FOR INCREASED PAIN AT THIS TIME Addendum: 10/25/19 at 1446 by Anurag Walton RN Amended: Links added.
[2019-10-25] MEDS: ENOXAPARIN SOD INJ 40 MG/0.4 ML SYR SC SCH (17:00)
--- NOTE | 2019-10-25 17:29 | NUR ---
Nutrition Intervention Note RD Recommendation(s) for Physician: -Recommend adding GI soft to current 1800 ADA diet restrictions -Recommend changing supplement to Glucerna Shake TID Plan of Care: RD following, monitoring for tolerance and adequacy. Nutrition reason for involvement: follow up RD Assessment 10/24: Follow up. Pt reports tolerating diet, advanced this am from clear liquids. Pt tolerating Ensure Clear, amenable to supplement being changed with diet advancement. Food preferences obtained. Pt denies any N/V, reports passing gas since surgery. Pt with no questions or concerns at this time. Chart reviewed. Will continue to monitor. 10/19: Follow up. Pt is now on a full liquid diet and mentioned he is consuming about 50% of his meals. Pt continues to experience pain. Pt was interested in trying Ensure pudding and Ensure Enlive for added nutrition. Pt had a BM today. Pt did not have any questions at time of visit. Will continue to monitor. 10/16: 53 YOM admitted for carcinoma recto sigmoid colon with PMH listed below. Pt was seen resting in bed. He reported that his appetite was stable prior to admission as well as his weight, per pt he is usually 150-160 lbs suggesting no weight loss recently. Pt underwent laparoscopic-assisted anterior resection of the rectosigmoid colon on October 10. Per EMR pt has been NPO/clear liquids since 10/10. Pt is on clears currently, recommend Ensure clear to ensure the pt is meeting calorie and protein needs. Pt reports he is tolerating the liquids, but is just experiencing pain which is causing him to have a poor appetite. Pt reported some N/V, and has not had BM yet/ Pt denied chewing or swallowing issues as well as any food allergies. Will continue to monitor. Principal Problems/Diagnoses: carcinoma recto sigmoid colon PMH: colorectal cancer, diabetes mellitus, on chemotherapy. GI: small output per new ostomy 10/23 and 10/24 Skin: abdominal incision Labs: 10/24: Na 134, K 3.6, BUN <5, Cr 0.55, Gluc 114, POC Gluc 107-335 10/19: K 3.3 Creat 0.57, Glu 124, Ca 8.0 10/16: Cl 108, CO2 20 Meds: dilaudid, IV Fe, lasix, pepcid, lispro, zofran, senokot IV: NS at 100 ml/hr Ht: 67 in Wt: 179 lbs (10/17) 180 lbs (10/16) BMI: 28.0 kg/m^2 IBW: 148 lbs Malnutrition Evaluation (10/16) The patient does not meet criteria for a specified degree of malnutrition at this time. Will re-evaluate at follow-up as appropriate. Energy intake: <50% of estimated energy requirements for >5 days Weight loss: None Fat loss: none Muscle loss: none Nutrition Prescription (Diet Order): 1800 ADA Estimated Nutritional Needs: Calories: 1888-8885 kcal/day (18-22 kcal/kg/day) Weight used : 180 lbs (82 kg) Protein : 82-123 protein/day (1-1.5 gram/kg/day ) Weight used: 180 lbs (82 kg) Diet Adequacy: Not meeting calorie needs, Not meeting protein needs Diet Education Needs Assessment: Diet education not indicated, patient on temporary/transition diet. Nutrition Care Level: moderate Nutrition Diagnosis: Inadequate energy intake related to medical condition as evidenced by the pt being NPO/ clear liquids for 6 days. Goal: Patient will meet 75-100% of estimated needs by follow up Progress: progressing Interventions: -fiber modified diet, Commercial beverage, collaboration with other providers, recommend modifications Monitoring/Evaluation: -Total energy intake, Total protein intake, Modified diet, Liquid supplement, Weight change Signed: Allyn Aguirre RD, [place], [facility]
[2019-10-25] MEDS ORDERED: FUROSEMIDE INJ 10 MG/ML 2 ML VIAL IV SCH (18:30)
[2019-10-26] VITALS (8 sets, daily range): BP systolic 134–146; BP diastolic 67–79
[2019-10-26] MEDS: KETOROLAC TROMETHAMINE 30 MG/ML VIAL IV SCH ×3 (00:03→11:51)
[2019-10-26] MEDS: MEROPENEM 1GM 100 ML IV SCH ×3 (00:03→16:50)
--- NOTE | 2019-10-26 00:47 | NUR ---
PATIENT AMBULATING IN HALLWAY AT THIS TIME WITH STAFF STANDBY ASSIST. STEADY, SLOW GAIT NOTED.
[2019-10-26] MEDS: HYDROMORPHONE 1MG/1ML INJ IV PRN ×5 (00:59→22:04)
[2019-10-26 05:56] LABS: HEMATOCRIT 25.8 % (38.2-49.6); HEMOGLOBIN 8.1 g/dL (14.0-18.0); MEAN CORPUSCULAR HEMOGLOBIN 26.4 pg (28-32); MEAN CORPUSCULAR HGB CONC 31.4 g/dL (31-35); NEUTROPHILS # (AUTO) 15.7 (2.1-6.9); PLATELET COUNT 601 x10e3/uL (140-360); RED BLOOD COUNT 3.07 x10e6/uL (4.3-5.7); RED CELL DISTRIBUTION WIDTH 20.1 % (11.7-14.4)
[2019-10-26] MEDS: INSULIN LISPRO 100 UNIT/1 ML 3ML VIAL SQ SCH ×5 (06:00→21:00)
[2019-10-26 06:03] LABS: ANION GAP 11.6 mmol/L (8-16); BLOOD UREA NITROGEN < 5 mg/dL (7-26); CALCIUM 7.5 mg/dL (8.4-10.2); CARBON DIOXIDE 28 mmol/L (22-29); CHLORIDE 101 mmol/L (98-107); CREATININE, SERUM 0.62 mg/dL (0.72-1.25); EST GLOMERULAR FILTRATION RATE > 60 ML/MIN (60-); GLUCOSE 111 mg/dL (74-118); POTASSIUM 3.6 mmol/L (3.5-5.1); SODIUM 137 mmol/L (136-145)
[2019-10-26 06:04] LABS: BUN/CREATININE RATIO 8 (6-25)
--- NOTE | 2019-10-26 06:55 | NUR ---
ANDERSEN D/C PER ORDERS. 10 ML REMOVED FROM BALLOON. CATHETER TIP INTACT. PATIENT TOLERATED WELL. DUE TO VOID AT 1230.
--- NOTE | 2019-10-26 07:19 | NUR ---
REPORT GIVEN TO ONCOMING NURSE. NO SIGNS OF IV INFILTRATION. BED LOCKED AND IN LOW POSITION. CALL LIGHT WITHIN REACH. RESTING IN BED.
[2019-10-26] MEDS: SENNOSIDES 8.6 MG TAB PO SCH ×2 (08:01→16:50)
[2019-10-26] MEDS: FAMOTIDINE 20 MG/2 ML VIAL IV SCH ×2 (08:14→16:50)
--- NOTE | 2019-10-26 11:42 | NUR ---
WOUND CARE CONSULT FOR 53 YO MALE HX OFILLIOSTOMY PLACEMENT /REVISION JONES 19 ON CONSERVATIVE PUP STATUS AND INTERVENTIONS AND ALTERNATING PRESSURE MATTRESS LABS: WBC-19.44 HGB_8.2 GLUCOSE-114 SKIN ASSESSMENT COMPLETE PATIENT PRESENTS WITH MIDLINE INCISION AND MARTINA DRAIN POST OPERATIVE ORDERS IN PLACE CONSULT FOR NEW OSTOMY TEACHING . PATIENT GIVEN HANDOUTS AND EXPLANATION WITH DEMONSTRATION OF APPLIANCE CHANGE , PATIENT MANIPULATES POUCH AND CLIP ON ONE PIECE APPLIANCE AND DEMONSTRATES PROPPER CLIP APPLICATION PLANNED FOLLOW VISIT UP TOMORROW TO ANSWER ANY QUESTIONS RELATED TO HANDOUTS RECOMMENDATIONS: NURSING TO CONTINUE TO MAINTAIN CONSERVATIVE PUP STATUS AND INTERVENTIONS AND ALTRNATING PRESSURE MATTRESS NURSING TO CONTINUE TO ASSIST PATIENT OUT OF BED FOR MEALS AND MUCH TOLERATED NURSING TO CONTINUE TO ASSIST PATIENT NEEDED WITH MEALS AND NUTRITIONAL SUPPLEMENTS TO ENSURE PROPER REQUIREMENTS FOR HEALING NURSING TO CONTINUE TO OFFLOAD FEET AND HEELS NEEDED WITH PILLOW SUSPENSION WHEN IN BED NURSING TO CLEAN_PERI OSTOMY APPLIANCE WITH NORMAL SALINE DAILY AND NEEDED LEAVE APPLIANCE IN PLACE UNLESS BREAKTHROUGH DRAINAGE NOTED REYMUNDO APPLIANCE EDGES AT THIS TIME STOMA MEASUREMENT IS 38MM BRIGHT PINK AND RAISED Addendum: 10/26/19 at 1151 by Anurag Walton RN Amended: Links added.
[2019-10-26] MEDS: FLUCONAZOLE 400MG/200ML BAG 200 ML IV SCH (11:51)
[2019-10-26] MEDS: IRON SUCROSE 200 MG in SODIUM CHLORIDE 0.9% 100 ML 100 ML IV SCH (11:51)
[2019-10-26] MEDS: ENOXAPARIN SOD INJ 40 MG/0.4 ML SYR SC SCH (16:50)
[2019-10-26] MEDS: KETOROLAC TROMETHAMINE 30 MG/ML VIAL IV PRN (20:57)
[2019-10-27] VITALS (8 sets, daily range): BP systolic 122–137; BP diastolic 61–83
[2019-10-27] MEDS: MEROPENEM 1GM 100 ML IV SCH ×3 (00:57→16:35)
[2019-10-27] MEDS: HYDROMORPHONE 1MG/1ML INJ IV PRN ×4 (00:59→20:00)
[2019-10-27] MEDS: INSULIN LISPRO 100 UNIT/1 ML 3ML VIAL SQ SCH ×4 (07:30→21:00)
[2019-10-27] MEDS: SODIUM CHLORIDE 0.9% 1000ML 1,000 ML IV SCH (08:40)
[2019-10-27] MEDS: FAMOTIDINE 20 MG/2 ML VIAL IV SCH ×2 (08:53→16:35)
[2019-10-27] MEDS: SENNOSIDES 8.6 MG TAB PO SCH ×2 (08:53→16:35)
[2019-10-27] MEDS: IRON SUCROSE 200 MG in SODIUM CHLORIDE 0.9% 100 ML 100 ML IV SCH (12:43)
--- NOTE | 2019-10-27 13:06 | NUR ---
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
[2019-10-27] MEDS: ENOXAPARIN SOD INJ 40 MG/0.4 ML SYR SC SCH (16:35)
--- NOTE | 2019-10-27 19:22 | NUR ---
WALKING ROUNDS COMPLETE, REPORT GIVEN TO ONCOMING NURSE.
[2019-10-27] MEDS: ACETAMINOPHEN 325 MG TAB PO PRN (21:10)
[2019-10-28] MEDS: HYDROMORPHONE 1MG/1ML INJ IV PRN ×3 (00:08→06:35)
[2019-10-28] MEDS: MEROPENEM 1GM 100 ML IV SCH ×2 (00:08→08:14)
[2019-10-28 00:28] VITALS: BP 125/69
[2019-10-28] MEDS: SODIUM CHLORIDE 0.9% 1000ML 1,000 ML IV SCH (02:15)
[2019-10-28 04:00] VITALS: BP 143/79
[2019-10-28 05:24] LABS: BASOPHILS % 0.2 % (0.0-1.0); HEMATOCRIT 24.7 % (38.2-49.6); HEMOGLOBIN 7.7 g/dL (14.0-18.0); LYMPHOCYTES % 5.2 % (18.0-39.1); MEAN CORPUSCULAR HEMOGLOBIN 26.9 pg (28-32); MEAN CORPUSCULAR HGB CONC 31.2 g/dL (31-35); MEAN CORPUSCULAR VOLUME 86.4 fL (81-99); MONOCYTES # (AUTO) 1.5 (0.2-0.8); NEUTROPHILS # (AUTO) 15.5 (2.1-6.9); NEUTROPHILS % 84.3 % (38.7-80.0); PLATELET COUNT 738 x10e3/uL (140-360); RED BLOOD COUNT 2.86 x10e6/uL (4.3-5.7); RED CELL DISTRIBUTION WIDTH 20.6 % (11.7-14.4)
[2019-10-28 05:42] LABS: ANION GAP 7.9 mmol/L (8-16); BLOOD UREA NITROGEN < 5 mg/dL (7-26); BUN/CREATININE RATIO 8 (6-25); CALCIUM 7.2 mg/dL (8.4-10.2); CARBON DIOXIDE 28 mmol/L (22-29); CHLORIDE 102 mmol/L (98-107); CREATININE, SERUM 0.65 mg/dL (0.72-1.25); EST GLOMERULAR FILTRATION RATE > 60 ML/MIN (60-); GLUCOSE 151 mg/dL (74-118); POTASSIUM 3.9 mmol/L (3.5-5.1); SODIUM 134 mmol/L (136-145)
[2019-10-28] MEDS: ONDANSETRON HCL INJ 2MG/ML 2ML 2 MG/ML VIAL IV PRN (07:45)
--- NOTE | 2019-10-28 07:46 | NUR ---
DR MASCORRO IN TO MAKE ROUNDS, MARTINA DRAIN REMOVED, DRESSING OVER ABDOMEN REMOVED AND OPEN TO AIR, COLOSTOMY IN PLACE, PT COMPLAIN OF NAUSEA
[2019-10-28] MEDS: FAMOTIDINE 20 MG/2 ML VIAL IV SCH (08:14)
[2019-10-28] MEDS: SENNOSIDES 8.6 MG TAB PO SCH (08:14)
[2019-10-28] MEDS: INSULIN LISPRO 100 UNIT/1 ML 3ML VIAL SQ SCH ×2 (08:16→11:30)
--- NOTE | 2019-10-28 08:18 | Discharge Summary ---
ADMISSION DIAGNOSES: Carcinoma of the sigmoid colon, carcinoma of the rectum. DISCHARGE DIAGNOSES: Carcinoma of the sigmoid colon, carcinoma of the rectum. PRINCIPAL PROCEDURE: 1. Laparoscopic-assisted low anterior resection of rectosigmoid colon with coloproctostomy. 2. Exploratory laparotomy with lysis of adhesions, release of small-bowel obstruction, drainage of pelvic abscess and transverse colostomy. HISTORY OF PRESENT ILLNESS: The patient is a 53-year-old male, who was found to have carcinoma of the sigmoid colon as well as a small carcinoma of the rectum. He was treated with neoadjuvant chemotherapy with some reduction in the size of the tumor. HOSPITAL COURSE: The patient was admitted to the hospital same day surgery, underwent laparoscopic-assisted low anterior resection of rectosigmoid colon with coloproctostomy. The patient was stable initially postop, but developed some lower abdominal pain, found to have urinary retention and required Vernon catheter, but also had a fluid collection in the pelvis. He had CT-guided drainage, which revealed feculent fluid. This was drained and he seemed to slowly improve, but then he developed signs of persistent abdominal pain, also findings suggestive of small-bowel obstruction. He was returned to surgery on 10/22/2019, where he was found to have small bowel obstruction which was treated with lysis of adhesions. Also there was a pelvic abscess which was drained probably due to a fistula but the actual fistulous opening could not be identified, so a transverse colostomy was done also. Postoperatively, the patient improved after this, started on diet, he tolerated without problem. Colostomy was functioning. He was out of bed ambulating. Vital signs remained normal. He was afebrile. His white blood count also came down from 28,000 to 18,000. He was discharged home on 10/28/2019. At time of discharge, he was afebrile. Wound was clean, tolerating diet. Discharge medications were Lorenzo and p.o. antibiotics. He will follow up with Dr. Packer in 5-7 days after discharge. Drain was removed prior to discharge as there was only 5 mL output for 24 hours. He was sent home in satisfactory condition on a regular diabetic diet. MD SRINIVASAN George/VANCE /[id number]
[2019-10-28 08:30] VITALS: BP 160/81
[2019-10-28 08:39] VITALS: BP 160/81
[2019-10-28] MEDS: KETOROLAC TROMETHAMINE 30 MG/ML VIAL IV PRN (10:49)
--- NOTE | 2019-10-28 11:26 | NUR ---
SPOKE WITH [facility] TO DISCHARGE HOME, FOLLOW UP WITH PRIMARY CARE PHYSICIAN AND DR BOLDEN AND ONCOLOGIST AND DR MASCORRO
[2019-10-28] MEDS ORDERED: NORCO 5-325 TA1 EACH PO (11:59)
[2019-10-28] MEDS ORDERED: CIPRO500 MG PO (12:00)
[2019-10-28] MEDS ORDERED: FLAGYL250 MG PO (12:00)
[2019-10-28] MEDS ORDERED: DIFLUCAN200 MG PO (12:01)
--- NOTE | 2019-10-28 12:31 | NUR ---
IV DC'D TIP INTACT, PT WAS GOING TO GET DRESSED AND GET BELONGINGS TOGETHER, WAS CALLED FOR PICKUP
--- NOTE | 2019-10-28 12:34 | NUR ---
PT DC'D HOME, TAKEN OUT BY WHEELCHAIR IN STABLE CONDITION, TAKEN HOME BY IN PRIVATE CAR
[2019-10-28] MEDS ORDERED: ONDANSETRON HCL 4 MG ORAL DISINTEGRATING TAB PO PRN (13:00)
[2019-10-28] MEDS ORDERED: FAMOTIDINE 20 MG TAB PO SCH (16:30)
== END 2019-10-28 13:00 | disposition home or self-care (01) | DRG 330 ==
LOC: OR 07:01 → PACU V 15:23 → MED/SURG 16:14
PROVIDERS: ADMIT Surgery; ATTEND Surgery
PROC: 0DBP0ZZ Excision of Rectum, Open Approach (ICD-10-PCS; 2019-10-11)
PROC: 0D1N0ZP Bypass Sigmoid Colon to Rectum, Open Approach (ICD-10-PCS; 2019-10-11)
PROC: 0DBN0ZZ Excision of Sigmoid Colon, Open Approach (ICD-10-PCS; principal; 2019-10-11 10:15)
PROC: 0D9P30Z Drainage of Rectum with Drainage Device, Percutaneous Approach (ICD-10-PCS; 2019-10-15)
PROC: 0W9J0ZZ Drainage of Pelvic Cavity, Open Approach (ICD-10-PCS; 2019-10-22)
PROC: 0D1L074 Bypass Transverse Colon to Cutaneous with Autologous Tissue Substitute, Open Approach (ICD-10-PCS; 2019-10-22)
PROC: 0DN80ZZ Release Small Intestine, Open Approach (ICD-10-PCS; 2019-10-22)
PROC: 30233N1 Transfusion of Nonautologous Red Blood Cells into Peripheral Vein, Percutaneous Approach (ICD-10-PCS; 2019-10-22)
DX: C19 Malignant neoplasm of rectosigmoid junction (principal); K56.50 Intestinal adhesions [bands], unspecified as to partial versus complete obstruction; K63.2 Fistula of intestine; K56.7 Ileus, unspecified; K91.89 Other postprocedural complications and disorders of digestive system; B37.89 Other sites of candidiasis; K68.11 Postprocedural retroperitoneal abscess; D63.0 Anemia in neoplastic disease; Z82.49 Family history of ischemic heart disease and other diseases of the circulatory system; Z83.3 Family history of diabetes mellitus; Z84.89 Family history of other specified conditions; I10 Essential (primary) hypertension; E78.5 Hyperlipidemia, unspecified; E11.65 Type 2 diabetes mellitus with hyperglycemia; L29.9 Pruritus, unspecified; R33.9 Retention of urine, unspecified; D47.3 Essential (hemorrhagic) thrombocythemia; R53.81 Other malaise; B96.5 Pseudomonas (aeruginosa) (mallei) (pseudomallei) as the cause of diseases classified elsewhere
CPT/HCPCS: 36415; 49406; 74019; 74177; 74470; 80048; 80053; 80202; 82607; 82728; 82746; 82948; 83540; 83735; 84100; 84466; 85007; 85014; 85018; 85025; 85027; 85610; 86850; 86870; 86880; 86900; 86905; 86920; 86922; 87040; 87070; 87071; 87075; 87186; 87205; 88112; 88305; 88309; 88342; 89051; 93005; 96361; 96372; 99001; 99251; J0692; J0694; J1100; J1170; J1200; J1450; J1650; J1756; J1885; J1940; J2001; J2185; J2250; J2405; J2543; J2710; J3010; J3370; J7030; J7050; P9016; Q9967

== ENCOUNTER → 2019-12-08 | Day surgery (SDC) | payer BC, OTHER ==
[2019-12-05 12:15] LABS: BASOPHILS # (AUTO) 0.1 (0.0-0.1); BASOPHILS % 0.7 % (0.0-1.0); EOSINOPHILS # (AUTO) 0.7 (0.0-0.4); EOSINOPHILS % 6.9 % (0.0-6.0); HEMATOCRIT 30.6 % (38.2-49.6); HEMOGLOBIN 9.5 g/dL (14.0-18.0); LYMPHOCYTES # (AUTO) 1.7 (1.0-3.2); LYMPHOCYTES % 16.3 % (18.0-39.1); MEAN CORPUSCULAR HEMOGLOBIN 27.6 pg (28-32); MONOCYTES % 9.6 % (4.4-11.3); NEUTROPHILS # (AUTO) 6.4 (2.1-6.9); NEUTROPHILS % 63.1 % (38.7-80.0); PLATELET COUNT 207 x10e3/uL (140-360); RED BLOOD COUNT 3.44 x10e6/uL (4.3-5.7); RED CELL DISTRIBUTION WIDTH 18.3 % (11.7-14.4)
[2019-12-05 12:42] LABS: ANION GAP 13.3 mmol/L (8-16); BLOOD UREA NITROGEN 15 mg/dL (7-26); BUN/CREATININE RATIO 19 (6-25); CALCIUM 9.2 mg/dL (8.4-10.2); CARBON DIOXIDE 19 mmol/L (22-29); CHLORIDE 113 mmol/L (98-107); CREATININE, SERUM 0.77 mg/dL (0.72-1.25); EST GLOMERULAR FILTRATION RATE > 60 ML/MIN (60-); GLUCOSE 121 mg/dL (74-118); POTASSIUM 4.3 mmol/L (3.5-5.1); SODIUM 141 mmol/L (136-145)
[~2019-12-08] MED LIST changes: +BUPIVACAINE 0.5%/EPI 30 ML SDV INJ ONE; +CEFOXITIN 1GM/ D5W 50ML 100 ML IV ONE; +CIPRO500 MG PO; +DEXAMETHASONE SOD PHOS INJ 4 MG/ML VIAL ONE; +DIFLUCAN200 MG PO; +FLAGYL250 MG PO; +HYDROMORPHONE 1MG/1ML INJ ONE; +IBUPROFEN400 MG PO; +KETOROLAC TROMETHAMINE 30 MG/ML VIAL ONE; +LIDOCAINE HCL 2% LOCAL INJ 5 ML SDV VIAL INJ ONE; +LISINOPRIL-HCT1 EAC1 PO; +MEPERIDINE HCL INJ 25 MG/ML VIAL ONE; +NORCO 5-325 TA1 EACH PO; +ONDANSETRON HCL INJ 2MG/ML 2ML 2 MG/ML VIAL ONE; +PROPOFOL IV EMULSION 10 MG/ML 20 ML VIAL ONE; +SEVOFLURANE INHAL SOLN 250 ML PEN BTL ONE
[2019-12-08 14:35] VITALS: BP 118/74
--- NOTE | 2019-12-08 15:43 | Operative Report ---
DATE OF PROCEDURE: 12/08/2019 SURGEON: Brad Packer MD PREOPERATIVE DIAGNOSIS: Rectal fistula, status post coloproctostomy. POSTOPERATIVE DIAGNOSIS: Rectal fistula, status post coloproctostomy. PROCEDURES: Rigid proctoscopy, transanal closure of rectal fistula. ROSE GRADING SUPERVISOR: None. ANESTHESIA: General. INDICATIONS AND FINDINGS: The patient is a 54-year-old male, who about 2 months ago underwent surgery for colorectal cancer. He developed a fistula from the rectum, had a colostomy done. At Surgery, there was found to be a fistulous opening to the right of the anastomosis, the opening being about 1.5 cm. At the end of procedure, the opening was suture closed, but the anastomosis was still patent. TECHNIQUE: After adequate general anesthesia, the patient in lithotomy position, the patient first had rigid proctoscopy to 10 cm, where the anastomosis was seen to be patent and just to the right of the anastomosis open area could be seen, which was about 1.5 cm. The perianal area was then prepped and draped in a sterile fashion with Betadine solution. Anoscope was introduced, the area of the fistula was palpable and then visible, this was then closed with interrupted sutures of 2-0 Vicryl. Care was taken not to narrow the anastomosis. Once the fistula was closed, exam revealed the anastomosis to be patent while the fistula was no longer could be seen and was not palpable. The rectum was irrigated with saline, inspected for hemostasis, which was seen to be adequate. The anoscope was then removed. The proctoscope was then removed. The patient tolerated the procedure well. Estimated blood loss was 15 mL. There were no complications. All counts were correct. The patient was taken to the recovery room in satisfactory condition. Brad Packer MD DWG/MODL /[id number]
== END | disposition home or self-care (01) ==
LOC: OR 11:20
PROVIDERS: ATTEND Surgery
DX: K60.4 Rectal fistula (principal); Z98.890 Other specified postprocedural states; Z85.038 Personal history of other malignant neoplasm of large intestine; Z93.3 Colostomy status; I10 Essential (primary) hypertension; E11.9 Type 2 diabetes mellitus without complications; Z01.812 Encounter for preprocedural laboratory examination; Z11.59 Encounter for screening for other viral diseases; Z79.84 Long term (current) use of oral hypoglycemic drugs; Z92.3 Personal history of irradiation; Z92.21 Personal history of antineoplastic chemotherapy
CPT/HCPCS: 36415 ×2; 45999; 80048; 82948; 85025; 87635; J1100; J1170; J1885; J2001; J2175; J2405; J2704

== ENCOUNTER 2020-02-14 10:31 | Inpatient (IN) | payer BC, OTHER ==
[2020-02-09 13:40] LABS: BASOPHILS # (AUTO) 0.1 (0.0-0.1); BASOPHILS % 0.6 % (0.0-1.0); HEMATOCRIT 40.2 % (38.2-49.6); HEMOGLOBIN 12.8 g/dL (14.0-18.0); LYMPHOCYTES # (AUTO) 1.4 (1.0-3.2); LYMPHOCYTES % 15.4 % (18.0-39.1); MEAN CORPUSCULAR HEMOGLOBIN 29.2 pg (28-32); MEAN CORPUSCULAR HGB CONC 31.8 g/dL (31-35); MEAN CORPUSCULAR VOLUME 91.8 fL (81-99); MONOCYTES # (AUTO) 0.8 (0.2-0.8); MONOCYTES % 9.5 % (4.4-11.3); NEUTROPHILS # (AUTO) 6.5 (2.1-6.9); NEUTROPHILS % 73.4 % (38.7-80.0); PLATELET COUNT 264 x10e3/uL (140-360); RED BLOOD COUNT 4.38 x10e6/uL (4.3-5.7); RED CELL DISTRIBUTION WIDTH 14.7 % (11.7-14.4)
[2020-02-09 14:07] LABS: ANION GAP 13.1 mmol/L (8-16); BLOOD UREA NITROGEN 17 mg/dL (7-26); BUN/CREATININE RATIO 17 (6-25); CALCIUM 9.2 mg/dL (8.4-10.2); CARBON DIOXIDE 21 mmol/L (22-29); CHLORIDE 109 mmol/L (98-107); CREATININE, SERUM 0.99 mg/dL (0.72-1.25); EST GLOMERULAR FILTRATION RATE > 60 ML/MIN (60-); GLUCOSE 104 mg/dL (74-118); POTASSIUM 5.1 mmol/L (3.5-5.1); SODIUM 138 mmol/L (136-145)
[~2020-02-14] VITALS: Ht 170.2 cm; Wt 78.5 kg
[~2020-02-14 10:31] MED LIST changes: -BUPIVACAINE 0.5%/EPI 30 ML SDV INJ ONE; -CEFOXITIN 1GM/ D5W 50ML 100 ML IV ONE; -DEXAMETHASONE SOD PHOS INJ 4 MG/ML VIAL ONE; -HYDROMORPHONE 1MG/1ML INJ ONE; -KETOROLAC TROMETHAMINE 30 MG/ML VIAL ONE; -LIDOCAINE HCL 2% LOCAL INJ 5 ML SDV VIAL INJ ONE; -MEPERIDINE HCL INJ 25 MG/ML VIAL ONE; -ONDANSETRON HCL INJ 2MG/ML 2ML 2 MG/ML VIAL ONE; -PROPOFOL IV EMULSION 10 MG/ML 20 ML VIAL ONE; -SEVOFLURANE INHAL SOLN 250 ML PEN BTL ONE
[2020-02-14] MEDS ORDERED: CEFOXITIN 1GM/ D5W 50ML 100 ML IV ONE (10:49)
[2020-02-14] MEDS ORDERED: ACETAMINOPHEN 1000 MG/100 ML IV PRN (13:15)
[2020-02-14] MEDS ORDERED: KETOROLAC TROMETHAMINE 30 MG/ML VIAL IV PRN (13:15)
[2020-02-14] MEDS ORDERED: DIPHENHYDRAMINE HCL 25 MG CAP PO PRN (13:15)
[2020-02-14] MEDS ORDERED: NALOXONE HCL INJ 0.4 MG/ML AMP IV PRN (13:15)
[2020-02-14] MEDS ORDERED: DEXTROSE 50% SYRINGE 50 ML IV PRN (13:15)
[2020-02-14] MEDS: MORPHINE SULFATE 1 MG/ML 30ML PCA IV PRN ×2 (14:07→21:45)
[2020-02-14] MEDS ORDERED: FENTANYL CITRATE/PF 100MCG/2 ML INJ ONE (14:10)
[2020-02-14] MEDS ORDERED: SEVOFLURANE INHAL SOLN 250 ML PEN BTL ONE (14:20)
[2020-02-14] MEDS ORDERED: ETOMIDATE 2 MG/ML 10 ML INJ IV ONE (14:20)
[2020-02-14] MEDS ORDERED: DEXAMETHASONE SOD PHOS INJ 4 MG/ML VIAL ONE (14:20)
[2020-02-14] MEDS ORDERED: ROCURONIUM BROMIDE 10 MG/ML 5ML VIAL IV ONE (14:20)
[2020-02-14] MEDS ORDERED: EPHEDRINE SULFATE INJ 50 MG/ML VIAL ONE (14:20)
[2020-02-14] MEDS ORDERED: ONDANSETRON HCL INJ 2MG/ML 2ML 2 MG/ML VIAL ONE (14:20)
[2020-02-14] MEDS ORDERED: LIDOCAINE HCL 2% LOCAL INJ 5 ML SDV VIAL INJ ONE (14:20)
[2020-02-14] MEDS ORDERED: PROPOFOL IV EMULSION 10 MG/ML 20 ML VIAL ONE (14:20)
--- NOTE | 2020-02-14 16:00 | NUR ---
RECEIVED PT FROM SURGERY VIA STRETCHER. OSCAR CD&I TO [facility]. PT HAS FALL INTERNSHIP FOR PAIN CONTROLL.
[2020-02-14] MEDS: INSULIN LISPRO 100 UNIT/1 ML 3ML VIAL SQ SCH ×2 (16:30→21:44)
[2020-02-14 16:32] VITALS: BP 132/73
[2020-02-14] MEDS ORDERED: METFORMIN HCL 500 MG TAB PO SCH (17:00)
[2020-02-14] MEDS: GABAPENTIN 300 MG CAP PO SCH (18:44)
[2020-02-14] MEDS: SODIUM CHLORIDE 0.9% 1000ML 1,000 ML IV SCH (18:44)
--- NOTE | 2020-02-14 19:10 | NUR ---
RECEIVED QUICK BRIEF BEDSIDE SHIFT REPORT FROM PREVIOUS NURSE. PATIENT IN BED. CALL LIGHT WITHIN REACH. PATIENT ON A DEVELOPMENT TEAM LEAD PUMP
[2020-02-14 20:00] VITALS: BP 126/75
[2020-02-14 20:30] VITALS: BP 126/75
[2020-02-15] VITALS (8 sets, daily range): BP systolic 115–179; BP diastolic 64–88
[2020-02-15] MEDS: ONDANSETRON HCL INJ 2MG/ML 2ML 2 MG/ML VIAL IV PRN ×3 (02:49→20:51)
[2020-02-15 05:36] LABS: BASOPHILS % 0.1 % (0.0-1.0); LYMPHOCYTES # (AUTO) 0.7 (1.0-3.2); LYMPHOCYTES % 7.6 % (18.0-39.1); MEAN CORPUSCULAR HEMOGLOBIN 30.8 pg (28-32); MEAN CORPUSCULAR HGB CONC 34.3 g/dL (31-35); MONOCYTES # (AUTO) 0.6 (0.2-0.8); MONOCYTES % 6.4 % (4.4-11.3); NEUTROPHILS # (AUTO) 7.6 (2.1-6.9); NEUTROPHILS % 85.2 % (38.7-80.0); PLATELET COUNT 252 x10e3/uL (140-360); RED BLOOD COUNT 3.89 x10e6/uL (4.3-5.7); RED CELL DISTRIBUTION WIDTH 13.7 % (11.7-14.4)
[2020-02-15 05:53] LABS: BLOOD UREA NITROGEN 20 mg/dL (7-26); BUN/CREATININE RATIO 22 (6-25); CALCIUM 8.7 mg/dL (8.4-10.2); CARBON DIOXIDE 24 mmol/L (22-29); CHLORIDE 106 mmol/L (98-107); CREATININE, SERUM 0.91 mg/dL (0.72-1.25); EST GLOMERULAR FILTRATION RATE > 60 ML/MIN (60-); GLUCOSE 109 mg/dL (74-118); SODIUM 136 mmol/L (136-145)
--- NOTE | 2020-02-15 07:00 | NUR ---
RECEIVED PATIENT AWAKE RESTING IN BED NO S/S OF DISTRESS. BED LOW, WHEELS LOCKED, SIDE RAILS X2. CALL LIGHT IN REACH WILL CONTINUE TO MONITOR.
--- NOTE | 2020-02-15 07:13 | NUR ---
GAVE BEDSIDE SHIFT REPORT TO ONCOMING NURSE. HOURLY ROUNDING PERFORMED. PATIENT IN BED. CALL LIGHT WITHIN REACH.
[2020-02-15] MEDS: INSULIN LISPRO 100 UNIT/1 ML 3ML VIAL SQ SCH ×4 (07:30→21:00)
[2020-02-15] MEDS ORDERED: ACETAMINOPHEN 1000 MG/100 ML IV PRN (08:30)
[2020-02-15] MEDS ORDERED: ACETAMINOPHEN 325 MG TAB PO PRN (08:30)
[2020-02-15] MEDS ORDERED: HYDRALAZINE HCL 20 MG/ML VIAL IV PRN (08:30)
[2020-02-15] MEDS ORDERED: KETOROLAC TROMETHAMINE 30 MG/ML VIAL IV PRN (08:30)
[2020-02-15] MEDS ORDERED: HYDROCODONE/APAP 10MG-325MG TAB PO PRN (08:30)
[2020-02-15] MEDS ORDERED: HYDROCHLOROTHIAZIDE 25 MG TAB PO SCH (09:00)
[2020-02-15] MEDS ORDERED: LISINOPRIL 20 MG TAB PO SCH (09:00)
[2020-02-15] MEDS ORDERED: AMLODIPINE BESYLATE 10 MG TAB PO ONE (09:00)
[2020-02-15] MEDS: SODIUM CHLORIDE 0.9% 1000ML 1,000 ML IV SCH ×3 (09:26→23:45)
[2020-02-15] MEDS: METOCLOPRAMIDE HCL 10 MG/2ML VIAL IV SCH ×4 (09:35→20:37)
[2020-02-15] MEDS: GABAPENTIN 300 MG CAP PO SCH ×2 (09:35→16:42)
[2020-02-15] MEDS: FAMOTIDINE 20 MG/2 ML VIAL IV SCH ×2 (09:35→16:42)
--- NOTE | 2020-02-15 09:40 | NUR ---
DISCONTINUED PATIENT DEVELOPMENT VICE PRESIDENT PUMP PER DOCTOR ORDER.
--- NOTE | 2020-02-15 11:13 | NUR ---
PATIENT AMBULATING IN HALLWAY AT THIS TIME. STEADY GAIT PRESENT.
[2020-02-15] MEDS: HYDROMORPHONE 1MG/1ML INJ IV PRN ×2 (12:16→20:49)
--- NOTE | 2020-02-15 15:42 | NUR ---
Nutrition Intervention Note RD Recommendation(s) for Physician: -Recommend advancing to GI soft diet when medically appropriate -Glucerna nutrition supplement daily Plan of Care: RD following, monitoring for tolerance and adequacy Nutrition reason for involvement: Diagnosis carcinoma of rectosigmoid colon RD Assessment (02/15/20) Pt is a 54 year old male admitted with carcinoma of rectosigmoid colon s/p colostomy. Pt had a procedure regarding colostomy closure with partial colon resection yesterday. Pt reports prior to admission, he was eating well, but is now only consuming 25% of liquid meals due to N/V. Per weight history in chart, pt weighed 179 lbs in September 2019. Pt currently has a weight of 173 lbs in chart which would be considered insignificant weight loss. Pt was interested in trying a Glucerna nutrition supplement daily. Will continue to monitor. Principal Problems/Diagnoses: carcinoma of rectosigmoid colon s/p colostomy PMH: colorectal cancer, diabetes mellitus GI: soft, non-tender, round abdomen Skin: no pressure ulcers Labs: (02/14) Na 136, K 5.0, BUN 20, Cr 0.91, Glu 109, Ca 8.7 Meds: reglan, insulin, pepcid, zofran Ht: 67 inches Wt: 173 lbs BMI: 27.1 kg/m2 IBW: 148 lbs Malnutrition Evaluation (02/15/20) The patient does not meet criteria for a specified degree of malnutrition at this time. Will re-evaluate at follow-up as appropriate. Nutrition Prescription (Diet Order): full liquids Estimated Nutritional Needs: 1392-3281 calories/day (18-20 kcal/kg CBW) 79-118 g protein/day (1-1.5 g pro/kg CBW) Diet Adequacy: Not meeting calorie needs, Not meeting protein needs Tolerance: pt reports N/V Diet Education Needs Assessment: Diet education not indicated, patient on temporary/transition diet. Nutrition Care Level: low Nutrition Diagnosis: Inadequate energy intake related to decreased ability to consume sufficient energy as evidenced by insufficient energy intake from diet compared to needs. Goal: Patient will meet 75-100% of estimated needs by follow up Progress: N/A Interventions: -fiber- modified diet, Commercial beverage Monitoring/Evaluation: -Total energy intake, Total protein intake, Modified diet, Liquid supplement, Weight change Signed: Loreto Shepard, RD, LD
--- NOTE | 2020-02-15 19:23 | NUR ---
RECEIVED PATIENT IN BED AOX3 IN BED NO S/S OF DISTRESS. B,. CALL LIGHT IN REACH WILL CONTINUE TO MONITOR.
[2020-02-16] VITALS: BP 139/85
[2020-02-16 04:00] VITALS: BP 130/76
[2020-02-16] MEDS: ONDANSETRON HCL INJ 2MG/ML 2ML 2 MG/ML VIAL IV PRN ×2 (04:14→04:30)
[2020-02-16] MEDS: HYDROMORPHONE 1MG/1ML INJ IV PRN (04:30)
[2020-02-16 05:07] LABS: BASOPHILS % 0.5 % (0.0-1.0); HEMOGLOBIN 11.8 g/dL (14.0-18.0); LYMPHOCYTES # (AUTO) 1.4 (1.0-3.2); LYMPHOCYTES % 17.2 % (18.0-39.1); MEAN CORPUSCULAR HEMOGLOBIN 29.1 pg (28-32); MEAN CORPUSCULAR HGB CONC 32.8 g/dL (31-35); MEAN CORPUSCULAR VOLUME 88.7 fL (81-99); MONOCYTES # (AUTO) 0.8 (0.2-0.8); MONOCYTES % 9.8 % (4.4-11.3); NEUTROPHILS % 71.9 % (38.7-80.0); PLATELET COUNT 277 x10e3/uL (140-360); RED BLOOD COUNT 4.06 x10e6/uL (4.3-5.7); RED CELL DISTRIBUTION WIDTH 13.8 % (11.7-14.4)
[2020-02-16 05:31] LABS: ANION GAP 11.1 mmol/L (8-16); BLOOD UREA NITROGEN 9 mg/dL (7-26); BUN/CREATININE RATIO 11 (6-25); CALCIUM 8.7 mg/dL (8.4-10.2); CARBON DIOXIDE 23 mmol/L (22-29); CHLORIDE 111 mmol/L (98-107); CREATININE, SERUM 0.79 mg/dL (0.72-1.25); EST GLOMERULAR FILTRATION RATE > 60 ML/MIN (60-); GLUCOSE 91 mg/dL (74-118); POTASSIUM 4.1 mmol/L (3.5-5.1); SODIUM 141 mmol/L (136-145)
[2020-02-16] MEDS ORDERED: AMLODIPINE BESYLATE 10 MG TAB PO SCH (06:00)
--- NOTE | 2020-02-16 06:04 | NUR ---
PT C/O PAIN AND GIVEN ORDERED PAIN MEDICATION ,PT RESTING .CALL LIGHT WITHIN REACH ,CONTINUE TO MONITOR
--- NOTE | 2020-02-16 07:00 | NUR ---
RECEIVED PATIENT AWAKE RESTING IN BED NO S/S OF DISTRESS. BED LOW, WHEELS LOCKED, SIDE RAILS X2. CALL LIGHT IN REACH WILL CONTINUE TO MONITOR.
--- NOTE | 2020-02-16 07:03 | NUR ---
BEDSIDE REPORT GIVEN TO THE ONCOMING NURSE
[2020-02-16] MEDS: INSULIN LISPRO 100 UNIT/1 ML 3ML VIAL SQ SCH ×2 (07:30→11:30)
[2020-02-16 08:00] VITALS: BP 141/77
[2020-02-16] MEDS: METOCLOPRAMIDE HCL 10 MG/2ML VIAL IV SCH ×2 (08:46→12:10)
[2020-02-16] MEDS: GABAPENTIN 300 MG CAP PO SCH (08:46)
[2020-02-16] MEDS: FAMOTIDINE 20 MG/2 ML VIAL IV SCH (08:46)
[2020-02-16 09:04] VITALS: BP 141/77
[2020-02-16] MEDS ORDERED: NORCO 10-325 T1 EACH PO (09:36)
[2020-02-16] MEDS ORDERED: JANUVIA100 MG PO (09:37)
[2020-02-16] MEDS ORDERED: ZOFRAN4 MG PO (09:37)
[2020-02-16] MEDS ORDERED: LINZESS72 MCG PO (09:37)
[2020-02-16 11:56] VITALS: BP 124/72
[2020-02-16] MEDS ORDERED: HEPARIN 500 UNITS/5ML MDV INJ ONE (12:10)
--- NOTE | 2020-02-16 12:51 | NUR ---
PORT-A-CATH REMOVED. PATIENT TOLERATED WELL.
--- NOTE | 2020-02-16 13:06 | NUR ---
PATIENT DISCHARGED FROM FACILITY. PATIENT GATHERED ALL PERSONAL BELONGINGS, LEFT IN STABLE CONDITION. NO S/S OF DISTRESS WHEN LEAVING FACILITY.
--- NOTE | 2020-02-16 17:05 | Operative Report ---
DATE OF PROCEDURE: 02/14/2020 SURGEON: Brad Packer MD PREOPERATIVE DIAGNOSIS: Carcinoma of the rectosigmoid colon, status post colostomy. POSTOPERATIVE DIAGNOSIS: Carcinoma of the rectosigmoid colon, status post colostomy. PROCEDURE: Closure of colostomy with partial colon resection. CHILDREN'S TUTOR NURSERY: None. ANESTHESIA: General. INDICATIONS AND FINDINGS: The patient is a 54-year-old male, previous rectosigmoid colon resection, which required a colostomy at that time. Coloproctostomy is well healed now and he is to have colostomy reversal surgery. There were no abnormalities in area of the colostomy with a colostomy and portion of colon proximal and distal to this resected. TECHNIQUE: After adequate general endotracheal anesthesia, the patient in supine position, the abdomen was prepped and draped in a sterile fashion with Betadine solution. Incision was made in the skin around the colostomy stoma, carried down to subcutaneous tissue. Colon was dissected free from surrounding tissues down to the fascia and freed from the fascia throughout circumference of the colon and fascia, where the colon was coming through to form the stoma. Colon was completely free delivered up into the wound. Portion of the colon compressing the stoma was resected. This was done by first suturing this colon [id number] fashion, proximal and distal to the colostomy stoma. HIRAL stapler was then placed through the two colotomies and then the colotomy sites were closed with TA-60 stapler with portion of the colon encompassing the stoma being resected and the mesenteric vessels were suture ligated with 2-0 silk. The specimen was then removed. The colon was then returned to the peritoneal cavity. Wound was irrigated with saline. Inspected for hemostasis, which was seen to be adequate. The fascia was then closed with running suture of #1 PDS. Subcutaneous tissues were irrigated with saline. Skin was closed with adolfo. Sterile dressing was applied. The patient tolerated the procedure well. Estimated blood loss was 20 mL. There were no complications. All counts were correct and the patient was taken to the recovery room in satisfactory condition. Brad Packer MD DWG/MODL /[id number]
--- OUTSIDE RECORDS SUMMARY | 2020-02-17 19:17 | XMS REPORT | Summary of Care ---
Author Author [facility] - Health Organization [facility] - Health Address Unknown Phone Unavailable Care Team Providers Care Molding Cutter Name Role Phone Radha Sloan MD PCP [phone] Reason for Referral * Radiology Services (Routine) Referred By Contact Referred To Contact Status Reason Specialty Diagnoses / Procedures Radha Sloan MD [address] [place] [phone] New Request Diagnostic Diagnoses Radiology Acute pain of right knee P rocedures XR KNEE 3 VW RIGHT Reason for Visit * Reason Comments Hypertension Hyperlipidemia DIABETES MELLITUS Encounter Details Care Team Description Date Type Department Radha Sloan MD [address] [place] [id number] Diabetic peripheral neuropathy associate d with type 2 diabetes mellitus (Primary Dx); Need for vaccination; Adenocarcinoma of sigmoid colon; Essential hypertension; Acute pain of right knee 01/17/2020 Office Visit [facility] [id number] Allergies No Known Allergiesdocumented as of this encounter (statuses as of 01/17/2020) Medications End Date Status Medication Sig Dispensed Refills Start Date Active Lancets (UNILET LANCET) 100 Each 2 07/25 Misc 2 Active ondansetron 4 mg Take 1 tablet 45 tablet 0 01 disintegrating by mouth 9 tabletIndications: every 8 Adenocarcinoma of rectum (eight) hours as needed for Nausea and Vomiting (N/V). Active proCHLORperazine 10 mg 0 tablet 9 Active traMADol 50 mg tablet Take 50 mg by 0 05/27/20 1 mouth. 9 Active insulin NPH 100 unit/mL Give insulin 0 injection 3 x daily 9 with meals on 03/07/19- If BS > 200 < 300 give 3 units If BS > 300 then give 6 units, recheck Blood sugar in 6 hours and repeat if necessary Active LISINOPRIL-HYDROCHLOROTHI Take 1 tablet 90 tablet 1 AZIDE 20-25 mg per tablet by mouth 0 daily. Active blood sugar diagnostic Check blood 1 Box 1 (ASCENSIA MICROFILL) sugar daily. 0 strip DX E11.8 Active gabapentin 400 mg capsule Take 400 mg 120 capsule 5 in the am and 0 in the afternoon and 800 mg at night Active metFORMIN 1,000 mg tablet Take 1 tablet 180 tablet 1 by mouth 2 0 (two) times daily with meals. 01/17/2020 Discontinued (Error) ondansetron 8 mg tablet 0 9 01/17/2020 Discontinued (Error) bisacodyl 5 mg EC tablet Take 5 mg by 0 mouth. 01/17/2020 Discontinued lisinopril 40 mg tablet TAKE 1 TABLET 0 BY MOUTH 2 EVERY DAY- hold 01/17/2020 Discontinued (Reorder) metFORMIN 1,000 mg Take 1 tablet 180 tablet 1 07/18 tabletIndications: Type 2 by mouth 2 9 diabetes mellitus with (two) times complication, without daily with long-term current use of meals. insulin 01/17/2020 Discontinued (Reorder) GABAPENTIN 400 mg TAKE 1 60 capsule 3 08/02/19 2 capsuleIndications: Type CAPSULE BY 0 2 diabetes mellitus with MOUTH TWICE A diabetic polyneuropathy, DAY without long-term current use of insulin 01/17/2020 Discontinued glimepiride 4 mg tablet 1 tablet with 0 breakfast or 8 the first main meal of the day documented as of this encounter (statuses as of 01/17/2020) Active Problems Problem Noted Date SBO (small bowel obstruction) 12/10/2019 History of colonic polyps 08/26/2019 Overview: Added automatically from request for lacy vaz [id number] Diabetic peripheral neuropathy associated with type 2 diabetes mellitus 05/03/2019 Hyperglycemia due to type 2 diabetes mellitus 2018 Intermittent claudication of both lower extremities d ue to atherosclerosis 05/03/2019 Mixed hyperlipidemia 05/03/2019 Adenocarcinoma of sigmoid colon 03/10/2019 Cancer Staging: Clinical stage from 03/20: cT3, cN2, cM1 - Signed by Stalin Shields MD on 04/19/2019 Mass of colon 03/06/2019 Acute posthemorrhagic anemia 03/06/2019 Type 2 diabetes mellitus without complication 2018 Essential hypertension 03/06/2019 Lower GI bleed 03/03/2019 Vertigo 01/20/2019 Anemia 01/19/2019 GI problem 01/01/2018 documented as of this encounter (statuses as of 01/17/2020) Resolved Problems Problem Noted Date Resolved Date Lower gastrointestinal hemorrhage 03/03/201912/20 documented as of this encounter (statuses as of 01/17/2020) Immunizations Name Administration Dates Next Due Influenza High Dose 06/09/2018 Influenza Virus Vaccine 04/21/2019, 06/27/2011 Influenza Virus Vaccine 06/09/2018 (3+ yrs) Influenza Virus Vaccine 04/21/2019 Quad IM Multi-dose 6+ MO Pneumococcal 03/06/2019 Polysaccharide, PPSV23 (PNEUMOVAX) TDAP 01/17/2020 documented as of this encounter Social History Date Tobacco Use Types Packs/Day Years Used Former Smoker Smokeless Tobacco: Former User Drinks/Week oz/Week Comments Alcohol Use beer Not Currently Education Answer Date Recorded What is the highest level of school you have Associate deg ree: academic 03/03/2019 completed or the highest degree you have received? [employer] Resource Strain Answer Date Recorde d How hard is it for you to pay for the very basics Not very hard 03/03/2019 like food, housing, medical care, and h eating? Food Insecurity Answer Date Recorded Within the past 12 months, you worried that your Never shagufta e 03/03/2019 food would run out before you got money to buy more. Within the past 12 months, the food you bought Never true 03/03/2019 just didn't last and you didn't have mo nancy to get more. Transportation Needs Answer Date Recorded In the past 12 months, has lack of transportation No 03/03/2019 kept you from medical appointments or f rom getting medications? In the past 12 months, has lack of transportation No 03/03/2019 kept you from meetings, work, or gettin g things needed for daily living? Sex Assigned at Date Recorded Not on file Industry Job Start Date Occupation Not on file Not on file Not on file Travel End Travel History Travel Start No recent travel history available. documented as of this encounter Last Filed Vital Signs Reading Time Taken Comments Vital Sign 136/84 01/17/2020 10:30 AM CDT Blood Pressure 80 01/17/2020 10:30 AM CDT Pulse 36.6 C (97.9 F) 01/17/2020 10:30 AM CDT Temperature 18 01/17/2020 10:30 AM CDT Respiratory Rate - - Oxygen Saturation - - Inhaled Oxygen Concentration 81.2 kg (179 lb) 01/17/2020 10:30 AM CDT Weight 170.2 cm (5' 7") 01/17/2020 10:30 AM CDT Height 28.04 01/17/2020 10:30 AM CDT Body Mass Index documented in this encounter Patient Instructions * Patient Instructions* Radha Sloan MD - 01/17/2020 10:20 AM CDT If you have not received your lab or test results in one week, please call our o ffice. If you have activated your [employer] account, the results can be released t o you as well. documented in this encounter Progress Notes * Mariela Casey MA - 01/17/2020 10:20 AM CDT Patient has been identified by and name. The patient has signed the informe d consent to have blood drawn. Venipuncture performed by clean technique on the right anticubitus. Using a 23 butterfly needle. Slight pressure and a bandage/dressing was applied to the mary ipuncture site. The patient tolerated the procedure well. 1 venipuncture(s) were done and2 tubes of blood were sent. LT BLUE SST 1 RED LAV 1 PPT DK GREEN (LiHep) DK GREEN (SodH) GONCALVES DK BLUE (K2) DK BLUE (S) ACD Blood Culture NIPT/NTD The patient's specimen was centrifuged, as necessary, all tubes were l abeled properly and packaged for transport. All lab forms were filled out and se nt along with the patient's insurance information and demographics to sent to [facility]'s main lab. * Radha Sloan MD - 01/17/2020 10:20 AM CDT chief complaint Lorenzo Nicole Jr. is a 54 year old male here for f/u on diabetes. HPI: Pt. Has diabetes. He is on metformin and glimperide. He has insulin if his blood glucose is over 200, but has not had to take the insulin in a while. A1c in - was 6.9. He has gained weight since chemo has stopped for now, but plan i s to restart chemo again for his colon cancer. But his blood glucose are staying well 120-140 normally. He has neuropathy from the chemo, but has worsened lately at night. He takes gabapentin 400 mg tid and it helps in the day but at night, his legs and feet just burn. Last urine microalbumin normal in 02/2019 Last eye exam was 08/2019 Lipids in 06/2019 were overall good without statin. He has hypertension and is on lisinopril-hctz. Bp at home is ranging 120-140/80 range. He has been receiving chemo for colon cancer diagnosed. He underwent sigmoid col ectomy in 09/2019-after undergoing chemo. He has had some complications. He was admitted last month for SBO. He has colostomy He has worsening right knee pain. He has known OA but it is stiff and gives out right now. Past Medical History: Diagnosis Date Adenocarcinoma colon-stage iv Diabetes mellitus Diabetic neuropathy HLD (hyperlipidemia) HTN (hypertension) Current Outpatient Medications Medication Sig blood sugar diagnostic (ASCENSIA MICROFILL) strip Check blood sugar daily. D X E11.8 LISINOPRIL-HYDROCHLOROTHIAZIDE 20-25 mg per tablet Take 1 tablet by mouth da padma. GABAPENTIN 400 mg capsule TAKE 1 CAPSULE BY MOUTH TWICE A DAY metFORMIN 1,000 mg tablet Take 1 tablet by mouth 2 (two) times daily with me als. insulin NPH 100 unit/mL injection Give insulin 3 x daily with meals on -03/08/19 If BS > 200 < 300 give 3 units If BS > 300 then give 6 units, recheck Blood sugar in 6 hours and repeat if necessary traMADol 50 mg tablet Take 50 mg by mouth. proCHLORperazine 10 mg tablet ondansetron 4 mg disintegrating tablet Take 1 tablet by mouth every 8 (eight ) hours as needed for Nausea and Vomiting (N/V). Lancets (UNILET LANCET) [facility] [place] Systems: General: denies fever, chills, night sweats, fatigue HEENT: denies headache,blurry vision, ear pain, sinus/nasal congestion, sore t hroat CV: denies chest pain, palptiations, hx of angina Respiratory:denies dyspnea, cough, hemoptysis, PND, orthopnea GI: denies nausea, vomiting, diarrhea, constipation, melena : denies dysuria, urinary frequency, urinary urgency, Musculoskeletal: denies myalgias, Psych: denies depression, anxiety, suicidial ideation Neuro: denies weakness, dizziness, and seizures Skin: denies rash, hair changes, acne, PE: BP 136/84 | Pulse 80 | Temp 36.6 C (97.9 F) (Temporal Artery) | Resp 18 | Ht 5' 7" (1.702 m) | Wt 179 lb (81.2 kg) | BMI 28.04 kg/m General: NAD, A&0 X3 HEENT: PERRLA, EOMI NECK: no jvd,wilman, bruit CV: RR, s1/s2, w/o m/r/g LUNGS: CTA bilaterally, no wheezes/rales/crackles ABD: soft, NT/ND, +bs in all 4 quadrants, no HSM, colostomy in place EXT: no c/c/e, 2+ DP/PT pulses bilaterally Assessment and Plan: Diabetic peripheral neuropathy associated with type 2 diabetes mellitus (primar y encounter diagnosis) Comment: appears controlled. Has worsening neuropathy from chemo, so increase ga bapentin to 800 mg at bedtime. C/w metformin. Plan: LIPID PANEL (19541)(TOTAL CHOLESTEROL, TRIGLYCERIDES, HDL), GLYCOSYLATED HEMOGLOBIN (A1C) Need for vaccination Comment: adverse effects of vaccine explained to the patient Plan: TDAP VACCINE, >10 YRS, IM Adenocarcinoma of sigmoid colon Comment: s/p resection Plan: follow POC by oncology Essential hypertension Comment: controlled c/w meds Plan: THYROID STIMULATING HORMONE Acute pain of right knee Comment: he has crepitus of his knee but GOOD ROM anterior drawer sign negative Plan: XR KNEE 3 VW RIGHT Based on xray results, will refer to ortho Plan of care, desired health behaviors, goals and medications discussed with pat ient and educational resources and self-management tools provided. Patient/famil y/guardian voices understanding. Barriers to care: none Ability to manage care: good F/u in 6 months or earlier if needed Radha Sloan MD 01/17/2020 11:42 AM documented in this encounter Plan of Treatment Care Team Description Date Type Specialty Nick Cisse MD [address] [place] [id number] 03/01/2020 Office Visit Ophthalmology Date/Time Name Type Priority Associated Diag noses 01/17/2020 11:31 AM CDT THYROID STIMULATING LAB Routine Essential hypertension HORMONE 01/17/2020 11:31 AM CDT LIPID PANEL (18833)(TOTAL LAB Routine Diab etic peripheral CHOLESTEROL, neuropathy associated TRIGLYCERIDES, HDL) with type 2 diabetes mellitus 01/17/2020 11:31 AM CDT GLYCOSYLATED HEMOGLOBIN LAB Routine Diabet ic peripheral (A1C) neuropathy associated with type 2 diabetes mellitus Health Maintenance Due Date Last Done Comments HgA1C 01/17/2020 07/18/2019, 019, 10/15/2011 URINE MICROALBUMIN 02/26/2020 02/25/2019 LUNG CANCER SCREEN: 03/05/2020 03/05/2019 Recommended for age 55-80 with 30 + pack year history PNEUMOCOCCAL 0-64 YEARS 03/06/2020 03/06/2019 COMBINED SERIES (2 of 3 - PCV13) Depression Screening 07/18/2020 07/18/2019, 04/19 FOOT EXAM 07/18/2020 07/18/2019, 019 LDL-C 07/18/2020 07/18/2019, 019 Zoster Recombinant 07/18/2020 Postponed from 10/19 Vaccine (SHINGRIX) (1 of (Insurance / Financial) 2) EYE EXAM 09/01/2020 09/01/2019 CREATININE (SERUM) 12/10/2020 12/11/2019, 020, 12/09/2019, Additional history exists COLONOSCOPY 03/04/2029 03/04/2019 DTaP,Tdap,and Td Vaccines 01/16/2030 01/17/2020 (2 - Td) INFLUENZA VACCINE Completed 04/21/2019, 019, 06/09/2018, Additional history exists HEPATITIS C (HCV) SCREEN Completed 07/18/2019 documented as of this encounter Implants Device Identifier Shelf Expiration Date Model / Serial / L ot Implanted Type Area Manufactur er 06/08/2023 [id number] / [id number] / [id number] Port-A-Cath Implanted By Right: Chest ARROW Tomasa INTERNATIO Implanted: Qty: 1 on 04/20/2019 by SHILA Randolph, Kalyan Dickey MD at [facility] documented as of this encounter Procedures Comments Procedure Name Priority Date/Time Associated Diag nosis TDAP VACCINE, >11 YRS, IM Routine 01/17/2020 Need for vaccination 10:37 AM CDT documented in this encounter Results * XR KNEE 3 VW RIGHT (01/17/2020 11:17 AM CDT) Specimen Narrative Performed At EXAM: XR KNEE 3 VW RIGHT PACS/VR/DOSE HISTORY: right knee pain COMPARISON: None. FINDINGS: No abnormality is found in the bones an d joints of the right knee. Procedure Note [facility], Radiant Results Inft User - 01/17/2020 11:22 AM CDT EXAM: XR KNEE 3 VW RIGHT HISTORY: right knee pain COMPARISON: None. FINDINGS: No abnormality is found in the bones and joints of the right knee. Performing Organization Address City/State/Zipcode Ph one Number PACS/VR/DOSE documented in this encounter Visit Diagnoses Diagnosis Diabetic peripheral neuropathy associat ed with type 2 diabetes mellitus - Primary Type II or unspecified type diabetes me llitus with neurological manifestations, not stated as uncontrolled Need for vaccination Need for prophylactic vaccination and i noculation against unspecified single disease Adenocarcinoma of sigmoid colon Malignant neoplasm of sigmoid colon Essential hypertension Unspecified essential hypertension Acute pain of right knee documented in this encounter Insurance Type Payer Benefit Subscriber ID Effective Phone Address Plan / Dates Group PPO/POS BCBS OF [facility] BCBS OF [id number] 2019- P EMPLOYEE [place] [employer] [phone] documented as of this encounter
--- OUTSIDE RECORDS SUMMARY | 2020-02-17 19:17 | XMS REPORT | Continuity of Care Document ---
Author Author [facility] t Organization [facility] Address [address] [place] [address] Phone Unavailable Care Team Providers Care Crop Scout Name Role Phone NONSTAFF PCP Unavailable Nathalia JAMES, Huber Garcia Attphys [phone] STALIN MCKEON Attphys Unavailable Cornelius JAMES, Stalin Attphys Jr NDIAYE, T Bairon Attphys Unavailable Eris BROWNING, Talya Attphys JORGE MASCORRO Attphys Unavailable Gustavo JAMES, Ras Attphys Alexandria JAMES, T Mimi Attphys Chip NDIAYE, Vianca Damon Attphys Unavailable Darlene JAMES, Adrian Attphys [phone] Syed Swann RN Attphys Unavailable Tesha BROWNING, Cheryle Attphys Deangelo CUSTODIAN, M Allyn Attphys Glendy CUSTODIAN, Barbra Attphys Дмитрий NDIAYE MSN, Whitney Attphys Unavailable Savage JAMES, Blayne Attphys Timothy PA, Lashawn Attphys Gabe JAMES, Shazia Lowery Attphys Abner PA, J Natty Attphys Mina PA, W Diana Attphys [phone] Jr PA, Lisa Attphys Clovis NDIAYE, K Madeline Attphys Unavailable Jake JAMES, Sulema Attphys Yahir NDIAYE, Michael Friedman Attphys Unavailable Michael JAMES, Diana Attphys Unavailable Tiburcio NDIAYE, S Evelyn Attphys Unavailable Gillian JAMES, Jim Attphys Roverto NDIAYE, Harshad Gregory Attphys Unavailable Jace CHAMBERS, Harshad Reza Attphys Viviane WHITE, Juan Mancini Attphys Unavailable JORGE MASCORRO Admphys Unavailable Payers Payer Name Policy Type Policy Number Effective Date Expiration Date S dannie [employer] [place] Ppo [id number] 2019 00:00:00 [facility] Cdc Review Covid19 [id number] [facility] [place] PPO POS [id number] 2019 00:00:00 Problems Condition Name Condition Details Condition Category Status Onset Date Resolution Date Last Treatment Date Treating Clinician Comments Source Personal history of colonic polyp Personal history of colonic po lyp Disease Active 2019-08-26 00:00:00 Overview : Added automatically from request for surgery [id number] MD Leroy Hyperglycemia due to type 2 diabetes mellitus Hypergly cemia due to type 2 diabetes mellitus Disease Active 2019-05-03 00:00:00 MD Leroy Intermittent claudication of bilateral l ower limbs co-occurrent and due to atherosclerosis Intermittent claudication of bilateral l ower limbs co-occurrent and due to atherosclerosis Disease Active 2019-05-03 00:00:00 MD Leroy Peripheral neuropathy with type 2 diabetes Peripheral neuropathy with type 2 diabetes Disease Active 2019-05-03 00:00:00 MD Leroy Mixed hyperlipidemia Mixed hyperlipidemia Disease Active 00:00:00 MD Leroy Type 2 diabetes mellitus without complication Type 2 d iabetes mellitus without complication Disease Active 2019-05-03 00:00:00 MD Leroy Adenocarcinoma of rectum Adenocarcinoma of rectum Disease Acti ve 2019-04-19 00:00:00 MD Leroy Adenocarcinoma of sigmoid colon Adenocarcinoma of sigmoid colon Dis ease Active 2019-03-10 00:00:00 MD Yoseph butterfield Acute posthemorrhagic anemia Acute posthemorrhagic anemia Disease Active 2019-03-06 00:00:00 MD Yoseph butterfield Secondary hypertension Secondary hypertension Disease Active 2019-03-06 00:00:00 MD Leroy Mass of colon Mass of colon Disease Active 2019-03-06 00:00:00 MD Leroy Type 2 diabetes mellitus Type 2 diabetes mellitus Disease Acti ve 2019-03-06 00:00:00 MD Leroy Lower gastrointestinal hemorrhage Lower gastrointestinal hemorrh age Disease Active 2019-03-03 00:00:00 MD Dipika malave Anemia Anemia Disease Active 2019-01-19 00:00:00 MD Leroy Problem Condition Active [facility] Allergies, Adverse Reactions, Alerts Allergy Name Allergy Type Status Severity Reaction(s) Onset Date Inacti ve Date Treating Clinician Comments Source No Known Allergies DA Active U 2019-01-19 00:00:00 [facility] Family History Family Member Diagnosis Comments Start Date Stop Date Source Paternal grandfather Lung cancer MD Leroy Social History Social Habit Start Date Stop Date Quantity Comments Source History SDOH Alcohol Std Drinks MD Leroy History SDOH Alcohol Binge MD Leroy Tobacco use and exposure 2019-10-04 00:00:00 2019-10-04 00:00:00 Manuel Leroy Alcohol intake 2019-10-04 00:00:00 2019-10-04 00:00:00 Ex-drinker (fi nding) MD Leroy Alcohol Comment 2019-03-30 00:00:00 2019-03-30 00:00:00 Former E [facility]IS[employer] Abuse - 6-12 pack beer/day. D/C's ETOH use in 12/2018 MD Leroy History SDOH Alcohol Frequency 2019-03-23 00:00:00 2019-03-23 00:00:0 0 1 MD Leroy Sex Ass[birth year] At 1965 00:00:00 1965 00:00:00 Male [facility] Smoking Status Start Date Stop Date Source Never smoker MD Leroy Medications Ordered Medication Name Filled Medication Name Start Date Stop Da te Current Medication? Ordering Clinician Indication Dosage Frequency Signature (SIG) Comments Components Source bisacodyl (DULCOLAX) 5 mg EC tablet 2019-11-21 16:58:2 5 2019-11-21 00:00:00 No 5mg Take 5 mg by mouth twice daily. MD Leroy HYDROcodone-acetaminophen (NORCO) 5 mg-325 mg per tablet 2019-10-28 00:00:00 Yes TAKE 1 TO 2 TABLETS BY MOUTH CHICO RY 4 HOURS NEEDED FOR PAIN MD Leroy peg 3350-electrolytes (Golytely) 236-22.74-6.74 g solution 2019-09-26 00:00:00 2019-09-30 00:00:00 No Colonoscopy planned Use as directed by ordering provider. MD Leroy lisinopril-hydroCHLOROthiazide (PRINZIDE,ZESTORETIC) 20-25 m g per tablet 2019-09-19 00:00:00 Yes 1{tbl} Take 1 tablet by m outh daily. MD Leroy traMADol (ULTRAM) 50 mg tablet 2019-05-27 00:00:00 Yes Adenocarcinoma of sigmoid colon 50mg Take 1 tablet (50 mg ) by mouth every 8 (eight) hours as needed for moderate pain. MD Leroy ondansetron (ZOFRAN) 8 mg tablet 2019-05-04 00:00:00 Yes Adenocarcinoma of sigmoid colon 8mg Take 1 tablet (8 mg) by mouth every 8 (eight) hours as needed for nausea or vomiting. (First Choice) MD Leroy prochlorperazine (COMPAZINE) 10 mg tablet 2019-05-04 00:00:0 0 Yes Adenocarcinoma of sigmoid colon 10mg Take 1 t ablet (10 mg) by mouth every 6 (six) hours as needed for nausea or vomiting. (Second Choice) MD Leroy ondansetron (ZOFRAN-ODT) 4 mg disintegrating tablet 2019-04-20 00:00:00 2019-08-01 00:00:00 No 4mg Disso lve 4 mg on the tongue every 8 (eight) hours as needed. MD Leroy peg 3350-electrolytes (GOLYTELY) 236-22.74-6.74 g solution 2019-03-15 00:00:00 2019-03-23 00:00:00 No Colonoscopy planned Use as directed by ordering provider. MD Leroy traMADol (ULTRAM) 50 mg tablet 2019-03-11 00:00:00 8 00:00:00 No Adenocarcinoma of sigmoid colon 50mg Take 1 t ablet (50 mg) by mouth every 8 (eight) hours as needed for moderate pain. MD Leroy metFORMIN (GLUCOPHAGE) 1000 mg tablet 2019-03-08 00:00:00 Y es TAKE 1 TABLET BY MOUTH TWICE A DAY WITH FOOD MD Leroy gabapentin (NEURONTIN) 400 mg capsule 2019-03-07 00:00:00 Y es TAKE 1 CAPSULE BY MOUTH TWICE A DAY MD Leroy ferrous sulfate 325 mg (65 mg elemental iron per tablet) tab let 2019-03-07 00:00:00 2019-09-26 00:00:00 No TAKE 1 TABLET BY MOUTH DAILY WITH BREAKFAST FOR 30 DAYS. MD Leroy insulin NPH (NovoLIN N NPH U-100 Insulin) 100 units/mL injec tion 2019-03-07 00:00:00 2019-08-01 00:00:00 No Give insulin 3 x daily with meals on 03/07/19-03/08/19If BS > 200 < 300 give 3 unitsIf BS > 300 then give 6 units, recheck Blood sugar in 6 hours and repeat if necessary MD Leroy acetaminophen-codeine (TYLENOL #3) 300 mg-30 mg tablet 2019-03-07 00:00:00 2019-04-14 00:00:00 No TAKE 1 TABLET BY MOUTH EVERY 4 (FOUR) HOURS NEEDED FOR PAIN (SCALE 7-10) FOR UP TO 30 DAYS. MD Leroy magnesium oxide (MAOX) 400 mg tablet 2019-03-07 00:00: 00 2019-03-31 00:00:00 No TAKE 1 TABLET BY MOUTH EVERY DAY FOR 10 DAYS DIRECTED MD Leroy SENNA PLUS 8.6-50 mg tablet 2019-03-07 00:00:00 2019-03-31 00:00 :00 No BID MD Leroy senna-docusate (SENOKOT-S) 8.6 mg-50 mg tablet 2 00:00:00 2019-04-06 04:59:00 No 1{tbl} Take 1 tablet by mouth. MD Leroy pravastatin (PRAVACHOL) 40 mg tablet 2019-03-01 00:00: 00 2019-11-21 00:00:00 No 40mg Take 40 mg by mouth daily. MD eLroy lisinopril (PRINIVIL,ZESTRIL) 40 mg tablet 12-21 00:00:00 2019-09-26 00:00:00 No TAKE 1 TABLET BY MOUTH EVERY DA Y- hold MD Leroy Gabapentin Gabapentin Yes 300 Twice A Day [facility] Hydrocodone Bit/Acetaminophen (Fingal 10-325 Tablet) 1 Each TABLET Hydrocodone Bit/Acetaminophen (Fingal 10-325 Tablet) 1 Each TABLET Yes 1 Every 4 Hours as needed for Severe Pain (7-10) C [facility] Linaclotide (Linzess) 72 Mcg CAPSULE Linaclotide (Linzess) 72 Mcg C APSULE Yes 72 Daily [facility] Lisinopril/Hydrochlorothiazide (Lisinopril-Hctz 20-25 Mg Tab) 1 Each TABLET Lisinopril/Hydrochlorothiazide (Lisinopril-Hctz 20-25 Mg Tab) 1 Each TABLET Yes 1 Daily [facility] Ondansetron Hcl (Zofran*) 4 Mg TABLET Ondansetron Hcl (Zofran*) 4 M g TABLET Yes 4 Every 4 Hours as needed for Nausea And V omiting [facility] Sitagliptin Phosphate (Januvia) 100 Mg TABLET Sitaglip tin Phosphate (Januvia) 100 Mg TABLET Yes 100 Daily [facility] Tramadol Hcl (Ultram 50MG*) 50 Mg TAB Tramadol Hcl (Ultram 50MG*) 5 0 Mg TAB Yes 50 As Needed [facility] Ibuprofen Ibuprofen 2020-02-16 00:00:00 No 800 As Ne eded [facility] Metformin Hcl Metformin Hcl 2020-02-16 00:00:00 No 1000 Twice A Day [facility] Amlodipine Besylate Amlodipine Besylate 2019-12-05 00:00:00 No 5 Daily [facility] Ciprofloxacin Hcl (Cipro) 500 Mg TABLET Ciprofloxacin Hcl (C ipro) 500 Mg TABLET 2019-12-05 00:00:00 No 500 Every 12 Hours [facility] Fluconazole (Diflucan) 200 Mg TABLET Fluconazole (Diflucan) 200 Mg TABLET 2019-12-05 00:00:00 No 200 Daily [facility] Hydrocodone Bit/Acetaminophen (Fingal 5-325 Tablet) 1 E ach TABLET Hydrocodone Bit/Acetaminophen (Fingal 5-325 Tablet) 1 Each TABLET 2019-12-05 00: 00:00 No 1 Every 4 Hours as needed for Abdominal Pain [facility] Lisinopril Hctz Lisinopril Hctz 2019-12-05 00:00:00 No Daily [facility] Metronidazole (Flagyl) 250 Mg TABLET Metronidazole (Flagyl) 250 Mg TABLET 2019-12-05 00:00:00 No 500 Every 8 Hours [facility] Immunizations Ordered Immunization Name Filled Immunization Name Date Status Comments Source Influenza, Quadrivalent 2019-04-21 00:00:00 Completed MD Leroy Influenza, Unspecified 2019-04-21 00:00:00 Completed MD Leroy Pneumococcal Polysaccharide 2019-03-06 00:00:00 Completed MD Leroy Influenza TIV (IM) 2018-06-09 00:00:00 Completed MD Leroy Influenza, Unspecified 2011-06-27 00:00:00 Nicol Leroy Vital Signs Vital Name Observation Time Observation Value Comments Source Body Temperature 2020-02-16 11:56:00 98.7 [degF] [facility] BMI (Body Mass Index) 2020-02-15 00:39:00 27.1 kg/m2 [facility] Weight 2020-02-14 16:00:00 173 [lb_av] [facility] Systolic blood pressure 2019-11-21 16:53:53 119 mm[Hg] MD Leroy Diastolic blood pressure 2019-11-21 16:53:53 85 mm[Hg] MD Leroy Heart rate 2019-11-21 16:53:53 102 /min MD Yoseph son Body temperature 2019-11-21 16:53:53 36.78 Lavinia MD Lenny nieto Respiratory rate 2019-11-21 16:53:53 18 /min MD Lenny nieto Body weight 2019-11-21 16:53:53 70.6 kg MD Yoseph butterfield BMI 2019-11-21 16:53:53 24.87 kg/m2 MD Yoseph butterfield Oxygen saturation in Arterial blood by Pulse oximetry 11-20 16:53:53 100 /min MD Leroy Body height 2019-08-22 17:52:00 168.5 cm MD Yoseph butterfield Procedures Procedure Date / Time Performed Performing Clinician Sourc e RECTUM SURGERY PROCEDURE 2019-12-08 00:00:00 [facility] DRAINAGE OF PELVIC CAVITY, OPEN APPROACH 2019-10-22 00:00:00 [facility] BYPASS TRANS COLON TO CUTAN WITH AUTOL SUB, OPEN APPROACH 10-21 00:00:00 [facility] RELEASE SMALL INTESTINE, OPEN APPROACH 2019-10-22 00:00:00 [facility] TRANSFUSE NONAUT RED BLOOD CELLS IN PERIPH VEIN, PERC 2019-10-22 00:00:00 [facility] Computed tomography of abdomen and pelvis with contrast 2019 00:00:00 TANISHA ISAACS [facility] DRAINAGE OF RECTUM WITH DRAINAGE DEVICE, PERC APPROACH 2019-09-19 8 00:00:00 [facility] Computed tomography of abdomen and pelvis with contrast 2019 00:00:00 TANISHA ISAACS [facility] EXCISION OF SIGMOID COLON, OPEN APPROACH 2019-10-11 00:00:00 [facility] EXCISION OF RECTUM, OPEN APPROACH 2019-10-11 00:00:00 [facility] BYPASS SIGMOID COLON TO RECTUM, OPEN APPROACH 2019-10-11 00:00:0 0 [facility] SURGICAL BIOPSY HISTORIC 2019-09-30 17:00:00 Magaly, Ford Leroy POC GLUCOSE SCREEN 2019-09-30 13:49:00 Ras Chen MD on PATHOLOGY BIOPSY SPECIMEN INTERPRETATION 2019-09-30 12:44:35 Ras Chen MD FLEXIBLE COLONOSCOPY PROXIMAL TO SPLENIC FLEXURE WITH BIOPSY 2019-09-30 12:22:00 Ras Chen MD ENDOSCOPY NOTE RESULTS 2019-09-30 12:20:52 Ras Chen MD POC GLUCOSE SCREEN 2019-09-30 12:20:00 Ras Chen MD COMPLETE BLOOD COUNT W/ DIFFERENTIAL 2019-09-26 13:46:00 Stalin Mckeon MD COMPREHENSIVE METABOLIC PANEL 2019-09-26 13:46:00 Talya Schulte MD FERRITIN LVL 2019-09-26 13:46:00 Talya Schulte MD VITAMIN B12 LEVEL 2019-09-26 13:46:00 Talya Schulte MD FOLATE LEVEL 2019-09-26 13:46:00 Talya Schulte MD RETICULOCYTE COUNT AUTOMATED 2019-09-26 13:46:00 Talya Schulte MD Results CBC 2019-09-26 13:46:00 Stalin Mckeon MD MANUAL DIFFERENTIAL 2019-09-26 13:46:00 Stalin Mckeon MD GLUCOSE LEVEL 2019-09-26 13:46:00 Talya Schulte MD ELECTROLYTE PANEL 2019-09-26 13:46:00 Talya Schulte MD SERUM CREATININE 2019-09-26 13:46:00 Talya Schulte MD .GLOMERULAR FILTRATION RATE 2019-09-26 13:46:00 Talya Schulte MD CALCIUM LEVEL TOTAL 2019-09-26 13:46:00 Talya Schulte MD ALBUMIN LEVEL 2019-09-26 13:46:00 Talya Schulte MD ALKALINE PHOSPHATASE 2019-09-26 13:46:00 Talya Schulte MD ALANINE AMINOTRANSFERASE 2019-09-26 13:46:00 Talya Schulte MD ASPARTATE AMINOTRANSFERASE 2019-09-26 13:46:00 Talya Schulte TOTAL PROTEIN 2019-09-26 13:46:00 Talya Schulte MD FRACTIONATED BILIRUBIN 2019-09-26 13:46:00 Talya Schulte MD BLOOD UREA NITROGEN 2019-09-26 13:46:00 Talya Schulte MD COMPLETE BLOOD COUNT W/ DIFFERENTIAL 2019-09-12 13:57:00 Stalin Mckeon MD COMPREHENSIVE METABOLIC PANEL 2019-09-12 13:57:00 Talya Schulte MD Results CBC 2019-09-12 13:57:00 Stalin Mckeon MD MANUAL DIFFERENTIAL 2019-09-12 13:57:00 Stalin Mckeon MD Yosepholvin butterfield GLUCOSE LEVEL 2019-09-12 13:57:00 Talya Schulte MD ELECTROLYTE PANEL 2019-09-12 13:57:00 Talya Schulte MD n SERUM CREATININE 2019-09-12 13:57:00 Talya Schulte MD .GLOMERULAR FILTRATION RATE 2019-09-12 13:57:00 Talya Schulte MD CALCIUM LEVEL TOTAL 2019-09-12 13:57:00 Talya Schulte MD ALBUMIN LEVEL 2019-09-12 13:57:00 Talya Schulte MD ALKALINE PHOSPHATASE 2019-09-12 13:57:00 Talya Schulte MD rsjorge ALANINE AMINOTRANSFERASE 2019-09-12 13:57:00 Talya Schulte MD ASPARTATE AMINOTRANSFERASE 2019-09-12 13:57:00 Talya Schulte TOTAL PROTEIN 2019-09-12 13:57:00 Talya Schulte MD FRACTIONATED BILIRUBIN 2019-09-12 13:57:00 Talya Schulte MD BLOOD UREA NITROGEN 2019-09-12 13:57:00 Talya Schulte MD PETCT SUBSEQUENT TREATMENT STRATEGY 2019-08-23 21:03:40 Cheryle Parkinson MD POC GLUCOSE SCREEN 2019-08-23 19:39:00 Tawanda Quezada MD MRI PELVIS WITHOUT CONTRAST RECTAL 2019-08-22 19:22:00 Cheryle Parkinson MD CARCINOEMBRYONIC ANTIGEN 2019-08-22 17:40:00 Cheryle Parkinson MD COMPLETE BLOOD COUNT W/ DIFFERENTIAL 2019-08-15 14:51:00 Stalin Mckeon MD Results CBC 2019-08-15 14:51:00 Stalin Mckeon MD MANUAL DIFFERENTIAL 2019-08-15 14:51:00 Stalin Mckeon MD son COMPLETE BLOOD COUNT W/ DIFFERENTIAL 2019-08-01 13:52:00 Stalin Mckeon MD Results CBC 2019-08-01 13:52:00 Stalin Mckeon MD MANUAL DIFFERENTIAL 2019-08-01 13:52:00 Stalin Mckeon MD Yoseph son COMPLETE BLOOD COUNT W/ DIFFERENTIAL 2019-07-05 14:54:00 Stalin Mckeon MD Results CBC 2019-07-05 14:54:00 Stalin Mckeon MD MANUAL DIFFERENTIAL 2019-07-05 14:54:00 Stalin Mckeon MD Yoseph son CT CHEST ABDOMEN PELVIS W CONTRAST 2019-06-27 18:27:24 Kev Bright MD POC BLOOD UREA NITROGEN + CREATININE 2019-06-27 16:12:00 Tawanda Calvillo MD COMPLETE BLOOD COUNT W/ DIFFERENTIAL 2019-06-21 15:22:00 Stalin Mckeon MD Results CBC 2019-06-21 15:22:00 Stalin Mckeon MD MANUAL DIFFERENTIAL 2019-06-21 15:22:00 Stalin Mckeon MD Yoseph son COMPLETE BLOOD COUNT W/ DIFFERENTIAL 2019-06-06 14:47:00 Stalin Mckeon MD Results CBC 2019-06-06 14:47:00 Stalin Mckeon MD MANUAL DIFFERENTIAL 2019-06-06 14:47:00 Stalin Mckeon MD [facility] son COMPLETE BLOOD COUNT W/ DIFFERENTIAL 2019-05-23 14:10:00 Stalin Mckeon MD Results CBC 2019-05-23 14:10:00 Stalin Mckeon MD MANUAL DIFFERENTIAL 2019-05-23 14:10:00 Stalin Mckeon MD [facility] son COMPLETE BLOOD COUNT W/ DIFFERENTIAL 2019-05-09 14:40:00 Allyn Bright MD COMPREHENSIVE METABOLIC PANEL 2019-05-09 14:40:00 Don Bright MD LACTATE DEHYDROGENASE 2019-05-09 14:40:00 Stalin Mckeon erson MAGNESIUM LEVEL 2019-05-09 14:40:00 Stalin Mckeon MD PHOSPHORUS LEVEL 2019-05-09 14:40:00 Stalin Mckeon MD CARCINOEMBRYONIC ANTIGEN 2019-05-09 14:40:00 Stalin Mckeon MD Results CBC 2019-05-09 14:40:00 Allyn Bright MD Anderso chris MANUAL DIFFERENTIAL 2019-05-09 14:40:00 Allyn Bright MD And erson GLUCOSE LEVEL 2019-05-09 14:40:00 Allyn Bright MD Anderso n BLOOD UREA NITROGEN 2019-05-09 14:40:00 Allyn Bright MD And erson ELECTROLYTE PANEL 2019-05-09 14:40:00 Allyn Bright MD Yoseph son SERUM CREATININE 2019-05-09 14:40:00 Allyn Bright MD Mor on .GLOMERULAR FILTRATION RATE 2019-05-09 14:40:00 Allyn Bright MD CALCIUM LEVEL TOTAL 2019-05-09 14:40:00 Allyn Bright MD And erson ALBUMIN LEVEL 2019-05-09 14:40:00 Allyn Bright MD Anderso chris ALKALINE PHOSPHATASE 2019-05-09 14:40:[address] [facility] ALANINE AMINOTRANSFERASE 2019-05-09 14:40:00 Allyn Bright ASPARTATE AMINOTRANSFERASE 2019-05-09 14:40:00 Allyn Brigth MD TOTAL PROTEIN 2019-05-09 14:40:00 Allyn Bright MD Anderso chris FRACTIONATED BILIRUBIN 2019-05-09 14:40:00 Allyn Bright MD XR CHEST 2 VW 2019-05-02 17:36:18 Allyn Bright MD Anderso n PETCT CONTRAST ENHANCED INITIAL TREATMENT STRATEGY 2019-03-22 0 14:12:00 Beverley Bernal MD POC GLUCOSE SCREEN 2019-04-18 12:46:00 Provider, Tawanda JAMES Giovanni rsjorge MRI PELVIS WITHOUT CONTRAST RECTAL 2019-04-14 15:01:07 Beverley Bernal MD SERUM CREATININE 2019-04-14 12:48:00 Beverley Bernal MD Andnai perez BLOOD UREA NITROGEN 2019-04-14 12:48:00 Beverley Bernal MD Giovanni rson SERUM CREATININE 2019-04-14 12:48:00 Beverley Bernal MDGLOMERULAR FILTRATION RATE 2019-04-14 12:48:00 Beverley Bernal MD PATHOLOGY REQUISITION 2019-04-05 00:00:00 Beverley Bernal MD ARCHIVED MATERIAL RETRIEVAL 2019-04-05 00:00:00 Beverley Bernal MD, MD NGS BLOOD CONTROL 2019-03-31 16:37:00 Beverley Bernal MD And erson COMPLETE BLOOD COUNT W/ DIFFERENTIAL 2019-03-31 16:37:00 Natty Levine MD HEMOGLOBIN A1C 2019-03-31 16:37:00 Natty Levine MD Results CBC 2019-03-31 16:37:00 Natty Levine MD MANUAL DIFFERENTIAL 2019-03-31 16:37:00 Natty Levine MD Giovanni rson EKG, 12-LEAD (SCHEDULED) 2019-03-31 00:00:00 Natty Levine MD, MD SOLID TUMOR GENOMIC ASSAY DNA V2 INTERPRETATION AND REPORT 2019-03-23 21:27:00 Beverley Bernal MD PATHOLOGY BIOPSY SPECIMEN INTERPRETATION 2019-03-23 21:17:07 Ras Chen MD POC GLUCOSE SCREEN 2019-03-23 20:29:00 Ras Chen MD on DIAGNOSTIC FLEXIBLE COLONOSCOPY PROXIMAL TO SPLENIC FLEXURE 2019-03-23 20:24:00 Ras Chen MD ENDOSCOPY NOTE RESULTS 2019-03-23 20:23:58 Ras Chen MD SURGICAL BIOPSY HISTORIC 2019-03-23 17:00:00 Ford Mckenzie MD COMPLETE BLOOD COUNT W/ DIFFERENTIAL 2019-03-11 14:32:00 Beverley Bernal MD COMPREHENSIVE METABOLIC PANEL 2019-03-11 14:32:00 Beverley Bernal MD CARCINOEMBRYONIC ANTIGEN 2019-03-11 14:32:00 Beverley Bernal MD CANCER ANTIGEN 19-9 2019-03-11 14:32:00 Beverley Bernal MD Giovanni rson Results CBC 2019-03-11 14:32:00 Beverley Bernal MD MANUAL DIFFERENTIAL 2019-03-11 14:32:00 Beverley Bernal MD Giovanni rson GLUCOSE LEVEL 2019-03-11 14:32:00 Beverley Bernal MD BLOOD UREA NITROGEN 2019-03-11 14:32:00 Beverley Bernal MD Giovanni rson ELECTROLYTE PANEL 2019-03-11 14:32:00 Beverley Bernal MD Mor on SERUM CREATININE 2019-03-11 14:32:00 Beverley Bernal MD Andsaraho n .GLOMERULAR FILTRATION RATE 2019-03-11 14:32:00 Beverley Bernal MD CALCIUM LEVEL TOTAL 2019-03-11 14:32:00 Beverley Bernal MD Giovanni rson ALBUMIN LEVEL 2019-03-11 14:32:00 Beverley Bernal MD ALKALINE PHOSPHATASE 2019-03-11 14:32:00 Beverley Bernal MD And erson ALANINE AMINOTRANSFERASE 2019-03-11 14:32:00 Beverley Bernal MD ASPARTATE AMINOTRANSFERASE 2019-03-11 14:32:00 Beverley Bernal MD TOTAL PROTEIN 2019-03-11 14:32:00 Beverley Bernal MD FRACTIONATED BILIRUBIN 2019-03-11 14:32:00 Beverley Bernal MD nderson OSI CT CHEST 2019-03-05 17:43:34 Beverley Bernal MD OSI CT ABDOMEN AND PELVIS 2019-03-04 17:43:47 Beverley Bernal OSI CHEST 2019-03-03 17:44:13 Beverley Bernal MD OSI ABDOMEN 2019-03-03 17:44:01 Beverley Bernal MD Plan of Care Planned Activity Planned Date Details Comments Source Future Appointment 2020-10-03 08:20:00 Ras Chen MD, [place] [address] MD Leroy Future Appointment 2020-10-03 08:20:00 Ras Chen MD, [place] [address] MD Leroy Instructions Post Operative Pain [facility] Encounters Start Date/Time End Date/Time Encounter Type Admission Type [facility] Care Department Encounter ID Source 2020-02-14 13:49:00 2020-02-16 13:06:00 Discharged Inpatient [facility] [id number] [facility] 2020-01-25 00:00:00 2020-01-25 00:00:00 Refill Nathalia Radha [facility] [id number] 2020-01-18 00:00:00 2020-01-18 00:00:00 [facility] [id number] 2020-01-17 11:05:00 2020-01-17 23:59:00 Hospital Encounter Nathalia, [facility] [id number] 2020-01-17 10:28:50 2020-01-17 11:16:43 [facility] [id number] 2020-01-09 00:00:00 2020-01-09 00:00:00 [facility]patient [facility] [id number] MD Leroy 2019-12-08 11:20:00 2019-12-08 11:20:00 Registered Surgical Day Care [facility] [id number] [facility] 2019-10-11 15:23:00 2019-10-28 13:00:00 Discharged Inpatient 3 JORGE MASCORRO [facility] [id number] [facility] Results Test Description Test Time Test Comments Results Result Comments Source Capillary blood glucose measurement by glucometer (mas s/volume) 2020-02-16 10:44:00 Test Item Bedside Glucose (test code = 64614-7) 128 70-120 Meter ID: [id number] count (number/volume)2020-02-16 04:45:00* Test Item Value Reference Range Interpretation Comments White Blood Count (test code = 6690-2) 8.33 4.8-10.8 [facility] (number/volume)2020-02-16 04:45:00* Test Item Value Reference Range Interpretation Comments Red Blood Count (test code = 789-8) 4.06 4.3-5.7 [facility] (moles/volume)2020-02-16 04:45:00* Test Item Value Reference Range Interpretation Comments Hemoglobin (test code = 31223-0) 11.8 14.0-18.0 [facility]leAutomated blood hematocrit (volume fraction)2020-02-16 04:45:00* Test Item Value Reference Range Interpretation Comments Hematocrit (test code = 4544-3) 36.0 38.2-49.6 [facility]leAutomated erythrocyte mean corpuscular htzebu2695-98-88 04:45:00* Test Item Value Reference Range Interpretation Comments Mean Corpuscular Volume (test code = 787-2) 88.7 81-99 [facility]leAutomated erythrocyte mean corpuscular hemoglobin (mass per erythrocyte)2020-02-16 04:45:00* Test Item Value Reference Range Interpretation Comments Mean Corpuscular Hemoglobin (test code = 785-6) 29.1 28-32 [facility]leAutomated erythrocyte mean corpuscular hemoglobin concentration measurement (mass/volume)2020-02-16 04:45:00* Test Item Value Reference Range Interpretation Comments Mean Corpuscular Hemoglobin Concent (test code = 786-4) 32.8 31-35 [facility] AzleRDW GjkNq-Nfw8912-74-30 04:45:00* Test Item Value Reference Range Interpretation Comments Red Cell Distribution Width (test code = 81662-0) 13.8 11.7 -14.4 [facility]leAutomated blood platelet count (count/volume)2020-02-16 04:45:00* Test Item Value Reference Range Interpretation Comments Platelet Count (test code = 777-3) 277 140-360 [facility]leAutomated blood segmented neutrophil count as percentage of total vqdquflpsq7249-84-27 04:45:00* Test Item Value Reference Range Interpretation Comments Neutrophils (%) (Auto) (test code = 89247-2) 71.9 38.7-80.0 [facility]leAutomated blood lymphocyte count as percentage ot total cdoffhjfca0261-54-43 04:45:00* Test Item Value Reference Range Interpretation Comments Lymphocytes (%) (Auto) (test code = 736-9) 17.2 18.0-39.1 [facility]leAutomated blood monocyte count as percentage of total dmupjmktvx9992-55-95 04:45:00* Test Item Value Reference Range Interpretation Comments Monocytes (%) (Auto) (test code = 5905-5) 9.8 4.4-11.3 [facility]leAutomated blood eosinophil count as percentage of total givxkdurkl9474-72-26 04:45:00* Test Item Value Reference Range Interpretation Comments Eosinophils (%) (Auto) (test code = 713-8) 0.0 0.0-6.0 [facility]leAutomated blood basophil count as percentage of total qeoejqrdrk7585-03-41 04:45:00* Test Item Value Reference Range Interpretation Comments Basophils (%) (Auto) (test code = 706-2) 0.5 0.0-1.0 [facility] AzleFluoroscopic procedure less than one hour rbbzzrlq9937-66-70 04:45:00* Test Item Value Reference Range Interpretation Comments IM GRANULOCYTES % (test code = IM GRANULOCYTES %) 0.6 0.0- 1.0 [facility]leAutom[facility] blood neutrophil count 2020-02-16 04:45:00* Test Item Value Reference Range Interpretation Comments Neutrophils # (Auto) (test code = 751-8) 6.0 2.1-6.9 [facility]leBlood lymphocytes count (number/volume) 2020-02-16 04:45:00* Test Item Value Reference Range Interpretation Comments Lymphocytes # (Auto) (test code = 81461-6) 1.4 1.0-3.2 [facility] AzleBlood monocytes automated count (number/volume)2020-02-16 04:45:00* Test Item Value Reference Range Interpretation Comments Monocytes # (Auto) (test code = 742-7) 0.8 0.2-0.8 [facility]leAutomated blood eosinophil count 2020-02-16 04:45:00* Test Item Value Reference Range Interpretation Comments Eosinophils # (Auto) (test code = 711-2) 0.0 0.0-0.4 [facility]leAutomated blood basophil count (count/volume)2020-02-16 04:45:00* Test Item Value Reference Range Interpretation Comments Basophils # (Auto) (test code = 704-7) 0.0 0.0-0.1 [facility] AzleFluoroscopic procedure less than one hour fdcckvrr6104-87-28 04:45:00* Test Item Value Reference Range Interpretation Comments Absolute Immature Granulocyte (auto (prakash t code = Absolute Immature Granulocyte (auto) 0.05 0-0.1 [facility] sodium measurement (moles/volume)2020-02-16 04:45:00* Test Item Value Reference Range Interpretation Comments Sodium Level (test code = 2951-2) 141 136-145 [facility] potassium measurement (moles/volume)2020-02-16 04:45:00* Test Item Value Reference Range Interpretation Comments Potassium Level (test code = 2823-3) 4.1 3.5-5.1 [facility] chloride measurement (moles/volume)2020-02-16 04:45:00* Test Item Value Reference Range Interpretation Comments Chloride Level (test code = 2075-0) 111 98-107 [facility] plasma carbon dioxide, total measurement (moles/volume)2020-02-16 04:45:00* Test Item Value Reference Range Interpretation Comments Carbon Dioxide Level (test code = 2028-9) 23 22-29 [facility] anion yqb2654-65-63 04:45:00* Test Item Value Reference Range Interpretation Comments Anion Gap (test code = 04794-2) 11.1 8-16 [facility] urea nitrogen measurement (mass/volume)2020-02-16 04:45:00* Test Item Value Reference Range Interpretation Comments Blood Urea Nitrogen (test code = 3094-0) 9 7-26 [facility]ere[facility] plasma creatinine measurement (mass/volume)2020-02-16 04:45:00* Test Item Value Reference Range Interpretation Comments Creatinine (test code = 2160-0) 0.79 0.72-1.25 [facility]ere[facility] plasma urea nitrogen/creatinine mass tkoih4122-88-73 04:45:00* Test Item Value Reference Range Interpretation Comments BUN/Creatinine Ratio (test code = 3097-3) 11 6-25 [facility]leEstimated glomerular filtration rate (GFR) fmgqyzjiplhdi0372-57-75 04:45:00* Test Item Value Reference Range Interpretation Comments Estimat Glomerular Filtration Rate (test code = 857897831) > 60 >60 Ranges were taken from the National Kidney Disease Education Program and the [facility] literature.Reference ranges:60 or greater: Sjrbpm77-12 ( for 3 consecutive months): Chronic kidney disease 15 or less: Kidney failureTexas [facility] Hospital AzleGlucose gnyalwyiajq7703-04-63 04:45:00* Test Item Value Reference Range Interpretation Comments Glucose Level (test code = TCO4759) 91 74-118 [facility]ere[facility] or plasma calcium measurement (mass/volume)2020-02-16 04:45:00* Test Item Value Reference Range Interpretation Comments Calcium Level (test code = 68776-2) 8.7 8.4-10.2 [facility] AzleFluoroscopic procedure less than one hour rcrnngpt2816-10-72 14:13:00* Test Item Value Reference Range Interpretation Comments Coronavirus (PCR) (test code = Coronavirus (PCR)) NOT DETECTED NOTD ETECTED Hologic Aptima SARS-CoV-2 assay is a nucleic amplification test intended for the qualitative detection of RNA from SARS-CoV-2 from nasopharyngeal (CUSTODIAN) specimens . It is used under Emergency Use Authorization (EUA) by FDA.A positive result is indicative of the presence of SARS-CoV-2 RNA. Clinical correlation with patient history and other diagnostic information is necessary to determine patient infe ction status.A negative (Not Detected) result does not preclude SARS-CoV-2 infec tion. Clinical Correlation with patient history and other diagnostic information should be used in patient management decisions.Invalid: Unable to generate a va lid result on this specimen. Please submit a new specimen for reprat testing oc clinically indicated.Tesing performed by:[facility] [id number] [place] [address] [id number], Cabrera De La O MD, PhD [facility]- XR CONT ENEMA W/WO [id number] 17:48:00 FAX: Jorge Husain MD [phone] [place]: B St: REG Name: NIALL MONTOYA [facility] : [birth year] Age/S: 54/M [address] [facility] Unit #: [id number] Loc: [place] [address] Phys: Jorge Newberry MD Acct: [id number] Dis Date: Status: REG CLI PHONE #: [phone] Exam Date: 12/01/2019 1005 FAX #: [phone] Reason: EXAMS: CPT CODE: [id number] XR CONT ENEMA W/WO KUB 50030 EXAM: Single contrast barium enema ; INFORMATION: HISTORY of colon cancer; status post resection and colostomy. Patient has been referred for barium enema prior to possi ble colostomy reversal. The patient also provides a history of abdominal a bscess formation relating to previous surgery. 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 After insertion of a rectal tube and inflation of the retention balloo n, barium was slowly infused and opacified the rectosigmoid and descending colon. In addition, an irregular cavity in the pelvis was filling with ba rium via a fistulous connection to the posterior aspect of the rectum. Thi s cavity measured about 12 x 2 cm and the fistulous connection with the re ctum measures about 1.5 cm in diameter. This abnormal cavity was well-cont ained within retrieved peritoneal tissues posterior to the rectum. I n view of this abnormal contrast collection no attempts were made to opaci fy the remainder of the colon. IMPRESSION: 1. Fistulous connection from the posterior wall of the rectum to a well-contained cav ity within the retroperitoneum. This may represent an old abscess cavity with possible connection to the rectum. 2. The remainder of the rectosi gmoid and descending colon showed no abnormalities. 3. No attemp ts were made to opacify the transverse colon, because of the abnormal pe lvic cavity/fistula. Fluoroscopy Time: 134 sec CAK : 212.346 mGy Location code: [facility] Electronically Signed by Wesley Menendez on at 1748 Reported and signed by: Jaydon Menendez M.D. PAGE 1 Signed Report (CONTINUED) FAX: Jorge Husain MD [phone] [place]: St: REG Name: NIALL NICOLE [facility] : 1965 Age/S: 54/M [address] Unit #: [id number] Loc: [place] [address] Phys : Jorge Newberry MD Acct: [id number] Dis Date: Status: REG CLI PHONE #: [phone] Exam Date: 12/01/2019 1005 F AX #: [phone] Reason: EXAMS: CPT CODE: [id number] XR CONT ENEMA W/WO KUB 61977 <Continued> CC: Jorge Newberry MD Technologist: RT MORENA(R) Trnscrd Date/Time/By: 12/01/2019 (6947) : By: SonaGRW Orig Print D/T: S: 12/01/2019 (0431) PAGE 2 Signed Report - XR CONT ENEMA W/WO [id number] 17:48:00 FAX: Y Jorge Newberry MD [phone] [place]: St: DEP Name: NIALL MONTOYA [facility] : [birth year] Age/S: 54/M [address] [facility] Unit #: [id number] Loc: [place] [address] Phys: Jorge Newberry MD Acct: [id number] Dis Date: Status: DEP CLI PHONE #: [phone] Exam Date: 12/01/2019 1005 FAX #: [phone] Reason: EXAMS: CPT CODE: [id number] XR CONT ENEMA W/WO KUB 50359 EXAM: Single contrast barium enema ; INFORMATION: HISTORY of colon cancer; status post resection and colostomy. Patient has been referred for barium enema prior to possi ble colostomy reversal. The patient also provides a history of abdominal a bscess formation relating to previous surgery. 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 After insertion of a rectal tube and inflation of the retention balloo n, barium was slowly infused and opacified the rectosigmoid and descending colon. In addition, an irregular cavity in the pelvis was filling with ba rium via a fistulous connection to the posterior aspect of the rectum. Thi s cavity measured about 12 x 2 cm and the fistulous connection with the re ctum measures about 1.5 cm in diameter. This abnormal cavity was well-cont ained within retrieved peritoneal tissues posterior to the rectum. I n view of this abnormal contrast collection no attempts were made to opaci fy the remainder of the colon. IMPRESSION: 1. Fistulous connection from the posterior wall of the rectum to a well-contained cav ity within the retroperitoneum. This may represent an old abscess cavity with possible connection to the rectum. 2. The remainder of the rectosi gmoid and descending colon showed no abnormalities. 3. No attemp ts were made to opacify the transverse colon, because of the abnormal pe lvic cavity/fistula. Fluoroscopy Time: 134 sec CAK : 212.346 mGy Location code: [facility] Electronically Signed by Wesley Menendez on at 3293 Reported and signed by: Jaydon Menendez M.D. PAGE 1 Signed Report (CONTINUED) FAX: Jorge Husain MD [phone] [place]: St: DEP Name: NIALL NICOLE [facility] : 1965 Age/S: 54/M [address] [facility] Unit #: [id number] Loc: [place] [address] Phys : Jorge Newberry MD Acct: [id number] Dis Date: Status: DEP CLI PHONE #: [phone] Exam Date: 12/01/2019 1005 F AX #: [phone] Reason: EXAMS: CPT CODE: [id number] XR CONT ENEMA W/WO KUB 87958 <Continued> CC: Jorge Newberry MD Technologist: RT MORENA(R) Trnscrd Date/Time/By: 12/01/2019 (0866) : By: tSINGRW Orig Print D/T: S: 12/01/2019 (1009) PAGE 2 Signed Report - XR CONT ENEMA W/WO [id number] 17:48:00 FAX: Y Jorge Newberry MD [phone] [place]: St: DEP Name: NIALL MONTOYA [facility] : [birth year] Age/S: 54/M [address] [facility] Unit #: [id number] Loc: [place] [address] Phys: Jorge Newberry MD Acct: [id number] Dis Date: Status: DEP CLI PHONE #: [phone] Exam Date: 12/01/2019 1005 FAX #: [phone] Reason: EXAMS: CPT CODE: [id number] XR CONT ENEMA W/WO KUB 15578 EXAM: Single contrast barium enema ; INFORMATION: HISTORY of colon cancer; status post resection and colostomy. Patient has been referred for barium enema prior to possi ble colostomy reversal. The patient also provides a history of abdominal a bscess formation relating to previous surgery. 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 After insertion of a rectal tube and inflation of the retention balloo n, barium was slowly infused and opacified the rectosigmoid and descending colon. In addition, an irregular cavity in the pelvis was filling with ba rium via a fistulous connection to the posterior aspect of the rectum. Thi s cavity measured about 12 x 2 cm and the fistulous connection with the re ctum measures about 1.5 cm in diameter. This abnormal cavity was well-cont ained within retrieved peritoneal tissues posterior to the rectum. I n view of this abnormal contrast collection no attempts were made to opaci fy the remainder of the colon. IMPRESSION: 1. Fistulous connection from the posterior wall of the rectum to a well-contained cav ity within the retroperitoneum. This may represent an old abscess cavity with possible connection to the rectum. 2. The remainder of the rectosi gmoid and descending colon showed no abnormalities. 3. No attemp ts were made to opacify the transverse colon, because of the abnormal pe lvic cavity/fistula. Fluoroscopy Time: 134 sec CAK : 212.346 mGy Location code: [facility] Electronically Signed by Wesley Menendez on at 1748 Reported and signed by: Jaydon Menendez M.D. PAGE 1 Signed Report (CONTINUED) FAX: Jorge Husain MD [phone] [place]: St: [facility] 1965 Age/S: 54/M [address] [facility] Unit #: [id number] Loc: [place] [address] Phys : Jorge eNwberry MD Acct: [id number] Dis Date: Status: DEP I PHONE #: [phone] Exam Date: 12/01/2019 1005 F AX #: [phone] Reason: EXAMS: CPT CODE: [id number] XR CONT ENEMA W/WO KUB 16748 <Continued> CC: Jorge Newberry MD Technologist: RT MORENA(R) Trnscrd Date/Time/By: 12/01/2019 (1747) : By: SonaGRW Orig Print D/T: S: 12/01/2019 (1751) PAGE 2 Signed Report - XR CONT ENEMA W/WO [id number] 17:48:00 FAX: Jorge Husain MD [phone] [place]: St: DEP Name: NIALL MONTOYA [facility] : [birth year] Age/S: 54/M [address] [facility] Unit #: [id number] Loc: [place] [address] Phys: Jorge Newberry MD Acct: [id number] Dis Date: Status: DEP CLI PHONE #: [phone] Exam Date: 12/01/2019 1003 FAX #: [phone] Reason: EXAMS: CPT CODE: [id number] XR CONT ENEMA W/WO KUB 39539 EXAM: Single contrast barium enema ; INFORMATION: HISTORY of colon cancer; status post resection and colostomy. Patient has been referred for barium enema prior to possi ble colostomy reversal. The patient also provides a history of abdominal a bscess formation relating to previous surgery. 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 After insertion of a rectal tube and inflation of the retention balloo n, barium was slowly infused and opacified the rectosigmoid and descending colon. In addition, an irregular cavity in the pelvis was filling with ba rium via a fistulous connection to the posterior aspect of the rectum. Thi s cavity measured about 12 x 2 cm and the fistulous connection with the re ctum measures about 1.5 cm in diameter. This abnormal cavity was well-cont ained within retrieved peritoneal tissues posterior to the rectum. I n view of this abnormal contrast collection no attempts were made to opaci fy the remainder of the colon. IMPRESSION: 1. Fistulous connection from the posterior wall of the rectum to a well-contained cav ity within the retroperitoneum. This may represent an old abscess cavity with possible connection to the rectum. 2. The remainder of the rectosi gmoid and descending colon showed no abnormalities. 3. No attemp ts were made to opacify the transverse colon, because of the abnormal pe lvic cavity/fistula. Fluoroscopy Time: 134 sec CAK : 212.346 mGy Location code: [facility] Electronically Signed by Wesley Menendez on at 1748 Reported and signed by: Jaydon Menendez M.D. PAGE 1 Signed Report (CONTINUED) FAX: Jorge Husain MD [phone] [place]: St: DEP Name: NIALL NICOLE [facility] : 1965 Age/S: 54/M [address] Unit #: [id number] Loc: [place] [address] Phys : Jorge Newberry MD Acct: [id number] Dis Date: Status: DEP CLI PHONE #: [phone] Exam Date: 12/01/2019 1005 F AX #: [phone] Reason: EXAMS: CPT CODE: [id number] XR CONT ENEMA W/WO KUB 20052 <Continued> CC: Jorge Newberry MD Technologist: LAURA BERG) Anny Date/Time/By: 12/01/2019 (1747) : By: SonaGRW Orig Print D/T: S: 12/01/2019 (1751) PAGE 2 Signed Report - XR CONT ENEMA W/WO [id number] 17:48:00 FAX: Jorge Husain MD [phone] [place]: St: DEP Name: NIALL MONTOYA [facility] : [birth year] Age/S: 54/M [address] Unit #: [id number] Loc: [place] [address] Phys: Jorge Newberry MD Acct: [id number] Dis Date: Status: DEP CLI PHONE #: [phone] Exam Date: 12/01/2019 1005 FAX #: [phone] Reason: EXAMS: CPT CODE: [id number] XR CONT ENEMA W/WO KUB 80392 EXAM: Single contrast barium enema ; INFORMATION: HISTORY of colon cancer; status post resection and colostomy. Patient has been referred for barium enema prior to possi ble colostomy reversal. The patient also provides a history of abdominal a bscess formation relating to previous surgery. 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 After insertion of a rectal tube and inflation of the retention balloo n, barium was slowly infused and opacified the rectosigmoid and descending colon. In addition, an irregular cavity in the pelvis was filling with ba rium via a fistulous connection to the posterior aspect of the rectum. Thi s cavity measured about 12 x 2 cm and the fistulous connection with the re ctum measures about 1.5 cm in diameter. This abnormal cavity was well-cont ained within retrieved peritoneal tissues posterior to the rectum. I n view of this abnormal contrast collection no attempts were made to opaci fy the remainder of the colon. IMPRESSION: 1. Fistulous connection from the posterior wall of the rectum to a well-contained cav ity within the retroperitoneum. This may represent an old abscess cavity with possible connection to the rectum. 2. The remainder of the rectosi gmoid and descending colon showed no abnormalities. 3. No attemp ts were made to opacify the transverse colon, because of the abnormal pe lvic cavity/fistula. Fluoroscopy Time: 134 sec CAK : 212.346 mGy Location code: [facility] Electronically Signed by Wesley Menendez on at 1748 Reported and signed by: Jaydon Menendez M.D. PAGE 1 Signed Report (CONTINUED) FAX: Jorge Husain MD [phone] [place]: St: DEP Name: NIALL NICOLE [facility] : 1965 Age/S: 54/M [address] Unit #: [id number] Loc: [place] [address] Phys : Jorge Newberry MD Acct: [id number] Dis Date: Status: DEP CLI PHONE #: [phone] Exam Date: 12/01/2019 1005 F AX #: [phone] Reason: EXAMS: CPT CODE: [id number] XR CONT ENEMA W/WO KUB 15514 <Continued> CC: Jorge Newberry MD Technologist: RT MORENA(R) Trnscrd Date/Time/By: 12/01/2019 (139) : By: SonaGRW Orig Print D/T: S: 12/01/2019 (6929) PAGE 2 Signed Report Bedside Umweupg2416-86-90 12:00:00* Test Item Value Reference Range Interpretation Comments Bedside Glucose (test code = 23404-4) 119 70-120 Meter ID: [id number]leWhite Blood Count 2019-10-28 05:59:00* Test Item Value Reference Range Interpretation Comments White Blood Count (test code = 6690-2) 18.41 4.8-10.8 H [facility]leRed Blood Xrwst8310-35-55 05:59:00* Test Item Value Reference Range Interpretation Comments Red Blood Count (test code = 789-8) 2.86 4.3-5.7 L [facility]leHemoglobin2020-04-10 05:59:00* Test Item Value Reference Range Interpretation Comments Hemoglobin (test code = 94111-2) 7.7 14.0-18.0 L [facility]leHematocrit2020-04-10 05:59:00* Test Item Value Reference Range Interpretation Comments Hematocrit (test code = 4544-3) 24.7 38.2-49.6 L [facility]leMean Corpuscular Ngcqtw6415-21-90 05:59:00* Test Item Value Reference Range Interpretation Comments Mean Corpuscular Volume (test code = 787-2) 86.4 81-99 [facility]leMean Corpuscular Exnagcdofb4155-05-83 05:59:00* Test Item Value Reference Range Interpretation Comments Mean Corpuscular Hemoglobin (test code = 785-6) 26.9 28-32 L [facility]leMean Corpuscular Hemoglobin Concent 2019-10-28 05:59:00* Test Item Value Reference Range Interpretation Comments Mean Corpuscular Hemoglobin Concent (test code = 786-4) 31.2 31-35 [facility]leRed Cell Distribution Gophf1314-15-22 05:59:00* Test Item Value Reference Range Interpretation Comments Red Cell Distribution Width (test code = 27608-8) 20.6 11.7 -14.4 H [facility] AzlePlatelet Tldpq8521-12-35 05:59:00* Test Item Value Reference Range Interpretation Comments Platelet Count (test code = 777-3) 738 140-360 H [facility]leNeutrophils (%) (Auto)2019-10-28 05:59:00 * Test Item Value Reference Range Interpretation Comments Neutrophils (%) (Auto) (test code = 62461-3) 84.3 38.7-80.0 H [facility]leLymphocytes (%) (Auto)2019-10-28 05:59:00 * Test Item Value Reference Range Interpretation Comments Lymphocytes (%) (Auto) (test code = 736-9) 5.2 18.0-39.1 L [facility]leMonocytes (%) (Auto)2019-10-28 05:59:00* Test Item Value Reference Range Interpretation Comments Monocytes (%) (Auto) (test code = 5905-5) 8.0 4.4-11.3 [facility]leEosinophils (%) (Auto)2019-10-28 05:59:00 * Test Item Value Reference Range Interpretation Comments Eosinophils (%) (Auto) (test code = 713-8) 0.0 0.0-6.0 [facility]leBasophils (%) (Auto)2019-10-28 05:59:00* Test Item Value Reference Range Interpretation Comments Basophils (%) (Auto) (test code = 706-2) 0.2 0.0-1.0 [facility]leIM [facility]UL[facility] %2019-10-28 05:59:00* Test Item Value Reference Range Interpretation Comments IM GRANULOCYTES % (test code = IM GRANULOCYTES %) 2.3 0.0- 1.0 H [facility]leNeutrophils # (Auto)2019-10-28 05:59:00* Test Item Value Reference Range Interpretation Comments Neutrophils # (Auto) (test code = 751-8) 15.5 2.1-6.9 H [facility]leLymphocytes # (Auto)2019-10-28 05:59:00* Test Item Value Reference Range Interpretation Comments Lymphocytes # (Auto) (test code = 27726-3) 1.0 1.0-3.2 [facility]leMonocytes # (Auto)2019-10-28 05:59:00* Test Item Value Reference Range Interpretation Comments Monocytes # (Auto) (test code = 742-7) 1.5 0.2-0.8 H [facility]leEosinophils # (Auto)2019-10-28 05:59:00* Test Item Value Reference Range Interpretation Comments Eosinophils # (Auto) (test code = 711-2) 0.0 0.0-0.4 [facility]leBasophils # (Auto)2019-10-28 05:59:00* Test Item Value Reference Range Interpretation Comments Basophils # (Auto) (test code = 704-7) 0.0 0.0-0.1 [facility]leAbsolute Immature Granulocyte (auto 2019-10-28 05:59:00* Test Item Value Reference Range Interpretation Comments Absolute Immature Granulocyte (auto (prakash t code = Absolute Immature Granulocyte (auto) 0.43 0-0.1 H [facility]odium Whwwj0210-74-43 05:42:00* Test Item Value Reference Range Interpretation Comments Sodium Level (test code = 2951-2) 134 136-145 L [facility]lePotassium Pydpg9270-23-47 05:42:00* Test Item Value Reference Range Interpretation Comments Potassium Level (test code = 2823-3) 3.9 3.5-5.1 [facility]leChloride Igiuc2972-54-54 05:42:00* Test Item Value Reference Range Interpretation Comments Chloride Level (test code = 2075-0) 102 98-107 [facility] AzleCarbon Dioxide Mwiki8302-38-93 05:42:00* Test Item Value Reference Range Interpretation Comments Carbon Dioxide Level (test code = 2028-9) 28 22-29 [facility] AzleAnion Xdi6939-98-56 05:42:00* Test Item Value Reference Range Interpretation Comments Anion Gap (test code = 06407-1) 7.9 8-16 L [facility]leBlood Urea Ndqrxddi6184-73-28 05:42:00* Test Item Value Reference Range Interpretation Comments Blood Urea Nitrogen (test code = 3094-0) < 5 7-26 L [facility] AzleCreatinine2020-04-10 05:42:00* Test Item Value Reference Range Interpretation Comments Creatinine (test code = 2160-0) 0.65 0.72-1.25 L [facility] AzleBUN/Creatinine Ufjvo2237-80-57 05:42:00* Test Item Value Reference Range Interpretation Comments BUN/Creatinine Ratio (test code = 3097-3) 8 6-25 [facility] AzleEstimat Glomerular Filtration Rate 2019-10-28 05:42:00* Test Item Value Reference Range Interpretation Comments Estimat Glomerular Filtration Rate (test code = 102870017) > 60 >60 Ranges were taken from the National Kidney Disease Education Program and the [facility] Foundation literature.Reference ranges:60 or greater: Wuteko99-46 ( for 3 consecutive months): Chronic kidney disease 15 or less: Kidney failureTexas [facility] Hospital AzleGlucose Adbwn1983-35-43 05:42:00* Test Item Value Reference Range Interpretation Comments Glucose Level (test code = ACN4917) 151 74-118 H [facility] AzleCalcium Tysld8463-14-73 05:42:00* Test Item Value Reference Range Interpretation Comments Calcium Level (test code = 62342-2) 7.2 8.4-10.2 L [facility] AzleWound Esfcswd3309-94-04 08:31:00* Test Item Value Reference Range Interpretation Comments Wound Culture (test code = 6462-6) No Result Data Provided [facility] AzleDifferential Total Cells Counted 2019-10-25 09:01:00* Test Item Value Reference Range Interpretation Comments Differential Total Cells Counted (test code = Differtaiwo tial Total Cells Counted) 100 [facility]leNeutrophils % (Manual)2019-10-25 09:01:00 * Test Item Value Reference Range Interpretation Comments Neutrophils % (Manual) (test code = 44178-5) 91 40-74 H [facility]leLymphocytes % (Manual)2019-10-25 09:01:00 * Test Item Value Reference Range Interpretation Comments Lymphocytes % (Manual) (test code = 737-7) 5 19-48 L [facility]leMonocytes % (Manual)2019-10-25 09:01:00* Test Item Value Reference Range Interpretation Comments Monocytes % (Manual) (test code = 744-3) 3 3.4-9.0 L [facility]leMyelocytes %2019-10-25 09:01:00* Test Item Value Reference Range Interpretation Comments Myelocytes % (test code = 749-2) 1 0-0 H [facility] AzlePlatelet Begfnmbx7025-57-31 09:01:00* Test Item Value Reference Range Interpretation Comments Platelet Estimate (test code = 58635-9) MODERATELY INCREASED [facility] AzlePlatelet Morphology Noghdgy2149-73-51 09:01:00* Test Item Value Reference Range Interpretation Comments Platelet Morphology Comment (test code = 14609-5) FEW EDTA CLUMPING [facility] AzlePolychromasia2020-04-07 09:01:00* Test Item Value Reference Range Interpretation Comments Polychromasia (test code = 04779-8) FEW [facility] AzleHypochromasia2020-04-07 09:01:00* Test Item Value Reference Range Interpretation Comments Hypochromasia (test code = 728-6) SLIGHT [facility]leAnisocytosis2020-04-07 09:01:00* Test Item Value Reference Range Interpretation Comments Anisocytosis (test code = 702-1) MODERATE [facility] AzleOvalocytes2020-04-07 09:01:00* Test Item Value Reference Range Interpretation Comments Ovalocytes (test code = 774-0) FEW [facility] AzleElliptocytes2020-04-07 09:01:00* Test Item Value Reference Range Interpretation Comments Elliptocytes (test code = 00773-4) SLIGHT [facility] AzleRed Cell Morphology Afesgbi3302-47-79 09:01:00* Test Item Value Reference Range Interpretation Comments Red Cell Morphology Comment (test code = 6742-1) ABNORMAL [facility] AzleFluoroscopic procedure less than one hour lfucmwdu8923-66-05 05:30:00* Test Item Value Reference Range Interpretation Comments Differential Total Cells Counted (test code = Jayy tial Total Cells Counted) 100 [facility] blood neutrophils/100 leukocytes 2019-10-25 05:30:00* Test Item Value Reference Range Interpretation Comments Neutrophils % (Manual) (test code = 24038-0) 91 40-74 [facility] blood lymphocytes/100 leukocytes 2019-10-25 05:30:00* Test Item Value Reference Range Interpretation Comments Lymphocytes % (Manual) (test code = 737-7) 5 19-48 [facility] blood monocytes/100 leukocytes 2019-10-25 05:30:00* Test Item Value Reference Range Interpretation Comments Monocytes % (Manual) (test code = 744-3) 3 3.4-9.0 [facility] blood myelocytes/100 leukocytes 2019-10-25 05:30:00* Test Item Value Reference Range Interpretation Comments Myelocytes % (test code = 749-2) 1 0-0 [facility]Blwind[facility] platelets count by estimate (number/volume)2019-10-25 05:30:00* Test Item Value Reference Range Interpretation Comments Platelet Estimate (test code = 68362-4) MODERATELY INCREASED [facility] AzlePlatelet vokwefwums9455-10-93 05:30:00* Test Item Value Reference Range Interpretation Comments Platelet Morphology Comment (test code = 58677-8) FEW EDTA CLUMPING [facility]leBlwind[facility] polychromasia detection by light dqtxfyaeeb8680-41-63 05:30:00* Test Item Value Reference Range Interpretation Comments Polychromasia (test code = 84006-9) FEW [facility] hypochromia detection by light wadyzwprgw0446-22-92 05:30:00* Test Item Value Reference Range Interpretation Comments Hypochromasia (test code = 728-6) SLIGHT [facility] anisocytosis detection by light qpxkjoknnp0277-19-78 05:30:00* Test Item Value Reference Range Interpretation Comments Anisocytosis (test code = 702-1) MODERATE [facility] ovalocytes detection by light yvghnpkmhe3424-03-32 05:30:00* Test Item Value Reference Range Interpretation Comments Ovalocytes (test code = 774-0) FEW [facility] AzleElliptocyte noqtwybib4323-89-59 05:30:00 * Test Item Value Reference Range Interpretation Comments Elliptocytes (test code = 01251-7) SLIGHT [facility] AzleRB msbnzjofxz8768-48-98 05:30:00* Test Item Value Reference Range Interpretation Comments Red Cell Morphology Comment (test code = 6742-1) ABNORMAL [facility] AzleFolate2020-04-07 05:02:00* Test Item Value Reference Range Interpretation Comments Folate (test code = 2284-8) 10.7 >3.0 A serum folate concentration of less than 3.1 ng/mL isconsidered to represent cl inical deficiency.Performed at: [address] [id number] Director: Kannan Wise MD, Phone: [phone] Health Harris Methodist Hospital AzleBand Neutrophils %2019-10-24 07:52:00* Test Item Value Reference Range Interpretation Comments Band Neutrophils % (test code = 764-1) 3 [facility]leEosinophils % (Manual)2019-10-24 07:52:00 * Test Item Value Reference Range Interpretation Comments Eosinophils % (Manual) (test code = 714-6) 1 0-7 [facility] AzleMetamyelocytes %2019-10-24 07:52:00* Test Item Value Reference Range Interpretation Comments Metamyelocytes % (test code = 740-1) 4 0-0 H [facility] AzlePhosphorus Seuel5070-41-44 06:40:00* Test Item Value Reference Range Interpretation Comments Phosphorus Level (test code = SZV6417) 1.5 2.3-4.7 L [facility] AzleMagnesium Bpurx3475-23-95 06:40:00* Test Item Value Reference Range Interpretation Comments Magnesium Level (test code = 54907-7) 1.5 1.3-2.1 [facility] AzleManual blood band neutrophils form/100 wslestlylh1084-60-32 05:40:00* Test Item Value Reference Range Interpretation Comments Band Neutrophils % (test code = 764-1) 3 [facility] eosinophil count as percentage of total mqkzxoqjou2317-47-95 05:40:00* Test Item Value Reference Range Interpretation Comments Eosinophils % (Manual) (test code = 714-6) 1 0-7 [facility]ual blood metamyelocytes/100 onoumtkghs0776-97-69 05:40:00* Test Item Value Reference Range Interpretation Comments Metamyelocytes % (test code = 740-1) 4 0-0 [facility]lePhosphorus fcwaqtzlbiz3225-83-57 05:40:00 * Test Item Value Reference Range Interpretation Comments Phosphorus Level (test code = ZKD5273) 1.5 2.3-4.7 [facility]ererum or plasma magnesium measurement (mass/volume)2019-10-24 05:40:00* Test Item Value Reference Range Interpretation Comments Magnesium Level (test code = 83030-0) 1.5 1.3-2.1 [facility] AzleToxic Xrunwjakkpb9916-88-11 13:01:00* Test Item Value Reference Range Interpretation Comments Toxic Granulation (test code = 803-7) SLIGHT [facility] AzleBlood toxic granules detection by light duntuoikpz8356-15-53 11:06:00* Test Item Value Reference Range Interpretation Comments Toxic Granulation (test code = 803-7) SLIGHT [facility] AzleBacteria identification in wound by vlllkgs9474-05-17 09:35:00* Test Item Value Reference Range Interpretation Comments Wound Culture (test code = 6462-6) SUJATHA PARAPSILOSIS [facility] AzleFerritin2020-04-04 07:45:00* Test Item Value Reference Range Interpretation Comments Ferritin (test code = 2276-4) 701.02 21.81-274.66 H [facility] AzleVitamin B12 Cdtqb3893-22-21 07:45:00* Test Item Value Reference Range Interpretation Comments Vitamin B12 Level (test code = 32353-6) > 2000 213-816 H [facility]leBasophils % (Manual)2019-10-22 07:43:00* Test Item Value Reference Range Interpretation Comments Basophils % (Manual) (test code = 90347-0) 1 0-1.5 [facility] AzleReactive Hhcgqdevliz9565-74-52 07:43:00* Test Item Value Reference Range Interpretation Comments Reactive Lymphocytes (test code = 31761-9) 1 [facility] AzleNucleated Red Blood Ucuyu2730-83-54 07:43:00* Test Item Value Reference Range Interpretation Comments Nucleated Red Blood Cells (test code = 89465-6) 1 [facility] AzleCrenated Cfjc5053-37-00 07:43:00* Test Item Value Reference Range Interpretation Comments Crenated Cell (test code = 7790-9) A [facility]ererum or plasma folate measurement (mass/volume)2019-10-22 07:32:00* Test Item Value Reference Range Interpretation Comments Folate (test code = 2284-8) 10.7 >3.0 A serum folate concentration of less than 3.1 ng/mL isconsidered to represent cl inical deficiency.Performed at: - [facility] [id number] Director: Kannan Wise MD, Phone: [phone] Health [facility] Hospital AzleIron Jfspk3849-69-79 07:24:00* Test Item Value Reference Range Interpretation Comments Iron Level (test code = 2498-4) 20 65-175 L [facility] AzleTotal Iron Binding Jhcmlwkl7017-82-02 07:24:00* Test Item Value Reference Range Interpretation Comments Total Iron Binding Capacity (test code = 2500-7) 176 261-4 78 L [facility] AzlePercent Iron Hyinkikdbc2078-22-57 07:24:00* Test Item Value Reference Range Interpretation Comments Percent Iron Saturation (test code = 2502-3) 11 15-50 L [facility] AzleTransferrin2020-04-04 07:24:00* Test Item Value Reference Range Interpretation Comments Transferrin (test code = 3034-6) 126 174-364 L [facility] AzleTotal Uitkbckqa4472-94-18 07:08:00* Test Item Value Reference Range Interpretation Comments Total Bilirubin (test code = 1975-2) 0.3 0.2-1.2 [facility] AzleAspartate Amino Transf (AST/SGOT) 2019-10-22 07:08:00* Test Item Value Reference Range Interpretation Comments Aspartate Amino Transf (AST/SGOT) (test code = Aspartate Amino Transf (AST/SGOT)) 12 5-34 [facility] AzleAlanine Aminotransferase (ALT/SGPT) 2019-10-22 07:08:00* Test Item Value Reference Range Interpretation Comments Alanine Aminotransferase (ALT/SGPT) (test code = 1742-6) 7 0-55 [facility] AzleTotal Ykmvdju0762-99-88 07:08:00* Test Item Value Reference Range Interpretation Comments Total Protein (test code = 2885-2) 5.8 6.5-8.1 L [facility] AzleAlbumin2020-04-04 07:08:00* Test Item Value Reference Range Interpretation Comments Albumin (test code = 1751-7) 1.7 3.5-5.0 L [facility] AzleGlobulin2020-04-04 07:08:00* Test Item Value Reference Range Interpretation Comments Globulin (test code = 53015-2) 4.1 2.3-3.5 H [facility] AzleAlbumin/Globulin Dlxln2458-93-40 07:08:00 * Test Item Value Reference Range Interpretation Comments Albumin/Globulin Ratio (test code = 1759-0) 0.4 0.8-2.0 L [facility] AzleAlkaline Ixphzziikpm8498-90-15 07:08:00* Test Item Value Reference Range Interpretation Comments Alkaline Phosphatase (test code = 6768-6) 140 40-150 [facility] AzleBlood cobalamin (vitamin B12) measurement (mass/volume)2019-10-22 06:40:00* Test Item Value Reference Range Interpretation Comments Vitamin B12 Level (test code = 33975-3) > 1999 213-816 [facility] AzleManual basophil ewrgvrxbpo3858-76-40 06:38:00* Test Item Value Reference Range Interpretation Comments Basophils % (Manual) (test code = 94669-3) 1 0-1.5 [facility] AzleBlood lymphocytes variant count (number/volume)2019-10-22 06:38:00* Test Item Value Reference Range Interpretation Comments Reactive Lymphocytes (test code = 82793-3) 1 [facility] AzleBlood nucleated erythrocytes count (number/volume)2019-10-22 06:38:00* Test Item Value Reference Range Interpretation Comments Nucleated Red Blood Cells (test code = 24547-8) 1 [facility] morris cells detection by light cnfnistykf8122-83-87 06:38:00* Test Item Value Reference Range Interpretation Comments Crenated Cell (test code = 7790-9) A [facility]ererum or plasma iron measurement (mass/volume)2019-10-22 06:38:00* Test Item Value Reference Range Interpretation Comments Iron Level (test code = 2498-4) 20 65-175 [facility]ererum or plasma iron binding capacity measurement (mass/volume)2019-10-22 06:38:00* Test Item Value Reference Range Interpretation Comments Total Iron Binding Capacity (test code = 2500-7) 176 261-4 78 [facility] Centererum or plasma iron saturation measurement (mass fraction)2019-10-22 06:38:00* Test Item Value Reference Range Interpretation Comments Percent Iron Saturation (test code = 2502-3) 11 15-50 [facility]ererum or plasma transferrin measurement (mass/volume)2019-10-22 06:38:00* Test Item Value Reference Range Interpretation Comments Transferrin (test code = 3034-6) 126 174-364 [facility] Centererum or plasma ferritin measurement (mass/volume)2019-10-22 06:38:00* Test Item Value Reference Range Interpretation Comments Ferritin (test code = 2276-4) 701.02 21.81-274.66 [facility] Centererum or plasma total bilirubin measurement (mass/volume)2019-10-22 06:38:00* Test Item Value Reference Range Interpretation Comments Total Bilirubin (test code = 1975-2) 0.3 0.2-1.2 [facility] AzleFluoroscopic procedure less than one hour szeepmds5449-01-43 06:38:00* Test Item Value Reference Range Interpretation Comments Aspartate Amino Transf (AST/SGOT) (test code = Aspartate Amino Transf (AST/SGOT)) 12 5-34 [facility] Centererum or plasma alanine aminotransferase measurement (enzymatic activity/volume)2019-10-22 06:38:00* Test Item Value Reference Range Interpretation Comments Alanine Aminotransferase (ALT/SGPT) (test code = 1742-6) 7 0-55 [facility] Centererum or plasma protein measurement (mass/volume)2019-10-22 06:38:00* Test Item Value Reference Range Interpretation Comments Total Protein (test code = 2885-2) 5.8 6.5-8.1 [facility] Centererum or plasma albumin measurement (mass/volume)2019-10-22 06:38:00* Test Item Value Reference Range Interpretation Comments Albumin (test code = 1751-7) 1.7 3.5-5.0 [facility] AzlePlasma globulin measurement (mass/volume) 2019-10-22 06:38:00* Test Item Value Reference Range Interpretation Comments Globulin (test code = 39548-1) 4.1 2.3-3.5 [facility] Centererum or plasma albumin/globulin mass ttcrt5908-33-16 06:38:00* Test Item Value Reference Range Interpretation Comments Albumin/Globulin Ratio (test code = 1759-0) 0.4 0.8-2.0 [facility] Centererum or plasma alkaline phosphatase measurement (enzymatic activity/volume)2019-10-22 06:38:00* Test Item Value Reference Range Interpretation Comments Alkaline Phosphatase (test code = 6768-6) 140 40-150 [facility]leCT ABDOMEN/PELVIS V0105-25-64 17:23:00 [facility] [address] [place] [address] Patient Name: NIALL NICOLE MR #: [id number] : 1965 Age/Sex: 53/M Req #: [id number] Adm Physician: JORGE MASCORRO MD Ordered by: TANISHA ISAACS MD Report #: [id number] Location: MED/SURG [facility]/Bed: [facility] Procedure: [id number] CT/CT ABD OMEN/PELVIS W Exam Date: 10/21/19 Exam Time: 1625 REPORT STATUS: Signed EXAM: CT Abd omen and Pelvis WITH intravenous contrast INDICATION: Persistent fever COMPARISON: CT abdomen and pelvis 10/14/2019 TECHNIQUE: Abdomen and pelvi s were scanned utilizing a multidetector helical scanner from the lung base to the pubic symphysis after administration of IV contrast. Coronal and sagittal reformations were obtained. Routine protocol was performed. Scan was performe d during portal venous phase. IV CONTRAST: 100mL of Isovue 370 ORAL CONTRAST: Gastrografin RADIATION DOSE: Total DLP: 640.9 mGy*cm Dose modulation, iterative reconstruction, and/or weight based adjustment of the m A/kV was utilized to reduce the radiation dose to as low as reasonably achieva ble. FINDINGS: LOWER THORAX: There are new bilateral small pleural ef fusions with associated atelectasis greater on the left. HEPATOBILIARY: N o focal liver lesion. No biliary ductal dilation. Unremarkable gallbladder. SPLEEN: Mild splenomegaly to 14 cm. PANCREAS: No focal masses or ductal dilatation. ADRENALS: Mild left adrenal thickening. No focal adrenal nodule s. KIDNEYS/URETERS: No hydronephrosis, stones, or solid mass lesions. GI TRACT: Status post distal colon resection and bowel anastomosis. There is n ew small bowel wall dilatation which could be due to ileus. Mildly prominent a ir-containing appendix measuring up to 8 mm without wall thickening. PERITO NEUM / RETROPERITONEUM: Decreased free peritoneal air in the upper abdomen. St atus post placement of drainage catheter adjacent to the fluid collection next to the rectal anastomosis (series 3, image 82) with slightly increased in ext ent of U shape collection containing air. Free fluid has increased in the abdo men and pelvis and is again seen surrounding the pigtail catheter. PELVIC ORGANS/BLADDER: A Vernon catheter is in place. Foci of air are seen in the gavino dder increased from prior exam.. LYMPH NODES: No lymphadenopathy. VESS ELS: Scattered atherosclerotic calcifications of the nonaneurysmal abdominal a sandra and major branches. BONES: Degenerative changes are seen in the spine. BONES AND SOFT TISSUES: Small foci of air in the anterior abdominal subc utaneous soft tissues. No focal soft tissue fluid collection. Surgical skin st aples in place. IMPRESSION: 1. Status post placement of drainage cat heter adjacent to the fluid collection next to the rectal anastomosis with sli ghtly increased in extent of U shape collection containing air. Recommend cons ultation with interventional radiology. 2. New bilateral small pleural e ffusions with associated atelectasis greater on the left. 3. Interval in crease in free fluid in the abdomen and pelvis. 4. New small bowel wall di latation which could be due to ileus. 5. Decreased retroperitoneal and in traperitoneal postoperative air. Signed by: Binh Singh MD on 10/21/19 5:44 PM Dictated By: BINH SINGH MD 43 Transcribed By: STEPHANIE on 10/21/191743 COPY TO: TANISHA ISAACS MD ABDOMEN 2 BLQD5766-24-47 06:59:00 [place] [address] Patient Name: NIALL NICOLE MR #: [id number] : 1965 Age/Sex: 53/M Req #: [id number] Adm Physician: JORGE MASCORRO MD Ordered by: JORGE MASCORRO MD Report #: [id number] Location: MED/SURG R oom/Bed: [facility] Procedure: [id number] DX/ABDO MEN 2 VIEW Exam Date: 10/21/19 Exam Time: 643 REPORT STATUS: Signed Two view abdome n series. INDICATION: Abdominal distention; history of distal colon resect ion and bowel anastomosis. Recent rectal anastomotic leak with percutaneous dr patino. Abdominal distention [id number] COMPARISON: CT abdomen /pelvis 10/14/2019. FINDINGS: Medical Devices: Hemostatic clips in the stomach are stable. Pigtail catheter within the pelvis. There are multiple ch ain sutures in the pelvis. Abdominal wall adolfo in the lower midabdomen and the left upper quadrant. Bowel: Dilated loops of small bowel in the upper a bdomen measure up to 8 cm with air-fluid levels. There is little air in the mi d and distal small bowel. There is an air-fluid level in the stomach as well a s air-fluid levels in the transverse colon. The colon is not dilated, however. Free air: Present from recent surgery Abdominal calcifications: None over the renal shadows or along the expected course of the ureters. Orga nomegaly: None Lung bases: Bibasilar atelectasis. Bones: Healed fractu re deformities of several right ribs. Mild degenerative changes of the lower l umbar spine. IMPRESSION: 1. Significantly dilated small bowel loop in the upper mid abdomen suggestive of postoperative ileus. Tube decompression s hould be considered. 2. Postoperative pneumoperitoneum. 3. Medical dev ices as described above. Signed by: Dr. Gen Joseph MD on 10/21/2019 7 :05 AM Dictated By: GEN JOSEPH MD 4 Transcribed By: STEPHANIE on 10/21/19704 COPY TO: JORGE MASCORRO MD Blood [id number] 09:20:00* Test Item Value Reference Range Interpretation Comments Blood Culture (test code = 69619254) NO GROWTH AFTER 5 DAYS, FINAL REPORT [facility] [id number] 12:46:00* Test Item Value Reference Range Interpretation Comments Body Fluid Culture (test code = 611-4) No Result Data Provided [facility] [id number] 09:34:00 [place] [address] Patient Name: NIALL NICOLE MR #: [id number] : 1965 Age/Sex: 53/M Req #: [id number] Adm Physician: JORGE MASCORRO MD Ordered by: JORGE MASCORRO MD Report #: [id number] Location: MED/SURG R oom/Bed: 106-1 Procedure: [id number] DX/IR C ONSULT Exam Date: Exam Time: REPORT STATUS: Signed PROCEDURE: CT guided transglute al drainage of perirectal fluid collection Procedural Personnel Attending physician: Alivia Bear MD Pre-procedure diagnosis: Perirectal collection, suspected leak Post-procedure diagnosis: Rectal anastomotic leak, perirectal c ollection Indication: Perirectal collection. Additional clinical history: St atus post distal colon resection and bowel anastomosis with perirectal collect ion. Complications: No immediate complications. IMPRESSION: CT guide d percutaneous drainage of perirectal collection via right transgluteal approa ch, 10 Fr catheter placed, 60 cc feculent fluid drained. Plan: Inject 1 0 cc of normal saline to patient and 10 cc to the bag q 8 hours. Monitor I /O. Further plan per surgical team. PROCEDURE SUMMARY: - CT guided aspira tion and drainage of perirectal collection via right transgluteal approach. PROCEDURE DETAILS: Pre-procedure Consent: Informed consent for the pr ocedure including risks, benefits and alternatives was obtained and time-out w as performed prior to the procedure. Preparation: The right buttock was prepar ed and draped using maximal sterile barrier technique including cutaneous anti sepsis. Anesthesia/sedation Level of anesthesia/sedation: Moderate sedati on (conscious sedation); 150 mg of IV Fentanyl, 3 mg of IV Versed Anesthesia /sedation administered by: IR nurse under attending supervision with continuou s monitoring of the patient?s level of consciousness and physiologic status Total intra-service sedation time (minutes): [address] ainage/aspiration The patient was positioned prone. Initial CT performed demon strating perirectal extraluminal oral contrast (from prior CT scan), consisten t with leak. Interval enlargement of fluid and air containing perirectal colle ction. Local anesthesia was administered. The fluid collection was accessed us ing an 18 gauge access needle followed by Amplatz wire insertion, serial dilat ation, and 10 Fr pigtail drainage catheter placement with CT guidance. Positio n within the fluid collection was confirmed, and fluid aspiration was performe d, with 60 cc of feculent fluid removed. Post procedural CT demonstrates satis factory position and decompression of collection. All instruments were then re moved. Contrast Contrast agent: None Contrast volume (mL): [address] dose length product (mGy-cm): 1458.7 Additional Details S pecimens removed: Total of 20 cc of feculent fluid sent for microbiology and c ell count. Estimated blood loss (mL): Less than 10 Standardized report: SIR _DrainageAspiration_v3 Attestation Signer name: Dr. Alivia Bear MD I attest that I was present for the entire procedure. I reviewed the stored esther ges and agree with the report as written. Signed by: Dr. Alivia Bear MD on 10/18/2019 9:45 AM Dictated By: ALIVIA BEAR MD 4 Transcribed By: STEPHANIE on 10/18/19944 C OPY TO: JORGE MASCORRO MD ABD FLUID/ABSC W [id number] 09:34:00 [place] [address] Patient Name: NIALL NICOLE MR #: [id number] : 1965 Age/Sex: 53/M Req #: [id number] Adm Physician: JORGE MASCORRO MD Ordered by: JORGE MASCORRO MD Report #: [id number] Location: MED/SURG R oom/Bed: 106-1 Procedure: [id number] IR/DRN ABD FLUID/ABSC W CATH Exam Date: 10/15/19 Exam Time: 1330 REPORT STATUS: Signed PROC EDURE: CT guided transgluteal drainage of perirectal fluid collection Proce dural Personnel Attending physician: Alivia Bear MD Pre-procedure diagnos is: Perirectal collection, suspected leak Post-procedure diagnosis: Rectal maddie stomotic leak, perirectal collection Indication: Perirectal collection. Juan tional clinical history: Status post distal colon resection and bowel anastomo sis with perirectal collection. Complications: No immediate complications. IMPRESSION: CT guided percutaneous drainage of perirectal collection via right transgluteal approach, 10 Fr catheter placed, 60 cc feculent fluid drain ed. Plan: Inject 10 cc of normal saline to patient and 10 cc to the bag q 8 hours. Monitor I/O. Further plan per surgical team. PROCEDURE LEAL MMARY: - CT guided aspiration and drainage of perirectal collection via right transgluteal approach. PROCEDURE DETAILS: Pre-procedure Consent: Informed consent for the procedure including risks, benefits and alternatives was obtained and time-out was performed prior to the procedure. Preparation: T he right buttock was prepared and draped using maximal sterile barrier techniq ue including cutaneous antisepsis. Anesthesia/sedation Level of anesthesi a/sedation: Moderate sedation (conscious sedation); 150 mg of IV Fentanyl, 3 m g of IV Versed Anesthesia/sedation administered by: IR nurse under attending s upervision with continuous monitoring of the patient?s level of consciousness and physiologic status Total intra-service sedation time (minutes): 70 minut es Fluid collection drainage/aspiration The patient was positioned prone. Initial CT performed demonstrating perirectal extraluminal oral contrast (fro m prior CT scan), consistent with leak. Interval enlargement of fluid and air containing perirectal collection. Local anesthesia was administered. The fluid collection was accessed using an 18 gauge access needle followed by Amplatz w toby insertion, serial dilatation, and 10 Fr pigtail drainage catheter placemen t with CT guidance. Position within the fluid collection was confirmed, and fl uid aspiration was performed, with 60 cc of feculent fluid removed. Post proce dural CT demonstrates satisfactory position and decompression of collection. A ll instruments were then removed. Contrast Contrast agent: None Contras t volume (mL): [address] dose length product (mGy-cm): 1458.7 Additional Details Specimens removed: Total of 20 cc of feculent fluid se nt for microbiology and cell count. Estimated blood loss (mL): Less than 10 Standardized report: SIR_DrainageAspiration_v3 Attestation Signer name : Dr. Alivia Bear MD I attest that I was present for the entire procedure. I reviewed the stored images and agree with the report as written. Veronica d by: Dr. Alivia Bear MD on 10/18/2019 9:45 AM Dictated By: ALIVIA BEAR MD 4 Transcribed By: МАРИЯ COYNE on 10/18/19944 COPY TO: JORGE MASCORRO MD Vancomycin Level [id number] 10:36:00* Test Item Value Reference Range Interpretation Comments Vancomycin Level Trough (test code = 4092-3) 9.7 5.0-10.0 [facility] plasma trough vancomycin level at trough (mass/volume)2019-10-17 09:55:00* Test Item Value Reference Range Interpretation Comments Vancomycin Level Trough (test code = 4092-3) 9.7 5.0-10.0 [facility] Total Cells [id number] 16:50:00* Test Item Value Reference Range Interpretation Comments Body Fluid Total Cells Counted (test code = 25124-8) D EGENERATED CELLS, UNABLE TO IDENTIFY CELLS. SPECIMEN SMEAR SHOWS YEAST, AND BACTERIA. --- 10/15/191649 --- TOTAL COUNTED previously reported as: DEGENERATED CELLS, UNABLE TO IDENTIFY CELLS. SLIDE SEND FOR PATHOLOGIST REVIEW 1644 on 10/15/19 by Sharita Donis [facility] Fluid [id number] 16:50:00* Test Item Value Reference Range Interpretation Comments Body Fluid Comment (test code = Body Fluid Comment) DE GERNATIVE CELLS, UNABLE TO IDENTIFY CELLS, SLIDE SHOWS YEAST AND BACTERIA. --- 10/15/19 1650 --- BF COMMENT previously reported as: DEGERNATIVE CELLS, UNABLE TO IDENTIFY CELLS, SLIDES SENT FOR PATHOLOGIST REVIEW. [facility] Fluid [id number] 16:46:00* Test Item Value Reference Range Interpretation Comments Body Fluid Type (test code = 55989-5) SOURCE-RECTAL ABSCESS FLUID [facility] Fluid [id number] 16:46:00* Test Item Value Reference Range Interpretation Comments Body Fluid Color (test code = 6824-7) BROWN [facility] Fluid Gvfinzmbaz7797-02-69 16:46:00 * Test Item Value Reference Range Interpretation Comments Body Fluid Appearance (test code = 9335-1) TURBID [facility] Fluid [id number] 16:46:00* Test Item Value Reference Range Interpretation Comments Body Fluid WBC (test code = 6743-9) 8[address]40 [facility] Fluid [id number] 16:46:00* Test Item Value Reference Range Interpretation Comments Body Fluid RBC (test code = 6741-3) 2351 [facility] Center[facility] source identification of body [id number] 14:30:00* Test Item Value Reference Range Interpretation Comments Body Fluid Type (test code = 50057-7) See Comment SOURCE-RECTAL ABSCESS FLUIDTexas Health [facility] AzleEvaluation of color of body [id number] 14:30:00* Test Item Value Reference Range Interpretation Comments Body Fluid Color (test code = 6824-7) See Comment [facility] CenterDetermination of appearance of body [id number] 14:30:00* Test Item Value Reference Range Interpretation Comments Body Fluid Appearance (test code = 9335-1) TURBID [facility] body fluid leukocytes count (number/volume)2019-10-15 14:30:00* Test Item Value Reference Range Interpretation Comments Body Fluid WBC (test code = 6743-9) [address] [facility] Center[facility] fluid erythrocytes count (number/volume)2019-10-15 14:30:00* Test Item Value Reference Range Interpretation Comments Body Fluid RBC (test code = 6741-3) 2351 [facility]le[facility] cell [id number] 14:30:00* Test Item Value Reference Range Interpretation Comments Body Fluid Total Cells Counted (test code = 41860-8) See Comment DEGENERATED CELLS, UNABLE TO IDENTIFY CELLS. SPECIMEN SMEAR SHOWS YEAST, AND BA CTERIA. --- 10/15/191649 ---TOTAL COUNTED previously reported as: DEGENERATE D CELLS, UNABLE TO IDENTIFY CELLS. SLIDE SEND FOR PATHOLOGIST REVIEW 164 on by Sharita Stewart [facility] DallasFluoroscopic procedure less than one hour [id number] 14:30:00* Test Item Value Reference Range Interpretation Comments Body Fluid Comment (test code = Body Fluid Comment) See Comment DEGERNATIVE CELLS, UNABLE TO IDENTIFY CELLS, SLIDE SHOWS YEAST AND BACTERIA. --- 10/15/191649 ---BF COMMENT previously reported as: DEGERNATIVE CELLS, UNABL E TO IDENTIFY CELLS, SLIDES SENT FOR PATHOLOGIST REVIEW.[facility]leBacterial body fluid [id number] 14:30:00* Test Item Value Reference Range Interpretation Comments Body Fluid Culture (test code = 611-4) PSEUDOMONAS AERUGINOSA [facility] AzleProthrombin Lrke7777-04-37 09:22:00* Test Item Value Reference Range Interpretation Comments Prothrombin Time (test code = 5902-2) 16.6 11.9-14.5 H [facility] AzleProthromb Time International Ratio 2019-10-15 09:22:00* Test Item Value Reference Range Interpretation Comments Prothromb Time International Ratio (test code = 6301-6) 1.26 Oral Anticoagulant Therapy INR Values:1. Low Intensity Therapy 1.5 - 2.02 . Moderate Intensity Therapy 2.0 - 3.03. High Intensity Therapy(1) 2.5 - 3. 54. High Intensity Therapy(2) 3.0 - 4.05. Panic Value INR > 5.0 [facility]leProthrombin time (PT) in platelet poor plasma by coagulation spaqx4764-71-24 08:55:00* Test Item Value Reference Range Interpretation Comments Prothrombin Time (test code = 5902-2) 16.6 11.9-14.5 [facility]le[facility]R in Platelet poor plasma by Coagulation [id number] 08:55:00* Test Item Value Reference Range Interpretation Comments Prothromb Time International Ratio (test code = 6301-6) 1.26 Oral Anticoagulant Therapy INR Values:1. Low Intensity Therapy 1.5 - 2.02 . Moderate Intensity Therapy 2.0 - 3.03. High Intensity Therapy(1) 2.5 - 3. 54. High Intensity Therapy(2) 3.0 - 4.05. Panic Value INR > 5.0 [facility]leCT ABDOMEN/PELVIS [id number] 11:26:00 [facility] [address] [place] [address] Patient Name: NIALL NICOLE MR #: [id number] : 1965 Age/Sex: 53/M Req #: [id number] Adm Physician: JORGE MASCORRO MD Ordered by: TANISHA ISAACS MD Report #: [id number] Location: MED/SURG [facility]/Bed: 1061 Procedure: [id number] CT/CT ABD OMEN/PELVIS W Exam Date: 10/14/19 Exam Time: 1100 REPORT STATUS: Signed EXAM: CT Abd omen and Pelvis WITH intravenous contrast INDICATION: Fever, abdominal pa in, colorectal cancer COMPARISON: None. TECHNIQUE: Abdomen and pelvis were scanned utilizing a multidetector helical scanner from the lung base to t he pubic symphysis after administration of IV contrast. Coronal and sagittal r eformations were obtained. Routine protocol was performed. Scan was performed during portal venous phase. IV CONTRAST: 100mL of Isovue 370 ORAL CO NTRAST: Gastrografin RADIATION DOSE: Total DLP: 390 mGy*cm Dose mod ulation, iterative reconstruction, and/or weight based adjustment of the mA/kV was utilized to reduce the radiation dose to as low as reasonably achievable. FINDINGS: LOWER THORAX: Normal. HEPATOBILIARY: No focal liver lesi on. No biliary ductal dilation. Unremarkable gallbladder. SPLEEN: Mild sp lenomegaly to 14 cm. PANCREAS: No focal masses or ductal dilatation. A DRENALS: Mild left adrenal thickening. No focal adrenal nodules. KIDNEYS/URETE RS: No hydronephrosis, stones, or solid mass lesions. PELVIC ORGANS/BLADDER: P rominently distended bladder. Anti-dependent air in the bladder. PERITONE UM / RETROPERITONEUM: Free peritoneal air in the upper abdomen. Foci of retrop eritoneal free air adjacent to the surgical anastomosis with a 5.3 cm air-flui d collection posterior to the anastomosis. LYMPH NODES: No lymphadenopathy. VESSELS: Scattered atherosclerotic calcifications of the nonaneurysmal abdo jd aorta and major branches. GI TRACT: Status post distal colon resectio n and bowel anastomosis. No abnormal bowel thickening. No bowel obstruction. M ildly prominent air-containing appendix measuring up to 8 mm without wall thic kening. BONES AND SOFT TISSUES: Small foci of air in the anterior abdominal subcutaneous soft tissues. No focal soft tissue fluid collection. Surgical sk in adolfo in place. IMPRESSION: Status post distal colon resection an d bowel anastomosis. 5 cm air-fluid collection posterior to the anastomosis co uld be postoperative fluid however in the setting of fever and increasing pain , postoperative abscess remains a consideration. Free postoperative retro peritoneal and intraperitoneal air. Very distended bladder with antidepende nt air within the bladder. If the patient has symptoms that could be attributa ble to bladder outlet obstruction, catheterization is recommended. Sig eddie by: Lj Dumont MD on 10/14/2019 11:38 AM Dictated By: LJ DUMONT MD 1130 Transcribed By: MADDIE Perez on 10/14/19 1138 COPY TO: TANISHA ISAACS MD Blood culture 2019-10-14 09:15:00* Test Item Value Reference Range Interpretation Comments Blood Culture (test code = 48871752) NO GROWTH AFTER 5 DAYS, FINAL REPORT [facility] Glucose [id number] 14:00:48* Test Item Value Reference Range Interpretation Comments POC Glucose (test code = 29986-7) 115 mg/dL 70-99 H Capillary blood samples, e.g. obtained by fingerstick, may have inaccurate results in patients with decreased peripheral blood flow. 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 He re for surveillance colonoscopy.Indications: High risk colon cancer surveillance: Personal history of colonic polyps, Hig h risk colon cancer surveillance: Personal history of colon cancerMedications: Propofol per AnesthesiaProcedure Descripti on: Pre-Anesthesia Assessment: - Prior to the proced ure, a History and Physical was performed, and patient medications, allergies and sensitivities were reviewe d. The patient's tolerance of previous anesthesia was reviewed. - The risks and benefits of the procedure and the sedation options and risks were discussed with th e patient. All questions were answered and informed consent was obtained. - ASA Gra de Assessment: III - A patient with severe systemic di sease. - Using IV propofol under the supervision of a Shazia WILKINS was determined to be medically necessary for this procedure based on severe comorbidity (greater than ASA Grade II) and prolonged procedure requiring deep sedation. Informed consent was o btained. Throughout the procedure, the patient's blood pressure, pulse, and oxygen saturations were monitore d continuously. The Olympus CF-[id number] ([id number]) adult colonoscope was introduced through the anus and advanc ed to the cecum, identified by palpation. The colonosc opy was performed without difficulty. The patient pedro rated the procedure well. The quality of the bowel preparation was good. The terminal ileum, ileocecal valve, appendiceal orifice, and rectum were photographed.Findings: The terminal ileum appeared no rmal. A small post EMR scar was found in the cecum. The scar tissue was healthy in appearance. There was no evidence of the previous polyp. Biopsies were taken with a cold jumbo forceps for histology. A small post EMR scar was found in the ascending colon. The scar tissue was healthy in appearance. There was no evidence of the previous polyp. Biopsies were taken with a cold jumbo forceps for histology. Multiple small post EMR scars were found in the transverse colon. The scars were healthy in appearance, several of them still had hemoclips attached. None of the scars had endoscopic evidence o f the previous polyp. Biopsies were taken with a cold jumbo forceps for histology. A small post EMR scar was found in the mid-distal sigmoid colon. The scar tissue was healthy in appearance. There was no evidence of t he previous polyp. Biopsies were taken with a cold for ceps for histology. A large p olypoid partially obstructing mass was found in the si gmoid colon, consistent with the known primary sigmoid colon malignancy. The mass measured 8 cm in length an d extending from 20-28 cm from the anal verge (origina lly measured as 15 cm in length and extending from 15- 30 cm). The mass was near-circumferential. Biopsies we re taken with a cold forceps for histology. A second small ulcerated mass was found in the proximal rectum, consistent with the known rectal malignancy. The mass measured 1 cm in length and w as located at 13 cm from the anal verge. A prominent t attoo is seen DISTAL to the lesion. Biopsies were take n with a cold forceps for histology. The retroflexed view of the distal rectum and anal verge was normal and showed no anal or rectal abn ormalities.Complications: No immediate complications.Estimated Blood Loss: Estimated blood loss was minimal.Post Procedure Diagnosis: PRIMARY FIN DINGS - Malignant partially obstructing tumor in the mid-distal sigmoid colon, measures 8 cm in length extending from 20-28 cm from the anal verge (originally measured as 15 cm in length extending from 15-30 cm). Biopsied. - Malignant ulcerated t umor in the proximal rectum, measures 1 cm in length a t 13 cm from the anal verge. Biopsied. - Tattoo marker is located DISTAL to the rectal mass. ADDITIONAL FINDINGS - Well-healed post EMR scar in the cecum. Biopsied. - W ell-healed post EMR scar in the ascending colon. Biops ied. - Multiple well-healed post EMR scars in the transverse colon. Biopsied. - Well -healed post EMR scar in the sigmoid colon. Biopsied.R ecommendation: - The patient will be observed post-procedure, until all discharge criteria are met. - Discharge patient to home. - Resume previous diet. - Continue present medications. - Await pathology results. - Follow up with referring physician. - Patient has a contact number available for emergencies. The signs and symptoms of potential delayed complications were discussed with the patient. Return to normal activities tomorrow. Written discharge instructions were provided to the patient.Attending Participation: I personally performed the entire procedu re.RAS CHEN MD09/30/2019 8:24:41 AMThis report has been signed electronically. Number of Addenda: 0MD AndersonPETCT Subsequent Treatment [id number] 21:18:57There is been significant improvement in comparison to the study of 04/18/2019. The extensive FDG avid retroperitoneal and mesenteric adenopathy seen in the sigmoid mesocolon and along the superior rectal vessels has resolved. The large villous tumor involving the upper rectum and sigmoid colon has significantly decreased in size. It also shows a decline in FDG uptake. There are multiple clips seen throughout the colon likely at the site of prior polypectomies. FDG uptake seen in the cecum adjacent to a clip has resolved.Interface, Radiology Results In - 08/24/2019 3:21 PM CSTFULL RESULT:Examination: FDG PET/CT, 08/23/2019 3:03 PMClinical History: Adenocarcinoma of the rectum and sigmoid colon to assess for interval improvementIndication: RestageComparison: MRI dated 08/22/2019, prior CT chest abdomen pelvis of 06/27/[address] abdomen pelvis of 03/04/2019Technique: F-18 fluorodeoxyglucose (FDG) 10.8 mCi was administered intravenously via left antecubital. To allow for distribution and uptake of radiotracer, the patient was asked to rest quietly for approximately 60-90 minutes. PET/CT imaging was performed from the vertex of the skull through the pelvis. Serum blood glucose at the time of the injection was 101 mg/dL. CT scanning was done for attenuation correction, image registration, and diagnosis with scan parameters optimized to minimize radiation exposure to the patient. SUV measurements are reported as m aximum SUV based on body weight unless otherwise specified.Findings: Head and Ne ck: No FDG avid cervical or supraclavicular adenopathy is seen.Chest: A central line is noted on the right with its tip in the superior vena cava.No FDG avid ax illary, mediastinal or hilar adenopathy is identified. No FDG avid pulmonary nod ules or masses are evident.Abdomen and Pelvis: Normal physiologic distribution o f FDG is seen in the liver and spleen.FDG avid aortocaval and left para-aortic a denopathy evident on the prior study has resolved.FDG avid nodes at the origin o f the inferior mesenteric artery and in the sigmoid mesocolon and along the supe rior rectal vessels have also resolved.The large villous tumor seen in the sigmo id colon and upper rectum has significantly decreased in size and also shows a d ecline in FDG uptake. This has a current maximum SUV of 18.7 in comparison to 21 .7 on the prior study.FDG uptake seen in relation to the cecum at the point of s urgical clips has resolved. There are multiple clips identified throughout the t ransverse colon and also in the sigmoid colon. These are likely the sites of jeffrey or polypectomies.Musculoskeletal: The subtle lucency in the left eighth rib is n onspecific and stable.IMPRESSION:There is been significant improvement in compar maryanne to the study of 04/18/2019.The extensive FDG avid retroperitoneal and mesent flores adenopathy seen in the sigmoid mesocolon and along the superior rectal vess els has resolved.The large villous tumor involving the upper rectum and sigmoid colon has significantly decreased in size. It also shows a decline in FDG uptake .There are multiple clips seen throughout the colon likely at the site of prior polypectomies. FDG uptake seen in the cecum adjacent to a clip has resolved.MD [facility] Pelvis without contrast - [id number] 23:33:211. Interval mild to moderate treatment response of the known T3 rectosigmoid colon tumor (Residual tumor/mucin with no fibrosis present) compared to MRI pelvis 04/14/2019.2. Improved pelvic lymphadenopathy. I personally reviewed these esther ge(s) along with the resident's/fellow's interpretations, certify that if a proc edure was performed I was physically present, and agree with the final report.In community health, Radiology Results In - 08/22/2019 5:35 PM CSTFull Result:Examination: MRI PELVIS WITHOUT CONTRAST - RECTAL On 08/22/2019 1:22 PMClinical History: surger y planning. Evaluate response to chemotherapyIndication: surgery planning. Evalu ate response to chemo.Comparison: MR pelvis April 14, 2019.Technique: High-r esolution MRI is performed perpendicular to the long-axis of the rectum to asses s tumor relationship to the rectal wall and CRM or mesorectal fascia.FINDINGS: P atient motion limits evaluation.The known tumor is identified as an intermediate to high T2 signal polypoid mass in the rectosigmoid colon which has markedly de creased in size measuring 2.5 cm in AP dimension (series 10 image 21), previousl y measured up to 5 cm. A portion of the tumor on coronal series 8 image 34 measu res 6.6 cm and previously measured 10 cm. Again noted is extension of tumor beyo nd the muscularis propria along the posterior wall of the sigmoid colon (series 5, image 1). Restricted diffusion is seen on series 14 and series 15 images 14 t hrough 23. There is no fibrosis identified. There is decreased infiltration of t he sigmoid mesentery. Appearance of the vessels surrounding the tumor again sugg ests extramural venous invasion.Post Treatment Assessment MRI Rectal Cancer:Resi dual tumor/mucin with no fibrosis present.There has been decrease in size of mul tiple mesorectal and superior rectal lymph nodes. For example a node posterior t o the rectosigmoid colon measures 0.5 cm, previously measured 0.8 cm (series 10, image 26). A superior rectal node measures 0.3 cm, previously measured 0.7 cm ( series 9, image 9). Several previously enlarged left para-aortic were not imaged on this examination. Left common iliac/inferior mesenteric vein lymph nodes hav e significantly decreased in size. A left common iliac node measures 0.4 cm, pre viously measured 1.1 cm (series 3, image 4) on MRI pelvis 04/14/2019 and measured 0.[address] 06/27/2019.The urinary bladder and seminal vesicles are unremarkabl e.No suspicious bone lesion is identified.IMPRESSION:1. Interval mild to modera te treatment response of the known T3 rectosigmoid colon tumor (Residual tumor/m ucin with no fibrosis present) compared to MRI pelvis 04/14/2019.2. Improved pel bishop lymphadenopathy.I personally reviewed these image(s) along with the resident 's/fellow's interpretations, certify that if a procedure was performed I was phy sically present, and agree with the final report.MD Cobb Chest Abdomen Pelvis with [id number] 02:53:25 1. Marked interval decrease in size of solid mass in the sigmoid colon, as well as decreased areas of wall thickening and nodularity elsewhere in the rectosigmoid. 2. Decreased infiltration of the sigmoid mesentery. 3. Marked decrease in size of abnormal retroperitoneal lymph nodes. 4. No hepatic or pulmonary metastases. Interface, Radiology Results In - 06/30/2019 8:55 PM CSTFULL RESULT:Examination: CT CHEST ABDOMEN PELVIS W CONTRAST, 06/27/2019 12:27 PMClinical History: Adenocarcinoma of sigmoid colonIndication: Patient is s/p 4 cycles of FOLFOX for adeno ca of sigmoid colon, pls evaluate for response to treatmentComparison: 04/18/2019, 03/05/2019Technique: CT of the chest, abdomen, and pelvis was performed with intravenous contrast.Findings: CHEST:A lilia catheter courses through the right internal iliac vein and terminates in the high right atrium. Normal heart si ze.No supraclavicular, mediastinal, hilar, or axillary lymphadenopathy.No suspic ious pulmonary nodules. No consolidation or pleural effusion.ABDOMEN/PELVIS:No s uspicious liver lesions. Normal spleen, pancreas, adrenal glands, gallbladder, k idneys, urinary bladder, and prostate.The solid mass in the sigmoid colon has si gnificantly decreased, measuring roughly 5 x 3 cm, previously 11 x 5 cm. There i s some residual areas of mural nodularity (6/227) and thickening (6/261, 6/273). The sigmoid mesentery shows persistent increased vascularity (/222), with some pericolonic infiltration (/230-1) which is decreased from prior.Some postbiops y clips are seen in the descending and transverse colon. Additional clips are no sincere in the cecum.Decreased size of retroperitoneal lymph nodes. For example, an aortocaval lymph node measures 1.0 cm in short axis, previously 1.2 cm. Para-aor tic node (203) measures 0.5 cm, previously 1.6 cm. Small periaortic nodes lavonne uring 3-6 mm in size (/215, 6/214) previously measured up to 1.0 cm. A left com mon iliac node (233) measures 0.5 cm, previously 1.1 cm.No suspicious osseous lesion. A few old posterior rib fractures are seen in the lower right ribs.IMPRE SSION:1. Marked interval decrease in size of solid mass in the sigmoid colon, as well as decreased areas of wall thickening and nodularity elsewhere in the rect osigmoid.2. Decreased infiltration of the sigmoid mesentery.3. Marked decrease i n size of abnormal retroperitoneal lymph nodes.4. No hepatic or pulmonary metast ases. [facility] BUN + [id number] 16:20:53* Test Item Value Reference Range Interpretation Comments POC BUN (test code = 6299-2) 14 mg/dL 8-26 POC Crea (test code = 63055-9) 0.7 mg/dL 0.6-1.3 Medications, especially hydroxyurea or supplements, such as ascorbate, can interfere with test results causing a falsely and significantlyhigher result than expected. If a problem is suspected with a patient's result, a sample should be sent to the laboratory for confirmatory testing. POC eGFR-AA (test code = 94091-8) 123 >=60 mL/min/1.73 m2 Normal eGFR >= 60 mL/min/1.73 m2 The eGFR is calculated using the CKD-EPI equation. The eGFR declines with age. eGFR <60 mL/min/1.73 m2 is considered as "decreased" This equation should only be used for patients 18 and older. According to the National Kidney Foundation's Kidney Disease Outcome Quality Initiative (KDOQI) classification and 2012 Kidney Disease Improving Global Outcomes (KDIGO) Cli nical Practice Guideline, the stage of CKD should be categorized based on estimated GFR. Stage Description GFR mL/min/1.73 m21 Kidney damage with normal or high GFR >=902 Kidney damage with mild decrease in GFR 60-893a Mild to moderate decrease in GFR 45-593b Moderate to severe decrease in GFR 30- 444 Severe decrease in GFR 15-295 Kidney failure <15 (or dialysis) POC eGFR-LARA (test code = 15722-6) 106 >=60 mL/min/1.73 m2 Normal eGFR >= 60 mL/min/1.73 m2 The eGFR is calculated using the CKD-EPI equation. The eGFR declines with age. eGFR <60 mL/min/1.73 m2 is considered as "decreased" This equation should only be used for patients 18 and older. According to the National Kidney Foundation's Kidney Disease Outcome Quality Initiative (KDOQI) classification and 2012 Kidney Disease Improving Global Outcomes (KDIGO) Cli nical Practice Guideline, the stage of CKD should be categorized based on estimated GFR. Stage Description GFR mL/min/1.73 m21 Kidney damage with normal or high GFR >=902 Kidney damage with mild decrease in GFR 60-893a Mild to moderate decrease in GFR 45-593b Moderate to severe decrease in GFR 30- 444 Severe decrease in GFR 15-295 Kidney failure <15 (or dialysis) POC Clean Dev (test code = 6672) Yes MD LeroyX-ray Chest 2 [id number] 17:40:32No evidence of metastases. Interface, Radiology Results In - 05/02/2019 12:42 PM CDTFULL RESULT:Examination: XR CHEST 2 VW, 05/02/2019 12:36 PMClinical History: Adenocarcinoma of sigmoid colonIndication: Check Central Line placementCompa rison: 03/03/2019Technique: Posteroanterior, lateral and dual-energy radiographs of the chest.Findings:The lungs are clear. There is no pleural effusion or pneum othorax. There is no mediastinal or hilar adenopathy. Cardiac silhouette is norm al. The right catheter terminates in the SVC.IMPRESSION:No evidence of metastase s.MD LeroyPETCT Contrast Enhanced Initial Treatment [id number] 17:06:321. Multiple segments of colon including descending colon, sigmoid colon and rectum showing abnormal FDG uptake, including a large and FDG avid polypoid mass lesion, consistent with biopsy confirmed colorectal malignancy. 2. Multiple FDG avid retroperitoneal lymph nodes and also mesorectal nodes, suggestive of metastatic lymphadenopathy. 3. No other FDG avid lesion to suggest metastatic disease. A focal lucency in the posterior left 8th rib is seen stable on CT without abnormal FDG uptake. Interface, Radiology Results In - 04/19/2019 12:08 PM CDTFULL RESULT:Examination: Contrast-Enhanced FDG PET/CT, 04/18/2019 9:12 AMClinical History: A 53-year-old male with newly diagnosed colorectal cancer and suspicious periaortic lymph nodesIndication: Initial staging for treatment strategyComparison: MRI pelvis exam on 04/14/2019, outside CT chest abdomen and pelvis exam of 03/05/2019Technique: F-18 fluorodeoxyglucose (FDG) 10.7 mCi was administered intravenously via left antecubital fossa. To allow for distribution and uptake of radiotracer, the patient was asked to rest quietly for approximately 60-90 minutes. PET/CT imaging was performed from the skull base to mid thighs. Serum blood glucose at the time of the injection was 98 mg/dL. CT scanning was done for attenuation correction, image registration, and diagnosis with scan parameters optimized to minimize radiation exposure to the patient. The CT portion of the examination was performed with intravenous and enteric contrast. SUV measurements are reported as maximum SUV based on body weight unless otherwise specified. Findings: HEAD and NECK: Brain is minimally visualized and not reliably evaluated. Visualized paranasal sinuses are clear. No FDG-avid lesion in the Aerodigestive tract. Physiologic oropharyngeal uptake is seen. Thyroid is unremarkable. No obvious FDG avid or pathologically enlarged cervical or supraclavicular node. CHEST: No FDG avid or pathologically enlarged axillary, hilar or mediastinal nodes. Small subcentimeter sized mediastinal nodes are seen without FDG uptake, which are nonspecific. No FDG- avid lesion in the lungs. No pleural or pericardial effusion. No FDG-avid lesion in the chest wall. ABDOMEN and PELVIS: No FDG avid lesion is seen in the liver, gallbladder, spleen, pancreas, or bilateral adrenal glands. Physiologic FDG excretion in the kidneys without hydronephrosis. GI tract:Focal avid FDG uptake is seen along the rectal wall, measuring SUV 9.3 on Image #222. There is circumferential thickening of the sigmoid colon with avid FDG uptake, measuring SUV 13.0 on Image #207. Proximal to this sigmoid colon wall thickening, a large polypoid mass lesion is seen in the descending colon and sigmoid colon with intensely avid FDG uptake, which partially obstructs the colon. It measures ~ SUV up to 19.3. There are also foci of avid FDG uptake in the ascending colon along the biopsy clips adjacent to the ileocecal valve, measuring SUV 8.6 on Image #160. Several small mesorectal nodes are seen with mild FDG uptake, suspic ious for regional angel disease. For example, a presacral node measures 0.9 cm a nd SUV 2.0 on image #192.Lymph nodes:There are also multiple FDG avid retroperit soto lymph nodes along the abdominal aorta and common iliac chain regions. For example, a 1.7 cm aortocaval node measures SUV 13.1 on image #156. A 1.3 cm left periaortic node measures SUV 17.4 image #156. Left common iliac chain node lavonne ures 1.4 cm and SUV 10.8 on image #181.MUSCULOSKELETAL: A focal lucency is seen stable at the posterior left 8th rib without suspicious FDG uptake, best seen on Image #95. No FDG-avid or destructive osseous lesion. Old rib fractures are see n in the posterior 9-11th ribs. IMPRESSION:1. Multiple segments of colon includi ng descending colon, sigmoid colon and rectum showing abnormal FDG uptake, inclu ding a large and FDG avid polypoid mass lesion, consistent with biopsy confirmed colorectal malignancy.2. Multiple FDG avid retroperitoneal lymph nodes and also mesorectal nodes, suggestive of metastatic lymphadenopathy.3. No other FDG avid lesion to suggest metastatic disease. A focal lucency in the posterior left 8t h rib is seen stable on CT without abnormal FDG uptake. MD LeroyLA NGS Blood - NGS Blood Control is required for all Molecular orders of two or more genes to receive testing on the current 146 gene STGA 2018 DNA Panel. If NGS Blood Control is not ordered, testing will be routed the 50-gene, CM50, panel. 2019-03-31 18:08:22* Test Item Value Reference Range Interpretation Comments Molecular Diagnostics (Received) (test code = 8400) Yes JORGE ALBERTO (test code = JORGE ALBERTO) Add to 03/31 labs schuduld to be done at [place] MD LeroyHemoglobin [id number] 17:39:20* Test Item Value Reference Range Interpretation Comments A1C (test code = 4632) 6.5 % 4.3-5.6 H HbA1c values >=6.5% are diagnostic of diabetes mellitus.Diagnosis should be confirmed by repeat testing.Therapeutic Action suggested: >8.0% HbA1c; Goal oftherapy: <7.0% HbA1c Lab Interpretation (test code = 90977-4) Abnormal MD LeroyENDOSCOPY NOTE [id number] 20:23:58Ge, MD Ras - 03/23/2019 3:23 PM CDTPatient Name: Niall NicoleGender: MaleMRN: [id number]: 53Procedure Date No Time: 03/23/2019Instrument Name: 4610 COLON- CFProceduralist(s): RAS CHEN MDProcedure Name: Colonoscopy Scope In: 3:43:11 PMScope Out: 5:51:01 PMScope Withdrawal Time 2 hours 2 minutes 30 seconds Total Procedure Duration Time 2 hours 7 minutes 50 seconds Patient P rayray: 53 year old male who recently underwent colonoscopy 03/04/19 and was found to have sigmoid colon cancer as well as numerous additional polyps that were not removed. He is here for colonoscopy for removal of his remaining polyps.Indications: Therapeutic procedure for colon polyps, Therapeutic procedure for known colon ad enoma, Cancer of the sigmoid colonMedications: Propofol per Anesthesia, Levaquin 500 mg IVProcedure Description: Pre-A nesthesia Assessment: - Prior to the procedure, a Histo ry and Physical was performed, and patient medications , allergies and sensitivities were reviewed. The patie nt's tolerance of previous anesthesia was reviewed. - The risks and benefits of the procedure and the sedation options and risks were discussed with the patient. All questions were answered and informed consent was obtained. - ASA Grade Assessmen t: III - A patient with severe systemic disease. - Using IV propofol under the supervision of a LOG LOADER HELPER was determined to be medically necessary for this procedure based on severe comorbidity (greater than ASA Grade II), prolonged procedure requiring deep sedation and complex procedure (colorectal EMR). Informed consent was obtained. Throughout the proced ure, the patient's blood pressure, pulse, and oxygen s aturations were monitored continuously. The Olympus CF -[id number] ([id number]) adult colonoscope was introduced th rough the anus and advanced to the terminal ileum, wit h identification of the appendiceal orifice and IC paolo ve. The colonoscopy was technically difficult and comp mark. The patient tolerated the procedure well. The alexandra lity of the bowel preparation was good. The terminal i leum, ileocecal valve, appendiceal orifice, and rectum were photographed.Findings: The termi nal ileum appeared normal. Two sessile polyps were foun d in the cecum. The polyps ranged from 5-15 mm in size . These polyps were removed with a combination of hot snare polypectomy and endoscopic mucosal resection (Eleview was injected with adequate lift of the lesion from the muscularis propria). Resection and retrieval were complete. To prevent bleeding after polypectomy and EMR, three hemostatic clips were successfully placed (MR conditional). There was no bleeding at the end of the procedure. Four sessile p olyps were found in the ascending colon. The polyps ra nged from 5-10 mm in size. These polyps were removed w ith hot snare polypectomy. Resection and retrieval wer e complete. To prevent bleeding after polypectomy, thr ee hemostatic clips were successfully placed (MR conditional). There was no bleeding at the end of the procedure. Fourteen sessile polyps were found in the transverse colon. The polyps ranged from 5-15 mm in size. These polyps were removed with a combination of hot snare polypectomy and endoscopic mucosal resection (Eleview was injected with adequate lift of the lesion from the muscularis propria). Resection and retrieval were complete. To prevent bleeding after polypectomy and EMR, fifteen hemostatic clips were successfully placed (MR c onditional). There was no bleeding at the end of the p rocedure. Two sessile polyps were found in the descendi ng colon. The polyps ranged from 5-10 mm in size. These polyps were removed with hot snare polypectomy. Resection and retrieval were complete. To prevent bleeding after polypectomy, two hemo static clips were successfully placed (MR conditional) . There was no bleeding at the end of the procedure. A large fungating and polypoid partially obstructing mass was found in the sigmoid colon, measuring 15 cm in length and extending from 15-30 cm from the anal verge. The mass was near-circumfer ential. Biopsies were taken with a cold forceps for hi stology. A second small mass was found in the proximal rectum at approximately 13 cm from the anal verge. The mass was approximately 2 cm in size, however had a malignant appearing surface pattern. Eleview was initially injected into the submucosa, however the mass did not lift, and is therefore not amenable to endoscopic resection. Biopsies were take n with a cold forceps for histology. Spot (carbon marisa k) tattoo was injected in three quadrants approximatel y 1-2 cm DISTAL to the mass. The retroflexed view of th e distal rectum and anal verge was normal and showed n o anal or rectal abnormalities.Complications: No immediate complications.Estimated Blood Loss: Estimated blood loss was minimal.Post Procedure Diagnosis: 1. LIKELY MALIGNANT LESIONS, NOT ENDOSCOPICAL LY REMOVABLE: - Large fungati ng and polypoid mass in the sigmoid colon measuring 15 cm in length, extending from 15-30 cm from the anal v erge. Biopsied. - Second small mass in the proximal rec evie at 13 cm from the anal verge, possibly a skip lesi on or metachronous lesion, not amenable to endoscopic resection. Biopsied. - Tattoo was placed DISTAL to the second mass in the proximal rectum. 2. ADDITIONAL POLYPS, ENDOSCOPICALLY REMOVED: - Two sessile polyps 5-15 mm in size in the cecum, removed with combination of hot snare polypectomy and endoscopic mucosal resection. Resected and retrieved. Clips (MR conditional) were placed. - Four sessile polyps 5-10 mm in size in the ascendi ng colon, removed with hot snare polypectomy. Resected and retrieved. Clips (MR conditional) were placed. - Fourteen sessile polyps 5-15 mm in size in the transverse colon, removed with combination of hot snare polypectomy and endoscopic mucosal resection. Resected and retrieved. Clips (MR conditional) were placed. - Two sessile polyps 5-10 mm in size in the descending colon, removed with hot snare polypectomy. Resected and retrieved. Clips (MR conditional) were placed. - Endoscopic muc osal resection was performed. Resection and retrieval were complete.Recommendation: - The patient will be observed post-proc edure, until all discharge criteria are met. - Discharge patient to home. - Clear li quid diet for 1 day, then full liquid diet for 2 days, then soft mechanical diet for 2 days, then resume reg ular diet. - No heavy lifting for 2 weeks. - No NSAIDs for 2 weeks. - Await pathology results. - Follow up with referring physician. - Patient has a contact number available for emergencies. The signs and symptoms of potential delayed complications were discussed with the juwan ent. Return to normal activities tomorrow. Written dis charge instructions were provided to the patient.Atten ding Participation: I personally performed the entire procedure.RAS CHEN MD 6:33:58 PMThis report has been signed electronically.Number of Addenda: 0MD Carter [id number] 17:44:19For comparison only. No interpretation requested.MD Carter [id number] 17:44:08For comparison only. No interpretation requested.MD Carter CT Abdomen and [id number] 17:43:56 For comparison only. No interpretation requested.MD Carter CT Chest 2019-03-07 17:43:42For comparison only. No interpretation requested.MD Leroy- XR CHEST 1 [id number] 23:55:00 FAX: Mike Cee DO [phone] [place]: St: ADM Name: NIALL MONTOYA [facility] : [birth year] Age/S: 53/M [address] [place] [address] Unit #: [id number] Loc: [place] [address] Phys: Mike Javed DO Acct: [id number] Dis Date: Status: ADM IN PHONE #: [phone] Exam Date: 01/19/2019 2346 FAX #: [phone] Reason: stroke EXAMS: CPT CODE: [id number] XR CHEST 1 V 55487 Study: - XR CHEST 1 V 01/19/2019 10 :09 PM Patient Name: NIALL NICOLE MR: [id number] : 964; Age: 53 years y/o Male Ordering Physician: Mike Javed DO Clinical Indication: stroke Comparison: None FINDINGS LUNGS: The lungs are clear of consolidation, pleural effu yen, and pneumothorax. HEART AND MEDIASTINUM: Mildly enlarg ed heart. LINES: None. OSSEOUS STRUCTURES: No fractu re, dislocation, or suspicious focal osseous lesion. OTHER: None. IMPRESSION: No acute abnormality as above discussed. SL: WR3-H at 2120 Reported and signed by: Abelino English M.D. CC: Mike Javed DO Technologist: Ileana Carter RT(R) Trnscrd Date/Time/By: 01/19/2019 (8136) : By: Melanie YostAP24 Orig Print D/T: S: 01/19/2019 (1515) PAGE 1 Signed Report - CT ANGIO [id number] 23:03:00 Name: NIALL NICOLE [facility] : 1965 Age/S: 53 / M [address] [place] [address] Unit #: [id number] Loc: [place] [address] Phys: Mike Javed DO Acct: [id number] Dis Date: Status: REG ER PHONE #: [phone] Exam Date: 01/19/20192227 FAX #: [phone] Reason: RIGHT SIDED WEAKNESS EXAMS: CPT CODE: [id number] CT ANGIO NECK [address] CT BRAIN PERFUSION, CTA HEAD, CTA NECK INDICATION:Right- sided weakness. Code neuro.. TECHNIQUE: 100 mL Isovue-370 [...] occlusion. PAGE 1 Signed Report (CONTINUED) Name: KEYONNANIALL [place] : [birth year] Age/S: 53 / M [address] [place] [address] Blvd Unit #: [id number] Loc: [place] [address] Phys: Mike Javed DO Acct: [id number] Dis Date: Status: REG ER PHONE #: Exam Date: 01/19/20198 FAX #: [phone] R merrill: RIGHT SIDED WEAKNESS EXAMS: CPT CODE: [id number] CT ANGIO NECK 70127 <Continued> The posterior cerebral arteries reveal no [...] lymphadenopathy, mass or organized fluid collection. The lung apices reveal no acute process. There is minimal nonstenotic atherosclerotic calcification of the thoracic aorta. There is no aortic aneurysm or dissection. There is a typical three-ve ssel configuration of the great vessel origins from the aortic arch. The brachiocephalic artery is widely patent. There is mil d atherosclerotic calcification of the subclavian arteries with less than 25% luminal stenosis. The vertebral arteries reveal no aneurysm, d issection or high-grade luminal stenosis. The right common c arotid and internal carotid arteries are widely patent with no dissection or aneurysm. PAGE 2 Signed Report (CONTINUED) Name: NIALL NICOLE [place] : 1965 Age/S: 53 / M [address] [place] [address] Blvd Unit #: [id number] Loc: [place] [address] Phys: Mike Javed DO Ac ct: [id number] Dis Date: Status: REG ER PHONE #: [phone] Exam Date: 01/19/20192227 FAX #: [phone] Reason: RIGHT SIDED WEAKNESS EXAMS: CPT CODE: [id number] ANGIO NECK 41203 <Continued > The left common carotid artery reveals 25% [...] with Dr. Cha at 01/19/2019 11:02 PM [facility] [employer]. CAROTID STENOSIS REFERENCE USING NASCET CRITERIA: % ICA stenosis = (1-narrowest ICA diameter/diameter of distal cervical ICA) x 100 -Mild: <50% stenosis -Moderate: 50-69% stenosis -Severe: 70-94% stenosis -Near occlusion: 95-99% stenosis -Occluded: 100% stenosis at 2303 Reported and s igned by: Tarun Lomeli D.O. PAGE 3 Signed Report (CONTINUED) Name: NIALL NICOLE : 1965 Age/S: 53 / M [address] Unit #: [id number] Loc: [place] [address] Phys: TelloMike DO Acct: [id number] Dis Date: Status: REG ER PHONE #: [phone] Exam Date: 01/19/20192227 FAX #: [phone] Reason: RIGHT SIDED WEAKNESS EXAMS: CPT COD E: [id number] CT ANGIO NECK 46592 <Continued> CC: Mike Javed DO Technologist:Jaqui Ibrahim, RT(R)(CT) CTDI: DLP: Trnscb Date/Time: 01/19/2019 (2302) [email or web address] Orig Print D/T: S: 01/19/2019 (2306) PAGE 4 Signed Report - CT CEREBRAL PERF ANAL 2019-01-19 23:03:00 Name: NIALL NICOLE [facility] [place] : 1965 Age/S: 53 / M [address] [place] [address] Unit #: [id number] Loc: [place] [address] Phys: Mike Javed DO Acct: [id number] Dis Date: Status: REG ER PHONE #: [phone] Exam Date: 01/19/20192227 FAX #: [phone] Reason: RIGHT SIDED WEAKNESS EXAMS: CPT CODE: [id number] CT CEREBRAL PERF ANAL [address]58[address] CT BRAIN PERFUSION, CTA HEAD, CTA NECK [...] 3) Use of iterative reconstruction techniques. DLP (mGy- cm): 3121 COMPARISONS: CT head from the same [...] vertebral arteries reveal no aneurysm, dissection or high- grade luminal stenosis. The basilar artery reveals no aneurysm, dissection, high-grade stenosis or occlusion. PAGE 1 Signed Report (CONTINUED) Name: NIALL MELVIN : [birth year] Age/S: 53 / M [address] [place] [address] Unit #: [id number] Loc: [place] [address] Phys: Mike Javed DO Acct: [id number] Dis Date: Status: REG ER PHONE #: [phone] Exam Date: 01/19/20192227 FAX #: [phone] R merrill: RIGHT SIDED WEAKNESS EXAMS: CPT CODE: [id number] CT CEREBRAL PERF ANAL 38475 <Continued> The posterior cerebral arteries reveal no [...] lymphadenopathy, mass or organized fluid collection. The lung apices reveal no acute process. There is minimal nonstenotic atherosclerotic calcification of the thoracic aorta. There is no aortic aneurysm or dissection. There is a typical three-ve ssel configuration of the great vessel origins from the aortic arch. The brachiocephalic artery is widely patent. There is mil d atherosclerotic calcification of the subclavian arteries with less than 25% luminal stenosis. The vertebral arteries reveal no aneurysm, d issection or high-grade luminal stenosis. The right common c arotid and internal carotid arteries are widely patent with no dissection or aneurysm. PAGE 2 Signed Report (CONTINUED) Name: NIALL NICOLE : 1965 Age/S: 53 / M [address] [place], [place] [address]vd Unit #: [id number] Loc: [place] [address] Phys: Mike Javed DO Ac ct: [id number] Dis Date: Status: REG ER PHONE #: [phone] Exam Date: 01/19/20192227 FAX #: [phone] Reason: RIGHT SIDED WEAKNESS EXAMS: CPT CODE: [id number] CEREBRAL PERF ANAL 40896 <Continued > The left common carotid artery reveals 25% [...] with Dr. Cha at 01/19/2019 11:02 PM [employer] [employer]. CAROTID STENOSIS REFERENCE USING NASCET CRITERIA: % ICA stenosis = (1-narrowest ICA diameter/diameter of distal cervical ICA) x 100 -Mild: <50% stenosis -Moderate: 50-69% stenosis -Severe: 70-94% stenosis -Near occlusion: 95-99% stenosis -Occluded: 100% stenosis at 2303 Reported and s igned by: Tarun Lomeli D.O. PAGE 3 Signed Report (CONTINUED) Name: NIALL NICOLE [facility] : 1965 Age/S: 53 / M [address] Unit #: [id number] Loc: [place] [address] Phys: Mike Javed DO Acct: [id number] Dis Date: Status: REG ER PHONE #: [phone] Exam Date: 01/19/20192227 FAX #: [phone] Reason: RIGHT SIDED WEAKNESS EXAMS: CPT COD E: [id number] CT CEREBRAL PERF ANAL 53233 <Continued> CC: Mike Javed DO Technologist:Jaqui Ibrahim, RT(R)(CT) CTDI: DLP: Trnscb Date/Time: 01/19/2019 (230) [email or web address] Orig Print D/T: S: 01/19/2019 (4648) PAGE 4 Signed Report TROPONIN-I [id number] 22:54:00* Test Item Value Reference Range Interpretation Comments TROPONIN-I RAPID (test code = TROPIRAP) 0.00 ng/mL 0.00-0.08 N Performed by certified underground heavy equipment operator at [facility] Negative: <= 0.08 Positive: >= 0.09An elevated troponin value alone is not sufficient todiagnose a myocardial infarction. Rather, the patient sclinical presentation (history, physical exam) and ECGshould be used in conjunction with troponin in thediagnostic evaluation of suspected myocardial infarction. Aserial sampling protocol is recommended to facilitate the identification of temporal changes in troponin levels characteristic of [place]. CHEMISTRY 8 [id number] 22:48:00* Test Item Value Reference Range Interpretation Comments ISTAT-SODIUM (test code = NAP) MMOL/L 134-147 ISTAT-POTASSIUM (test code = KP) MMOL/L 3.4-5.0 ISTAT-CHLORIDE (test code = CLP) MMOL/L 100-108 ISTAT CARBON DIOXIDE (test code = ISTAT-CO2) mmol/L 21-33 N ISTAT CALCIUM IONIZED (test code = ISTAT-ABDOULAYE) MG/DL 1.12-1.3 2 ISTAT-GLUCOSE (test code = GLUP) MG/DL 70-110 H ISTAT-BUN (test code = BUNP) MG/DL 7-18 N BEDSIDE CREATININE (test code = CREATBED) MG/DL 0.6-1.3 N GLOMERULAR FILTRATION RATE POC (test code = GFRBED) 93 ML/MIN CHEMISTRY 8 [id number] 22:48:00* Test Item Value Reference Range Interpretation Comments ISTAT-SODIUM (test code = NAP) 134 MMOL/L 134-147 N ISTAT-POTASSIUM (test code = KP) 3.6 MMOL/L 3.4-5.0 N ISTAT-CHLORIDE (test code = CLP) 99 MMOL/L 100-108 L Performed by certified underground heavy equipment operator at [facility] ISTAT CARBON DIOXIDE (test code = ISTAT-CO2) 22.0 mmol/L 21-33 N ISTAT CALCIUM IONIZED (test code = ISTAT-ABDOULAYE) 1.15 MG/DL 1.12-1.3 2 N ISTAT-GLUCOSE (test code = GLUP) 143 MG/DL 70-110 H ISTAT-BUN (test code = BUNP) 18 MG/DL 7-18 N BEDSIDE CREATININE (test code = CREATBED) 0.9 MG/DL 0.6-1.3 N GLOMERULAR FILTRATION RATE POC (test code = GFRBED) 93 ML/MIN - CT HEAD/BRAIN W/O [id number] 22:32:00 Name: NIALL NICOLE [facility] : 1965 Age/S: 53 / M [address] [place] [address] Blvd Unit #: [id number] Loc: [place] [address] Phys: Mike Javed DO Acct: [id number] Dis Date: Status: REG ER PHONE #: [phone] Exam Date: 01/19/20198 FAX #: [phone] Reason: RIGHT SIDED WEAKNESS EXAMS: CPT CODE: [id number] CT HEAD/BRAIN W/O CONT [address] HEAD INDICATION: RIGHT SIDED WEAKNESS. [...] no intracranial hemorrhage or cerebral edema. The [place] Stroke Program Early CT Score (ASPECTS) is 10/10. This report contains findings that may be critical to patient care. The findings were discussed with Mike Javed DO at 01/19/2019 10:32 PM [facility]. Fabienne ctronically Signed by Marilou Lomeli on 01/20/20 19 at 2232 Reported and signed by: Tarun rich D.O. PAGE 1 Signed Report (CONTINUED) Name: NIALL NICOLE [facility] [place] : 1965 Age/S: 53 / M [address] [place] [address] Blvd Unit #: [id number] Loc: [place] [address] Phys : Mike Javed DO Acct: [id number] Dis Date: Status: REG ER PHONE #: [phone] Exam Date: 01/19/20192227 FAX #: [phone] Reason: RIGHT SIDED WEAKNESS EXAMS: CPT CODE: [id number] C T HEAD/BRAIN W/O CONT 00476 <Continued> CC: Mike Javed DO Technologist:Jaqui Ibrahim RT(R)(CT) CTDI: DLP: Trnscb Date/Time: 01/19/2019 (2231) [id number] Orig Print D/T: S: 01/19/2019 (2234) PAGE 2 Signed Report PROTHROMBIN [id number] 22:22:00* Test Item Value Reference Range Interpretation Comments PROTHROMBIN TIME PATIENT (test code = PTP) 12.3 SECONDS 9.3-12.9 N INTERNATIONAL NORMAL RATIO (test code = INR) 1.1 0.8-1.2 N TARGET INR BY INDICATION Indication INR1. Prophylaxis [...] Infarction (to prevent recurrent infarct). THROMBOPLASTIN TIME [id number] 22:22:00* Test Item Value Reference Range Interpretation Comments THROMBOPLASTIN TIME PARTIAL (test code = PTT) 34.2 Seconds 25.0-39. 5 N Therapeutic Range: 50.4 - 88.3 Seconds Effective 11/02/2018 CBC W/O [id number] 22:14:00* Test Item Value Reference Range Interpretation Comments WHITE BLOOD CELL (test code = WBC) 15.05 x10 3/uL 4.5-11.0 H RED BLOOD CELL (test code = RBC) 3.96 x10 6/uL 4.00-5.60 L HEMOGLOBIN (test code = HGB) 7.2 g/dL 12.5-16.9 L HEMATOCRIT (test code = HCT) 25.5 % 37.5-50.7 L MEAN CELL VOLUME (test code = MCV) 64.4 fL 81.0-99.0 L MEAN CELL HGB (test code = MCH) 18.2 pg 27.0-33.0 L MEAN CELL HGB CONCETRATION (test code = MCHC) 28.2 g/dL 33.0-37. 0 L RED CELL DISTRIBUTION WIDTH CV (test code = RDW) 19.8 % 11.5- 14.5 H RED CELL DISTRIBUTION WIDTH SD (test code = RDW-SD) 45.0 fL 37 .0-54.0 N PLATELET COUNT (test code = PLT) 618 x10 3/uL 150-400 H MEAN PLATELET VOLUME (test code = MPV) 9.5 fL 7.0-9.0 H
--- OUTSIDE RECORDS SUMMARY | 2020-02-17 19:17 | XMS REPORT | Summary of Care ---
Author Author [facility] - Health Organization [facility] - Health Address Unknown Phone Unavailable Care Team Providers Care Crop Grain Or Livestock Farm Manager Name Role Phone Radha Sloan MD PCP [phone] Reason for Referral * (Routine) Referred By Contact Referred To Contact Status Reason Specialty Diagnoses / Procedures Radha Sloan MD [address] [place] [address] New Request Orthopedic Diagnoses Surgery Right knee pain, unspecified chronicity P rocedures CONSULT/REFERRAL ORTHOPAEDIC SURGERY Reason for Visit * Reason Comments Knee Pain Encounter Details Care Team Description Date Type Department Radha Sloan MD [address] [place] [address] Knee Pain 01/18/2020 Clinic [facility] Pediatr ic & Assessment Adult Primary Care-[address] [address] Allergies No Known Allergiesdocumented as of this encounter (statuses as of 01/18/2020) Medications End Date Status Medication Sig Dispensed [...] 2 0 (two) times daily with meals. documented as of this encounter (statuses as of 01/18/2020) Active Problems Problem Noted Date SBO (small bowel obstruction) 12/10/2019 History of colonic polyps 08/26/2019 Overview: Added automatically from request for [facility] [id number] Diabetic peripheral neuropathy associated with type 2 [...] as of this encounter (statuses as of 01/18/2020) Resolved Problems Problem Noted Date Resolved Date Lower gastrointestinal hemorrhage 03/03/201912/20 documented as of this encounter (statuses as of 01/18/2020) Immunizations Name Administration Dates Next Due Influenza [...] highest level of school you have Associate [employer] re[employer]: academic 03/03/2019 completed or the highest [...] Date Type Specialty Nick Cisse MD [address] [place] [address] 03/01/2020 Office Visit Ophthalmology Health Maintenance Due Date Last Done Comments URINE MICROALBUMIN 02/26/2020 02/25/2019 LUNG CANCER SCREEN: 03/05/2020 03/05/2019 Recommended for age 55-80 with 30 + pack year history PNEUMOCOCCAL 0-64 YEARS 03/06/2020 03/06/2019 COMBINED SERIES (2 of 3 - PCV13) INFLUENZA VACCINE (#1) 2020 04/21/2019, 09/2018, 06/09/2018, Additional history exists Depression Screening 07/18/2020 07/18/2019, 04/19 FOOT EXAM 07/18/2020 07/18/2019, 019 HgA1C 07/18/2020 01/17/2020, 019, 02/25/2019, Additional history exists Zoster Recombinant 07/18/2020 Postponed from 10/19 Vaccine (SHINGRIX) (1 of (Insurance / Financial) 2) EYE EXAM 09/01/2020 09/01/2019 CREATININE (SERUM) 12/10/2020 12/11/2019, 020, 12/09/2019, Additional history exists LDL-C 01/16/2021 01/17/2020, 019, 02/25/2019 COLONOSCOPY 03/04/2029 03/04/2019 DTaP,Tdap,and Td Vaccines 01/16/2030 01/17/2020 (2 - Td) HEPATITIS C (HCV) SCREEN Completed 07/18/2019 documented as of this encounter Implants Device Identifier Shelf Expiration Date Model / Serial / L ot Implanted Type Area Manufactur er 06/08/2023 [id number] / [id number] / [id number] Port-A-Cath Implanted By Right: Chest ARROW Tomasa INTERNATIO Implanted: Qty: 1 on 04/20/2019 by SHILA Randolph, Kalyan Dickey MD at [facility] documented as of this encounter Results Not on filedocumented in this encounter Visit Diagnoses Diagnosis Right knee pain, unspecified chronicity - Primary documented in this encounter Insurance Type Payer Benefit Subscriber ID Effective Phone Address Plan / Dates Group PPO/POS BCBS OF [facility] BCBS OF [id number] 2019- P EMPLOYEE [place] resent EMPLOYEE PLAN Vision SUPERIOR VISION [facility] SUPERIOR [id number] 2019-P [address] resent [address] [place] [address] documented as of this encounter
--- OUTSIDE RECORDS SUMMARY | 2020-02-17 19:17 | XMS REPORT | Summary of Care ---
Author Author [facility] - Health Organization [facility] - Health Address Unknown Phone Unavailable Care Team Providers Care Material Analyst Name Role Phone Radha Sloan MD PCP [phone] Encounter Details Care Team Description Date Type Department Doctor Unassigned, [place] [address] [place] [address] 08/22/2019 Orders Only [facility] [address] [place] [address] Allergies No Known Allergiesdocumented as of this encounter (statuses as of 12/29/2019) Medications End Date Status Medication Sig Dispensed [...] as of this encounter (statuses as of 12/29/2019) Active Problems Problem Noted Date SBO (small bowel obstruction) 12/10/2019 Diabetic peripheral neuropathy associated with type 2 [...] as of this encounter (statuses as of 12/29/2019) Immunizations Name Administration Dates Next Due Influenza [...] Travel Start No recent travel history available. Date Recorded COVID-19 Exposure Response 12/10/2019 5:30 AM CDT In the last month, have you been in contact with No / Unsure someone who was confirmed or suspected to have Coronavirus / COVID-19? documented as of this encounter Last Filed Vital Signs Not on filedocumented in this encounter Plan of Treatment Care Team Description Date Type Specialty NathaliaRadha sampson MD [address] [place] [address] 01/17/2020 Office Visit Internal Medicine Nick Cisse MD [address] [place] [address] 03/01/2020 Office Visit Ophthalmology Health Maintenance Due Date Last Done Comments DTaP,Tdap,and Td Vaccines 11/06/1974 (1 - Tdap) HgA1C 01/17/2020 07/18/2019, 019, 10/15/2011 URINE MICROALBUMIN 02/26/2020 02/25/2019 LUNG CANCER SCREEN: 03/05/2020 03/05/2019 Recommended for age 55-80 with 30 + pack year history PNEUMOCOCCAL 0-64 YEARS 03/06/2020 03/06/2019 COMBINED SERIES (2 of 3 - PCV13) Depression Screening 07/18/2020 07/18/2019, 04/19 FOOT EXAM 07/18/2020 07/18/2019, 019 LDL-C 07/18/2020 07/18/2019, 019 Zoster Recombinant 07/18/2020 Postponed from 04/2 Vaccine (SHINGRIX) (1 of (Insurance / Financial) 2) EYE EXAM 09/01/2020 09/01/2019 CREATININE (SERUM) 12/10/2020 12/11/2019, 020, 12/09/2019, Additional history exists COLONOSCOPY 03/04/2029 03/04/2019 INFLUENZA VACCINE Completed 04/21/2019, 019, 06/09/2018, Additional history exists HEPATITIS C (HCV) SCREEN Completed 07/18/2019 documented as of this encounter Implants Device Identifier Shelf Expiration Date Model / Serial / L ot Implanted Type Area Manufactur er 06/08/2023 [id number] / [id number] / [id number] Port-A-Cath Implanted By Right: Chest ARROW Tomasa INTERNATIO Implanted: Qty: 1 on 04/20/2019 by SHILA Randolph, Kalyan Dickey MD at [facility] documented as of this encounter Procedures Comments Procedure Name Priority Date/Time Associated Diag nosis AUTHORIZATION FOR RELEASE Routine 08/22/2019 OF PHI 12:01 AM SSN/SSBN WEAPONS EQUIPMENT OPERATOR documented in this encounter Results Not on filedocumented in this encounter Insurance Type Payer Benefit Subscriber ID Effective Phone Address Plan / Dates Group PPO/POS BCBS OF [facility] BCBS OF [id number] 2019- P [place]PLOYEE [place] resent EMPLOYEE PLAN Vision SUPERIOR VISION [facility] SUPERIOR [id number] 2019-P [address] resent [address] [place] [address] documented as of this encounter
--- OUTSIDE RECORDS SUMMARY | 2020-02-17 19:17 | XMS REPORT | Summary of Care ---
Author Author [facility] - Health Organization [facility] - Health Address Unknown Phone Unavailable Care Team Providers Care Financial Specialist Name Role Phone Radha Sloan MD PCP [phone] Reason for Referral * Radiology Services (Routine) Referred By Contact Referred To Contact Status Reason Specialty Diagnoses / Procedures Radha Sloan MD [address] [place] [address] New Request Diagnostic Diagnoses Radiology Acute pain of right knee P rocedures XR KNEE 3 VW RIGHT Reason for Visit * Radiology Services (Routine) Referred By Contact Referred To Contact Status Reason Specialty Diagnoses / Procedures Radha Sloan MD [address] [place] [address] New Request Diagnostic Diagnoses Radiology Acute pain of right knee P rocedures XR KNEE 3 VW RIGHT Encounter Details Care Team Description Date Type Department Radha Sloan MD [address] [place] [address] Arrived 01/17/2020 [facility] Encounter Primary Care - Radiology [address] [place] [phone] Allergies No Known Allergiesdocumented as of this [...] 08/26/2019 Overview: Added automatically from request for [facility] [id number] Diabetic peripheral neuropathy associated with type 2 [...] Noted Date Resolved Date Lower gastrointestinal hemorrhage 03/03/2019 06/3 documented as of this encounter (statuses as [...] or the highest degree you have received? p robb Financial Resource Strain Answer Date Recorde d [...] Description Date Type Specialty Nick Cisse MD [address] [place] [address]. [place] [address] 03/01/2020 Office Visit Ophthalmology Health Maintenance [...] Type Area Manufactur er 06/08/2023 [id number] / [id number] / [id number] Port-A-Cath Implanted By Right: Chest ARROW Tomasa INTERNATIO Implanted: Qty: 1 on 04/20/2019 by Kalyan Rodriguez MD at [facility] documented as of this encounter Procedures Comments Procedure Name Priority Date/Time Associated Diag nosis XR KNEE 3 VW RIGHT Routine 01/17/2020 Acute pain of right knee 11:17 AM CDT documented in this encounter Results * XR KNEE 3 VW RIGHT (01/17/2020 11:17 AM CDT) Specimen Narrative Performed At EXAM: XR KNEE 3 VW RIGHT PACS/VR/DOSE HISTORY: right knee pain COMPARISON: None. FINDINGS: No abnormality is found in the bones an d joints of the right knee. Procedure Note [facility], Radiant Results Inft User - 01/17/2020 11:22 AM CDT EXAM: XR KNEE 3 VW RIGHT HISTORY: right knee pain COMPARISON: None. FINDINGS: No abnormality is found in the bones and joints of the right knee. Performing Organization Address City/State/Zipcode Ph one Number PACS/VR/DOSE documented in this encounter Visit Diagnoses Diagnosis Acute pain of right knee documented in this encounter Insurance Type Payer Benefit Subscriber ID Effective Phone Address Plan / Dates Group PPO/POS BCBS OF [facility] BCBS OF [id number] 2019- P EMPLOYEE [place] [facility] EM[facility] PL[facility] [phone] documented as of this encounter
--- OUTSIDE RECORDS SUMMARY | 2020-02-17 19:17 | XMS REPORT | Summary of Care ---
Author Author [facility] - Health Organization [facility] - Health Address Unknown Phone Unavailable Care Team Providers Care Central Sterile Supply Technician Name Role Phone Radha Sloan MD PCP [phone] Reason for Visit * Reason Comments Referral/consult Encounter Details Care Team Description Date Type Department Radha Sloan MD [address] [place] [address] Referral/consult 11/02/2019 Telephone [facility] ic & Adult Primary Care-[address] [address] Allergies No Known Allergiesdocumented as of this encounter (statuses as of 11/03/2019) Medications End Date Status Medication Sig Dispensed [...] as of this encounter (statuses as of 11/03/2019) Active Problems Problem Noted Date Diabetic peripheral [...] as of this encounter (statuses as of 11/03/2019) Immunizations Name Administration Dates Next Due Influenza [...] Date Type Specialty Radha Sloan MD [address] [place] [address] 01/16/2020 Office Visit Internal Medicine Nick Cisse MD [address] [place] [address] 03/01/2020 Office Visit Ophthalmology Health Maintenance Due Date Last Done Comments DTaP,Tdap,and Td Vaccines 11/06/1974 (1 - Tdap) HgA1C 01/17/2020 07/18/2019, 019, 10/15/2011 URINE MICROALBUMIN 02/26/2020 02/25/2019 LUNG CANCER SCREEN: 03/05/2020 03/05/2019 Recommended for age 55-80 with 30 + pack year history PNEUMOCOCCAL 0-64 YEARS 03/06/2020 03/06/2019 COMBINED SERIES (2 of 3 - PCV13) CREATININE (SERUM) 03/07/2020 03/07/2019, 019, 03/06/2019, Additional history exists FOOT EXAM 07/18/2020 07/18/2019, 019 LDL-C 07/18/2020 07/18/2019, 019 Zoster Recombinant 07/18/2020 Postponed from 10/19 Vaccine (SHINGRIX) (1 of (Insurance / Financial) 2) EYE EXAM 09/01/2020 09/01/2019 COLONOSCOPY 03/04/2029 03/04/2019 INFLUENZA VACCINE Completed 04/21/2019, , 06/09/2018, Additional history exists HEPATITIS C (HCV) SCREEN Completed 07/18/2019 documented as of this encounter Implants Device Identifier Shelf Expiration Date Model / Serial / L ot Implanted Type Area Manufactur er 06/08/2023 [id number] / [id number] / [id number] Port-A-Cath Implanted By Right: Chest ARROW Tomasa INTERNATIO Implanted: Qty: 1 on 04/20/2019 by Kalyan Rodriguez MD at [facility] documented as of this encounter Results Not on filedocumented in this encounter Insurance Type Payer Benefit Subscriber ID Effective Phone Address Plan / Dates Group PPO/POS BCBS OF [facility] BCBS OF [id number] 2019- P EMPLOYEE [place] resent EMPLOYEE PLAN Vision SUPERIOR VISION [facility] SUPERIOR [id number] 2019-P [address] resent [address] [place] [address] documented as of this encounter
--- OUTSIDE RECORDS SUMMARY | 2020-02-17 19:17 | XMS REPORT | Summary of Care ---
Author Author [facility] - Health Organization [facility] - Health Address Unknown Phone Unavailable Care Team Providers Care Jewel Bearing Broacher Name Role Phone Radha Sloan MD PCP [phone] Reason for Referral * Radiology Services (Routine) Referred By Contact Referred To Contact Status Reason Specialty Diagnoses / Procedures Radha Sloan MD [address] [place] [address] New Request Diagnostic Diagnoses Radiology Acute pain of right knee P rocedures XR KNEE 3 VW RIGHT Reason for Visit * Reason Comments Hypertension Hyperlipidemia DIABETES MELLITUS Encounter Details Care Team Description Date Type Department Radha Sloan MD [address] [place] [address] Diabetic peripheral neuropathy associate d with type 2 diabetes mellitus (Primary Dx); Need for vaccination; Adenocarcinoma of sigmoid colon; Essential hypertension; Acute pain of right knee 01/17/2020 Office Visit [facility]-[address] [id number] Allergies No Known Allergiesdocumented as [...] Added automatically from request for lacy vaz [id number] Diabetic peripheral neuropathy associated with type 2 [...] o ffice. If you have activated your [employer] account, the results can be released t [...] insurance information and demographics to sent to [facility]'s main lab. * Radha Sloan MD [...] Nausea and Vomiting (N/V). Lancets (UNILET LANCET) [facility] Review of Systems: General: denies fever, chills, [...] at bedtime. C/w metformin. Plan: LIPID PANEL (42684)(TOTAL CHOLESTEROL, TRIGLYCERIDES, HDL), GLYCOSYLATED HEMOGLOBIN (A1C) Need [...] Description Date Type Specialty Nick Cisse MD [address] [place] [address] 03/01/2020 Office Visit Ophthalmology Date/Time Name Type Priority Associated Diag noses 01/17/2020 11:31 AM CDT THYROID STIMULATING LAB Routine Essential hypertension HORMONE 01/17/2020 11:31 AM CDT LIPID PANEL (08411)(TOTAL LAB Routine Diab etic peripheral CHOLESTEROL, neuropathy [...] Type Area Manufactur er 06/08/2023 [id number] / [id number] / [id number] Port-A-Cath Implanted By Right: Chest ARROW Tomasa INTERNATIO Implanted: Qty: 1 on 04/20/2019 by SIHLA Randolph, Kalyan Dickey MD at [facility] documented as of this encounter [...] Dates Group PPO/POS BCBS OF [facility] BCBS OF [id number] 2019- P EMPLOYEE [place] resent EMPLOYEE PLAN [id number] documented as of this encounter
--- OUTSIDE RECORDS SUMMARY | 2020-02-17 19:17 | XMS REPORT | Summary of Care ---
Author Author [facility] - Health Organization [facility] - Health Address Unknown Phone Unavailable Care Team Providers Care Lecturer Of Portuguese Name Role Phone Radha Sloan MD PCP [phone] Reason for Visit * Reason Comments Transition Of Care Encounter Details Care Team Description Date Type Department Judit Hanson, RN [address] [place] [id number] Transition Of Care 12/14/2019 Transition of [facility] Allergies No Known Allergiesdocumented as of this encounter (statuses as of 12/14/2019) Medications End Date Status Medication Sig Dispensed [...] as of this encounter (statuses as of 12/14/2019) Active Problems Problem Noted Date SBO (small [...] as of this encounter (statuses as of 12/14/2019) Immunizations Name Administration Dates Next Due Influenza [...] Treatment Care Team Description Date Type [facility]ty [facility] [address] [place] [address] 01/16/2020 Office Visit Internal Medicine Nick Cisse MD [address] [place] [address] 03/01/2020 Office Visit Ophthalmology Health Maintenance Due Date Last Done Comments DTaP,Tdap,and Td Vaccines 11/06/1974 (1 - Tdap) HgA1C 01/17/2020 07/18/2019, 019, 10/15/2011 URINE MICROALBUMIN 02/26/2020 02/25/2019 LUNG CANCER SCREEN: 03/05/2020 03/05/2019 Recommended for age 55-80 with 30 + pack year history PNEUMOCOCCAL 0-64 YEARS 03/06/2020 03/06/2019 COMBINED SERIES (2 of 3 - PCV13) FOOT EXAM 07/18/2020 07/18/2019, 019 LDL-C 07/18/2020 [...] Type Area Manufactur er 06/08/2023 [id number] / [id number] / [id number] Port-A-Cath Implanted By Right: Chest ARROW Tomasa INTERNATIO Implanted: Qty: 1 on 04/20/2019 by SHILA Randolph, Kalyan Dickey MD at [facility] documented as of this encounter Results Not on filedocumented in this encounter Insurance Type Payer Benefit Subscriber ID Effective Phone Address Plan / Dates Group PPO/POS BCBS OF [facility] BCBS OF [id number] 2019- P EMPLOYEE [place] resent EMPLOYEE PLAN Vision SUPERIOR VISION [facility] SUPERIOR [id number] 2019-P [address] resent [address] [place] [address] documented as of this encounter
--- OUTSIDE RECORDS SUMMARY | 2020-02-17 19:17 | XMS REPORT | Summary of Care ---
Author Author [facility] - Health Organization [facility] - Health Address Unknown Phone Unavailable Care Team Providers Care Marketing Services Rep Name Role Phone Radha Sloan MD PCP [phone] Reason for Referral * Radiology Services (STAT) Referred By Contact Referred To Contact Status Reason Specialty Diagnoses / Procedures Ruslan Quintero MD [address] [place], [place] [phone] New Request Diagnostic Diagnoses Radiology Abdominal pain, unspecified abdominal location P rocedures XR KUB * MRI/CAT Scan (STAT) Referred By Contact Referred To Contact Status Reason Specialty Diagnoses / Procedures Duy Randall, BURNISHING MACHINE OPERATOR [address] [place] [address] New Request Diagnostic Diagnoses Radiology Abdominal pain, unspecified abdominal location P rocedures CT ABDOMEN PELVIS W CONTRAST Reason for Visit * Reason Comments Abdominal Pain Constipation Vomiting * Auth/Cert Referred By Contact Referred To Contact Status Reason Specialty Diagnoses / Procedures [facility] Emergency Dept [address] [place] [address] Emergency Medicine Encounter Details Care Team Description Date Type Department Duy Randall, BURNISHING MACHINE OPERATOR [address] [place], [place] [phone] Ruslan Quintero MD [address] [place] [address] Luis Enrique Levy MD [address] [place] [phone] SBO (small bowel obstruction) 12/09/[address] [facility] - Encounter [place] [facility] re 12/12/2019 [address] [facility] [place] [address] Allergies No Known Allergiesdocumented as of this encounter (statuses as of 12/12/2019) Medications End Date Status Medication Sig Dispensed [...] as of this encounter (statuses as of 12/12/2019) Active Problems Problem Noted Date SBO (small [...] as of this encounter (statuses as of 12/12/2019) Immunizations Name Administration Dates Next Due Influenza High Dose 06/09/2018 Influenza Virus Vaccine 04/21/2019, 06/27/2011 Influenza Virus Vaccine 06/09/2018 (3+ yrs) Influenza Virus Vaccine 04/21/2019 Quad IM Multi-dose 6+ [place] Pneumococcal 03/06/2019 Polysaccharide, PPSV23 (PNEUMOVAX) documented as of this encounter Social History Date Tobacco Use Types Packs/Day Years Used Former Smoker Smokeless Tobacco: Former User Tobacco Cessation: Counseling Given: No Drinks/Week oz/Week Comments Alcohol Use beer Not [...] Signs Reading Time Taken Comments Vital Sign 140/91 12/12/2019 12:00 PM CDT Blood Pressure 60 12/12/2019 12:00 PM CDT Pulse 36.8 C (98.2 F) 12/12/2019 12:00 PM CDT Temperature 17 12/12/2019 12:00 PM CDT Respiratory Rate 100% 12/12/2019 12:00 PM CDT Oxygen Saturation - - Inhaled Oxygen Concentration 73.5 kg (162 lb) 12/12/2019 8:00 AM CDT Weight 170.2 cm (5' 7") 12/10/2019 5:15 AM CDT Height 25.37 12/10/2019 5:15 AM CDT Body Mass Index documented in this encounter Discharge Instructions * Attachments The following attachments cannot be sent through Care Everywhere.* Bowel Obstruction, Small (Turkish) documented in this encounter Progress Notes * Ivonne Cee MD - 12/11/2019 10:04 AM CDT GENERAL SURGERY, DAILY PROGRESS NOTE Patient Name: Lorenzo Nicole Jr. Date of : 1965 Date: 12/11/2019 24 HOUR EVENTS: - After admission, his pain starts improving. Also stoma started functioning. - Reports improved pain this morning. No N/V. - NGT output 750 ml, mostly clear. He moisted his mouth with water. - Stoma output 530 ml - Complains musculoskeletal discomfort with not taking his home gabapentin for a while. Objective: Vital Signs Temp: [36.4 C (97.6 F)-37.1 C (98.7 F)] Heart Rate (monitor): [60-81] Pulse: [60-77] Resp: [12-17] BP: (100-139)/(70-113) MAP (mmHg): [86-123] POCT Blood Glucose (manual): [171 mg/dL] Intake/Output Intake/Output Summary (Last 24 hours) at 12/11/2019 1004 Last data filed at 12/11/2019 0508 Gross per 24 hour Intake 2787 ml Output 2890 ml Net -103 ml PHYSICAL EXAM Constitutional: No acute distress, alert and oriented Eyes: No gross deformities, extraocular movements grossly intact Cardiovascular: Normal S1/S2, no additional heart sounds noted Respiratory: Breath sounds equal bilaterally, no wheezing, rales, or rhonchi GI: Soft, nontender, nondistended, stoma in good color with solid stool output Musculoskeletal: No gross deformities, lesions Vascular: Radial and dorsalis pedis pulses palpable bilaterally Neurologic: Grossly intact Psychiatric: appropriate mood and affect, no obvious deficits of insight or judg ment Hematologic/lymphatic: No axillary, inguinal, or cervical lymphadenopathy Labs/Radiology CBC WBC (10*3/L) Date Value 12/11/2019 7.28 RBC (10*6/L) Date Value 12/11/2019 3.18 (L) PLT (10*3/L) Date Value 12/11/2019 206 HGB (g/dL) Date Value 12/11/2019 9.1 (L) HCT (%) Date Value 12/11/2019 27.8 (L) BMP NA Date Value 12/11/2019 137 mmol/L 07/25/2011 136 MMOL/L K Date Value 12/11/2019 3.4 mmol/L (L) 07/25/2011 4.4 MMOL/L CALCIUM Date Value 12/11/2019 8.4 mg/dL (L) 07/25/2011 9.8 MG/DL CL Date Value 12/11/2019 105 mmol/L 07/25/2011 98 MMOL/L BUN Date Value 12/11/2019 12 mg/dL 07/25/2011 9 MG/DL CREATININE Date Value 12/11/2019 0.61 mg/dL 07/25/2011 0.57 MG/DL (L) GLUCOSE Date Value 12/11/2019 153 mg/dL (H) 07/25/2011 299 MG/DL (H) CO2 TOTAL Date Value 12/11/2019 28 mmol/L 07/25/2011 24 MMOL/L No results found for: ACPH, ACPCO2, ACPO2, ACO2HB, ACNA, ACK, ACCAIONZ Ct Abdomen Pelvis W Contrast Result Date: 12/10/2019 Suboptimal evaluation due to contrast material placed through the right lower qu adrant colostomy. 1. Suspected distal right rectal perforation with extralumina l free gas and contrast. 2. Diffusely dilated small bowel. Although a discrete transition point is not detected, much of the right abdomen is obscured due to a rtifact. Distal small bowel is decompressed which favors high-grade small bowel obstruction. 3. Trace ascites and diffuse mesenteric haziness. Findings reporte d to and acknowledged by Angi NDIAYE on 12/10/2019 at 1:30 AM. Preliminary Report Dictated by Resident: Corey Ames MD., have reviewed this study and agree with the above report. Xr Kub Result Date: 12/10/2019 Enteric tube tip is in the gastric fundus. Preliminary Report Dictated by Reside nt: Corey Ames MD., have reviewed this study and agree wi th the above report. MEDICATIONS Scheduled Medications gabapentin 400 mg BID piperacillin-tazobactam 3.375 g Q6H ABX insulin lispro (human) TID MEALS+HS IV Medications/Drips D5W 0.45% NaCl (1/2NS) + potassium infusion PRN Medications ketorolac 15 mg Q6HPRN morpHINE 2 mg Q3HPRN phenol 1 [place] PRN Patient Active Problem List Diagnosis Lower GI bleed Lower gastrointestinal hemorrhage Mass of colon Acute posthemorrhagic anemia Type 2 diabetes mellitus without complication Essential hypertension Adenocarcinoma of sigmoid colon Anemia Diabetic peripheral neuropathy associated with type 2 diabetes mellitus GI problem Hyperglycemia due to type 2 diabetes mellitus Intermittent claudication of both lower extremities due to atherosclerosis Mixed hyperlipidemia Vertigo SBO (small bowel obstruction) Assessment/ Plan: Lorenzo Nicole Jr. is a 54 year old male with history of sigmoid colon cancer s/p resection in 10/09/2019 complicated by anastomotic leak s/p diverting ileostomy c reation. He underwent transrectal closure of the leak point one day prior to adm ission and presented with crampy abdominal pain and N/V. CT revealed pelvic absc ess as well as small bowel dilation suggestive of SBO. His abdominal pain improved with stool output from ileostomy. Given his need for PO meds, we discontinued NGT and will observe how he progress . May start CLD in the evening if he does not have abdominal distention. Started Lovenox for ppx. Continue with Zosyn with presence of pelvic fluid collection. The patient was discussed with Dr. Levy. Ivonne Cee MD General Surgery Resident PGY3 Associated attestation - Luis Enrique Levy MD - 12/11/2019 11:02 AM CDT After discussion with Dr. Cee, I examined this patient. I agree with gerald wilson's note as written. * Jess Luna RN - 12/10/2019 2:29 PM CDT Care Management Discharge Disposition Note (DCDN) 5-2-1 Interventions: Disease specific education;Intensive medication reconciliat ion/management;Teach back;Clear discharge plan;Follow-up appointments 5-2-1 Providers: Physician;Garbage Pick Up Worker/Mold Worker;Nurse 5-2-1 Patient Capacity Improvements: Avoidance of adverse events/readmission Discharge Plan for ongoing care and services: Home/Caregiver Home Transportation: Private Vehicle( Honey p [phone]) Mental Status: Alert & Oriented to Person,Place & Time Living Arrangement: Home Other living arrangement: Address of living arrangement: [address] [place] [address] Funding Resources: Commercial Nursing informed of discharge plan: Yes Name of RN informed: Expected discharge date: Time: Additional Information: CM/LONG Name & Contact number: Jess Luna RN Ph. [phone] The following information has been provided to the facility noted above: reason for the patient discharge or transfer; patients physical and psychosocial sta tus; summary of care, treatment, services provided to patient; and the patient p rogress toward goals. * Jess Luna RN - 12/10/2019 2:28 PM CDT Care Management Social Functional Assessment Patient Name: Lorenzo Nicole Jr. Age: [age] year old Sex: male 4P Patient's Previous Admission Date at [facility]: 03/05/2019 Current diagnosis and co-morbidities: SBO Readmission Questions: Was patient discharged from any acute care hospital within the last 30 days: No Social Functional Assessment: Primary language spoken/preferred: Turkish Mental Status: Alert & Oriented to Person,Place & Time Information given by: Self Patient's support system: Spouse Name and number of support system: Honey morales [phone] Primary Design Drafter: Self MPOA: No Living Arrangement: Home Address of living arrangement : [address] [place] [address] Persons living in home: Self Barriers to returning home: None Baseline functional status- ambulation: Independent Functional status-baseline personal care: Independent Baseline functional status- driving: Independent Baseline functional status- grocery shopping: Independent Functional status-baseline housekeeping: Independent Functional status-baseline meal prep: Independent Current functional status same as prior: Yes Do you have a PCP?: Yes Name of PCP: Dr. Sloan Home Health Care Agency: No Provider Services: No DME Company: No Equipment: None Hemodialysis: No Community resources utilized: None Funding Resources: Commercial Prescription coverage plan: Commercial Pharmacy where meds are filled: Other Other pharmacy: [facility] [address] [place] Anticipated services prior to disharge: Continue Medical Eval Expected mode of discharge transportation: Personal vehicle;Family Additional info required for discharge planning: Pending medical evaluation;No n eeds identified Recommended discharge plan: Home SFA Complete: Social Functional Assessment complete: Yes Alcohol Use Screening (AUDIT-C) How often do you have a drink containing alcohol?: Never SCORE: 0 Did patient elect to have resources provided: No Role of Care Management explained. Jess Luna RN, BSN, ACM-RN Electronic News Gathering Camera Person, [facility] Care Management O: [phone] F: [phone] documented in this encounter Plan of Treatment Care Team Description Date Type Specialty Radha Sloan MD [address] [place] [address] 01/16/2020 Office Visit Internal Medicine Nick Cisse MD [address] [place] [address] 03/01/2020 Office Visit Ophthalmology Date/Time Name Type Priority Associated Diag noses 12/11/2019 12:04 AM CDT Prepare Packed RBC (in Blood Bank Routine units) Health Maintenance Due Date Last Done Comments [...] Type Area Manufactur er 06/08/2023 [id number] / [id number] / [id number] Port-A-Cath Implanted By Right: Chest ARROW Tomasa INTERNATIJulia Implanted: Qty: 1 on 04/20/2019 by Kalyan Rodriguez MD at [facility] documented as of this encounter Procedures Comments Procedure Name Priority Date/Time Associated Diag nosis POCT GLUCOSE (AUTOMATED) Routine 12/12/2019 12:11 PM CDT POCT GLUCOSE (AUTOMATED) Routine 12/12/2019 8:04 AM CDT POCT GLUCOSE (AUTOMATED) Routine 12/11/2019 7:41 PM CDT POCT GLUCOSE (AUTOMATED) Routine 12/11/2019 5:38 PM CDT POCT GLUCOSE (AUTOMATED) Routine 12/11/2019 12:02 PM CDT POCT GLUCOSE (AUTOMATED) Routine 12/11/2019 7:44 AM CDT CBC WITH DIFFERENTIAL Routine 12/11/2019 6:09 AM CDT CBC WITH DIFFERENTIAL Routine 12/11/2019 6:09 AM CDT BASIC METABOLIC PANEL Routine 12/11/2019 (NA, K, CL, CO2, GLUCOSE, 6:09 AM CDT BUN, CREATININE, CA) POCT GLUCOSE (AUTOMATED) Routine 12/10/2019 8:39 PM CDT POCT GLUCOSE (AUTOMATED) Routine 12/10/2019 7:25 PM CDT POCT GLUCOSE (AUTOMATED) Routine 12/10/2019 4:24 PM CDT URINALYSIS Routine 12/10/2019 Abdominal pain, 1:37 PM CDT unspecified abdominal location POCT GLUCOSE (AUTOMATED) Routine 12/10/2019 12:27 PM CDT POCT GLUCOSE (AUTOMATED) Routine 12/10/2019 7:30 AM CDT JUNE MONOSPECIFIC C3 Routine 12/10/2019 RESULT 6:05 AM CDT JUNE MONOSPECIFIC IGG Routine 12/10/2019 RESULT 6:05 AM CDT JUNE POLYSPECIFIC RESULT Routine 12/10/2019 6:05 AM CDT ELUTION IDENTIFICATION Routine 12/10/2019 6:05 AM CDT PANEL IDENTIFICATION Routine 12/10/2019 6:05 AM CDT CBC WITH DIFFERENTIAL Routine 12/10/2019 6:02 AM CDT CBC WITH DIFFERENTIAL Routine 12/10/2019 6:02 AM CDT BASIC METABOLIC PANEL STAT 12/10/2019 (NA, K, CL, CO2, GLUCOSE, 6:02 AM CDT BUN, CREATININE, CA) LACTIC ACID WHOLE BLOOD STAT 12/10/2019 4:36 AM CDT HB ABO GROUPING STAT 12/10/2019 Abdominal pain , 4:36 AM CDT unspecified abdominal location XR KUB STAT 12/10/2019 Abdominal pain, 4:08 AM CDT unspecified abdominal location CT ABDOMEN PELVIS W STAT 12/10/2019 Abdominal pain, CONTRAST 1:03 AM CDT unspecified abdomin al location COVID-19 (ID NOW RAPID STAT 12/09/2019 Abdomin al pain, TESTING) 11:46 PM CDT unspecified abdomin al location CBC WITH DIFFERENTIAL STAT 12/09/2019 Abdomina l pain, 11:42 PM CDT unspecified abdominal location CBC WITH DIFFERENTIAL Routine 12/09/2019 Abdomina l pain, 11:42 PM CDT unspecified abdominal location COMP. METABOLIC PANEL STAT 12/09/2019 Abdomina l pain, (98277) 11:42 PM CDT unspecified abdomin al location LIPASE STAT 12/09/2019 Abdominal pain, 11:42 PM CDT unspecified abdominal location CONSENT/REFUSAL FOR Routine 12/09/2019 DIAGNOSIS AND TREATMENT 10:01 PM CDT documented in this encounter Results * POCT GLUCOSE (AUTOMATED) (12/12/2019 12:11 PM CDT) POCT GLU 189 (H) 70 - 110 mg/dL [facility] Specimen Blood Performing Organization Address City/State/Zipcode Ph one Number [facility] CLIA: [id number], [address] [place], [place] [address] [facility] * POCT GLUCOSE (AUTOMATED) (12/12/2019 8:04 AM CDT) POCT GLU 122 (H) 70 - 110 mg/dL [facility] Specimen Blood Performing Organization Address [facility] Ph one Number [facility] CLIA: [id number], [address] [place], [place] [address] [facility] * POCT GLUCOSE (AUTOMATED) (12/11/2019 7:41 PM CDT) POCT GLU 127 (H) 70 - 110 mg/dL [facility] Specimen Blood Performing Organization Address [facility] Ph one Number [facility] CLIA: [id number], [address] [place] [address] [facility] * POCT GLUCOSE (AUTOMATED) (12/11/2019 5:38 PM CDT) POCT GLU 178 (H) 70 - 110 mg/dL [facility] Specimen Blood Performing Organization Address [facility] Ph one Number [facility] CLIA: [id number], [address] [place], [place] [address] [facility] * POCT GLUCOSE (AUTOMATED) (12/11/2019 12:02 PM CDT) POCT GLU 181 (H) 70 - 110 mg/dL [facility] Specimen Blood Performing Organization Address [facility] Ph one Number [facility] CLIA: [id number], [address] [place] [address] [facility] * POCT GLUCOSE (AUTOMATED) (12/11/2019 7:44 AM CDT) POCT GLU 171 (H) 70 - 110 mg/dL [facility] Specimen Blood Performing Organization Address [facility] Ph one Number [facility] CLIA: [id number], [address] [place] [address] [facility] * CBC WITH DIFFERENTIAL (12/11/2019 6:09 AM CDT) [facility] Signature WBC 7.28 4.20 - 10.70 [facility] 10*3/L [facility] RBC 3.18 (L) 4.26 - 5.52 10*6/L [facility] HGB 9.1 (L) 12.2 - 16.4 g/dL [facility] HCT 27.8 (L) 38.4 - 49.3 % [facility] MCV 87.4 81.7 - 95.6 fL [facility] MCH 28.6 26.1 - 32.7 pg [facility] MCHC 32.7 31.2 - 35.0 g/dL [facility] RDW-SD 54.1 (H) 38.5 - 51.6 fL [facility] RDW-CV 16.8 (H) 12.1 - 15.4 % [facility] PLT 206 150 - 328 10*3/L [facility] MPV 10.4 9.8 - 13.0 fL [facility] NRBC/100 WBC 0.0 0.0 - 10.0 /100 WBCs [facility] NRBC x10^3 <0.01 10*3/L [facility] GRAN MAT (NEUT) 73.9 % [facility] Y % [facility] IMM GRAN % 0.40 % [facility] LYMPH % 14.6 % [facility] MONO % 10.7 % [facility] EOS % 0.0 % [facility] BASO % 0.4 % [facility] GRAN MAT 5.38 1.99 - 6.95 10*3/uL [facility] x10^3(ANC) [facility] IMM GRAN x10^3 0.03 0.00 - 0.06 10*3/uL [facility] LYMPH x10^3 1.06 (L) 1.09 - 3.23 10*3/uL [facility] MONO x10^3 0.78 0.36 - 1.02 10*3/uL [facility] EOS x10^3 <0.03 (L) 0.06 - 0.53 10*3/uL [facility] BASO x10^3 0.03 0.01 - 0.09 10*3/uL [facility] Specimen Blood - ARM, LEFT Performing Organization Address City/State/Zipcode Ph one Number [facility] CLIA: [id number], [address] [place], [place] [address] [facility] * BASIC METABOLIC PANEL (NA, K, CL, CO2, GLUCOSE, BUN, CREATININE, CA) (12/11/2019 6:09 AM CDT) NA 137 135 - 145 mmol/L [facility] RY [facility] K 3.4 (L) 3.5 - 5.0 mmol/L [facility] R[facility] CL 105 98 - 108 mmol/L [facility] Y [facility] CO2 TOTAL 28 23 - 31 mmol/L [facility] AGAP 4 2 - 16 [facility] BUN 12 7 - 23 mg/dL [facility] GLUCOSE 153 (H) 70 - 110 mg/dL [facility] CREATININE 0.61 0.60 - 1.25 mg/dL [facility] CALCIUM 8.4 (L) 8.6 - 10.6 mg/dL [facility] eGFR 136.7 mL/min/1.73m2 [facility] Calculation [facility] ([facility] [place]) eGFR 165.7 mL/min/1.73m2 [facility] Calculation [facility] ( [facility] [place]) Specimen Blood - ARM, LEFT Narrative Performed At Association of Glomerular Filtration Rate (GFR) and S taging of Kidney Disease* [facility] + + +------ + [facility] | GFR (mL/min/1.73 m2) | With Kidney Damage | [facility] + + -------+ + | >90 | S tage one | Normal + + -------+ + | 60-89 | St age two | Decreased GFR + + -------+ + | 30-59 | St age three | Stage three + + -------+ + | 15-29 | St age four | Stage four + + -------+ + | <15 (or dialysis) | Stage fi ve | Stage five + + -------+ + *Each stage assumes the associated GFR level has been in effect for at least three months. Stages 1 to 5, with or without kidney disease, indicate chronic kidney disease. Notes: Determination of stages one and two (with eGFR >59mL/min/1.73 m2) requires estimation of kidney damage fo r at least three months as defined by structural or functional abnormalities of the kidney, manifested by either: Pathological abnormalities or Markers o f kidney damage (including abnormalities in the composition of the blood or urin e or abnormalities in imaging tests). Performing Organization Address [facility] one Number [facility] CLIA: [id number], [address] [place], [place] [address] [facility] * POCT GLUCOSE (AUTOMATED) (12/10/2019 8:39 PM CDT) POCT GLU 184 (H) 70 - 110 mg/dL [facility] Specimen Blood Performing Organization Address City/[facility] one Number [facility] CLIA: [id number], [address] [place] [address] [facility] * POCT GLUCOSE (AUTOMATED) (12/10/2019 7:25 PM CDT) POCT GLU 189 (H) 70 - 110 mg/dL [facility] Specimen Blood Performing Organization Address [facility] one Number [facility] CLIA: [id number], [address] [place] [address] [facility] * POCT GLUCOSE (AUTOMATED) (12/10/2019 4:24 PM CDT) POCT GLU 206 (H) 70 - 110 mg/dL [facility] Specimen Blood Performing Organization Address [facility] Ph one Number [facility] CLIA: [id number], [address] [place] [address] [facility] * URINALYSIS (12/10/2019 1:37 PM CDT) APPEARANCE Clear Clear [facility] COLOR Yellow Yellow [facility] PH 5.0 4.8 - 8.0 [facility] SP GRAVITY 1.035 (H) 1.003 - 1.030 [facility] GLU U QUAL Normal Normal [facility] BLOOD Negative Negative [facility] KETONES Negative Negative [facility] PROTEIN Negative Negative [facility] UROBILIN Normal Normal [facility] BILIRUBIN Negative Negative [facility] NITRITE Negative Negative [facility] LEUK MATILDE Negative Negative [facility] RBC/HPF 4 (H) 0 - 3 HPF [facility] [facility] WBC/HPF 1 0 - 5 HPF [facility] BACTERIA Negative Negative [facility] HYAL CAST 3 (H) <=2 LPF [facility] Specimen Urine - URINE, CLEAN CATCH Performing Organization Address [facility] Ph one Number [facility] CLIA: [id number], [address] [place] [address] [facility] * POCT GLUCOSE (AUTOMATED) (12/10/2019 12:27 PM CDT) POCT GLU 190 (H) 70 - 110 mg/dL [facility] Specimen Blood Performing Organization Address City/[facility] Ph one Number [facility] CLIA: [id number], [address] [place] [address] [facility] * POCT GLUCOSE (AUTOMATED) (12/10/2019 7:30 AM CDT) POCT GLU 156 (H) 70 - 110 mg/dL [facility] Specimen Blood Performing Organization Address City/State/Zipcode Ph one Number [facility] CLIA: [id number], [address] [place] [address] [facility] * PANEL IDENTIFICATION (12/10/2019 6:05 AM CDT) Pathologist [facility] ANTIBODY ID Undetermined Spec LAB Comment: Antibody of undetermined specificity showing in plasma. Performed at [facility] Laboratory Services [facility] Blood [place] [address] Toll Free: [phone] CLIA No. [id number] Specimen Performing Organization Address City/State/Zipcode Ph one Number [facility] LAB * ELUTION IDENTIFICATION (12/10/2019 6:05 AM CDT) [facility] ANTIBODY ID Negative LAB Comment: [place] non reactive with all cells tested Performed at [facility] Laboratory Services [place] [address] Toll Free: [phone] CLIA No. [id number] Specimen Performing Organization Address City/[facility] Ph one Number D LAB * JUNE MONOSPECIFIC C3 RESULT (12/10/2019 6:05 AM CDT) [facility] JUNE C3 Negative LAB Comment: Performed at [facility] Laboratory Services [facility] Blood [place] [address] Toll Free: [phone] CLIA No. [id number] Specimen Performing Organization Address City/State/Zipcode Ph one Number D LAB * JUNE MONOSPECIFIC IGG RESULT (12/10/2019 6:05 AM CDT) [facility] JUNE IGG Positive 1+ LAB Comment: Performed at [facility] Laboratory Services [facility] Blood [place] [address] Toll Free: [phone] CLIA No. [id number] Specimen Performing Organization Address City/[facility]/Zipcode Ph one Number D LAB * JUNE POLYSPECIFIC RESULT (12/10/2019 6:05 AM CDT) [facility] JUNE POLY Positive 1+ LAB Comment: Performed at [facility] Laboratory Services [facility] Blood [address] [address] Toll Free: [phone] CLIA No. [id number] Specimen Performing Organization Address City/State/Zipcode Ph one Number D LAB * CBC WITH DIFFERENTIAL (12/10/2019 6:02 AM CDT) WBC 7.17 4.20 - 10.70 [facility] 10*3/L [facility] RBC 3.29 (L) 4.26 - 5.52 10*6/L [facility] HGB 9.4 (L) 12.2 - 16.4 g/dL [facility] HCT 29.0 (L) 38.4 - 49.3 % [facility] MCV 88.1 81.7 - 95.6 fL [facility] MCH 28.6 26.1 - 32.7 pg [facility] MCHC 32.4 31.2 - 35.0 g/dL [facility] RDW-SD 58.6 (H) 38.5 - 51.6 fL [facility] RDW-CV 18.0 (H) 12.1 - 15.4 % [facility] PLT 209 150 - 328 10*3/L [facility] MPV 9.9 9.8 - 13.0 fL [facility] NRBC/100 WBC 0.0 0.0 - 10.0 /100 WBCs [facility] NRBC x10^3 <0.01 10*3/L [facility] GRAN MAT (NEUT) 72.3 % [facility] Y % [facility] IMM GRAN % 0.70 % [facility] LYMPH % 14.8 % [facility] MONO % 11.9 % [facility] EOS % 0.0 % [facility] BASO % 0.3 % [facility] GRAN MAT 5.19 1.99 - 6.95 10*3/uL [facility] x10^3(ANC) [facility] IMM GRAN x10^3 0.05 0.00 - 0.06 10*3/uL [facility] LYMPH x10^3 1.06 (L) 1.09 - 3.23 10*3/uL [facility] MONO x10^3 0.85 0.36 - 1.02 10*3/uL [facility] EOS x10^3 <0.03 (L) 0.06 - 0.53 10*3/uL [facility] BASO x10^3 <0.03 0.01 - 0.09 10*3/uL [facility] Specimen Blood - ARM, LEFT Performing Organization Address City/State/Zipcode Ph one Number [facility] CLIA: [id number], [address] [place], [place] [address] [facility] * BASIC METABOLIC PANEL (NA, K, CL, CO2, GLUCOSE, BUN, CREATININE, CA) (12/10/2019 6:02 AM CDT) NA 136 135 - 145 mmol/L [facility] K 3.5 3.5 - 5.0 mmol/L [facility] CL 104 98 - 108 mmol/L [facility] CO2 TOTAL 28 23 - 31 mmol/L [facility] AGAP 4 2 - 16 [facility] BUN 25 (H) 7 - 23 mg/dL [facility] GLUCOSE 128 (H) 70 - 110 mg/dL [facility] CREATININE 0.69 0.60 - 1.25 mg/dL [facility]AT [facility] CALCIUM 8.6 8.6 - 10.6 mg/dL [facility] eGFR 118.6 mL/min/1.73m2 [facility] Calculation [facility] ([facility]) eGFR 143.8 mL/min/1.73m2 [facility] Calculation [facility]) Specimen Blood - ARM, LEFT Narrative Performed At Association of Glomerular Filtration Rate (GFR) and S taging of Kidney Disease* [facility] + + +------ + [facility] | GFR (mL/min/1.73 m2) | With Kidney Damage | [facility] Damage [place] + + -------+ + | >90 | S tage one | Normal + + -------+ + | 60-89 | St age two | Decreased GFR + + -------+ + | 30-59 | St age three | Stage three + + -------+ + | 15-29 | St age four | Stage four + + -------+ + | <15 (or dialysis) | Stage fi ve | Stage five + + -------+ + *Each stage assumes the associated GFR level has been in effect for at least three months. Stages 1 to 5, with or without kidney disease, indicate chronic kidney disease. Notes: Determination of stages one and two (with eGFR >59mL/min/1.73 m2) requires estimation of kidney damage fo r at least three months as defined by structural or functional abnormalities of the kidney, manifested by either: Pathological abnormalities or Markers o f kidney damage (including abnormalities in the composition of the blood or urin e or abnormalities in imaging tests). Performing Organization Address City/[facility] Ph one Number [facility] CLIA: [id number], [facility] [place], [place] [address] [facility] * Lactic Acid Whole Blood (12/10/2019 4:36 AM CDT) LACTIC ACID 1.31 0.50 - 2.20 mmol/L [facility] Specimen Blood - ARM, LEFT Performing Organization Address [facility] Ph one Number [facility] CLIA: [id number], [facility] [place], [place] [address] [facility] * Type and Screen - ONCE STAT (12/10/2019 4:36 AM CDT) ABO & RH O Positive LAB Comment: Performed at [facility] Laboratory Services - [facility] Blood Bank [address] [place] [address] Toll Free: [phone] CLIA No. [id number] IAT Positive LAB Comment: Performed at [facility] Laboratory Services - [facility] Blood Bank [address], [place], [place] [address] Toll Free: [phone] CLIA No. [id number] Specimen Blood - VENOUS Performing Organization Address City/[facility] Ph one Number BLD LAB * XR KUB (12/10/2019 4:08 AM CDT) Specimen Impressions Performed At Enteric tube tip is in the gastric fundus. PACS/VR/D OSE Preliminary Report Dictated by Resident : Corey Ames MD., have reviewed this study and agree with the above report. Narrative Performed At EXAM: XR KUB PACS/VR/DOSE HISTORY: NGT placement COMPARISON: CT abdomen pelvis 12/10/2019 FINDINGS: The enteric tube terminates over the ga stric fundus. Residual contrast material seen through out the transverse and left colon. Dilated gas-filled loops of small bowel are reidentified. Procedure Note [facility], Radiant Results Inft User - 12/10/2019 9:22 AM CDT EXAM: XR KUB HISTORY: NGT placement COMPARISON: CT abdomen pelvis 12/10/2019 FINDINGS: The enteric tube terminates over the gastric fundus. Residual contrast material seen throughout the transverse and left colon. Dilated gas-filled loops of small bowel are reidentified. IMPRESSION Enteric tube tip is in the gastric fundus. Preliminary Report Dictated by Resident: Corey Ames MD., have reviewed this study and agree with the above report. Performing Organization Address City/[facility] Ph one Number PACS/VR/DOSE * CT ABDOMEN PELVIS W CONTRAST (12/10/2019 1:03 AM CDT) Specimen Impressions Performed At Suboptimal evaluation due to contrast material placed through the right PACS/VR/DOSE lower quadrant colostomy. 1. Suspected distal right rectal perf oration with extraluminal free gas and contrast. 2. Diffusely dilated small bowel. Alt sintia a discrete transition point is not detected, much of the right abdomen is obscured due to artifact. Distal small bowel is decompressed which favor s high-grade small bowel obstruction. 3. Trace ascites and diffuse mesenter ic haziness. Findings reported to and acknowledged fabio Whitley RN on 12/10/2019 at 1:30 AM. Preliminary Report Dictated by Resident : Bassem Merino I, Corey Hilario MD., have reviewed this study and agree with the above report. Narrative Performed At EXAM: CT ABDOMEN/PELVIS WITH CONTRAST PACS/VR/DOSE HISTORY: Bowel obstruction, high-grad e has colostomy to right side COMPARISON: CT abdomen pelvis 03/06/2019 DOSE: 583.1 mGycm TECHNIQUE AND FINDINGS: Contiguous axia l imaging from the level of the lung bases through the pubic symphysis was p erformed after the uncomplicated administration of 100 cc of intravenous Omnipaque contrast. Coronal and sagittal reconstructions were obtained. Auto mA and/or iterative reconstruction were used to reduce radi ation dose. FINDINGS: LOWER THORAX: The lungs bases are clear . No cardiomegaly. LIVER: No focal hepatic lesions. Norm al contour. GALLBLADDER AND BILIARY TREE: No biliar y ductal dilation. No gallbladder wall thickening. SPLEEN: No splenomegaly. PANCREAS: No ductal dilation or masses. ADRENAL GLANDS: No adrenal nodules. KIDNEYS: No hydronephrosis, stones, or masses. PERITONEUM AND RETROPERITONEUM: Trace a scites and diffuse mesenteric haziness. Trace free air in the right pelvis with extraluminal contrast material surrounded by soft tissue thickening an d moderate inflammatory stranding which appears to arise from the distal right rectum. LYMPH NODES: No lymphadenopathy. GI TRACT: Small sliding hiatal hernia. Right lower quadrant colostomy. Dense contrast material throughout the large bowel which mostly obscures the right abdomen. Diffusely dilated small bowel filled wi th fluid and feculent material with mild wall thickening. No transition poi nt is visualized, but distal small bowel is decompressed. The transition p oint may be in the right lower quadrant; however, evaluation is limite d due to streak artifact from the dense contrast in the colon. PELVIS/BLADDER: Unremarkable. VESSELS: Unremarkable. BONES AND SOFT TISSUES: No suspicious l ytic or sclerotic bony lesions. Healed right rib fractures. Transitiona l lumbosacral anatomy. Procedure Note [facility], Radiant Results Inft User - 12/10/2019 9:12 AM CDT EXAM: CT ABDOMEN/PELVIS WITH CONTRAST HISTORY: Bowel obstruction, high-grade has colostomy to right side COMPARISON: CT abdomen pelvis 03/06/2019 DOSE: 583.1 mGycm TECHNIQUE AND FINDINGS: Contiguous axial imaging from the level of the lung bases through the pubic symphysis was performed after the uncomplicated administration of 100 cc of intravenous Omnipaque contrast. Coronal and [...] hydronephrosis, stones, or masses. PERITONEUM AND RETROPERITONEUM: Trace ascites and diffuse mesenteric haziness. Trace free air in the right pelvis with extraluminal contrast material surrounded by soft tissue thickening and moderate inflammatory stranding which appears to arise from the distal right rectum. LYMPH NODES: No lymphadenopathy. GI TRACT: Small sliding hiatal hernia. Right lower quadrant colostomy. Dense contrast material throughout the large bowel which mostly obscures the right abdomen. Diffusely dilated small bowel filled with fluid and feculent material with mild wall thickening. No transition point is visualized, but distal small bowel is decompressed. The transition point may be in the right lower quadrant; however, evaluation is limited due to streak artifact from the dense contrast in the colon. PELVIS/BLADDER: Unremarkable. VESSELS: Unremarkable. BONES AND SOFT TISSUES: No suspicious lytic or sclerotic bony lesions. Healed right rib fractures. Transitional lumbosacral anatomy. IMPRESSION Suboptimal evaluation due to contrast material placed through the right lower quadrant colostomy. 1. Suspected distal right rectal perfor ation with extraluminal free gas and contrast. 2. Diffusely dilated small bowel. Altho ugh a discrete transition point is not detected, much of the right abdomen is obscured due to artifact. Distal small bowel is decompressed which favors high-grade small bowel obstruction. 3. Trace ascites and diffuse mesenteric haziness. Findings reported to and acknowledged by Angi NDIAYE on 12/10/2019 at 1:30 AM. Preliminary Report Dictated by Resident: Bassem Merino I, Corey Hilario MD., have reviewed this study and agree with the above report. Performing Organization Address City/State/Zipcode Ph one Number PACS/VR/DOSE * COVID-19 (ID NOW RAPID TESTING) (12/09/2019 11:46 PM CDT) SARS-CoV-2 Not Detected Not Detected [facility] Rapid ID NOW [facility] Specimen Swab - NASOPHARYNGEAL SWAB Narrative Performed At [facility] COVID-19 Assay is an isothermal nucleic acid amplification test intended [facility] for the qualitative detection of nucleic acid from SA RS-CoV-2 viral RNA in [facility] nasopharyngeal (SURGICAL CONSULTANT) specimens. It is used under Emerg ency Use Authorization CAMPUS (EUA) by FDA. The limit of detection (L OD) of the assay is 125 Genome Equivalents/mL. A positive result is indicative of the presence of SARS-CoV-2 RNA. Clinical correlation with patient history and ot her diagnostic information is necessary to determine patient infection status. A negative (Not Detected) result does n ot preclude SARS-CoV-2 infection. In patients with clinical symptoms and oth er tests that are consistent with SARS-CoV-2 infection, negative results should be treated as presumptive negative and a new specimen should be tested wit h alternative PCR molecular test. Invalid: Please collect a new specimen for repeat patient testing if clinically indicated. Performing Organization Address City/[facility]ode Ph one Number [facility] CLIA: [id number], [address] [place], [place] [address] [facility] * CBC WITH DIFFERENTIAL (12/09/2019 11:42 PM CDT) [facility] WBC 9.74 4.20 - 10.70 [facility] 10*3/L [facility] RBC 4.20 (L) 4.26 - 5.52 10*6/L [facility] HGB 12.0 (L) 12.2 - 16.4 g/dL [facility] HCT 37.2 (L) 38.4 - 49.3 % [facility] MCV 88.6 81.7 - 95.6 fL [facility] MCH 28.6 26.1 - 32.7 pg [facility] MCHC 32.3 31.2 - 35.0 g/dL [facility] RDW-SD 58.3 (H) 38.5 - 51.6 fL [facility] RDW-CV 17.9 (H) 12.1 - 15.4 % [facility] PLT 262 150 - 328 10*3/L [facility] MPV 10.0 9.8 - 13.0 fL [facility] NRBC/100 WBC 0.0 0.0 - 10.0 /100 WBCs [facility] NRBC x10^3 <0.01 10*3/L [facility] GRAN MAT (NEUT) 82.9 % [facility] Y % [facility] IMM GRAN % 0.50 % [facility] LYMPH % 7.8 % [facility] MONO % 8.6 % [facility] EOS % 0.0 % [facility] BASO % 0.2 % [facility] GRAN MAT 8.07 (H) 1.99 - 6.95 10*3/uL [facility] x10^3(ANC) [facility] IMM GRAN x10^3 0.05 0.00 - 0.06 10*3/uL [facility] LYMPH x10^3 0.76 (L) 1.09 - 3.23 10*3/uL [facility] MONO x10^3 0.84 0.36 - 1.02 10*3/uL [facility] EOS x10^3 <0.03 (L) 0.06 - 0.53 10*3/uL [facility] BASO x10^3 <0.03 0.01 - 0.09 10*3/uL [facility] Specimen Blood - VENOUS Performing Organization Address City/State/Zipcode Ph one Number [facility] CLIA: [id number], [address] [place], [place] [address] [facility] * LIPASE (12/09/2019 11:42 PM CDT) LIPASE 231 (H) 0 - 220 U/L [facility] Specimen Blood - VENOUS Performing Organization Address City/State/Zipcode Ph one Number [facility] CLIA: [id number], [address] [place], [place] [address] [facility] * COMP. METABOLIC PANEL (44595) (12/09/2019 11:42 PM CDT) NA 137 135 - 145 mmol/L [facility] K 4.1 3.5 - 5.0 mmol/L [facility] CL 101 98 - 108 mmol/L [facility] CO2 TOTAL 28 23 - 31 mmol/L [facility] AGAP 8 2 - 16 [facility] BUN 29 (H) 7 - 23 mg/dL [facility] GLUCOSE 182 (H) 70 - 110 mg/dL [facility] CREATININE 0.80 0.60 - 1.25 mg/dL [facility] TOTAL BILI 0.5 0.1 - 1.1 mg/dL [facility] CALCIUM 9.6 8.6 - 10.6 mg/dL [facility] T PROTEIN 8.2 6.3 - 8.2 g/dL [facility] ALBUMIN 4.1 3.5 - 5.0 g/dL [facility] ALK PHOS 140 (H) 34 - 122 U/L [facility] ALTv 15 5 - 50 U/L [facility] AST(SGOT) 21 13 - 40 U/L [facility] eGFR 100.0 mL/min/1.73m2 [facility] Calculation [facility] [place] eGFR 121.2 mL/min/1.73m2 [facility] Calculation [facility] ( [facility] [place]) Specimen Blood - VENOUS Narrative Performed At Association of Glomerular Filtration Rate (GFR) and S taging of Kidney Disease* [facility] + + +------ + [facility] | GFR (mL/min/1.73 m2) | With Kidney Damage | [facility] + + -------+ + | >90 | S tage one | Normal + + -------+ + | 60-89 | St age two | Decreased GFR + + -------+ + | 30-59 | St age three | Stage three + + -------+ + | 15-29 | St age four | Stage four + + -------+ + | <15 (or dialysis) | Stage fi ve | Stage five + + -------+ + *Each stage assumes the associated GFR level has been in effect for at least three months. Stages 1 to 5, with or without kidney disease, indicate chronic kidney disease. Notes: Determination of stages one and two (with eGFR >59mL/min/1.73 m2) requires estimation of kidney damage fo r at least three months as defined by structural or functional abnormalities of the kidney, manifested by either: Pathological abnormalities or Markers o f kidney damage (including abnormalities in the composition of the blood or urin e or abnormalities in imaging tests). Performing Organization Address City/State/Zipcode Ph one Number [facility] CLIA: [id number], [address] [place], [place] [address] [facility] documented in this encounter Visit Diagnoses Diagnosis Abdominal pain, unspecified abdominal l ocation - Primary SBO (small bowel obstruction) Unspecified intestinal obstruction documented in this encounter Administered Medications Action Date Dose Rate Site Medication Order MAR Action 12/11/2019 10:31 AM CDT 40 mg Abdomen- SC enoxaparin (LOVENOX) injection 40 mg Given 40 mg, Subcutaneous, Q24H, First dose o n 12/11/19 at 1115, Until Discontinued , Routine 12/12/2019 8:53 AM CDT 400 mg gabapentin (NEURONTIN) capsule 400 mg Given 400 mg, Oral, BID, First dose on 12/11/19 at 0845, Until Discontinued, Routine 400 mg Given 12/11/2019 9:14 PM CDT 400 mg Given 12/11/2019 8:51 AM CDT 12/12/2019 3:21 AM CDT 125 mL/hr KCL (POTASSIUM CHLORIDE) 10 mEq in D5W New Bag 0.45% NaCl (1/2NS) 1,000 mL IV Solution IV Infusion, CONTINUOUS, Starting 12/11/19 at 0930, Until Discontinued, 1,000 mL, at 125 mL/hr 125 mL/hr New Bag 12/11/2019 12:21 PM CDT 125 mL/hr Rate Change 12/11/2019 10:31 AM CDT 12/11/2019 4:05 AM CDT 15 mg ketorolac (TORADOL) injection 15 mg Given 15 mg, Slow IV Push, Q6HPRN, 4 doses, Starting 12/10/19 at 1755, Until Discontinued, Routine, Pain (scale 4-6) , 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 Restricted medication: LUIS ENRIQUE LEVY 15 mg Given 12/10/2019 8:46 PM CDT 12/12/2019 3:21 AM CDT 2 mg morpHINE injection 2 mg Given 2 mg, Slow IV Push, Q3HPRN, Starting Sa t 12/10/19 at 0423, Until Discontinued, Routine, Pain (scale 7-10) 2 mg Given 12/11/2019 10:29 AM CDT 2 mg Given 12/11/2019 12:49 AM CDT 12/10/2019 5:37 PM CDT 1 [place] phenol (SORE THROAT (PHENOL)) 1.4 % Given spray bottle 1 [place] 1 [place], Oral, PRN, Starting Sat 0 at 1603, Until Discontinued, Routine, Sore throat 12/12/2019 10:25 AM CDT 3.375 g piperacillin-tazobactam (ZOSYN) 3.375 Given gram/50 mL Piggyback RTU 3.375 g 3.375 g, IV Piggyback, Q6H ABX, First dose on 12/10/19 at 1000, Until Discontinued, 50 mL, Reason for Anti-Infective: Documented Infection, Documented Infection Site: Abdominal, Duration of Therapy: 10 days 3.375 g Given 12/12/2019 3:27 AM CDT 3.375 g Given 12/11/2019 10:06 PM CDT 12/12/2019 12:49 PM CDT 1 Units Abdomen- SC Sliding Scale Insulin - Lispro (HumaLOG) Given + Fsbg Testing Subcutaneous, TID MEALS+HS, First dose on 12/10/19 at 0800, Until Discontinued, Routine 1 Units Left Upper Arm-SC Given 12/10/2019 7:31 PM CDT Action Date Dose Rate Site Medication Order MAR Action 12/10/2019 3:18 AM CDT 50 mcg FENTanyl PF (SUBLIMAZE (PF)) injection Given 50 mcg 50 mcg, Slow IV Push, Q30MIN PRN, 3 doses, Starting 12/10/19 at 0315, Until 12/10/19 at 0423, EMILIA, Pain (scale 7-10) 12/10/2019 12:59 AM CDT 100 mL iohexol (OMNIPAQUE 350 BULK-100 mL) Given injection 100 mL 100 mL, Intravenous, ONCE, 1 dose, 12/10/19 at 0115, Routine 12/11/2019 5:08 AM CDT 150 mL/hr KCL (POTASSIUM CHLORIDE) 10 mEq in D5W New Bag 0.45% NaCl (1/2NS) 1,000 mL IV Solution IV Infusion, CONTINUOUS, Starting 12/10/19 at 0500, Until 12/11/19 at 0927, 1,000 mL, at 150 mL/hr 150 mL/hr New Bag 12/10/2019 9:00 PM CDT 150 mL/hr New Bag 12/10/2019 1:36 PM CDT 12/10/2019 3:20 AM CDT 1,000 mL 999 mL/hr lactated ringers IV infusion 1,000 mL New Bag at 999 mL/hr, 1,000 mL, Intravenous, ONCE, 1 dose, 12/10/19 at 0400, Routine 12/10/2019 4:36 AM CDT 1,000 mL 999 mL/hr lactated ringers IV infusion 1,000 mL New Bag at 999 mL/hr, 1,000 mL, Intravenous, ONCE, 1 dose, 12/10/19 at 0530, Routine 12/09/2019 11:49 PM CDT 4 mg morpHINE injection 4 mg Given 4 mg, Slow IV Push, ONCE, 1 dose, 12/10/19 at 0045, STAT 12/09/2019 11:48 PM CDT 4 mg ondansetron (ZOFRAN (PF)) injection 4 mg Given 4 mg, Slow IV Push, ONCE, 1 dose, 12/10/19 at 0045, EMILIA 12/10/2019 2:42 AM CDT 3.375 g piperacillin-tazobactam (ZOSYN) 3.375 Given gram/50 mL Piggyback RTU 3.375 g 3.375 g, IV Piggyback, ONCE, 1 dose, Sa t 12/10/19 at 0330, 50 mL, Reason for Anti-Infective: Documented Infection, Documented Infection Site: Abdominal, Duration of Therapy: 7 days documented in this encounter Insurance Type Payer Benefit Subscriber ID Effective Phone Address Plan / Dates Group PPO/POS BCBS OF [facility] BCBS OF [id number] 2019- P EMPLOYEE [place] [employer] EMPLOYEE PLAN [phone] documented as of this encounter
--- OUTSIDE RECORDS SUMMARY | 2020-02-17 19:18 | XMS REPORT | Summary of Care ---
Author Author [facility] - Health Organization [facility] - Health Address Unknown Phone Unavailable Care Team Providers Care Wheel And Pinion Inspector Name Role Phone Radha Sloan MD PCP [phone] Reason for Visit * Reason Comments Refill Request gabapentin 400 mg cap Encounter Details Care Team Description Date Type Department Radha Sloan MD [address] [place] [id number] Refill Request (gabapentin 400 mg cap) 01/25/2020 Refill [facility]-[address] [id number] Allergies No Known Allergiesdocumented as of this encounter (statuses as of 01/27/2020) Medications End Date Status Medication Sig Dispensed [...] as of this encounter (statuses as of 01/27/2020) Active Problems Problem Noted Date SBO (small bowel obstruction) 12/10/2019 History of colonic polyps 08/26/2019 Overview: Added automatically from request for house [email or web address] [id number] 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 p filiperam Financial Resource Strain Answer Date Recorde d [...] Description Date Type Specialty Nick Cisse MD [address] [place] [id number] 03/01/2020 Office Visit Ophthalmology Health Maintenance [...] Type Area Manufactur er 06/08/2023 [id number] / [id number] / [id number] Port-A-Cath Implanted By Right: Chest ARROW Tomasa INTERNATIO Implanted: Qty: 1 on 04/20/2019 by Kalyan Rodriguez MD at [facility] documented as of this encounter Results Not on filedocumented in this encounter Insurance Type Payer Benefit Subscriber ID Effective Phone Address Plan / Dates Group PPO/POS BCBS OF [facility] BCBS OF [id number] 2019- P EMPLOYEE [place] [employer] EMPLOYEE PLAN [employer] [facility] SUPERIOR [id number] 2019-P [address] [employer] [address] [place] [address] documented as of this encounter
== END 2020-02-16 13:06 | disposition home or self-care (01) | DRG 331 ==
LOC: OR 10:31 → PACU V 13:49 → MED/SURG 16:21
PROVIDERS: ADMIT Surgery; ATTEND Surgery
PROC: 0DSN0ZZ Reposition Sigmoid Colon, Open Approach (ICD-10-PCS; 2020-02-14)
PROC: 0DBE0ZZ Excision of Large Intestine, Open Approach (ICD-10-PCS; principal; 2020-02-14 12:31)
DX: Z43.3 Encounter for attention to colostomy (principal); E11.9 Type 2 diabetes mellitus without complications; I10 Essential (primary) hypertension; R11.0 Nausea; K59.00 Constipation, unspecified; Z11.59 Encounter for screening for other viral diseases
CPT/HCPCS: 36415; 80048; 82948; 85025; 88304; 88307; 93005; J1100; J1170; J1642; J2001; J2270; J2405; J2765; J3010; J7030; U0002